=== PATIENT | female | born 1955 | race Caucasian/White ===

== ENCOUNTER → 2020-10-18 09:01 | Outpatient (CLI) | payer OTHER, SELFPAY ==
[2020-10-18 10:44] LABS: Alanine Aminotransferase 18 IU/L (<35); Albumin 4.1 g/dL (3.5-5.0); Albumin Globulin Ratio 1.5 (1.0-2.8); Alkaline Phosphatase 79 U/L (38-126); Aspartate Aminotransferase 22 IU/L (14-36); BUN Creatinine Ratio 37.3 (6-22); Bilirubin Total 0.3 mg/dL (0.2-1.3); Blood Urea Nitrogen 22 mg/dL (7-17); Calcium 9.5 mg/dL (8.4-10.2); Carbon Dioxide 26 mmol/L (22-32); Chloride 106 mmol/L (98-107); Cholesterol 155 mg/dL (140-199); Estimated Glomerular Filt Rate > 60.0 mL/min (>60); Globulin 2.8 g/dL (1.7-4.1); Glucose 93 mg/dL (80-110); HDL Cholesterol 61 mg/dL (40-60); HEMOLYSIS < 15 (0-50); LDL Cholesterol Calculated 71 mg/dL (<100); Potassium 4.1 mmol/L (3.4-5.1); Sodium 139 mmol/L (137-145); Total Protein 6.9 g/dL (6.3-8.2); Triglycerides 117 mg/dL (35-150)
[2020-10-18 10:46] LABS: Hemoglobin A1C% w Est Avg Glu 6.8 % (4.0-6.0)
[2020-10-18 12:03] LABS: TSH w/ Reflex to FT4 0.02 uIU/mL (0.47-4.68)
[2020-10-18 12:28] LABS: Free T4, Direct Thyroxine 1.84 ng/dL (0.78-2.19)
[2020-10-18 17:10] LABS: Microalbumin Urine Random 0.7 mg/dL (0-1.6)
[2020-10-18 17:15] LABS: Creatinine Urine Random 89.7 mg/dL; Microalbumi Creatinin Ratio Ur 7.8 ug/mg CR (<30)
== END ==
PROVIDERS: PCP Family Medicine; Referring Provider Family Medicine; Visit Provider Family Medicine
DX: E03.9 Hypothyroidism, unspecified (principal); E11.9 Type 2 diabetes mellitus without complications
CPT/HCPCS: 36415; 80053; 80061; 82043; 82570; 83036; 84439; 84443

== ENCOUNTER → 2021-01-05 13:03 | Outpatient (CLI) | payer OTHER, SELFPAY ==
[2021-01-05] MEDS: COVID-19 VACC #1, MRNA(MOD) 100 MCG/0.5 ML VIAL IM (13:14)
== END ==
PROVIDERS: PCP Family Medicine; Visit Provider Internal Medicine
DX: Z23 Encounter for immunization (principal)
CPT/HCPCS: 0011A; 91301

== ENCOUNTER → 2021-02-02 10:45 | Outpatient (CLI) | payer OTHER, SELFPAY ==
[2021-02-02] MEDS: COVID-19 VACC #2, MRNA(MOD) 100 MCG/0.5 ML VIAL IM (10:51)
== END ==
PROVIDERS: PCP Family Medicine; Visit Provider Internal Medicine
DX: Z23 Encounter for immunization (principal)
CPT/HCPCS: 0012A; 91301

== ENCOUNTER → 2021-02-11 09:09 | Outpatient (CLI) | payer OTHER, SELFPAY ==
[2021-02-11 10:27] LABS: Hemoglobin A1C% w Est Avg Glu 6.1 % (4.0-6.0)
== END ==
PROVIDERS: PCP Family Medicine; Referring Provider Family Medicine; Visit Provider Family Medicine
DX: E11.9 Type 2 diabetes mellitus without complications (principal)
CPT/HCPCS: 36415; 83036

== ENCOUNTER → 2021-04-27 17:06 | Outpatient (CLI) | payer OTHER, SELFPAY ==
--- NOTE | 2021-04-27 17:08 | DI.RAD.S_ITS ---
PROCEDURE: XR CERVICAL SPINE 2V OR 3V INDICATIONS: neck pain TECHNIQUE: 3 view(s) of the cervical spine were acquired. COMPARISON: None. FINDINGS: Bones: No fractures or dislocations to the T1 level. The lateral masses of C1 appear intact on the odontoid view. No suspicious bony lesions. There is moderately severe degenerative disc disease from C5-6 through C6-7. Soft tissues: No prevertebral soft tissue swelling. IMPRESSION: No trauma found. Moderately severe C5 through C7 degenerative disc disease with anterior and posterior projecting osteophytes. Spinal and foraminal stenosis may be associated. Dictated by: Dennis Fernandes M.D. on 04/28/2021 at 9:53 Approved by: Dennis Fernandes M.D. on 04/28/2021 at 9:54
== END ==
PROVIDERS: PCP Family Medicine; Referring Provider Family Medicine; Visit Provider Family Medicine
DX: M50.322 Other cervical disc degeneration at C5-C6 level (principal); S16.1XXA Strain of muscle, fascia and tendon at neck level, initial encounter
CPT/HCPCS: 72040

== ENCOUNTER → 2021-05-22 14:54 | Outpatient (CLI) | payer OTHER, SELFPAY ==
[2021-05-22 16:58] LABS: Hemoglobin A1C% w Est Avg Glu 6.4 % (4.0-6.0)
== END ==
PROVIDERS: PCP Family Medicine; Referring Provider Family Medicine; Visit Provider Family Medicine
DX: E11.9 Type 2 diabetes mellitus without complications (principal)
CPT/HCPCS: 36415; 83036

== ENCOUNTER → 2021-06-01 08:23 | Outpatient (CLI) | payer OTHER, SELFPAY ==
[2021-06-01 08:44] LABS: Add Manual Diff / Slide Review NO; Basophils Absolute Auto 100 /uL (0-100); Basophils Percent Auto 0.8 % (0-2); Eosinophils Absolute Auto 700 /uL (0-450); Eosinophils Percent Auto 9.1 % (2-4); Hematocrit 41.3 % (36-46); Hemoglobin 13.5 g/dL (12.0-16.0); Lymphocytes Absolute Auto 1500 /uL (1100-4500); Lymphocytes Percent Auto 19.5 % (25-40); Mean Corpuscular HGB Conc 32.8 % (30-36); Mean Corpuscular Hemoglobin 28.4 PG (26-34); Mean Corpuscular Volume 86.5 fL (80-100); Monocytes Absolute Auto 600 /uL (0-900); Monocytes Percent Auto 7.2 % (3-14); Neutrophils Absolute Auto 5000 /uL (1500-7000); Neutrophils Percent Auto 63.4 % (50-75); Platelet Count 283 X10^3/uL (150-400); Red Blood Cell Count 4.77 X10^6/uL (4.0-5.2); Red Cell Distribution Width 16.2 % (11.6-14.8); White Blood Cell Count 7.9 X10^3/uL (4.5-11.0)
[2021-06-01 08:56] LABS: Alanine Aminotransferase 21 IU/L (<35); Albumin 3.9 g/dL (3.5-5.0); Albumin Globulin Ratio 1.3 (1.0-2.8); Alkaline Phosphatase 67 U/L (38-126); Aspartate Aminotransferase 27 IU/L (14-36); Bilirubin Total 0.3 mg/dL (0.2-1.3); Blood Urea Nitrogen 24 mg/dL (7-17); Calcium 9.7 mg/dL (8.4-10.2); Carbon Dioxide 24 mmol/L (22-32); Chloride 110 mmol/L (98-107); Cholesterol 155 mg/dL (140-199); Estimated Glomerular Filt Rate > 60.0 mL/min (>60); Globulin 3.1 g/dL (1.7-4.1); Glucose 109 mg/dL (80-110); HDL Cholesterol 69 mg/dL (40-60); HEMOLYSIS < 15 (0-50); LDL Cholesterol Calculated 71 mg/dL (<100); Potassium 4.1 mmol/L (3.4-5.1); Sodium 142 mmol/L (137-145); Triglycerides 75 mg/dL (35-150)
[2021-06-01 08:57] LABS: Hemoglobin A1C% w Est Avg Glu 6.4 % (4.0-6.0)
[2021-06-09 10:42] LABS: Percent Free Testosterone 3.13 % (0.50-2.80); Testosterone Free 0.55 ng/dL (0.10-0.85); Testosterone Total 17.5 ng/dL (7.0-40.0)
== END ==
PROVIDERS: PCP Family Medicine; Referring Provider Family Medicine; Visit Provider Family Medicine
DX: E03.9 Hypothyroidism, unspecified (principal); E11.9 Type 2 diabetes mellitus without complications; E78.5 Hyperlipidemia, unspecified; L68.0 Hirsutism
CPT/HCPCS: 36415; 80053; 80061; 83036; 84402; 84403; 85025

== ENCOUNTER → 2021-06-06 10:53 | Outpatient (CLI) | payer OTHER, SELFPAY ==
--- NOTE | 2021-06-06 10:54 | DI.CT.S_ITS ---
PROCEDURE: CT ABDOMEN PELVIS W CON INDICATIONS: abdominal discomfort, distension TECHNIQUE: After the administration of oral and intravenous contrast, axial sections were acquired from the lung bases to the pubic symphysis. Coronal and sagittal reformats were performed. For radiation dose reduction, the following was used: automated exposure control, adjustment of mA and/or kV according to patient size. COMPARISON:None. FINDINGS: Image quality: Excellent. Lung bases: Lung bases are clear. Heart size is normal. Solid organs: Liver: The liver has no mass or intrahepatic biliary ductal dilatation. The portal vein and hepatic veins are patent. Biliary: The gallbladder has no gallstones, pericholecystic fluid, gallbladder wall thickening, or surrounding inflammatory change. Pancreas: The pancreas has no mass or ductal dilatation. There is no surrounding inflammation. Spleen: Normal size. There are no masses. Adrenals: No hypertrophy or nodules. Kidneys: No obstructive calculus or hydronephrosis. No solid mass. No cystic mass. Peritoneum and bowel: The distal esophagus and stomach are normal. The small bowel has a normal caliber and appearance. The terminal ileum is normal. The large bowel has a normal caliber and appearance. The appendix is normal. No free fluid or air. Nodes and vessels: No retroperitoneal or mesenteric adenopathy by size criteria. Aorta and inferior vena cava are normal in size. Miscellaneous: No abdominal wall mass or hernia. PELVIS: Genitourinary: The bladder has no wall thickening or mass. No bladder calcifications. Miscellaneous: No inguinal hernias or adenopathy. Bones: No suspicious bony lesions. No vertebral body compression fractures. IMPRESSION: No acute abdominal or pelvic abnormality. Dictated by: Francisco Russell M.D. on 06/06/2021 at 18:48 Approved by: Francisco Russell M.D. on 06/06/2021 at 18:53
== END ==
PROVIDERS: PCP Family Medicine; Referring Provider Family Medicine; Visit Provider Family Medicine
DX: R10.9 Unspecified abdominal pain (principal); R14.0 Abdominal distension (gaseous)
CPT/HCPCS: 74177

== ENCOUNTER → 2021-06-13 15:37 | Outpatient (CLI) | payer OTHER, SELFPAY ==
--- NOTE | 2021-06-13 15:40 | DI.MG.S_ITS ---
BILATERAL DIGITAL SCREENING MAMMOGRAM 3D/2D WITH CAD: 06/13/2021 CLINICAL: Routine screening. Family history of breast cancer. Comparison is made to exams dated: 03/27/2019 mammogram, 02/05/2018 mammogram, 03/29/2015 mammogram, and 03/17/2015 mammogram - outside location. There are scattered fibroglandular elements in both breasts. Current study was also evaluated with a Computer Aided Detection (CAD) system. No significant masses, calcifications, or other findings are seen in either breast. There has been no significant interval change. IMPRESSION: NEGATIVE There is no mammographic evidence of malignancy. A 1 year screening mammogram is recommended. This exam was interpreted at Station ID: [id number]. NOTE: For mammograms, a report in lay terms will be sent to the patient. Approximately 15% of breast malignancies will not be visualized mammographically. In the management of a palpable breast mass, a negative mammogram must not discourage biopsy of a clinically suspicious lesion. Electronically Signed By: Tristen barrett/luis:06/13/2021 16:09:35 letter sent: Normal Exam ACR BI-RADS Category 1: Negative [id number]
== END ==
PROVIDERS: PCP Family Medicine; Referring Provider Family Medicine; Visit Provider Family Medicine
DX: Z12.31 Encounter for screening mammogram for malignant neoplasm of breast (principal); Z80.3 Family history of malignant neoplasm of breast
CPT/HCPCS: 77063; 77067

== ENCOUNTER → 2021-06-20 11:35 | Outpatient (CLI) | payer OTHER, SELFPAY ==
[2021-06-20 14:11] LABS: Free T4, Direct Thyroxine 1.64 ng/dL (0.78-2.19)
== END ==
PROVIDERS: PCP Family Medicine; Referring Provider Family Medicine; Visit Provider Family Medicine
DX: E03.9 Hypothyroidism, unspecified (principal)
CPT/HCPCS: 36415; 84439; 84443

== ENCOUNTER → 2021-06-26 18:45 | Outpatient (CLI) | payer OTHER, SELFPAY ==
--- NOTE | 2021-06-26 18:47 | DI.RAD.S_ITS ---
PROCEDURE: XR KNEE RT 3V INDICATIONS: right knee giving way TECHNIQUE: 3 views of the knee were acquired. COMPARISON: None. FINDINGS: Bones: No fractures or dislocations. No suspicious bony lesions. Mild tricompartmental degenerative joint disease. Soft tissues: No joint effusion. No suspicious soft tissue calcifications. IMPRESSION: Mild tricompartment osteoarthritis. If clinical symptoms persist or clinical suspicion for meniscal, ligament or tendon tear is high, MRI is suggested for further evaluation. Dictated by: Louisa Feliz M.D. on 06/27/2021 at 9:08 Approved by: Louisa Feliz M.D. on 06/27/2021 at 9:25
== END ==
PROVIDERS: PCP Family Medicine; Referring Provider Family Medicine; Visit Provider Family Medicine
DX: M25.561 Pain in right knee (principal); M17.11 Unilateral primary osteoarthritis, right knee
CPT/HCPCS: 73562

== ENCOUNTER → 2021-06-27 14:35 | Outpatient (CLI) | payer OTHER, SELFPAY ==
--- NOTE | 2021-06-27 14:36 | DI.US.S_ITS ---
PROCEDURE: US THYROID INDICATIONS: LEFT THYROID NODULE TECHNIQUE: Real-time scanning was performed of the thyroid gland, with image documentation. COMPARISON: None. FINDINGS: Right: Thyroid lobe measures 4.3 x 1.6 x 1.4 cm, and is diffusely heterogeneous in echotexture. Left: Thyroid lobe measures 4.7 x 2.0 x 1.8 cm, and is diffusely heterogeneous in echotexture. Isthmus: 3.5 mm thick. Nodule number: 1 Location: Right mid Size: 1.2 x 1.2 x 1.0 cm. Composition: Predominantly solid Echogenicity: Predominantly hypoechoic Shape: wider than tall. Margins: Smooth Echogenic foci: None Total points: 4 ACR TI-RADS category: Moderately suspicious Nodule number: 2 Location: Right mid Size: 0.9 x 1.3 x 1.0 cm. Composition: Solid Echogenicity: Predominantly isoechoic Shape: wider than tall. Margins: Smooth Echogenic foci: Not requested. Total points: 3 ACR TI-RADS category: Mildly suspicious Nodule number: 3 Location: Left mid Size: 3.6 x 1.4 x 1.4 cm. Composition: Solid Echogenicity: Heterogeneous Shape: wider than tall. Margins: Smooth Echogenic foci: None Total points: 3 ACR TI-RADS category: Mildly suspicious IMPRESSION: Bilateral thyroid nodules. Recommend sonographically directed fine-needle aspiration involving the left #3 nodule. ACR TI-RADS definitions and recommendations: TI-RADS 1 (benign): 0 points. FNA not needed. TI-RADS 2 (not suspicious): 2 points. FNA not needed. TI-RADS 3 (mildly suspicious): 3 points. * FNA if 2.5 cm or larger, follow up if 1.5 cm or larger (at 1, 3, and 5 years). TI-RADS 4 (moderately suspicious): 4-6 points. * FNA if 1.5 cm or larger, follow up if 1 cm or larger (at 1, 2, 3, and 5 years). TI-RADS 5 (highly suspicious): 7 points or more. * FNA if 1 cm or larger, follow up if 0.5 cm or larger (every year for 5 years). Dictated by: Charles COLIN Interpreted: Tiffanie Schafer MD on 06/27/2021 at 15:12 Transcribed by: ABRAHAN on 06/27/2021 at 15:15 Approved by: Tiffanie Schafer M.D. on 06/27/2021 at 15:18
== END ==
PROVIDERS: PCP Family Medicine; Referring Provider Family Medicine; Visit Provider Family Medicine
DX: E03.9 Hypothyroidism, unspecified (principal); E04.2 Nontoxic multinodular goiter
CPT/HCPCS: 76536

== ENCOUNTER 2021-07-20 13:45 | Outpatient (RCR) | payer OTHER, SELFPAY ==
--- NOTE | 2021-05-22 15:26 | PT.OIE ---
Current Diagnoses Cervicalgia (05/22/21) Strain of muscle, fascia and tendon at neck level, initial encounter (05/22/21) Past Medical History (Last Updated 04/27/21 @ 14:07 by Edvin Rader MD) H/O rotator cuff surgery Hypothyroidism Neck pain Strain of neck muscle Type 2 diabetes mellitus Past Surgical History (Last Reviewed 04/12/21 @ 21:37 by Henrietta López PA-C) H/O rotator cuff surgery Visit Care Team Role Provider Type Edvin Rader MD Attending Provider Physician Primary Care Provider Referring Provider Specialty: [facility] Address: [address] [place] [address] Email: [email or web address] Physical Therapy Initial Evaluation PT-OP-A Visit Information Start: 05/22/21 14:48 Freq: Status: Active Protocol: Document 05/22/21 14:49 HH (Rec: 05/22/21 15:26 HH [email or web address]) Out-Patient Physical Therapy Visit Information Visit Information Visit Type Initial Evaluation Visit Start Time 13:50 Visit Stop Time 14:35 Total Visit Minutes 45 Visit Number 1/15 Number of WAREDRESSER Visits 0 Evaluation Information Evaluation Date 05/22/21 PT-OP-B Current Condition Start: 05/22/21 14:48 Freq: Status: Active Protocol: Document 05/22/21 14:49 HH (Rec: 05/22/21 15:26 HH [email or web address]) Current Condition History of Current Condition Onset Date 04/09/21 Current Complaints L neck and shoulder pain, difficulty in sleeping History of Current Condition Evelia is a 65 yo female here for her L sided neck and shoulder pain started 04/09/21 with no known injury. Her pain is mostly at CT junction and radiates to L upper trapezius but denies radicular pain/ numbness/ tingling to L arm. Her pain tends to get worse with reading, sleeping in the chair and L rotation. It gets better with head support, sitting upright and Aleve 1x/ day and tylenol PRN. Her pain also wakes her up at night occasionally so she acquired a new pillow to sleep and it seems to be helpful. Prior Treatments and Tests X-ray at [facility] IMPRESSION: No trauma found. Moderately severe C5 through C7 degenerative disc disease with anterior and posterior projecting osteophytes. Spinal and foraminal stenosis may be associated. Personal Factors Other Personal Factors That May Effect diabetes, hypothyrodism Therapy/Recovery PT-OP-C Subjective Start: 05/22/21 14:48 Freq: Status: Active Protocol: Document 05/22/21 14:49 HH (Rec: 05/22/21 15:26 [email or web address]) Patient Questionnaires Neck Disability Index NDI Score 11 Neck Disability Index Impairment 20 to 39% Impaired (Score 10- 19) Quick Dash- Upper Extremity Quick Dash UE Score 11.36 Quick Dash UE Impairment 1 to 19% Impaired (Score 1-19) OP-PT Pain Assessment Location L shoulder Pain Location Details L upper trapezius Intensity 4 Scale Used Numeric (0 - 10) Description Aching,Pinching,Radiating Frequency Frequent Pain Aggravating Factors Position,Activity,Exercise Pain Alleviating Factors Inactivity,Lying Supine, Position PT-OP-F Manual Assessment Start: 05/22/21 14:48 Freq: Status: Active Protocol: Document 05/22/21 14:49 HH (Rec: 05/22/21 15:26 [email or web address]) Manual Assessments Soft Tissue Assessment Soft Tissue Mobility Assessment significant tenderness to pec major bilateraly, L upper trap and levator scap Joint Mobility Assessment Joint Mobility Assessment hypomobile T1-T6 angulation noted at C5-C7 with cervication rotation and extension PT-OP-J Posture/Palpation/Skin Start: 05/22/21 14:48 Freq: Status: Active Protocol: Document 05/22/21 14:49 HH (Rec: 05/22/21 15:26 [email or web address]) Posture Evaluation Position Standing Evaluation View Lateral Head/C-Spine Posture Forward Head T-Spine Posture Increased Kyphosis Shoulder Posture (L) Rounded,(R) Rounded PT-OP-K Range of Motion Start: 05/22/21 14:48 Freq: Status: Active Protocol: Document 05/22/21 14:49 HH (Rec: 05/22/21 15:26 [email or web address]) Cervical Spine Range of Motion Cervical Spine Active Degrees Testing Position Standing Flexion 45 Extension 43 Rotation Left 48 Rotation Right 68 Lateral Flexion Left 36 Lateral Flexion Right 28 ROM Limitations Soft Tissue Tightness,Muscle Weakness,Pain Comments pain with extension, rotation to L and lateral flexion to L and R PT-OP-L Special Tests Start: 05/22/21 14:48 Freq: Status: Active Protocol: Document 05/22/21 14:49 HH (Rec: 05/22/21 15:26 HH [email or web address]) Special Tests Cervical Spine Special Tests Traction Test Results +ve Comments no discomfort with traction and rotation to L Spurling's Test Test Results +ve L Foraminal Compression Test Results +ve PT-OP-Q Treatments Start: 05/22/21 14:48 Freq: Status: Active Protocol: Document 05/22/21 14:49 HH (Rec: 05/22/21 15:26 [email or web address]) Therapeutic Exercises Supine Exercises chin tuck Reps/Minutes 10 x 1 Comments for HEP, cues on deep cervical flexor engagement Sidelying Exercises open book Side left Comments for HEP, cues on thoracic rotation Sitting Exercises towel stretch Sitting Exercise Name cervical extension and rotation to L Side left Equipment Used towel at CT junction Comments for HEP PT-OP-T Assessment and Plan Start: 05/22/21 14:48 Freq: Status: Active Protocol: Document 05/22/21 14:49 (Rec: 05/22/21 15:26 [email or web address]) Physical Therapy Assessment Rehab Potential Rehabilitation Potential Good Evaluation Complexity Number of Personal Factors/Comorbidities 1-2 Number of Body Systems Impaired 1-2 Clinical Presentation at Evaluation Stable Impairments Impairments Activity Tolerance,Functional Activities,Functional Mobility ,Pain,Posture,ROM,Soft Tissue Mobility,Strength Goals cervical mobility Impairment pain during extension and rotation Short Term Goal (STG) pt will show improved active cervical extension and L rotation by 20 degrees without discomfort. STG Duration 4 weeks HEP Impairment pt does not have a HEP Short Term Goal (STG) pt will comply to HEP safely and independently to increase her overall cervical mobility and strength. STG Duration 4 weeks radiating pain Impairment radiating pain to L upper trap Short Term Goal (STG) pt will not have pain >2/10 so she can sleep without being waken up >3 nights/ week STG Duration 4 weeks Custodial Goal (LTG) pt will be able to sleep without being waken up for the entire week. LTG Duration 8 weeks NDI Impairment pt scores 11 on NDI Short Term Goal (STG) pt will score <8 on NDI to show improved cervical mobility and strength STG Duration 4 weeks Cat Dog Or Other Pet Groomer Goal (LTG) pt will score <5 on NDI to show improved cervical mobility and strength, therefore she can ride in a bumpy car and sitting on a chair without discomfort. LTG Duration 8 weeks Assessment Summary Assessment Evelia is a 65 yo female here for her L sided neck and radiating trapezius pain since 04/09/21 with no known injury. Upon assessment, her symptoms aligned with her findings which indicates forminal stenosis at C5-C7 level. Her pain gets worse with extension , and rotation. She presents with a FHP and rounded shoulder postures with limited thoracic extension and rotation. Pt will benefit from skilled therapy to increase her thoracic mobility, deep cervical stability and postural awareness, therefore , she can maintain good sleep and pain free with cervical rotation. Physical Therapy Plan Frequency and Duration Frequency of Treatment 1x/Week Duration of Treatment 8 weeks Plan of Care Start Date 05/22/21 Plan of Care End Date 07/21/21 Therapeutic Interventions Therapeutic Interventions Home Exercise Program,Joint Mobilizations,Manual Therapy, Neuromuscular Re-education, Patient/Caregiver Education, Self-Care/Home Management,Soft Tissue Mobilization,Taping, Therapeutic Activities, Therapeutic Exercises Modalities Cold Pack/Ice Massage,Electric Stimulation,Hot Packs, Infrared Therapy,Traction- Mechanical,Ultrasound Next Visit Focus/Plan Next Note Type Treatment Note Next Visit Plan review heP check deep cervical felxor endurance. thoracic mobility, extension and rotation postural cheondoism scap retraction
--- NOTE | 2021-05-22 15:26 | PT.OPPOC ---
Physical, Occupational & Speech Therapy At [facility] Current Diagnoses Cervicalgia (05/22/21) Strain of muscle, fascia and tendon at neck level, initial encounter (05/22/21) Visit Care Team Role Provider Type Edvin Rader MD Attending Provider Physician Primary Care Provider Referring Provider Specialty: Family Practice Address: [address] [place] [address], [facility] Email: [email or web address] Plan Of Care PT-OP-T Assessment and Plan Start: 05/22/21 14:48 Freq: Status: Active Protocol: Document 05/22/21 14:49 (Rec: 05/22/21 15:26 [email or web address]) Physical Therapy Assessment Rehab Potential Rehabilitation Potential Good Evaluation Complexity Number of Personal Factors/Comorbidities 1-2 Number of Body Systems Impaired 1-2 Clinical Presentation at Evaluation Stable Impairments Impairments Activity Tolerance,Functional Activities,Functional Mobility ,Pain,Posture,ROM,Soft Tissue Mobility,Strength Goals cervical mobility Impairment pain during extension and rotation Short Term Goal (STG) pt will show improved active cervical extension and L rotation by 20 degrees without discomfort. STG Duration 4 weeks HEP Impairment pt does not have a HEP Short Term Goal (STG) pt will comply to HEP safely and independently to increase her overall cervical mobility and strength. STG Duration 4 weeks radiating pain Impairment radiating pain to L upper trap Short Term Goal (STG) pt will not have pain >2/10 so she can sleep without being waken up >3 nights/ week STG Duration 4 weeks Half-Way Goal (LTG) pt will be able to sleep without being waken up for the entire week. LTG Duration 8 weeks NDI Impairment pt scores 11 on NDI Short Term Goal (STG) pt will score <8 on NDI to show improved cervical mobility and strength STG Duration 4 weeks Half-Way Goal (LTG) pt will score <5 on NDI to show improved cervical mobility and strength, therefore she can ride in a bumpy car and sitting on a chair without discomfort. LTG Duration 8 weeks Assessment Summary Assessment Evelia is a 65 yo female here for her L sided neck and radiating trapezius pain since 04/09/21 with no known injury. Upon assessment, her symptoms aligned with her findings which indicates forminal stenosis at C5-C7 level. Her pain gets worse with extension , and rotation. She presents with a FHP and rounded shoulder postures with limited thoracic extension and rotation. Pt will benefit from skilled therapy to increase her thoracic mobility, deep cervical stability and postural awareness, therefore , she can maintain good sleep and pain free with cervical rotation. Physical Therapy Plan Frequency and Duration Frequency of Treatment 1x/Week Duration of Treatment 8 weeks Plan of Care Start Date 05/22/21 Plan of Care End Date 07/21/21 Therapeutic Interventions Therapeutic Interventions Home Exercise Program,Joint Mobilizations,Manual Therapy, Neuromuscular Re-education, Patient/Caregiver Education, Self-Care/Home Management,Soft Tissue Mobilization,Taping, Therapeutic Activities, Therapeutic Exercises Modalities Cold Pack/Ice Massage,Electric Stimulation,Hot Packs, Infrared Therapy,Traction- Mechanical,Ultrasound Next Visit Focus/Plan Next Note Type Treatment Note Next Visit Plan review heP check deep cervical felxor endurance. thoracic mobility, extension and rotation postural confucianist scap retraction Plan of Care Dates Plan of Care Start Date 05/22/21 Plan of Care End Date 07/21/21 Electronically Signed by: Neftaly Davis PT 05/22/21 [id number] Please Sign and Return: I have reviewed this Plan of Care and certify that the skilled therapy services above are required to meet the patient?s needs. Physician Signature Date Printed Name and Credentials Clinical Instructor Signature Printed Name and Credentials
--- NOTE | 2021-05-31 11:23 | PT.OTN ---
Current Diagnoses Cervicalgia (05/31/21) Strain of muscle, fascia and tendon at neck level, initial encounter (05/31/21) Physical Therapy Treatment Note PT-OP-A Visit Information Start: 05/22/21 14:48 Freq: Status: Active Protocol: Document 05/31/21 10:39 HH (Rec: 05/31/21 11:23 HH [id number]) Out-Patient Physical Therapy Visit Information Visit Information Visit Type Treatment Note Visit Start Time 10:32 Visit Stop Time 11:15 Total Visit Minutes 43 Visit Number 2/15 Number of PANEL GLUER Visits 0 PT-OP-B Current Condition Start: 05/22/21 14:48 Freq: Status: Active Protocol: Document 05/22/21 14:49 HH (Rec: 05/22/21 15:26 HH [email or web address]) Current Condition History of Current Condition Onset Date 04/09/21 Current Complaints L neck and shoulder pain, difficulty in sleeping History of Current Condition Evelia is a 65 yo female here for her L sided neck and shoulder pain started 04/09/21 with no known injury. Her pain is mostly at CT junction and radiates to L upper trapezius but denies radicular pain/ numbness/ tingling to L arm. Her pain tends to get worse with reading, sleeping in the chair and L rotation. It gets better with head support, sitting upright and Aleve 1x/ day and tylenol PRN. Her pain also wakes her up at night occasionally so she acquired a new pillow to sleep and it seems to be helpful. Prior Treatments and Tests X-ray at [facility] IMPRESSION: No trauma found. Moderately severe C5 through C7 degenerative disc disease with anterior and posterior projecting osteophytes. Spinal and foraminal stenosis may be associated. Personal Factors Other Personal Factors That May Effect diabetes, hypothyrodism Therapy/Recovery PT-OP-C Subjective Start: 05/22/21 14:48 Freq: Status: Active Protocol: Document 05/31/21 10:39 HH (Rec: 05/31/21 11:23 HH [id number]) OP-PT Subjective Patient Comments Patient Comments the towel stretch made my arms a little sore. My neck and shoulder feels pretty good . Its not as painful as it was . Patient Reported Progress Improving PT-OP-F Manual Assessment Start: 05/22/21 14:48 Freq: Status: Active Protocol: Document 05/22/21 14:49 HH (Rec: 05/22/21 15:26 [email or web address]) Manual Assessments Soft Tissue Assessment Soft Tissue Mobility Assessment significant tenderness to pec major bilateraly, L upper trap and levator scap Joint Mobility Assessment Joint Mobility Assessment hypomobile T1-T6 angulation noted at C5-C7 with cervication rotation and extension PT-OP-J Posture/Palpation/Skin Start: 05/22/21 14:48 Freq: Status: Active Protocol: Document 05/22/21 14:49 HH (Rec: 05/22/21 15:26 [email or web address]) Posture Evaluation Position Standing Evaluation View Lateral Head/C-Spine Posture Forward Head T-Spine Posture Increased Kyphosis Shoulder Posture (L) Rounded,(R) Rounded PT-OP-K Range of Motion Start: 05/22/21 14:48 Freq: Status: Active Protocol: Document 05/22/21 14:49 HH (Rec: 05/22/21 15:26 [email or web address]) Cervical Spine Range of Motion Cervical Spine Active Degrees Testing Position Standing Flexion 45 Extension 43 Rotation Left 48 Rotation Right 68 Lateral Flexion Left 36 Lateral Flexion Right 28 ROM Limitations Soft Tissue Tightness,Muscle Weakness,Pain Comments pain with extension, rotation to L and lateral flexion to L and R PT-OP-L Special Tests Start: 05/22/21 14:48 Freq: Status: Active Protocol: Document 05/22/21 14:49 HH (Rec: 05/22/21 15:26 [email or web address]) Special Tests Cervical Spine Special Tests Traction Test Results +ve Comments no discomfort with traction and rotation to L Spurling's Test Test Results +ve L Foraminal Compression Test Results +ve PT-OP-Q Treatments Start: 05/22/21 14:48 Freq: Status: Active Protocol: Document 05/31/21 10:39 HH (Rec: 05/31/21 11:23 [id number]) Cardio Equipment Upper Body Ergometer (UBE) Duration (Minutes) 4 Other 30 f &B, no discomfort Therapeutic Exercises Supine Exercises cervical rotation Supine Exercise Name passive stretch from PT Reps/Minutes 5 sec hold at end range Comments 5 mins chin tuck Supine Exercise Name add rotation Reps/Minutes 10 x 1 Comments for HEP, cues on deep cervical flexor engagement Sidelying Exercises open book Sidelying Exercise Name review Side left Comments for HEP, cues on thoracic rotation Sitting Exercises towel stretch Sitting Exercise Name cervical extension and rotation to L Side left Equipment Used towel at CT junction Comments for HEP Manual Therapy Treatment Soft Tissue Mobilization pecs Mobilization Type Myofascial Release,Sustained Pressure,Trigger Point Release Intensity/Depth Moderate Body Position Supine cervical paraspinals Mobilization Type Myofascial Release,Sustained Pressure,Trigger Point Release Intensity/Depth Moderate Body Position Sitting levator scap Mobilization Type Myofascial Release,Sustained Pressure,Trigger Point Release Intensity/Depth Moderate Body Position Sitting Manual Traction C/s Body Position Supine Reps/Duration 10 sec hold x10 PT-OP-T Assessment and Plan Start: 05/22/21 14:48 Freq: Status: Active Protocol: Document 05/31/21 10:39 HH (Rec: 05/31/21 11:23 HH [id number]) Physical Therapy Assessment Goals cervical mobility Impairment pain during extension and rotation Short Term Goal (STG) pt will show improved active cervical extension and L rotation by 20 degrees without discomfort. STG Duration 4 weeks HEP Impairment pt does not have a HEP Short Term Goal (STG) pt will comply to HEP safely and independently to increase her overall cervical mobility and strength. STG Duration 4 weeks radiating pain Impairment radiating pain to L upper trap Short Term Goal (STG) pt will not have pain >2/10 so she can sleep without being waken up >3 nights/ week STG Duration 4 weeks Java Technical Manager Goal (LTG) pt will be able to sleep without being waken up for the entire week. LTG Duration 8 weeks NDI Impairment pt scores 11 on NDI Short Term Goal (STG) pt will score <8 on NDI to show improved cervical mobility and strength STG Duration 4 weeks Prison Goal (LTG) pt will score <5 on NDI to show improved cervical mobility and strength, therefore she can ride in a bumpy car and sitting on a chair without discomfort. LTG Duration 8 weeks Assessment Summary Assessment pt shows good progress with less pain since eval. She also has improved pain sensitivity with extension and rotation. cont POC Physical Therapy Plan Frequency and Duration Frequency of Treatment 1x/Week Duration of Treatment 8 weeks Plan of Care Start Date 05/22/21 Plan of Care End Date 07/21/21 Therapeutic Interventions Therapeutic Interventions Home Exercise Program,Joint Mobilizations,Manual Therapy, Neuromuscular Re-education, Patient/Caregiver Education, Self-Care/Home Management,Soft Tissue Mobilization,Taping, Therapeutic Activities, Therapeutic Exercises Modalities Cold Pack/Ice Massage,Electric Stimulation,Hot Packs, Infrared Therapy,Traction- Mechanical,Ultrasound Next Visit Focus/Plan Next Note Type Treatment Note Next Visit Plan review heP check deep cervical felxor endurance. thoracic mobility, extension and rotation postural adventist scap retraction
--- NOTE | 2021-06-07 09:05 | PT.OTN ---
Current Diagnoses Cervicalgia (06/07/21) Strain of muscle, fascia and tendon at neck level, initial encounter (06/07/21) Physical Therapy Treatment Note PT-OP-A Visit Information Start: 05/22/21 14:48 Freq: Status: Active Protocol: Document 06/07/21 08:14 HH (Rec: 06/07/21 09:05 [id number]) Out-Patient Physical Therapy Visit Information Visit Information Visit Type Treatment Note Visit Start Time 08:15 Visit Stop Time 09:00 Total Visit Minutes 45 Visit Number 3/15 Number of TRANSFORMATION COACH Visits 0 PT-OP-B Current Condition Start: 05/22/21 14:48 Freq: Status: Active Protocol: Document 05/22/21 14:49 HH (Rec: 05/22/21 15:26 HH [email or web address]) Current Condition History of Current Condition Onset Date 04/09/21 Current Complaints L neck and shoulder pain, difficulty in sleeping History of Current Condition Evelia is a 65 yo female here for her L sided neck and shoulder pain started 04/09/21 with no known injury. Her pain is mostly at CT junction and radiates to L upper trapezius but denies radicular pain/ numbness/ tingling to L arm. Her pain tends to get worse with reading, sleeping in the chair and L rotation. It gets better with head support, sitting upright and Aleve 1x/ day and tylenol PRN. Her pain also wakes her up at night occasionally so she acquired a new pillow to sleep and it seems to be helpful. Prior Treatments and Tests X-ray at [facility] IMPRESSION: No trauma found. Moderately severe C5 through C7 degenerative disc disease with anterior and posterior projecting osteophytes. Spinal and foraminal stenosis may be associated. Personal Factors Other Personal Factors That May Effect diabetes, hypothyrodism Therapy/Recovery PT-OP-C Subjective Start: 05/22/21 14:48 Freq: Status: Active Protocol: Document 06/07/21 08:14 HH (Rec: 06/07/21 09:05 [id number]) OP-PT Subjective Patient Comments Patient Comments Im doing pretty good so far. It doesnt hurt as much moving my head. Patient Reported Progress Improving PT-OP-F Manual Assessment Start: 05/22/21 14:48 Freq: Status: Active Protocol: Document 05/22/21 14:49 HH (Rec: 05/22/21 15:26 [email or web address]) Manual Assessments Soft Tissue Assessment Soft Tissue Mobility Assessment significant tenderness to pec major bilateraly, L upper trap and levator scap Joint Mobility Assessment Joint Mobility Assessment hypomobile T1-T6 angulation noted at C5-C7 with cervication rotation and extension PT-OP-J Posture/Palpation/Skin Start: 05/22/21 14:48 Freq: Status: Active Protocol: Document 05/22/21 14:49 HH (Rec: 05/22/21 15:26 [email or web address]) Posture Evaluation Position Standing Evaluation View Lateral Head/C-Spine Posture Forward Head T-Spine Posture Increased Kyphosis Shoulder Posture (L) Rounded,(R) Rounded PT-OP-K Range of Motion Start: 05/22/21 14:48 Freq: Status: Active Protocol: Document 05/22/21 14:49 HH (Rec: 05/22/21 15:26 [email or web address]) Cervical Spine Range of Motion Cervical Spine Active Degrees Testing Position Standing Flexion 45 Extension 43 Rotation Left 48 Rotation Right 68 Lateral Flexion Left 36 Lateral Flexion Right 28 ROM Limitations Soft Tissue Tightness,Muscle Weakness,Pain Comments pain with extension, rotation to L and lateral flexion to L and R PT-OP-L Special Tests Start: 05/22/21 14:48 Freq: Status: Active Protocol: Document 05/22/21 14:49 (Rec: 05/22/21 15:26 [email or web address]) Special Tests Cervical Spine Special Tests Traction Test Results +ve Comments no discomfort with traction and rotation to L Spurling's Test Test Results +ve L Foraminal Compression Test Results +ve PT-OP-Q Treatments Start: 05/22/21 14:48 Freq: Status: Active Protocol: Document 06/07/21 08:14 HH (Rec: 06/07/21 09:05 [id number]) Cardio Equipment Upper Body Ergometer (UBE) Duration (Minutes) 5 Other 30 f &B, no discomfort Therapeutic Exercises Supine Exercises cervical rotation Supine Exercise Name passive stretch from PT Reps/Minutes 5 sec hold at end range Comments 5 mins Sitting Exercises shoulder pull apart Resistance level 1 band Reps/Minutes 10 x2 Comments for HEP towel stretch Sitting Exercise Name cervical extension with t/s extension Side left Equipment Used towel at CT junction Comments for HEP Standing Exercises wall posture Standing Exercise Name with chin tuck Side bilateral Reps/Minutes 10 secs hold x5 Comments for HEP pecs stretch Standing Exercise Name arms behind back Reps/Minutes 10 sec , x 5 Comments for HEP Manual Therapy Treatment Soft Tissue Mobilization pecs Mobilization Type Myofascial Release,Sustained Pressure,Trigger Point Release Intensity/Depth Moderate Body Position Supine cervical paraspinals Mobilization Type Myofascial Release,Sustained Pressure,Trigger Point Release Intensity/Depth Moderate Body Position Sitting levator scap Mobilization Type Myofascial Release,Sustained Pressure,Trigger Point Release Intensity/Depth Moderate Body Position Sitting PT-OP-T Assessment and Plan Start: 05/22/21 14:48 Freq: Status: Active Protocol: Document 06/07/21 08:14 (Rec: 06/07/21 09:05 [id number]) Physical Therapy Assessment Goals cervical mobility Impairment pain during extension and rotation Short Term Goal (STG) pt will show improved active cervical extension and L rotation by 20 degrees without discomfort. STG Duration 4 weeks HEP Impairment pt does not have a HEP Short Term Goal (STG) pt will comply to HEP safely and independently to increase her overall cervical mobility and strength. STG Duration 4 weeks radiating pain Impairment radiating pain to L upper trap Short Term Goal (STG) pt will not have pain >2/10 so she can sleep without being waken up >3 nights/ week STG Duration 4 weeks Gas Mask Assembler Goal (LTG) pt will be able to sleep without being waken up for the entire week. LTG Duration 8 weeks NDI Impairment pt scores 11 on NDI Short Term Goal (STG) pt will score <8 on NDI to show improved cervical mobility and strength STG Duration 4 weeks Gas Mask Assembler Goal (LTG) pt will score <5 on NDI to show improved cervical mobility and strength, therefore she can ride in a bumpy car and sitting on a chair without discomfort. LTG Duration 8 weeks Assessment Summary Assessment pt reports reduced pain and better engagement on chin tuck . Modified her HEP and added shoulder pull apart, chest stretch and wall posture. Physical Therapy Plan Frequency and Duration Frequency of Treatment 1x/Week Duration of Treatment 8 weeks Plan of Care Start Date 05/22/21 Plan of Care End Date 07/21/21 Therapeutic Interventions Therapeutic Interventions Home Exercise Program,Joint Mobilizations,Manual Therapy, Neuromuscular Re-education, Patient/Caregiver Education, Self-Care/Home Management,Soft Tissue Mobilization,Taping, Therapeutic Activities, Therapeutic Exercises Modalities Cold Pack/Ice Massage,Electric Stimulation,Hot Packs, Infrared Therapy,Traction- Mechanical,Ultrasound Next Visit Focus/Plan Next Note Type Treatment Note Next Visit Plan review heP check deep cervical felxor endurance. thoracic mobility, extension and rotation postural worship scap retraction
--- NOTE | 2021-06-15 13:54 | PT.OTN ---
Current Diagnoses Cervicalgia (06/15/21) Strain of muscle, fascia and tendon at neck level, initial encounter (06/15/21) Physical Therapy Treatment Note PT-OP-A Visit Information Start: 05/22/21 14:48 Freq: Status: Active Protocol: Document 06/15/21 12:59 HH (Rec: 06/15/21 13:54 HH [id number]) Out-Patient Physical Therapy Visit Information Visit Information Visit Type Treatment Note Visit Start Time 13:00 Visit Stop Time 13:44 Total Visit Minutes 44 Visit Number 01/19 Number of ORTHOPEDIC BRACE MAKER Visits 0 PT-OP-B Current Condition Start: 05/22/21 14:48 Freq: Status: Active Protocol: Document 05/22/21 14:49 HH (Rec: 05/22/21 15:26 HH [email or web address]) Current Condition History of Current Condition Onset Date 04/09/21 Current Complaints L neck and shoulder pain, difficulty in sleeping History of Current Condition Evelia is a 65 yo female here for her L sided neck and shoulder pain started 04/09/21 with no known injury. Her pain is mostly at CT junction and radiates to L upper trapezius but denies radicular pain/ numbness/ tingling to L arm. Her pain tends to get worse with reading, sleeping in the chair and L rotation. It gets better with head support, sitting upright and Aleve 1x/ day and tylenol PRN. Her pain also wakes her up at night occasionally so she acquired a new pillow to sleep and it seems to be helpful. Prior Treatments and Tests X-ray at [facility] IMPRESSION: No trauma found. Moderately severe C5 through C7 degenerative disc disease with anterior and posterior projecting osteophytes. Spinal and foraminal stenosis may be associated. Personal Factors Other Personal Factors That May Effect diabetes, hypothyrodism Therapy/Recovery PT-OP-C Subjective Start: 05/22/21 14:48 Freq: Status: Active Protocol: Document 06/15/21 12:59 HH (Rec: 06/15/21 13:54 HH [id number]) OP-PT Subjective Patient Comments Patient Comments Talia been doing doing okay. My ROM and soreness are better. I feel good enough that talia been skipping the night time Aleve lately. Patient Reported Progress Improving PT-OP-F Manual Assessment Start: 05/22/21 14:48 Freq: Status: Active Protocol: Document 05/22/21 14:49 HH (Rec: 05/22/21 15:26 [email or web address]) Manual Assessments Soft Tissue Assessment Soft Tissue Mobility Assessment significant tenderness to pec major bilateraly, L upper trap and levator scap Joint Mobility Assessment Joint Mobility Assessment hypomobile T1-T6 angulation noted at C5-C7 with cervication rotation and extension PT-OP-J Posture/Palpation/Skin Start: 05/22/21 14:48 Freq: Status: Active Protocol: Document 05/22/21 14:49 HH (Rec: 05/22/21 15:26 [email or web address]) Posture Evaluation Position Standing Evaluation View Lateral Head/C-Spine Posture Forward Head T-Spine Posture Increased Kyphosis Shoulder Posture (L) Rounded,(R) Rounded PT-OP-K Range of Motion Start: 05/22/21 14:48 Freq: Status: Active Protocol: Document 05/22/21 14:49 HH (Rec: 05/22/21 15:26 [email or web address]) Cervical Spine Range of Motion Cervical Spine Active Degrees Testing Position Standing Flexion 45 Extension 43 Rotation Left 48 Rotation Right 68 Lateral Flexion Left 36 Lateral Flexion Right 28 ROM Limitations Soft Tissue Tightness,Muscle Weakness,Pain Comments pain with extension, rotation to L and lateral flexion to L and R PT-OP-L Special Tests Start: 05/22/21 14:48 Freq: Status: Active Protocol: Document 05/22/21 14:49 HH (Rec: 05/22/21 15:26 [email or web address]) Special Tests Cervical Spine Special Tests Traction Test Results +ve Comments no discomfort with traction and rotation to L Spurling's Test Test Results +ve L Foraminal Compression Test Results +ve PT-OP-Q Treatments Start: 05/22/21 14:48 Freq: Status: Active Protocol: Document 06/15/21 12:59 HH (Rec: 06/15/21 13:54 [id number]) Cardio Equipment Upper Body Ergometer (UBE) Duration (Minutes) 5 Other 30 f &B, no discomfort Therapeutic Exercises Sitting Exercises shoulder pull apart Resistance level 1 band Reps/Minutes 10 x2 Comments for HEP towel stretch Comments DC them since pt feels too easy at this point. Standing Exercises c/s rotation Resistance against small ball Reps/Minutes 8x 2 Comments with chin tuck wall slide Resistance with towel Reps/Minutes 10 x1 wall posture Standing Exercise Name with chin tuck Side bilateral Reps/Minutes 10 secs hold x5 Comments for HEP pecs stretch Standing Exercise Name arms behind back Reps/Minutes 10 sec , x 5 Comments for HEP Manual Therapy Treatment Soft Tissue Mobilization pecs Mobilization Type Myofascial Release,Sustained Pressure,Trigger Point Release Intensity/Depth Moderate Body Position Supine cervical paraspinals Mobilization Type Myofascial Release,Sustained Pressure,Trigger Point Release Intensity/Depth Moderate Body Position Sitting levator scap Mobilization Type Myofascial Release,Sustained Pressure,Trigger Point Release Intensity/Depth Moderate Body Position Sitting PT-OP-T Assessment and Plan Start: 05/22/21 14:48 Freq: Status: Active Protocol: Document 06/15/21 12:59 (Rec: 06/15/21 13:54 [id number]) Physical Therapy Assessment Goals cervical mobility Impairment pain during extension and rotation Short Term Goal (STG) pt will show improved active cervical extension and L rotation by 20 degrees without discomfort. STG Duration 4 weeks HEP Impairment pt does not have a HEP Short Term Goal (STG) pt will comply to HEP safely and independently to increase her overall cervical mobility and strength. STG Duration 4 weeks radiating pain Impairment radiating pain to L upper trap Short Term Goal (STG) pt will not have pain >2/10 so she can sleep without being waken up >3 nights/ week STG Duration 4 weeks Nursing Home Goal (LTG) pt will be able to sleep without being waken up for the entire week. LTG Duration 8 weeks NDI Impairment pt scores 11 on NDI Short Term Goal (STG) pt will score <8 on NDI to show improved cervical mobility and strength STG Duration 4 weeks Oxygen Therapy Teacher Goal (LTG) pt will score <5 on NDI to show improved cervical mobility and strength, therefore she can ride in a bumpy car and sitting on a chair without discomfort. LTG Duration 8 weeks Assessment Summary Assessment Pt shows good progress with improved ROM, and neck endurance. DC her rotation ex with towel but added rotation in WB position and supine position to encourage isolated rotation. Physical Therapy Plan Frequency and Duration Frequency of Treatment 1x/Week Duration of Treatment 8 weeks Plan of Care Start Date 05/22/21 Plan of Care End Date 07/21/21 Therapeutic Interventions Therapeutic Interventions Home Exercise Program,Joint Mobilizations,Manual Therapy, Neuromuscular Re-education, Patient/Caregiver Education, Self-Care/Home Management,Soft Tissue Mobilization,Taping, Therapeutic Activities, Therapeutic Exercises Modalities Cold Pack/Ice Massage,Electric Stimulation,Hot Packs, Infrared Therapy,Traction- Mechanical,Ultrasound Next Visit Focus/Plan Next Note Type Treatment Note Next Visit Plan review heP check deep cervical felxor endurance. thoracic mobility, extension and rotation postural adventism scap retraction
--- NOTE | 2021-06-22 13:24 | PT.OTN ---
Current Diagnoses Cervicalgia (06/22/21) Strain of muscle, fascia and tendon at neck level, initial encounter (06/22/21) Physical Therapy Treatment Note PT-OP-A Visit Information Start: 05/22/21 14:48 Freq: Status: Active Protocol: Document 06/22/21 11:21 HH (Rec: 06/22/21 11:25 [id number]) Out-Patient Physical Therapy Visit Information Visit Information Visit Type Treatment Note Visit Start Time 11:18 Visit Stop Time 12:00 Total Visit Minutes 42 Visit Number 5/15 Number of POWER HOUSE ENGINEER Visits 0 PT-OP-B Current Condition Start: 05/22/21 14:48 Freq: Status: Active Protocol: Document 05/22/21 14:49 HH (Rec: 05/22/21 15:26 HH [email or web address]) Current Condition History of Current Condition Onset Date 04/09/21 Current Complaints L neck and shoulder pain, difficulty in sleeping History of Current Condition Evelia is a 65 yo female here for her L sided neck and shoulder pain started 04/09/21 with no known injury. Her pain is mostly at CT junction and radiates to L upper trapezius but denies radicular pain/ numbness/ tingling to L arm. Her pain tends to get worse with reading, sleeping in the chair and L rotation. It gets better with head support, sitting upright and Aleve 1x/ day and tylenol PRN. Her pain also wakes her up at night occasionally so she acquired a new pillow to sleep and it seems to be helpful. Prior Treatments and Tests X-ray at [facility] IMPRESSION: No trauma found. Moderately severe C5 through C7 degenerative disc disease with anterior and posterior projecting osteophytes. Spinal and foraminal stenosis may be associated. Personal Factors Other Personal Factors That May Effect diabetes, hypothyrodism Therapy/Recovery PT-OP-C Subjective Start: 05/22/21 14:48 Freq: Status: Active Protocol: Document 06/22/21 11:21 HH (Rec: 06/22/21 11:25 [id number]) OP-PT Subjective Patient Comments Patient Comments My neck doesnt bother me in a daily basis. My neck does get sore after exercises. Patient Reported Progress Improving PT-OP-F Manual Assessment Start: 05/22/21 14:48 Freq: Status: Active Protocol: Document 05/22/21 14:49 HH (Rec: 05/22/21 15:26 [email or web address]) Manual Assessments Soft Tissue Assessment Soft Tissue Mobility Assessment significant tenderness to pec major bilateraly, L upper trap and levator scap Joint Mobility Assessment Joint Mobility Assessment hypomobile T1-T6 angulation noted at C5-C7 with cervication rotation and extension PT-OP-J Posture/Palpation/Skin Start: 05/22/21 14:48 Freq: Status: Active Protocol: Document 05/22/21 14:49 HH (Rec: 05/22/21 15:26 [email or web address]) Posture Evaluation Position Standing Evaluation View Lateral Head/C-Spine Posture Forward Head T-Spine Posture Increased Kyphosis Shoulder Posture (L) Rounded,(R) Rounded PT-OP-K Range of Motion Start: 05/22/21 14:48 Freq: Status: Active Protocol: Document 05/22/21 14:49 (Rec: 05/22/21 15:26 [email or web address]) Cervical Spine Range of Motion Cervical Spine Active Degrees Testing Position Standing Flexion 45 Extension 43 Rotation Left 48 Rotation Right 68 Lateral Flexion Left 36 Lateral Flexion Right 28 ROM Limitations Soft Tissue Tightness,Muscle Weakness,Pain Comments pain with extension, rotation to L and lateral flexion to L and R PT-OP-L Special Tests Start: 05/22/21 14:48 Freq: Status: Active Protocol: Document 05/22/21 14:49 (Rec: 05/22/21 15:26 [email or web address]) Special Tests Cervical Spine Special Tests Traction Test Results +ve Comments no discomfort with traction and rotation to L Spurling's Test Test Results +ve L Foraminal Compression Test Results +ve PT-OP-Q Treatments Start: 05/22/21 14:48 Freq: Status: Active Protocol: Document 06/22/21 11:21 HH (Rec: 06/22/21 11:25 [id number]) Cardio Equipment Upper Body Ergometer (UBE) Duration (Minutes) 5 Other 30 f &B, no discomfort Therapeutic Exercises Supine Exercises chin iso hold Supine Exercise Name deep cervical flexion, lateral flexion Reps/Minutes 10s hold x5 for each direction Comments for HEP cervical rotation Supine Exercise Name passive stretch from PT Reps/Minutes 5 sec hold at end range Comments 5 mins chin tuck Supine Exercise Name add rotation Reps/Minutes 10 x 1 Comments for HEP, cues on deep cervical flexor engagement Sitting Exercises neck stabilization Sitting Exercise Name resisted cervical retraction and with shoulder flexion Resistance level 1 band Reps/Minutes 5 x 5 shoulder pull apart Resistance level 1 band Reps/Minutes 10 x2 Comments for HEP Standing Exercises scap row Resistance level 1 band Reps/Minutes 10 x2 wall slide Standing Exercise Name flexion Resistance with towel Reps/Minutes 10 x1 wall posture Standing Exercise Name with chin tuck Side bilateral Reps/Minutes 10 secs hold x5 Comments for HEP Manual Therapy Treatment Soft Tissue Mobilization levator scap Mobilization Type Myofascial Release,Sustained Pressure,Trigger Point Release Intensity/Depth Moderate Body Position Sitting PT-OP-T Assessment and Plan Start: 05/22/21 14:48 Freq: Status: Active Protocol: Document 06/22/21 11:21 (Rec: 06/22/21 11:25 [id number]) Physical Therapy Assessment Goals cervical mobility Impairment pain during extension and rotation Short Term Goal (STG) pt will show improved active cervical extension and L rotation by 20 degrees without discomfort. STG Duration 4 weeks HEP Impairment pt does not have a HEP Short Term Goal (STG) pt will comply to HEP safely and independently to increase her overall cervical mobility and strength. STG Duration 4 weeks radiating pain Impairment radiating pain to L upper trap Short Term Goal (STG) pt will not have pain >2/10 so she can sleep without being waken up >3 nights/ week STG Duration 4 weeks Jail Goal (LTG) pt will be able to sleep without being waken up for the entire week. LTG Duration 8 weeks NDI Impairment pt scores 11 on NDI Short Term Goal (STG) pt will score <8 on NDI to show improved cervical mobility and strength STG Duration 4 weeks Hedis Registered Nurse Rn Goal (LTG) pt will score <5 on NDI to show improved cervical mobility and strength, therefore she can ride in a bumpy car and sitting on a chair without discomfort. LTG Duration 8 weeks Assessment Summary Assessment pt is doing well with less cervical fatigue and pain since IE. Today's session focused on neck stabilization and shoulder strengthening. She has good unstanding on engaging deep cervical flexors during shoulder movements. Change her visits to once every 2 weeks. Possible DC next visit. Physical Therapy Plan Frequency and Duration Frequency of Treatment 1x/Week Duration of Treatment 8 weeks Plan of Care Start Date 05/22/21 Plan of Care End Date 07/21/21 Therapeutic Interventions Therapeutic Interventions Home Exercise Program,Joint Mobilizations,Manual Therapy, Neuromuscular Re-education, Patient/Caregiver Education, Self-Care/Home Management,Soft Tissue Mobilization,Taping, Therapeutic Activities, Therapeutic Exercises Modalities Cold Pack/Ice Massage,Electric Stimulation,Hot Packs, Infrared Therapy,Traction- Mechanical,Ultrasound Next Visit Focus/Plan Next Note Type Treatment Note Next Visit Plan review heP check deep cervical felxor endurance. thoracic mobility, extension and rotation postural amish scap retraction
--- NOTE | 2021-06-29 12:58 | PT.OTN ---
Current Diagnoses Cervicalgia (06/29/21) Strain of muscle, fascia and tendon at neck level, initial encounter (06/29/21) Physical Therapy Treatment Note PT-OP-A Visit Information Start: 05/22/21 14:48 Freq: Status: Active Protocol: Document 06/29/21 10:49 HH (Rec: 06/29/21 12:58 HH [id number]) Out-Patient Physical Therapy Visit Information Visit Information Visit Type Treatment Note Visit Start Time 08:17 Visit Stop Time 09:01 Total Visit Minutes 43 Visit Number 03/21 Number of CHIROPRACTOR SOLE PRACTITIONER Visits 0 PT-OP-B Current Condition Start: 05/22/21 14:48 Freq: Status: Active Protocol: Document 05/22/21 14:49 HH (Rec: 05/22/21 15:26 HH [email or web address]) Current Condition History of Current Condition Onset Date 04/09/21 Current Complaints L neck and shoulder pain, difficulty in sleeping History of Current Condition Evelia is a 65 yo female here for her L sided neck and shoulder pain started 04/09/21 with no known injury. Her pain is mostly at CT junction and radiates to L upper trapezius but denies radicular pain/ numbness/ tingling to L arm. Her pain tends to get worse with reading, sleeping in the chair and L rotation. It gets better with head support, sitting upright and Aleve 1x/ day and tylenol PRN. Her pain also wakes her up at night occasionally so she acquired a new pillow to sleep and it seems to be helpful. Prior Treatments and Tests X-ray at [facility] IMPRESSION: No trauma found. Moderately severe C5 through C7 degenerative disc disease with anterior and posterior projecting osteophytes. Spinal and foraminal stenosis may be associated. Personal Factors Other Personal Factors That May Effect diabetes, hypothyrodism Therapy/Recovery PT-OP-C Subjective Start: 05/22/21 14:48 Freq: Status: Active Protocol: Document 06/22/21 11:21 HH (Rec: 06/22/21 11:25 HH [id number]) OP-PT Subjective Patient Comments Patient Comments My neck doesnt bother me in a daily basis. My neck does get sore after exercises. Patient Reported Progress Improving PT-OP-F Manual Assessment Start: 05/22/21 14:48 Freq: Status: Active Protocol: Document 05/22/21 14:49 HH (Rec: 05/22/21 15:26 [email or web address]) Manual Assessments Soft Tissue Assessment Soft Tissue Mobility Assessment significant tenderness to pec major bilateraly, L upper trap and levator scap Joint Mobility Assessment Joint Mobility Assessment hypomobile T1-T6 angulation noted at C5-C7 with cervication rotation and extension PT-OP-J Posture/Palpation/Skin Start: 05/22/21 14:48 Freq: Status: Active Protocol: Document 05/22/21 14:49 HH (Rec: 05/22/21 15:26 [email or web address]) Posture Evaluation Position Standing Evaluation View Lateral Head/C-Spine Posture Forward Head T-Spine Posture Increased Kyphosis Shoulder Posture (L) Rounded,(R) Rounded PT-OP-K Range of Motion Start: 05/22/21 14:48 Freq: Status: Active Protocol: Document 05/22/21 14:49 HH (Rec: 05/22/21 15:26 [email or web address]) Cervical Spine Range of Motion Cervical Spine Active Degrees Testing Position Standing Flexion 45 Extension 43 Rotation Left 48 Rotation Right 68 Lateral Flexion Left 36 Lateral Flexion Right 28 ROM Limitations Soft Tissue Tightness,Muscle Weakness,Pain Comments pain with extension, rotation to L and lateral flexion to L and R PT-OP-L Special Tests Start: 05/22/21 14:48 Freq: Status: Active Protocol: Document 05/22/21 14:49 HH (Rec: 05/22/21 15:26 [email or web address]) Special Tests Cervical Spine Special Tests Traction Test Results +ve Comments no discomfort with traction and rotation to L Spurling's Test Test Results +ve L Foraminal Compression Test Results +ve PT-OP-Q Treatments Start: 05/22/21 14:48 Freq: Status: Active Protocol: Document 06/29/21 10:49 HH (Rec: 06/29/21 12:58 [id number]) Cardio Equipment Upper Body Ergometer (UBE) Duration (Minutes) 5 Other 30 f &B, no discomfort Therapeutic Exercises Sitting Exercises neck stabilization Sitting Exercise Name resisted cervical retraction and with shoulder flexion Resistance level 1 band Reps/Minutes 5 x 5 shoulder pull apart Resistance level 1 band Reps/Minutes 10 x2 Comments for HEP towel stretch Comments DC them since pt feels too easy at this point. Standing Exercises scap row Resistance level 1 band Reps/Minutes 10 x2 wall slide Standing Exercise Name flexion Resistance with towel Reps/Minutes 10 x1 Manual Therapy Treatment Manual Traction C/s Body Position Supine Reps/Duration 10 sec hold x10 PT-OP-T Assessment and Plan Start: 05/22/21 14:48 Freq: Status: Active Protocol: Document 06/29/21 10:49 HH (Rec: 06/29/21 12:58 HH [id number]) Physical Therapy Assessment Goals cervical mobility Impairment pain during extension and rotation Short Term Goal (STG) pt will show improved active cervical extension and L rotation by 20 degrees without discomfort. STG Duration 4 weeks HEP Impairment pt does not have a HEP Short Term Goal (STG) pt will comply to HEP safely and independently to increase her overall cervical mobility and strength. STG Duration 4 weeks radiating pain Impairment radiating pain to L upper trap Short Term Goal (STG) pt will not have pain >2/10 so she can sleep without being waken up >3 nights/ week STG Duration 4 weeks Statistician Goal (LTG) pt will be able to sleep without being waken up for the entire week. LTG Duration 8 weeks NDI Impairment pt scores 11 on NDI Short Term Goal (STG) pt will score <8 on NDI to show improved cervical mobility and strength STG Duration 4 weeks Mcc Goal (LTG) pt will score <5 on NDI to show improved cervical mobility and strength, therefore she can ride in a bumpy car and sitting on a chair without discomfort. LTG Duration 8 weeks Assessment Summary Assessment pt is progressing slowly and continue to be compliant with her HEP. Physical Therapy Plan Frequency and Duration Frequency of Treatment 1x/Week Duration of Treatment 8 weeks Plan of Care Start Date 05/22/21 Plan of Care End Date 07/21/21 Therapeutic Interventions Therapeutic Interventions Home Exercise Program,Joint Mobilizations,Manual Therapy, Neuromuscular Re-education, Patient/Caregiver Education, Self-Care/Home Management,Soft Tissue Mobilization,Taping, Therapeutic Activities, Therapeutic Exercises Modalities Cold Pack/Ice Massage,Electric Stimulation,Hot Packs, Infrared Therapy,Traction- Mechanical,Ultrasound Next Visit Focus/Plan Next Note Type Treatment Note Next Visit Plan review heP check deep cervical felxor endurance. thoracic mobility, extension and rotation postural yarsani scap retraction
--- NOTE | 2021-07-06 12:25 | PT.OTN ---
Current Diagnoses Cervicalgia (07/06/21) Strain of muscle, fascia and tendon at neck level, initial encounter (07/06/21) Physical Therapy Treatment Note PT-OP-A Visit Information Start: 05/22/21 14:48 Freq: Status: Active Protocol: Document 07/06/21 10:35 HH (Rec: 07/06/21 12:23 HH [id number]) Out-Patient Physical Therapy Visit Information Visit Information Visit Type Treatment Note Visit Start Time 10:33 Visit Stop Time 11:15 Total Visit Minutes 42 Visit Number 04/20 Number of MEAT COUNTER CLERK Visits 0 PT-OP-B Current Condition Start: 05/22/21 14:48 Freq: Status: Active Protocol: Document 05/22/21 14:49 HH (Rec: 05/22/21 15:26 HH [email or web address]) Current Condition History of Current Condition Onset Date 04/09/21 Current Complaints L neck and shoulder pain, difficulty in sleeping History of Current Condition Evelia is a 65 yo female here for her L sided neck and shoulder pain started 04/09/21 with no known injury. Her pain is mostly at CT junction and radiates to L upper trapezius but denies radicular pain/ numbness/ tingling to L arm. Her pain tends to get worse with reading, sleeping in the chair and L rotation. It gets better with head support, sitting upright and Aleve 1x/ day and tylenol PRN. Her pain also wakes her up at night occasionally so she acquired a new pillow to sleep and it seems to be helpful. Prior Treatments and Tests X-ray at [facility] IMPRESS[facility]: No trauma found. Moderately severe C5 through C7 degenerative disc disease with anterior and posterior projecting osteophytes. Spinal and foraminal stenosis may be associated. Personal Factors Other Personal Factors That May Effect diabetes, hypothyrodism Therapy/Recovery PT-OP-C Subjective Start: 05/22/21 14:48 Freq: Status: Active Protocol: Document 07/06/21 10:35 HH (Rec: 07/06/21 12:23 HH [id number]) OP-PT Subjective Patient Comments Patient Comments My neck seems to be good. There's a sore spot when i turn my head to the left. I stopped taking pain med now. I can sleep without being waking up now. Patient Reported Progress Improving PT-OP-F Manual Assessment Start: 05/22/21 14:48 Freq: Status: Active Protocol: Document 05/22/21 14:49 HH (Rec: 05/22/21 15:26 HH [email or web address]) Manual Assessments Soft Tissue Assessment Soft Tissue Mobility Assessment significant tenderness to pec major bilateraly, L upper trap and levator scap Joint Mobility Assessment Joint Mobility Assessment hypomobile T1-T6 angulation noted at C5-C7 with cervication rotation and extension PT-OP-J Posture/Palpation/Skin Start: 05/22/21 14:48 Freq: Status: Active Protocol: Document 05/22/21 14:49 HH (Rec: 05/22/21 15:26 HH [email or web address]) Posture Evaluation Position Standing Evaluation View Lateral Head/C-Spine Posture Forward Head T-Spine Posture Increased Kyphosis Shoulder Posture (L) Rounded,(R) Rounded PT-OP-K Range of Motion Start: 05/22/21 14:48 Freq: Status: Active Protocol: Document 07/06/21 10:35 HH (Rec: 07/06/21 12:25 [id number]) Cervical Spine Range of Motion Cervical Spine Active Degrees Testing Position Standing Flexion 50 Extension 54 Rotation Left 68 Rotation Right 75 Lateral Flexion Left 33 Lateral Flexion Right 30 ROM Limitations Soft Tissue Tightness,Muscle Weakness,Pain Comments no pain with extension slight discomfort for L lateral flexion full rom in supine. PT-OP-L Special Tests Start: 05/22/21 14:48 Freq: Status: Active Protocol: Document 05/22/21 14:49 HH (Rec: 05/22/21 15:26 HH [email or web address]) Special Tests Cervical Spine Special Tests Traction Test Results +ve Comments no discomfort with traction and rotation to L Spurling's Test Test Results +ve L Foraminal Compression Test Results +ve PT-OP-Q Treatments Start: 05/22/21 14:48 Freq: Status: Active Protocol: Document 07/06/21 10:35 HH (Rec: 07/06/21 12:23 HH [id number]) Cardio Equipment Upper Body Ergometer (UBE) Duration (Minutes) 5 Other 30 f &B, no discomfort Therapeutic Exercises Sitting Exercises shoulder pull apart Resistance level 1 band Reps/Minutes 10 x2 Comments for HEP Standing Exercises levator and trap stretch Reps/Minutes 10s hold x5 Comments for HEP standing open book Standing Exercise Name cues on thoracic rotation Comments for HEP scap row Resistance level 1 band Reps/Minutes 10 x2 Manual Therapy Treatment Manual Traction C/s Body Position Supine Reps/Duration 10 sec hold x10 PT-OP-T Assessment and Plan Start: 05/22/21 14:48 Freq: Status: Active Protocol: Document 07/06/21 10:35 HH (Rec: 07/06/21 12:23 HH [id number]) Physical Therapy Assessment Goals cervical mobility Impairment pain during extension and rotation Short Term Goal (STG) 07/06 goal met. Full AROM in supine position pt will show improved active cervical extension and L rotation by 20 degrees without discomfort. STG Duration 4 weeks Job Spotter Goal (LTG) 08/05 pt will show full ROM in all planes in WB position. HEP Impairment pt does not have a HEP Short Term Goal (STG) 07/06 goal met pt complies to HEP safely and independently to increase her overall cervical mobility and strength. STG Duration 4 weeks radiating pain Impairment radiating pain to L upper trap Short Term Goal (STG) 07/06 goal met pt does not have pain during sleep now. STG Duration 4 weeks Job Spotter Goal (LTG) pt will be able to sleep without being waken up for the entire week. LTG Duration 8 weeks NDI Impairment pt scores 11 on NDI Short Term Goal (STG) pt will score <8 on NDI to show improved cervical mobility and strength STG Duration 4 weeks Assisted Goal (LTG) pt will score <5 on NDI to show improved cervical mobility and strength, therefore she can ride in a bumpy car and sitting on a chair without discomfort. LTG Duration 8 weeks Progress Towards Goals Progress Towards Goals Progressing Toward Goals Assessment Summary Assessment pt has been progressing well with no night pain and increaesd ROM. She has full AROM in supine but slightly less in WB position for L rotation and lateral flexion. Added standing open book and levator scap stretch today. Will f/u with her in 2 weeks. Physical Therapy Plan Frequency and Duration Frequency of Treatment 1x/Week Duration of Treatment 8 weeks Plan of Care Start Date 05/22/21 Plan of Care End Date 07/21/21 Therapeutic Interventions Therapeutic Interventions Home Exercise Program,Joint Mobilizations,Manual Therapy, Neuromuscular Re-education, Patient/Caregiver Education, Self-Care/Home Management,Soft Tissue Mobilization,Taping, Therapeutic Activities, Therapeutic Exercises Modalities Cold Pack/Ice Massage,Electric Stimulation,Hot Packs, Infrared Therapy,Traction- Mechanical,Ultrasound Next Visit Focus/Plan Next Note Type Treatment Note Next Visit Plan review heP check deep cervical felxor endurance. thoracic mobility, extension and rotation postural sikh scap retraction
--- NOTE | 2021-07-20 14:23 | PT.OTN ---
Current Diagnoses Cervicalgia (07/20/21) Strain of muscle, fascia and tendon at neck level, initial encounter (07/20/21) Physical Therapy Treatment Note PT-OP-A Visit Information Start: 05/22/21 14:48 Freq: Status: Active Protocol: Document 07/20/21 13:48 HH (Rec: 07/20/21 14:22 [id number]) Out-Patient Physical Therapy Visit Information Visit Information Visit Type Discharge Summary Visit Start Time 13:47 Visit Stop Time 17:00 Total Visit Minutes 30 Visit Number 8/15 Number of TRUCK SERVICE MANAGER Visits 0 PT-OP-B Current Condition Start: 05/22/21 14:48 Freq: Status: Active Protocol: Document 05/22/21 14:49 HH (Rec: 05/22/21 15:26 HH [email or web address]) Current Condition History of Current Condition Onset Date 04/09/21 Current Complaints L neck and shoulder pain, difficulty in sleeping History of Current Condition Evelia is a 65 yo female here for her L sided neck and shoulder pain started 04/09/21 with no known injury. Her pain is mostly at CT junction and radiates to L upper trapezius but denies radicular pain/ numbness/ tingling to L arm. Her pain tends to get worse with reading, sleeping in the chair and L rotation. It gets better with head support, sitting upright and Aleve 1x/ day and tylenol PRN. Her pain also wakes her up at night occasionally so she acquired a new pillow to sleep and it seems to be helpful. Prior Treatments and Tests X-ray at [facility] IMPRESSION: No trauma found. Moderately severe C5 through C7 degenerative disc disease with anterior and posterior projecting osteophytes. Spinal and foraminal stenosis may be associated. Personal Factors Other Personal Factors That May Effect diabetes, hypothyrodism Therapy/Recovery PT-OP-C Subjective Start: 05/22/21 14:48 Freq: Status: Active Protocol: Document 07/20/21 13:48 HH (Rec: 07/20/21 14:22 [id number]) OP-PT Subjective Patient Comments Patient Comments My neck is doing pretty good. I only have tightness sensation sometimes. Stretching my trap tends to feel a little painful. Patient Reported Progress Improving PT-OP-F Manual Assessment Start: 05/22/21 14:48 Freq: Status: Active Protocol: Document 05/22/21 14:49 HH (Rec: 05/22/21 15:26 HH [email or web address]) Manual Assessments Soft Tissue Assessment Soft Tissue Mobility Assessment significant tenderness to pec major bilateraly, L upper trap and levator scap Joint Mobility Assessment Joint Mobility Assessment hypomobile T1-T6 angulation noted at C5-C7 with cervication rotation and extension PT-OP-J Posture/Palpation/Skin Start: 05/22/21 14:48 Freq: Status: Active Protocol: Document 05/22/21 14:49 HH (Rec: 05/22/21 15:26 [email or web address]) Posture Evaluation Position Standing Evaluation View Lateral Head/C-Spine Posture Forward Head T-Spine Posture Increased Kyphosis Shoulder Posture (L) Rounded,(R) Rounded PT-OP-K Range of Motion Start: 05/22/21 14:48 Freq: Status: Active Protocol: Document 07/06/21 10:35 HH (Rec: 07/06/21 12:25 HH [id number]) Cervical Spine Range of Motion Cervical Spine Active Degrees Testing Position Standing Flexion 50 Extension 54 Rotation Left 68 Rotation Right 75 Lateral Flexion Left 33 Lateral Flexion Right 30 ROM Limitations Soft Tissue Tightness,Muscle Weakness,Pain Comments no pain with extension slight discomfort for L lateral flexion full rom in supine. PT-OP-L Special Tests Start: 05/22/21 14:48 Freq: Status: Active Protocol: Document 05/22/21 14:49 HH (Rec: 05/22/21 15:26 [email or web address]) Special Tests Cervical Spine Special Tests Traction Test Results +ve Comments no discomfort with traction and rotation to L Spurling's Test Test Results +ve L Foraminal Compression Test Results +ve PT-OP-Q Treatments Start: 05/22/21 14:48 Freq: Status: Active Protocol: Document 07/20/21 13:48 HH (Rec: 07/20/21 14:22 HH [id number]) Cardio Equipment Upper Body Ergometer (UBE) Duration (Minutes) 5 Other 30 f &B, no discomfort Therapeutic Exercises Sitting Exercises shoulder pull apart Resistance level 2 band Reps/Minutes 10 x2 Comments for HEP Standing Exercises levator and trap stretch Reps/Minutes 10s hold x5 Comments for HEP, replace head pull with pulling from table standing open book Standing Exercise Name cues on thoracic rotation Comments for HEP PT-OP-T Assessment and Plan Start: 05/22/21 14:48 Freq: Status: Active Protocol: Document 07/20/21 13:48 (Rec: 07/20/21 14:22 [id number]) Physical Therapy Assessment Goals cervical mobility Impairment pain during extension and rotation Short Term Goal (STG) 07/06 goal met. Full AROM in supine position pt will show improved active cervical extension and L rotation by 20 degrees without discomfort. STG Duration 4 weeks Intermediate Goal (LTG) 08/05 pt will show full ROM in all planes in WB position. HEP Impairment pt does not have a HEP Short Term Goal (STG) 07/06 goal met pt complies to HEP safely and independently to increase her overall cervical mobility and strength. STG Duration 4 weeks radiating pain Impairment radiating pain to L upper trap Short Term Goal (STG) 07/06 goal met pt does not have pain during sleep now. STG Duration 4 weeks Intermediate Goal (LTG) pt will be able to sleep without being waken up for the entire week. LTG Duration 8 weeks NDI Impairment pt scores 11 on NDI Short Term Goal (STG) pt will score <8 on NDI to show improved cervical mobility and strength STG Duration 4 weeks Intermediate Goal (LTG) pt will score <5 on NDI to show improved cervical mobility and strength, therefore she can ride in a bumpy car and sitting on a chair without discomfort. LTG Duration 8 weeks Assessment Summary Assessment pt reports good progress so far and pleased with the progress. She has no discomfort with her daily activities and She agrees to be DC from PT at this point. Physical Therapy Plan Frequency and Duration Frequency of Treatment 1x/Week Duration of Treatment 8 weeks Plan of Care Start Date 05/22/21 Plan of Care End Date 07/21/21 Therapeutic Interventions Therapeutic Interventions Home Exercise Program,Joint Mobilizations,Manual Therapy, Neuromuscular Re-education, Patient/Caregiver Education, Self-Care/Home Management,Soft Tissue Mobilization,Taping, Therapeutic Activities, Therapeutic Exercises Modalities Cold Pack/Ice Massage,Electric Stimulation,Hot Packs, Infrared Therapy,Traction- Mechanical,Ultrasound Next Visit Focus/Plan Next Note Type Treatment Note Next Visit Plan review heP check deep cervical felxor endurance. thoracic mobility, extension and rotation postural latter-day scap retraction
--- NOTE | 2021-07-20 14:25 | PT.OPDS ---
Current Diagnoses Cervicalgia (07/20/21) Strain of muscle, fascia and tendon at neck level, initial encounter (07/20/21) Visit Care Team Role Provider Type Edvin Rader MD Attending Provider Physician Primary Care Provider Referring Provider Specialty: [facility] Address: [address] [place] [address], [facility] Email: [email or web address] Visit Number Visit Number 05/21 Discharge Summary PT-OP-B Current Condition Start: 05/22/21 14:48 Freq: Status: Active Protocol: Document 05/22/21 14:49 HH (Rec: 05/22/21 15:26 HH [id number]) Current Condition History of Current Condition Onset Date 04/09/21 Current Complaints L neck and shoulder pain, difficulty in sleeping History of Current Condition Evelia is a 65 yo female here for her L sided neck and shoulder pain started 04/09/21 with no known injury. Her pain is mostly at CT junction and radiates to L upper trapezius but denies radicular pain/ numbness/ tingling to L arm. Her pain tends to get worse with reading, sleeping in the chair and L rotation. It gets better with head support, sitting upright and Aleve 1x/ day and tylenol PRN. Her pain also wakes her up at night occasionally so she acquired a new pillow to sleep and it seems to be helpful. Prior Treatments and Tests X-ray at [facility] IMPRESSION: No trauma found. Moderately severe C5 through C7 degenerative disc disease with anterior and posterior projecting osteophytes. Spinal and foraminal stenosis may be associated. Personal Factors Other Personal Factors That May Effect diabetes, hypothyrodism Therapy/Recovery PT-OP-C Subjective Start: 05/22/21 14:48 Freq: Status: Active Protocol: Document 07/20/21 13:48 HH (Rec: 07/20/21 14:22 HH [id number]) OP-PT Subjective Patient Comments Patient Comments My neck is doing pretty good. I only have tightness sensation sometimes. Stretching my trap tends to feel a little painful. Patient Reported Progress Improving PT-OP-F Manual Assessment Start: 05/22/21 14:48 Freq: Status: Active Protocol: Document 05/22/21 14:49 HH (Rec: 05/22/21 15:26 HH [email or web address]) Manual Assessments Soft Tissue Assessment Soft Tissue Mobility Assessment significant tenderness to pec major bilateraly, L upper trap and levator scap Joint Mobility Assessment Joint Mobility Assessment hypomobile T1-T6 angulation noted at C5-C7 with cervication rotation and extension PT-OP-J Posture/Palpation/Skin Start: 05/22/21 14:48 Freq: Status: Active Protocol: Document 05/22/21 14:49 HH (Rec: 05/22/21 15:26 [email or web address]) Posture Evaluation Position Standing Evaluation View Lateral Head/C-Spine Posture Forward Head T-Spine Posture Increased Kyphosis Shoulder Posture (L) Rounded,(R) Rounded PT-OP-K Range of Motion Start: 05/22/21 14:48 Freq: Status: Active Protocol: Document 07/06/21 10:35 HH (Rec: 07/06/21 12:25 [id number]) Cervical Spine Range of Motion Cervical Spine Active Degrees Testing Position Standing Flexion 50 Extension 54 Rotation Left 68 Rotation Right 75 Lateral Flexion Left 33 Lateral Flexion Right 30 ROM Limitations Soft Tissue Tightness,Muscle Weakness,Pain Comments no pain with extension slight discomfort for L lateral flexion full rom in supine. PT-OP-L Special Tests Start: 05/22/21 14:48 Freq: Status: Active Protocol: Document 05/22/21 14:49 HH (Rec: 05/22/21 15:26 [email or web address]) Special Tests Cervical Spine Special Tests Traction Test Results +ve Comments no discomfort with traction and rotation to L Spurling's Test Test Results +ve L Foraminal Compression Test Results +ve PT-OP-T Assessment and Plan Start: 05/22/21 14:48 Freq: Status: Active Protocol: Document 07/20/21 13:48 HH (Rec: 07/20/21 14:22 [id number]) Physical Therapy Assessment Goals cervical mobility Impairment pain during extension and rotation Short Term Goal (STG) 07/06 goal met. Full AROM in supine position pt will show improved active cervical extension and L rotation by 20 degrees without discomfort. STG Duration 4 weeks Group Home Goal (LTG) 08/05 pt will show full ROM in all planes in WB position. HEP Impairment pt does not have a HEP Short Term Goal (STG) 07/06 goal met pt complies to HEP safely and independently to increase her overall cervical mobility and strength. STG Duration 4 weeks radiating pain Impairment radiating pain to L upper trap Short Term Goal (STG) 07/06 goal met pt does not have pain during sleep now. STG Duration 4 weeks Prototyper Goal (LTG) pt will be able to sleep without being waken up for the entire week. LTG Duration 8 weeks NDI Impairment pt scores 11 on NDI Short Term Goal (STG) pt will score <8 on NDI to show improved cervical mobility and strength STG Duration 4 weeks Group Home Goal (LTG) pt will score <5 on NDI to show improved cervical mobility and strength, therefore she can ride in a bumpy car and sitting on a chair without discomfort. LTG Duration 8 weeks Assessment Summary Assessment pt reports good progress so far and pleased with the progress. She has no discomfort with her daily activities and She agrees to be DC from PT at this point. Physical Therapy Plan Frequency and Duration Frequency of Treatment 1x/Week Duration of Treatment 8 weeks Plan of Care Start Date 05/22/21 Plan of Care End Date 07/21/21 Therapeutic Interventions Therapeutic Interventions Home Exercise Program,Joint Mobilizations,Manual Therapy, Neuromuscular Re-education, Patient/Caregiver Education, Self-Care/Home Management,Soft Tissue Mobilization,Taping, Therapeutic Activities, Therapeutic Exercises Modalities Cold Pack/Ice Massage,Electric Stimulation,Hot Packs, Infrared Therapy,Traction- Mechanical,Ultrasound Next Visit Focus/Plan Next Note Type Treatment Note Next Visit Plan review heP check deep cervical felxor endurance. thoracic mobility, extension and rotation postural pentecostalism scap retraction
== END 2021-07-26 08:39 ==
LOC: PHYS 13:45
PROVIDERS: PCP Family Medicine; Referring Provider Family Medicine; Visit Provider Family Medicine
DX: M54.2 Cervicalgia (principal); S16.1XXA Strain of muscle, fascia and tendon at neck level, initial encounter
CPT/HCPCS: 97110; 97140; 97161

== ENCOUNTER → 2021-07-25 14:27 | Outpatient (CLI) | payer OTHER, SELFPAY | PROVIDERS: PCP Family Medicine; Referring Provider Family Medicine; Visit Provider Family Medicine | DX: E04.1 Nontoxic single thyroid nodule (principal); E03.9 Hypothyroidism, unspecified; Z53.8 Procedure and treatment not carried out for other reasons ==

== ENCOUNTER → 2021-08-01 14:28 | Outpatient (CLI) | payer OTHER, SELFPAY ==
--- NOTE | 2021-08-01 | PATH_ITS ---
Note [facility] Accession Number: [id number] TESTS RESULT FLAG UNITS REF RANGE LAB Clinician Provided Cytology Information No. of containers..01 Other (Miscellaneous) No. of containers..00 Previously Prepared Cytology Slide Source: LEFT THYROID DIAGNOSIS: LEFT THYROID NEGATIVE FOR MALIGNANT CELLS. BETHESDA CATEGORY II. SPECIMEN CONSISTS OF BENIGN FOLLICULAR CELLS, HEMOSIDERIN-LADEN MACROPHAGES, AND COLLOID. THIS PATTERN IS CONSISTENT WITH A BENIGN FOLLICULAR NODULE. COMMENT: The background includes scattered lymphocytes which may represent a component of a chronic thyroiditis. Bag Machine Tender slides of this case are also reviewed by Dr. Fay Rivas who concurs with the given interpretation. Pathologist ICD10: 01 E04.1 Clinical history: FINDINGS: Right'. Thyroid lobe measures 4.3 x 1.6 x 1.4 cm, and is diffusely heterogeneous in echotexture. Left: Thyroid lobe measures 4.7 x 2.0 x 1.8 cmi and is diffusely heterogeneous in echotexture, Isthmus: mm thick. IMPRESSION: Bilateral thyroid nodules. Recommend sonographically directed fine-needle aspiration involving the left #3 nodule. Signed out by: Venessa Johnston MD, Pathologist NPI- [id number] Performed by: Sundeep Bunch, Cab Driver ([facility]) Gross description: 30 CC, RED, CLEAR RECIEVED: IN CYTOLYT WITH 5 ALCOHOL FIXED AND 5 QUICK STAINED SLIDES ALSO 1 RNA VIAL WAS RECEIVED FOR FURTHER TESTING. /VD 08/02/2021 [facility] FLAG LEGEND: L-Low Normal,H-High Normal,LL-Alert Low,HH-Alert High <-Panic Low,>-Panic High,A-Abnormal,AA-Critical Abnormal Performed at: 01 [facility] [address] [place] [address] [address], [place] [address] Bakari Harper MD, Performed at: 01 [facility] [address] [place] [address] [address], [place], [place] [id number] MD Bakari Harper MD Phone: [phone]
--- NOTE | 2021-08-01 14:29 | DI.US.S_ITS ---
PROCEDURE: US FINE NEEDLE ASPIRATION INDICATIONS: Nontoxic single thyroid nodule TECHNIQUE: The indications, alternatives, benefits, risks, and complications of the procedure were explained to the patient. Written informed consent was obtained and placed in the chart. The thyroid region was examined sonographically and a site was chosen for ultrasound guided percutaneous sampling. The skin was prepared and draped in the usual fashion, and anesthetized with 1% lidocaine infiltrated from the skin down to the thyroid gland. Multiple passes were then performed, with contents emptied into an appropriate pathology specimen container. A bandage was applied to the area of access at completion of the study. COMPARISON: None. FINDINGS: Location(s) of lesion(s) sampled: Left thyroid nodule Huntley: 25 gauge and 22 gauge hypodermic needles. Number of passes: 5 with 25 gauge needles and 1 with 22 gauge needle. Medications: 1% lidocaine for local anaesthesia. Complications: None. IMPRESSION: Successful ultrasound-guided thyroid nodule fine needle aspiration, with cytology results pending. Please see chart below for management recommendations based on cytology results. [facility] ReportingRecommendationsNon-diagnostic* Repeat US-guided FNA, with on-site cytology evaluation if possible. * Repeated non-diagnostic nodules without high suspicion US features: close observation vs surgical consult. * Consider surgery if nodule has high suspicion US features, grows >20% in 2 dimensions on followup, or patient has clinical risk factors for malignancy. Benign* If nodule has high suspicion US features: repeat US and FNA within 12 months. * If nodule has low to intermediate suspicion US features: repeat US at 12-24 months. If nodule grows (20% increase in at least 2 dimensions, with minimal increase of 2 mm or >50% change in volume), or development of new suspicious US features, then repeat FNA or continue followup. * If nodule has very low suspicion US features: followup US at >24 months. Atypia of undetermined significance, follicular lesion of undetermined significanceRepeat FNA, molecular testing, followup US, or surgical consult.Follicular neoplasm, suspicious for follicular neoplasmSurgical consult; also consider molecular testing. Suspicious for malignancySurgical consult.MalignantSurgical consult. Dictated by: Eva Carranza MD, PhD on 08/01/2021 at 16:54 Approved by: Eva Carranza MD, PhD on 08/01/2021 at 16:55
== END ==
PROVIDERS: PCP Family Medicine; Referring Provider Family Medicine; Visit Provider Family Medicine
DX: E04.1 Nontoxic single thyroid nodule (principal)
CPT/HCPCS: 10005

== ENCOUNTER → 2021-08-18 10:17 | Outpatient (CLI) | payer OTHER, SELFPAY ==
[2021-08-18] MEDS: COVID-19 VACC #3, MRNA(MOD) 50 MCG/0.25 ML VIAL IM (10:23)
== END ==
PROVIDERS: PCP Family Medicine; Visit Provider Internal Medicine
DX: Z23 Encounter for immunization (principal)
CPT/HCPCS: 0013A; 91301

== ENCOUNTER → 2022-03-14 09:54 | Outpatient (CLI) | payer OTHER, SELFPAY ==
[2022-03-14 11:30] LABS: COVID19 -Nasal RAPID Negative (Negative)
== END ==
PROVIDERS: Family Provider Family Medicine; PCP Family Medicine; Visit Provider Surgery
DX: Z20.822 Contact with and (suspected) exposure to COVID-19 (principal); Z01.812 Encounter for preprocedural laboratory examination
CPT/HCPCS: 87635; C9803

== ENCOUNTER 2022-03-15 07:04 | Day surgery (SDC) | payer OTHER, SELFPAY ==
--- NOTE | 2022-03-15 | PATH_ITS ---
[facility] Accession Number: [id number] . 01 Material submitted: . PART A: colon - TRANSVERSE COLON POLYP PART B: sigmoid colon - SIGMOID COLON POLYP X2 . 01 Diagnosis: A. Transverse Colon, Polyp, Biopsy: Tubular adenoma. . B. Sigmoid Colon, Polyp x2, Biopsy: Hyperplastic polyps with features of mucosal prolapse. MRV 03/19/2022 1734 Local . 01 Electronically signed: . Nabila Melchor MD, Pathologist NPI- [id number] . 01 Gross description: . Part A: TRANSVERSE COLON POLYP: Received in formalin is 1 fragment(s) of post, soft tissue measuring 0.5 x 0.1 x 0.1 cm submitted entirely in 1 cassette(s) Part B: SIGMOID COLON POLYP X2: Received in formalin are 2 fragment(s) of post, soft tissue measuring 0.3 x 0.3 x 0.2 cm to 0.3 x 0.1 x 0.1 cm submitted entirely in 1 cassette(s) /CPE 03/16/2022 0824 Local . 01 Pathologist provided ICD-10: D12.3 . 01 CPT . 399824, [id number] Performed at: 01 [facility] [address] [place] [address] [address], [place], [place] [id number] MD Bakari Harper MD Phone: [phone]
[2022-03-15 07:23] VITALS: BMI 27.3
[2022-03-15 07:39] VITALS: BP 119/78; PULSE 77; RESP 16; TEMP 37.4; O2SAT 100
[2022-03-15] MEDS: LACTATED RINGERS 1,000 ML 42 ML IV (07:43)
--- NOTE | 2022-03-15 07:48 | PM.HP.1 ---
History of Present Illness History of Present Illness Date Patient Seen: 03/15/22 Time Patient Seen: 07:48 Chief complaint: [facility] [place] Narrative: Evelia is a 66-year-old woman who is here for colonoscopy today. She had a colonoscopy in [place] in 2019 with multiple polyps removed. At least 1 of those polyps was a tubular adenoma. She was given the recommendation to have her next colonoscopy at 3 years. Patient History Medical History (Updated 03/15/22 @ 07:49 by John Sorto MD) Cervical disc disease Hyperlipidemia Hypothyroidism Neck pain Strain of neck muscle Tinnitus Type 2 diabetes mellitus Surgical History H/O rotator cuff surgery Family & Social History Family History Unknown Diabetes mellitus Social History: household members spouse Tobacco & Substance use: Smoking Status Never smoker alcohol intake never Substance Use Type does not use Meds Home Medications and Allergies Home Medications Medication Instructions Recorded Confirmed Type blood sugar diagnostic #300 ea 07/10/21 03/13/22 Rx lisinopril 5 mg tablet See Rx Instructions .Route 08/17/21 03/15/22 Rx .COMPLEX #90 tabs empagliflozin 25 mg tablet 25 mg PO DAILY #90 tabs 10/09/21 03/15/22 Rx (Jardiance) levothyroxine 100 mcg tablet 100 mcg PO DAILY #90 tabs 10/09/21 03/15/22 Rx (Synthroid) aspirin 81 mg chewable tablet 81 mg PO DAILY 01/23/22 03/15/22 History glyburide 5 mg tablet 5 mg PO .QD 01/23/22 03/15/22 History metformin 500 mg tablet,extended See Rx Instructions .Route 02/05/22 03/15/22 Rx release 24 hr .COMPLEX #180 tabs atorvastatin 40 mg tablet See Rx Instructions .Route 03/01/22 03/15/22 Rx .COMPLEX #90 tabs sodium sul 1.479 gram-potas ch See Rx Instructions PO PER PKG DIR 03/09/22 03/13/22 Rx 0.188 gram-magnes sul 0.225 gram #24 tabs tablet (Sutab) spironolactone 50 mg tablet 50 mg PO DAILY #90 tabs 03/13/22 03/15/22 Rx Allergies Allergy/AdvReac Type Severity Reaction Status Date / Time Sulfa (Sulfonamide AdvReac Intermediate Rash Verified 03/15/22 07:12 Antibiotics) Exam Vital Signs (past 8 hours): - 03/15/22 07:39 Temperature 99.3 F Pulse Rate 77 Respiratory Rate 16 Blood Pressure 119/78 Pulse Oximetry 100 Oxygen Delivery Method Room Air Oxygen Delivery Method Room Air Const General: comfortable Resp Effort & Inspection: normal respiratory effort Assessment & Plan Assessment and plan (1) Personal history of colonic polyps: Status: Acute Plan Recommend colonoscopy for history of colon polyps. We reviewed the risks and benefits of colonoscopy and she would like to proceed. COVID-19 COVID-19 status: Negative Result date/Date tested (Pos, Neg/Pending): 03/14/22 Time Spent With Patient Critical Care time: I spent a total of [] minutes of critical care time on this patient's care today; this time is exclusive of procedural time.
[2022-03-15] MEDS: fentaNYL 250 MCG/5 ML INJ 125 MCG IV (08:09)
[2022-03-15] MEDS: MIDAZOLAM 5 MG/5 ML VIAL IV (08:09)
--- NOTE | 2022-03-15 08:38 | PM.OP.COLON ---
Operative Date/Time/Diagnoses Date of procedure: 03/15/22 Time of procedure: 08:38 Pre-op diagnosis: History of colon polyps Post-op diagnosis: same Procedure & Clinicians Study performed: Colonoscopy Same procedure as scheduled: Yes Surgeon: John Sorto Procedure Notes Procedure in detail: Surgeon: John Sorto MD Procedure: The patient was brought to the endoscopy suite, placed in left lateral decubitus position. The patient was connected to monitoring devices. A time-out was performed. Sedation was administered. Once the patient was adequately sedated, a digital rectal exam was performed and was normal. The scope was then inserted and advanced to the cecum where the appendiceal orifice was identified and photographed. The terminal ileum was intubated and no abnormalities were noted. Photograph is taken. The scope was then slowly withdrawn over greater than 6 minutes. The mucosa was thoroughly inspected. There was a 4 mm polyp in the transverse colon removed with Jumbo forceps. There were 2 small polyps about 4 mm in the distal sigmoid colon removed with Jumbo forceps. The scope was retroflexed in the rectum. There were some mild internal hemorrhoids but it was otherwise normal. The scope was straightened and removed. The patient was awakened and brought to recovery. Versed: 5 mg Fentanyl: 125 mcg EBL: 2 mL Findings: Small polyp in the transverse colon, 2 small polyps in the sigmoid colon, all about 4 mm Scope withdrawal time: 18 Sedation minutes: 42 Post-procedure Recommendations: Will call with biopsy results Disposition: PACU
[2022-03-15 08:43] VITALS: BP 94/57; PULSE 71; RESP 18; TEMP 36.2; O2SAT 95
[2022-03-15 08:46] VITALS: BP 93/56; PULSE 71; RESP 18; O2SAT 95
[2022-03-15 08:52] VITALS: BP 120/68; PULSE 72; RESP 20; TEMP 36.7; O2SAT 94
== END 2022-03-15 09:02 | disposition home or self-care (01) ==
PROVIDERS: Family Provider Family Medicine; PCP Family Medicine; Referring Provider Surgery; Visit Provider Surgery
PROC: 0DJD8ZZ Inspection of Lower Intestinal Tract, Via Natural or Artificial Opening Endoscopic (ICD-10-PCS; CPT 45378; principal; 2022-03-15 07:45)
DX: Z12.11 Encounter for screening for malignant neoplasm of colon (principal); Z86.010 Personal history of colon polyps; E11.9 Type 2 diabetes mellitus without complications; Z79.84 Long term (current) use of oral hypoglycemic drugs; E03.9 Hypothyroidism, unspecified; K64.8 Other hemorrhoids; D12.3 Benign neoplasm of transverse colon
CPT/HCPCS: 45380; 99152; 99153; J2250; J3010

== ENCOUNTER → 2022-03-22 17:26 | Outpatient (CLI) | payer OTHER, SELFPAY ==
--- NOTE | 2022-03-22 17:28 | DI.MRI.S_ITS ---
PROCEDURE: MR CERVICAL SPINE WO CON INDICATIONS: Chronic neck pain with left-sided radiculopathy TECHNIQUE: Noncontrast sagittal T1 spin echo and T2 fast spin echo, sagittal STIR, foraminal oblique sagittal T2 fast spin echo, and axial gradient echo or T2 fast spin echo through the cervical spine. COMPARISON: [facility], CR, XR CERVICAL SPINE 2V OR 3V, 04/27/2021, 17:21. FINDINGS: Image quality: Excellent. Alignment and Curvature: 3 mm degenerative anterolisthesis of C3 on C4. Trace degenerative anterolisthesis of C4 on C5. Bone Marrow: Marrow demonstrates normal overall signal. Spinal Cord: Visualized spinal cord has normal size and signal. No cerebellar tonsillar herniation. Paraspinous Soft Tissues: No paravertebral masses. Prevertebral soft tissues are normal in thickness. C2-C3: No canal stenosis. No significant foraminal stenosis. C3-C4: Disc bulge. No canal stenosis. Bilateral uncovertebral joint hypertrophy. Bilateral facet hypertrophy, exuberant on the left. Moderate to severe right foraminal narrowing and severe left foraminal narrowing with bilateral foraminal C4 nerve root impingement. C4-C5: Minimal disc bulge. Bilateral facet hypertrophy, exuberant on the left. No central canal stenosis. Moderate right foraminal narrowing. Moderate to severe left foraminal narrowing with a degree of left foraminal C5 nerve root impingement. C5-C6: Severe chronic disc height loss. Moderate diffuse disc bulge, eccentric to the left. Flattening deformity on the ventral cord. Borderline central canal stenosis. AP diameter of the canal is 10 mm. There is stenosis of the left side of the canal and left lateral recess. There is bilateral uncovertebral joint hypertrophy. There is some bilateral facet hypertrophy. There is moderate to severe right foraminal narrowing with a degree of right foraminal C6 nerve root impingement. There is moderate left foraminal narrowing with flattening deformity on the exiting left C6 nerve root. C6-C7: There is severe chronic disc height loss. There is mild right paracentral disc osteophyte complex indenting on the cord. Central canal is 9.2 mm in AP diameter. There is moderate stenosis of the right side of the canal. There is bilateral uncovertebral joint hypertrophy. There is moderate to severe right foraminal narrowing with a degree of right foraminal C7 nerve root impingement. Left foramen is grossly patent. C7-T1: No canal stenosis or foraminal stenosis. IMPRESSION: 1. There is bilateral cervical facet arthropathy, exuberant on the left at C3-C4 and C4-C5. 2. There is significant multilevel foraminal narrowing as described above with multilevel foraminal nerve root impingement. 3. There is canal stenosis at C5-C6 and C6-C7 as described above. Dictated by: Petr Rodriguez M.D. on 03/23/2022 at 10:44 Approved by: Petr Rodriguez M.D. on 03/23/2022 at 10:58
== END ==
PROVIDERS: Family Provider Family Medicine; PCP Family Medicine; Referring Provider Family Medicine; Visit Provider Family Medicine
DX: M47.22 Other spondylosis with radiculopathy, cervical region (principal); M48.02 Spinal stenosis, cervical region; S16.1XXD Strain of muscle, fascia and tendon at neck level, subsequent encounter; X58.XXXD Exposure to other specified factors, subsequent encounter
CPT/HCPCS: 72141

== ENCOUNTER 2022-04-25 11:15 | Outpatient (RCR) | payer OTHER, SELFPAY ==
--- NOTE | 2021-09-27 16:09 | PT.OIE ---
Current Diagnoses Cervicalgia (09/27/21) Strain of muscle, fascia and tendon at neck level, subsequent encounter (09/27/21) Past Medical History (Last Updated 05/29/21 @ 13:58 by Edvin Rader MD) Cervical disc disease H/O rotator cuff surgery Hyperlipidemia Hypothyroidism Neck pain Strain of neck muscle Type 2 diabetes mellitus Past Surgical History (Last Reviewed 04/12/21 @ 21:37 by Henrietta López PA-C) H/O rotator cuff surgery Visit Care Team Role Provider Type Edvin Rader MD Attending Provider Physician Family Provider Primary Care Provider Referring Provider Specialty: Family Practice Address: [address] [place] [address] Email: [email or web address] Physical Therapy Initial Evaluation PT-OP-A Visit Information Start: 09/25/21 12:55 Freq: Status: Active Protocol: Document 09/27/21 13:50 MB (Rec: 09/27/21 14:08 [id number]) Out-Patient Physical Therapy Visit Information Visit Information Visit Type Initial Evaluation Visit Note 9 visits so far this year at this clinic for same problem Visit Start Time 13:50 Visit Stop Time 14:30 Total Visit Minutes 40 Visit Number 1 Number of TELEGRAPHER AGENT Visits 0 Evaluation Information Evaluation Date 09/27/21 PT-OP-B Current Condition Start: 09/25/21 12:55 Freq: Status: Active Protocol: Document 09/27/21 13:50 MB (Rec: 09/27/21 14:08 MB [id number]) Current Condition History of Current Condition Onset Date A year Current Complaints Neck pain and decreased range of motion History of Current Condition Pt states that she received PT at this clinic earlier this year over the summer for the same problem. She has a history of neck arthritis and pain with range of motion. She stopped PT because she got better, continued with the exercises and then they seemed to get harder. She has most trouble moving head side to side. 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 Pt reports 3-4/10 pain at the tops of her shoulders. She reports the most pain where the neck joint touches the shoulder and she has more pain on the left. No numbness or tingling in the arms. She is right handed. Pt had left shoulder arthroscopic surgery in 2018. She did well with PT after that. Pt is sleeping on her sides. She sleeps on a fat pillow. PMH: DM, hypothyroidism, cervical disc disease Pt states that cervical SB stretch bothers her and armpit sniff stretch does not. Prior Treatments and Tests X-ray cervical spine 04/27/21: IMPRESSION: No trauma found. Moderately severe C5 through C7 degenerative disc disease with anterior and posterior projecting osteophytes. Spinal and foraminal stenosis may be associated. Treatment Goals Patient/Caregiver Goals To decrease pain and improve ROM PT-OP-C Subjective Start: 09/25/21 12:55 Freq: Status: Active Protocol: Document 09/27/21 13:50 MB (Rec: 09/27/21 14:08 MB [id number]) OP-PT Subjective Patient Comments Patient Comments See history of current condition Patient Reported Progress Worse Patient Questionnaires Neck Disability Index NDI Score 7 Neck Disability Index Impairment 1 to 19% Impaired (Score 1-9) PT-OP-J Posture/Palpation/Skin Start: 09/25/21 12:55 Freq: Status: Active Protocol: Document 09/27/21 13:50 MB (Rec: 09/27/21 15:05 MB [id number]) Posture Evaluation Comments Posture Comments Standing posture in socks: head rests in 5 deg extension, Dowager's hump, decreased thoracic kyphosis, sway back, increased anterior tilt pelvis , mild knee flexion B, left shoulder mildly higher than the right, rounded shoulders, R scapula lower than the left, right iliac crest higher than the left, overpronation right ankle compared to the left, decreased muscle mass right plantar flexors compared to the left, pt states that one side grew faster than the other and she had her tibial growth plate operated upon to decrease growth PT-OP-K Range of Motion Start: 09/25/21 12:55 Freq: Status: Active Protocol: Document 09/27/21 13:50 MB (Rec: 09/27/21 16:09 MB [id number]) Cervical Spine Range of Motion Cervical Spine Active Testing Position Standing Flexion 47 Extension 25 Rotation Left 60 Rotation Right 60 Lateral Flexion Left 30 Lateral Flexion Right 27 Comments Head rests in 5 deg extension PT-OP-M Strength Start: 09/25/21 12:55 Freq: Status: Active Protocol: Document 09/27/21 13:50 MB (Rec: 09/27/21 16:09 MB [id number]) Shoulder Strength Shoulder Manual Muscle Testing Left Flexion 4 Good Abduction (C5) 5 Normal External Rotation 5 Normal Internal Rotation 5 Normal Right Flexion 4 Good Abduction (C5) 5 Normal External Rotation 5 Normal Internal Rotation 5 Normal Elbow/Forearm Strength Elbow and Forearm Manual Muscle Testing Left Flexion (C6) 5 Normal Extension (C7) 5 Normal Right Flexion (C6) 5 Normal Extension (C7) 5 Normal PT-OP-Q Treatments Start: 09/25/21 12:55 Freq: Status: Active Protocol: Document 09/27/21 13:50 MB (Rec: 09/27/21 16:09 MB [id number]) Self-Care/Home Management Treatment Education Patient Education Body Mechanics,Home Exercise Program,Joint Protection,Pain Management,Posture Other Education Use of racquet ball for self- massage intrascapular area, use of towel roll in pillow case to support head and neck, use of pillow support between arms and between legs to improve resting position PT-OP-T Assessment and Plan Start: 09/25/21 12:55 Freq: Status: Active Protocol: Document 09/27/21 13:50 MB (Rec: 09/27/21 15:05 MB [id number]) Physical Therapy Assessment Rehab Potential Rehabilitation Potential Good Evaluation Complexity Number of Personal Factors/Comorbidities 1-2 Number of Body Systems Impaired 1-2 Clinical Presentation at Evaluation Evolving Impairments Impairments Activity Tolerance,Balance, Functional Activities, Functional Mobility,Pain, Posture,ROM,Soft Tissue Mobility,Strength Goals 2 Blindstitch Machine Operator Goal (LTG) Pt will reports a 75% improvement in neck pain to improve quality of life by 11/08. LTG Duration 8 weeks 1 Senior Care Goal (LTG) Pt will perform progressive HEP with I including posture, flexibility, breathing, self- massage and strengthening to improve pain by 11/28/21. LTG Duration 8 weeks Assessment Summary Assessment Pt is a 65 y/o female presenting with neck and B upper shoulder pain and decreased cervical ROM. She reports a history of neck arthritis and good response to PT earlier in the year at this clinic. She presents with postural changes and shoulder weakness and will benefit from PT to improve range, pain and strength. Physical Therapy Plan Frequency and Duration Frequency of Treatment 1x/Week Duration of Treatment 8 weeks Plan of Care Start Date 09/27/21 Plan of Care End Date 09/27/21 Therapeutic Interventions Therapeutic Interventions Balance Training,Canalithic Repositioning,Home Exercise Program,Joint Mobilizations, Manual Therapy,Neuromuscular Re-education,Patient/Caregiver Education,Self-Care/Home Management,Soft Tissue Mobilization,Taping, Therapeutic Activities, Therapeutic Exercises Modalities Cold Pack/Ice Massage,Hot Packs Next Visit Focus/Plan Next Note Type Treatment Note Next Visit Plan Review any other handouts from previous PT course, progress racquet ball massage upper traps, progress thoracic mobility, initiate manual work , consider taping to inhibit left upper traps
--- NOTE | 2021-09-27 16:09 | PT.OPPOC ---
Physical, Occupational & Speech Therapy At [facility] Current Diagnoses Cervicalgia (09/27/21) Strain of muscle, fascia and tendon at neck level, subsequent encounter (09/27/21) Visit Care Team Role Provider Type Edvin Rader MD Attending Provider Physician Family Provider Primary Care Provider Referring Provider Specialty: Family Practice Address: [address] [place] [address] Email: [email or web address] Plan Of Care PT-OP-T Assessment and Plan Start: 09/25/21 12:55 Freq: Status: Active Protocol: Document 09/27/21 13:50 MB (Rec: 09/27/21 15:05 MB [id number]) Physical Therapy Assessment Rehab Potential Rehabilitation Potential Good Evaluation Complexity Number of Personal Factors/Comorbidities 1-2 Number of Body Systems Impaired 1-2 Clinical Presentation at Evaluation Evolving Impairments Impairments Activity Tolerance,Balance, Functional Activities, Functional Mobility,Pain, Posture,ROM,Soft Tissue Mobility,Strength Goals 2 Lead Injection Mold Technician Goal (LTG) Pt will reports a 75% improvement in neck pain to improve quality of life by 11/08. LTG Duration 8 weeks 1 Lead Injection Mold Technician Goal (LTG) Pt will perform progressive HEP with I including posture, flexibility, breathing, self- massage and strengthening to improve pain by 11/28/21. LTG Duration 8 weeks Assessment Summary Assessment Pt is a 65 y/o female presenting with neck and B upper shoulder pain and decreased cervical ROM. She reports a history of neck arthritis and good response to PT earlier in the year at this clinic. She presents with postural changes and shoulder weakness and will benefit from PT to improve range, pain and strength. Physical Therapy Plan Frequency and Duration Frequency of Treatment 1x/Week Duration of Treatment 8 weeks Plan of Care Start Date 09/27/21 Plan of Care End Date 09/27/21 Therapeutic Interventions Therapeutic Interventions Balance Training,Canalithic Repositioning,Home Exercise Program,Joint Mobilizations, Manual Therapy,Neuromuscular Re-education,Patient/Caregiver Education,Self-Care/Home Management,Soft Tissue Mobilization,Taping, Therapeutic Activities, Therapeutic Exercises Modalities Cold Pack/Ice Massage,Hot Packs Next Visit Focus/Plan Next Note Type Treatment Note Next Visit Plan Review any other handouts from previous PT course, progress racquet ball massage upper traps, progress thoracic mobility, initiate manual work , consider taping to inhibit left upper traps Plan of Care Dates Plan of Care Start Date 09/27/21 Plan of Care End Date 09/27/21 Electronically Signed by: Amy Yates, PT 09/27/21 [id number] Please Sign and Return: I have reviewed this Plan of Care and certify that the skilled therapy services above are required to meet the patient?s needs. Physician Signature Date Printed Name and Credentials Clinical Instructor Signature Printed Name and Credentials
--- NOTE | 2021-10-04 13:51 | PT.OTN ---
Current Diagnoses Cervicalgia (10/04/21) Strain of muscle, fascia and tendon at neck level, subsequent encounter (10/04/21) Physical Therapy Treatment Note PT-OP-A Visit Information Start: 09/25/21 12:55 Freq: Status: Active Protocol: Document 10/04/21 13:09 MB (Rec: 10/04/21 13:44 MB [id number]) Out-Patient Physical Therapy Visit Information Visit Information Visit Type Treatment Note Visit Note 10 visits this year Visit Start Time 13:09 Visit Stop Time 13:50 Total Visit Minutes 41 Visit Number 2 Evaluation Information Evaluation Date 09/27/21 PT-OP-B Current Condition Start: 09/25/21 12:55 Freq: Status: Active Protocol: Document 09/27/21 13:50 MB (Rec: 09/27/21 14:08 MB [id number]) Current Condition History of Current Condition Onset Date A year Current Complaints Neck pain and decreased range of motion History of Current Condition Pt states that she received PT at this clinic earlier this year over the summer for the same problem. She has a history of neck arthritis and pain with range of motion. She stopped PT because she got better, continued with the exercises and then they seemed to get harder. She has most trouble moving head side to side. 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 Pt reports 3-4/10 pain at the tops of her shoulders. She reports the most pain where the neck joint touches the shoulder and she has more pain on the left. No numbness or tingling in the arms. She is right handed. Pt had left shoulder arthroscopic surgery in 2018. She did well with PT after that. Pt is sleeping on her sides. She sleeps on a fat pillow. PMH: DM, hypothyroidism, cervical disc disease Pt states that cervical SB stretch bothers her and armpit sniff stretch does not. Prior Treatments and Tests X-ray cervical spine 04/27/21: IMPRESSION: No trauma found. Moderately severe C5 through C7 degenerative disc disease with anterior and posterior projecting osteophytes. Spinal and foraminal stenosis may be associated. Treatment Goals Patient/Caregiver Goals To decrease pain and improve ROM PT-OP-C Subjective Start: 09/25/21 12:55 Freq: Status: Active Protocol: Document 10/04/21 13:09 MB (Rec: 10/04/21 13:44 MB [id number]) OP-PT Subjective Patient Comments Patient Comments Pt states that she did not do any exercises over the holiday . She brings in handouts from previous PT course. PT-OP-J Posture/Palpation/Skin Start: 09/25/21 12:55 Freq: Status: Active Protocol: Document 09/27/21 13:50 MB (Rec: 09/27/21 15:05 MB [id number]) Posture Evaluation Comments Posture Comments Standing posture in socks: head rests in 5 deg extension, Dowager's hump, decreased thoracic kyphosis, sway back, increased anterior tilt pelvis , mild knee flexion B, left shoulder mildly higher than the right, rounded shoulders, R scapula lower than the left, right iliac crest higher than the left, overpronation right ankle compared to the left, decreased muscle mass right plantar flexors compared to the left, pt states that one side grew faster than the other and she had her tibial growth plate operated upon to decrease growth PT-OP-K Range of Motion Start: 09/25/21 12:55 Freq: Status: Active Protocol: Document 09/27/21 13:50 MB (Rec: 09/27/21 16:09 MB [id number]) Cervical Spine Range of Motion Cervical Spine Active Testing Position Standing Flexion 47 Extension 25 Rotation Left 60 Rotation Right 60 Lateral Flexion Left 30 Lateral Flexion Right 27 Comments Head rests in 5 deg extension PT-OP-M Strength Start: 09/25/21 12:55 Freq: Status: Active Protocol: Document 09/27/21 13:50 MB (Rec: 09/27/21 16:09 MB [id number]) Shoulder Strength Shoulder Manual Muscle Testing Left Flexion 4 Good Abduction (C5) 5 Normal External Rotation 5 Normal Internal Rotation 5 Normal Right Flexion 4 Good Abduction (C5) 5 Normal External Rotation 5 Normal Internal Rotation 5 Normal Elbow/Forearm Strength Elbow and Forearm Manual Muscle Testing Left Flexion (C6) 5 Normal Extension (C7) 5 Normal Right Flexion (C6) 5 Normal Extension (C7) 5 Normal PT-OP-Q Treatments Start: 09/25/21 12:55 Freq: Status: Active Protocol: Document 10/04/21 13:09 MB (Rec: 10/04/21 13:44 MB [id number]) Cardio Equipment Upper Body Ergometer (UBE) Duration (Minutes) 10 Other 1' forward and 1' backward Therapeutic Exercises Supine Exercises Pect stretch Side bilateral Comments Head and neck supported with towel roll and pillow support Horizontal abduction and ER with band Side bilateral Resistance Level 1, then pink LF level 1 band Reps/Minutes 10 reps x2 Comments Cervical and head support head and neck Sitting Exercises Upper traps MWM Side left Comments TrP pressure through ball in corner and then active cervical rotation away Standing Exercises Racquet ball massage Comments Intrascapular area STM Other Exercises Open book Side bilateral Comments 5-10 reps both sides, pillow folded underneath PT-OP-T Assessment and Plan Start: 09/25/21 12:55 Freq: Status: Active Protocol: Document 10/04/21 13:09 MB (Rec: 10/04/21 13:44 MB [id number]) Physical Therapy Assessment Rehab Potential Rehabilitation Potential Good Evaluation Complexity Number of Personal Factors/Comorbidities 1-2 Number of Body Systems Impaired 1-2 Clinical Presentation at Evaluation Evolving Impairments Impairments Activity Tolerance,Balance, Functional Activities, Functional Mobility,Pain, Posture,ROM,Soft Tissue Mobility,Strength Goals 2 Family Health Nurse Practitioner Goal (LTG) Pt will reports a 75% improvement in neck pain to improve quality of life by 11/08. LTG Duration 8 weeks 1 [facility] Goal (LTG) Pt will perform progressive HEP with I including posture, flexibility, breathing, self- massage and strengthening to improve pain by 11/28/21. LTG Duration 8 weeks Assessment Summary Assessment Pt arrives with handouts from previous PT course and PT and pt decide to recycle them and then PT provides alternatives of similar exercises in supine so that neck is supported with towel roll and not weighted by the cranium. Pt reponds well. Con't per progression below. Physical Therapy Plan Frequency and Duration Frequency of Treatment 1x/Week Duration of Treatment 8 weeks Plan of Care Start Date 09/27/21 Plan of Care End Date 09/27/21 Therapeutic Interventions Therapeutic Interventions Balance Training,Canalithic Repositioning,Home Exercise Program,Joint Mobilizations, Manual Therapy,Neuromuscular Re-education,Patient/Caregiver Education,Self-Care/Home Management,Soft Tissue Mobilization,Taping, Therapeutic Activities, Therapeutic Exercises Modalities Cold Pack/Ice Massage,Hot Packs Next Visit Focus/Plan Next Note Type Treatment Note Next Visit Plan Consider thoracic mobility over pool noodle or in sitting , initiate manual work, consider taping to inhibit left upper traps
--- NOTE | 2021-10-11 13:44 | PT.OTN ---
Current Diagnoses Cervicalgia (10/11/21) Strain of muscle, fascia and tendon at neck level, subsequent encounter (10/11/21) Physical Therapy Treatment Note PT-OP-A Visit Information Start: 09/25/21 12:55 Freq: Status: Active Protocol: Document 10/11/21 13:01 MB (Rec: 10/11/21 13:44 MB [id number]) Out-Patient Physical Therapy Visit Information Visit Information Visit Type Treatment Note Visit Note [facility] Visit Start Time 13:01 Visit Stop Time 13:42 Total Visit Minutes 41 Visit Number 3 Evaluation Information Evaluation Date 09/27/21 PT-OP-B Current Condition Start: 09/25/21 12:55 Freq: Status: Active Protocol: Document 09/27/21 13:50 MB (Rec: 09/27/21 14:08 MB [id number]) Current Condition History of Current Condition Onset Date A year Current Complaints Neck pain and decreased range of motion History of Current Condition Pt states that she received PT at this clinic earlier this year over the summer for the same problem. She has a history of neck arthritis and pain with range of motion. She stopped PT because she got better, continued with the exercises and then they seemed to get harder. She has most trouble moving head side to side. 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 Pt reports 3-4/10 pain at the tops of her shoulders. She reports the most pain where the neck joint touches the shoulder and she has more pain on the left. No numbness or tingling in the arms. She is right handed. Pt had left shoulder arthroscopic surgery in 2018. She did well with PT after that. Pt is sleeping on her sides. She sleeps on a fat pillow. PMH: DM, hypothyroidism, cervical disc disease Pt states that cervical SB stretch bothers her and armpit sniff stretch does not. Prior Treatments and Tests X-ray cervical spine 04/27/21: IMPRESSION: No trauma found. Moderately severe C5 through C7 degenerative disc disease with anterior and posterior projecting osteophytes. Spinal and foraminal stenosis may be associated. Treatment Goals Patient/Caregiver Goals To decrease pain and improve ROM PT-OP-C Subjective Start: 09/25/21 12:55 Freq: Status: Active Protocol: Document 10/11/21 13:01 MB (Rec: 10/11/21 13:44 MB [id number]) OP-PT Subjective Patient Comments Patient Comments Pt has a couple of questions about some of the exercises. She got her racquet ball. PT-OP-J Posture/Palpation/Skin Start: 09/25/21 12:55 Freq: Status: Active Protocol: Document 09/27/21 13:50 MB (Rec: 09/27/21 15:05 MB [id number]) Posture Evaluation Comments Posture Comments Standing posture in socks: head rests in 5 deg extension, Dowager's hump, decreased thoracic kyphosis, sway back, increased anterior tilt pelvis , mild knee flexion B, left shoulder mildly higher than the right, rounded shoulders, R scapula lower than the left, right iliac crest higher than the left, overpronation right ankle compared to the left, decreased muscle mass right plantar flexors compared to the left, pt states that one side grew faster than the other and she had her tibial growth plate operated upon to decrease growth PT-OP-K Range of Motion Start: 09/25/21 12:55 Freq: Status: Active Protocol: Document 09/27/21 13:50 MB (Rec: 09/27/21 16:09 MB [id number]) Cervical Spine Range of Motion Cervical Spine Active Testing Position Standing Flexion 47 Extension 25 Rotation Left 60 Rotation Right 60 Lateral Flexion Left 30 Lateral Flexion Right 27 Comments Head rests in 5 deg extension PT-OP-M Strength Start: 09/25/21 12:55 Freq: Status: Active Protocol: Document 09/27/21 13:50 MB (Rec: 09/27/21 16:09 MB [id number]) Shoulder Strength Shoulder Manual Muscle Testing Left Flexion 4 Good Abduction (C5) 5 Normal External Rotation 5 Normal Internal Rotation 5 Normal Right Flexion 4 Good Abduction (C5) 5 Normal External Rotation 5 Normal Internal Rotation 5 Normal Elbow/Forearm Strength Elbow and Forearm Manual Muscle Testing Left Flexion (C6) 5 Normal Extension (C7) 5 Normal Right Flexion (C6) 5 Normal Extension (C7) 5 Normal PT-OP-Q Treatments Start: 09/25/21 12:55 Freq: Status: Active Protocol: Document 10/11/21 13:01 MB (Rec: 10/11/21 13:44 MB [id number]) Cardio Equipment Upper Body Ergometer (UBE) Duration (Minutes) 10 Other 1' forward and 1' backwards Therapeutic Exercises Supine Exercises Pect stretch Equipment Used Performed once on mat and once on pool noodle Reps/Minutes 30 sec Comments Head and neck supported, reviewed today Horizontal abduction and ER with band Supine Exercise Name Pelvic tilt and tummy tight Side bilateral Resistance [place] band Equipment Used Red pool noodle Reps/Minutes 10 reps x2 Comments Cervical and head support head and neck Sitting Exercises Upper traps MWM Sitting Exercise Name Pt performs in standing today Side left Comments TrP pressure through ball in corner and then active cervical rotation away Standing Exercises Racquet ball massage Side left Comments Infraspinatus MWM, TrP pressure and active shoulder ER/IR Manual Therapy Treatment Other Other Manual Treatments Black KT to inhibit left upper traps, I strip. Ed pt to take off if itchy and within 2.5 days PT-OP-T Assessment and Plan Start: 09/25/21 12:55 Freq: Status: Active Protocol: Document 10/11/21 13:01 MB (Rec: 10/11/21 13:44 MB [id number]) Physical Therapy Assessment Rehab Potential Rehabilitation Potential Good Evaluation Complexity Number of Personal Factors/Comorbidities 1-2 Number of Body Systems Impaired 1-2 Clinical Presentation at Evaluation Evolving Impairments Impairments Activity Tolerance,Balance, Functional Activities, Functional Mobility,Pain, Posture,ROM,Soft Tissue Mobility,Strength Goals 2 Inventory Control Supervisor Goal (LTG) Pt will reports a 75% improvement in neck pain to improve quality of life by 11/08. LTG Duration 8 weeks 1 Skilled Nursing Goal (LTG) Pt will perform progressive HEP with I including posture, flexibility, breathing, self- massage and strengthening to improve pain by 11/28/21. LTG Duration 8 weeks Assessment Summary Assessment Reviewed exercises today and progressed to pool noodle. Con 't progression per below. Physical Therapy Plan Frequency and Duration Frequency of Treatment 1x/Week Duration of Treatment 8 weeks Plan of Care Start Date 09/27/21 Plan of Care End Date 09/27/21 Therapeutic Interventions Therapeutic Interventions Balance Training,Canalithic Repositioning,Home Exercise Program,Joint Mobilizations, Manual Therapy,Neuromuscular Re-education,Patient/Caregiver Education,Self-Care/Home Management,Soft Tissue Mobilization,Taping, Therapeutic Activities, Therapeutic Exercises Modalities Cold Pack/Ice Massage,Hot Packs Next Visit Focus/Plan Next Note Type Treatment Note Next Visit Plan Progress exercises over pool noodle, initiate manual work
--- NOTE | 2021-10-18 13:46 | PT.OTN ---
Current Diagnoses Cervicalgia (10/18/21) Strain of muscle, fascia and tendon at neck level, subsequent encounter (10/18/21) Physical Therapy Treatment Note PT-OP-A Visit Information Start: 09/25/21 12:55 Freq: Status: Active Protocol: Document 10/18/21 13:01 MB (Rec: 10/18/21 13:46 MB [id number]) Out-Patient Physical Therapy Visit Information Visit Information Visit Type Treatment Note Visit Note [facility] Visit Start Time 13:01 Visit Stop Time 13:41 Total Visit Minutes 40 Visit Number 4 Evaluation Information Evaluation Date 09/27/21 PT-OP-B Current Condition Start: 09/25/21 12:55 Freq: Status: Active Protocol: Document 09/27/21 13:50 MB (Rec: 09/27/21 14:08 MB [id number]) Current Condition History of Current Condition Onset Date A year Current Complaints Neck pain and decreased range of motion History of Current Condition Pt states that she received PT at this clinic earlier this year over the summer for the same problem. She has a history of neck arthritis and pain with range of motion. She stopped PT because she got better, continued with the exercises and then they seemed to get harder. She has most trouble moving head side to side. 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 Pt reports 3-4/10 pain at the tops of her shoulders. She reports the most pain where the neck joint touches the shoulder and she has more pain on the left. No numbness or tingling in the arms. She is right handed. Pt had left shoulder arthroscopic surgery in 2018. She did well with PT after that. Pt is sleeping on her sides. She sleeps on a fat pillow. PMH: DM, hypothyroidism, cervical disc disease Pt states that cervical SB stretch bothers her and armpit sniff stretch does not. Prior Treatments and Tests X-ray cervical spine 04/27/21: IMPRESSION: No trauma found. Moderately severe C5 through C7 degenerative disc disease with anterior and posterior projecting osteophytes. Spinal and foraminal stenosis may be associated. Treatment Goals Patient/Caregiver Goals To decrease pain and improve ROM PT-OP-C Subjective Start: 09/25/21 12:55 Freq: Status: Active Protocol: Document 10/18/21 13:01 MB (Rec: 10/18/21 13:46 MB [id number]) OP-PT Subjective Patient Comments Patient Comments Pt went for a couple hour walk , about two miles, looking for birds on Saturday. She had binoculars with her. Her shoulders were sore afterwards . She was wearing a little backpack with a rain jacket and bottle of water. PT-OP-J Posture/Palpation/Skin Start: 09/25/21 12:55 Freq: Status: Active Protocol: Document 09/27/21 13:50 MB (Rec: 09/27/21 15:05 MB [id number]) Posture Evaluation Comments Posture Comments Standing posture in socks: head rests in 5 deg extension, Dowager's hump, decreased thoracic kyphosis, sway back, increased anterior tilt pelvis , mild knee flexion B, left shoulder mildly higher than the right, rounded shoulders, R scapula lower than the left, right iliac crest higher than the left, overpronation right ankle compared to the left, decreased muscle mass right plantar flexors compared to the left, pt states that one side grew faster than the other and she had her tibial growth plate operated upon to decrease growth PT-OP-K Range of Motion Start: 09/25/21 12:55 Freq: Status: Active Protocol: Document 09/27/21 13:50 MB (Rec: 09/27/21 16:09 MB [id number]) Cervical Spine Range of Motion Cervical Spine Active Testing Position Standing Flexion 47 Extension 25 Rotation Left 60 Rotation Right 60 Lateral Flexion Left 30 Lateral Flexion Right 27 Comments Head rests in 5 deg extension PT-OP-M Strength Start: 09/25/21 12:55 Freq: Status: Active Protocol: Document 09/27/21 13:50 MB (Rec: 09/27/21 16:09 MB [id number]) Shoulder Strength Shoulder Manual Muscle Testing Left Flexion 4 Good Abduction (C5) 5 Normal External Rotation 5 Normal Internal Rotation 5 Normal Right Flexion 4 Good Abduction (C5) 5 Normal External Rotation 5 Normal Internal Rotation 5 Normal Elbow/Forearm Strength Elbow and Forearm Manual Muscle Testing Left Flexion (C6) 5 Normal Extension (C7) 5 Normal Right Flexion (C6) 5 Normal Extension (C7) 5 Normal PT-OP-Q Treatments Start: 09/25/21 12:55 Freq: Status: Active Protocol: Document 10/18/21 13:01 MB (Rec: 10/18/21 13:46 MB [id number]) Cardio Equipment Upper Body Ergometer (UBE) Duration (Minutes) 10 Other 1' forward and 1' backwards Therapeutic Exercises Supine Exercises Sword and sheath Side bilateral Resistance [place] band Equipment Used Pool noodle Comments 5 reps slowly per side and follow band with head and eyes Shoulder flexion Side bilateral Resistance [place] band Equipment Used 4 foam roller Reps/Minutes 10 reps slowly Comments [place] band around wrists Pect stretch Equipment Used Pool noodle and 6 foam roller Reps/Minutes 30 sec x3 Comments Head and neck supported, ed in breathing to help rib mobs Horizontal abduction and ER with band Supine Exercise Name Pelvic tilt and tummy tight Side bilateral Resistance [place] band Equipment Used 6 foam roller, then 4 foam roller Reps/Minutes 5 reps x1 Comments Cervical and head support head and neck Manual Therapy Treatment Other Other Manual Treatments Pt prone: gentle grade I-II PA mobs cervical spine in supine , grade II thoracic PA mobs, rib mobs, scapular mobs PT-OP-T Assessment and Plan Start: 09/25/21 12:55 Freq: Status: Active Protocol: Document 10/18/21 13:01 MB (Rec: 10/18/21 13:46 MB [id number]) Physical Therapy Assessment Rehab Potential Rehabilitation Potential Good Evaluation Complexity Number of Personal Factors/Comorbidities 1-2 Number of Body Systems Impaired 1-2 Clinical Presentation at Evaluation Evolving Impairments Impairments Activity Tolerance,Balance, Functional Activities, Functional Mobility,Pain, Posture,ROM,Soft Tissue Mobility,Strength Goals 2 Long-Term Goal (LTG) Pt will reports a 75% improvement in neck pain to improve quality of life by . 10/18/21: Pt reports that she feels at least 25% better since starting PT. LTG Duration 6 weeks 1 Long-Term Goal (LTG) Pt will perform progressive HEP with I including posture, flexibility, breathing, self- massage and strengthening to improve pain by 11/29/21. 10/18/21: Pt is doing exercises and they are helpful. LTG Duration 6 weeks Assessment Summary Assessment Pt has progressed towards PT goals since starting PT. Updated POC dates. Pt will benefit from ongoing PT to improve pain and HEP. Physical Therapy Plan Frequency and Duration Frequency of Treatment 1x/Week Duration of Treatment 6 weeks Plan of Care Start Date 10/18/21 Plan of Care End Date 11/29/21 Therapeutic Interventions Therapeutic Interventions Balance Training,Canalithic Repositioning,Home Exercise Program,Joint Mobilizations, Manual Therapy,Neuromuscular Re-education,Patient/Caregiver Education,Self-Care/Home Management,Soft Tissue Mobilization,Taping, Therapeutic Activities, Therapeutic Exercises Modalities Cold Pack/Ice Massage,Hot Packs Next Visit Focus/Plan Next Note Type Treatment Note Next Visit Plan Progress standing exercises with Tband
--- NOTE | 2021-10-18 13:46 | PT.OPPOC ---
Physical, Occupational & Speech Therapy At [facility] Current Diagnoses Cervicalgia (10/18/21) Strain of muscle, fascia and tendon at neck level, subsequent encounter (10/18/21) Visit Care Team Role Provider Type Edvin Rader MD Attending Provider Physician Family Provider Primary Care Provider Referring Provider Specialty: Family Practice Address: [address] [place] [address], [facility] Email: [email or web address] Plan Of Care PT-OP-T Assessment and Plan Start: 09/25/21 12:55 Freq: Status: Active Protocol: Document 10/18/21 13:01 MB (Rec: 10/18/21 13:46 MB [id number]) Physical Therapy Assessment Rehab Potential Rehabilitation Potential Good Evaluation Complexity Number of Personal Factors/Comorbidities 1-2 Number of Body Systems Impaired 1-2 Clinical Presentation at Evaluation Evolving Impairments Impairments Activity Tolerance,Balance, Functional Activities, Functional Mobility,Pain, Posture,ROM,Soft Tissue Mobility,Strength Goals 2 Deputy Building Guard Goal (LTG) Pt will reports a 75% improvement in neck pain to improve quality of life by . 10/18/21: Pt reports that she feels at least 25% better since starting PT. LTG Duration 6 weeks 1 Deputy Building Guard Goal (LTG) Pt will perform progressive HEP with I including posture, flexibility, breathing, self- massage and strengthening to improve pain by 11/29/21. 10/18/21: Pt is doing exercises and they are helpful. LTG Duration 6 weeks Assessment Summary Assessment Pt has progressed towards PT goals since starting PT. Updated POC dates. Pt will benefit from ongoing PT to improve pain and HEP. Physical Therapy Plan Frequency and Duration Frequency of Treatment 1x/Week Duration of Treatment 6 weeks Plan of Care Start Date 10/18/21 Plan of Care End Date 11/29/21 Therapeutic Interventions Therapeutic Interventions Balance Training,Canalithic Repositioning,Home Exercise Program,Joint Mobilizations, Manual Therapy,Neuromuscular Re-education,Patient/Caregiver Education,Self-Care/Home Management,Soft Tissue Mobilization,Taping, Therapeutic Activities, Therapeutic Exercises Modalities Cold Pack/Ice Massage,Hot Packs Next Visit Focus/Plan Next Note Type Treatment Note Next Visit Plan Progress standing exercises with Tband Plan of Care Dates Plan of Care Start Date 10/18/21 Plan of Care End Date 11/29/21 Electronically Signed by: Amy Yates, PT 10/18/21 [id number] Please Sign and Return: I have reviewed this Plan of Care and certify that the skilled therapy services above are required to meet the patient?s needs. Physician Signature Date Printed Name and Credentials Clinical Instructor Signature Printed Name and Credentials
--- NOTE | 2021-10-25 14:25 | PT.OTN ---
Current Diagnoses Cervicalgia (10/25/21) Strain of muscle, fascia and tendon at neck level, subsequent encounter (10/25/21) Physical Therapy Treatment Note PT-OP-A Visit Information Start: 09/25/21 12:55 Freq: Status: Active Protocol: Document 10/25/21 13:46 MB (Rec: 10/25/21 14:24 MB [id number]) Out-Patient Physical Therapy Visit Information Visit Information Visit Type Treatment Note Visit Start Time 13:46 Visit Stop Time 12:45 Total Visit Minutes 39 Visit Number 5 Evaluation Information Evaluation Date 09/27/21 PT-OP-B Current Condition Start: 09/25/21 12:55 Freq: Status: Active Protocol: Document 09/27/21 13:50 MB (Rec: 09/27/21 14:08 MB [id number]) Current Condition History of Current Condition Onset Date A year Current Complaints Neck pain and decreased range of motion History of Current Condition Pt states that she received PT at this clinic earlier this year over the summer for the same problem. She has a history of neck arthritis and pain with range of motion. She stopped PT because she got better, continued with the exercises and then they seemed to get harder. She has most trouble moving head side to side. 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 Pt reports 3-4/10 pain at the tops of her shoulders. She reports the most pain where the neck joint touches the shoulder and she has more pain on the left. No numbness or tingling in the arms. She is right handed. Pt had left shoulder arthroscopic surgery in 2018. She did well with PT after that. Pt is sleeping on her sides. She sleeps on a fat pillow. PMH: DM, hypothyroidism, cervical disc disease Pt states that cervical SB stretch bothers her and armpit sniff stretch does not. Prior Treatments and Tests X-ray cervical spine 04/27/21: IMPRESSION: No trauma found. Moderately severe C5 through C7 degenerative disc disease with anterior and posterior projecting osteophytes. Spinal and foraminal stenosis may be associated. Treatment Goals Patient/Caregiver Goals To decrease pain and improve ROM PT-OP-C Subjective Start: 09/25/21 12:55 Freq: Status: Active Protocol: Document 10/25/21 13:46 MB (Rec: 10/25/21 14:24 MB [id number]) OP-PT Subjective Patient Comments Patient Comments Pt has not gone for a walk this week. It has been too rainy. Last night was the first night that she had trouble with her neck sleeping . Her was snoring and her dog was pacing. PT-OP-J Posture/Palpation/Skin Start: 09/25/21 12:55 Freq: Status: Active Protocol: Document 09/27/21 13:50 MB (Rec: 09/27/21 15:05 MB [id number]) Posture Evaluation Comments Posture Comments Standing posture in socks: head rests in 5 deg extension, Dowager's hump, decreased thoracic kyphosis, sway back, increased anterior tilt pelvis , mild knee flexion B, left shoulder mildly higher than the right, rounded shoulders, R scapula lower than the left, right iliac crest higher than the left, overpronation right ankle compared to the left, decreased muscle mass right plantar flexors compared to the left, pt states that one side grew faster than the other and she had her tibial growth plate operated upon to decrease growth PT-OP-K Range of Motion Start: 09/25/21 12:55 Freq: Status: Active Protocol: Document 09/27/21 13:50 MB (Rec: 09/27/21 16:09 MB [id number]) Cervical Spine Range of Motion Cervical Spine Active Testing Position Standing Flexion 47 Extension 25 Rotation Left 60 Rotation Right 60 Lateral Flexion Left 30 Lateral Flexion Right 27 Comments Head rests in 5 deg extension PT-OP-M Strength Start: 09/25/21 12:55 Freq: Status: Active Protocol: Document 09/27/21 13:50 MB (Rec: 09/27/21 16:09 MB [id number]) Shoulder Strength Shoulder Manual Muscle Testing Left Flexion 4 Good Abduction (C5) 5 Normal External Rotation 5 Normal Internal Rotation 5 Normal Right Flexion 4 Good Abduction (C5) 5 Normal External Rotation 5 Normal Internal Rotation 5 Normal Elbow/Forearm Strength Elbow and Forearm Manual Muscle Testing Left Flexion (C6) 5 Normal Extension (C7) 5 Normal Right Flexion (C6) 5 Normal Extension (C7) 5 Normal PT-OP-Q Treatments Start: 09/25/21 12:55 Freq: Status: Active Protocol: Document 10/25/21 13:46 MB (Rec: 10/25/21 14:24 MB [id number]) Cardio Equipment Upper Body Ergometer (UBE) Duration (Minutes) 10 Other 1' forward and 1' backwards Therapeutic Exercises Supine Exercises Scapular retraction with mini thoracic lift Side bilateral Comments Arms by side, head and neck supported, 10 reps Shoulder flexion Comments Pt asks about doing in standing and PT ed to con't with lying Pect stretch Equipment Used 4 foam roller Reps/Minutes 45 sec x1 Comments Cues for getting into the position Sitting Exercises Upper traps MWM Side left Comments TrP pressure through the ball and then head rotation away Standing Exercises Scapular retraction and better posture in standing Comments Overall, pt has trouble with form, need ongoing work with this Scapular retraction and row Side bilateral Resistance Level 1&2 bands Comments Pt's shoulders and scapula elevate with both, not added today Use of back candle wrapper and theracane Side bilateral Comments Pt likes theracane. TrP pressure and head and neck rotation away PT-OP-T Assessment and Plan Start: 09/25/21 12:55 Freq: Status: Active Protocol: Document 10/25/21 13:46 MB (Rec: 10/25/21 14:24 MB [id number]) Physical Therapy Assessment Rehab Potential Rehabilitation Potential Good Evaluation Complexity Number of Personal Factors/Comorbidities 1-2 Number of Body Systems Impaired 1-2 Clinical Presentation at Evaluation Evolving Impairments Impairments Activity Tolerance,Balance, Functional Activities, Functional Mobility,Pain, Posture,ROM,Soft Tissue Mobility,Strength Goals 2 Librarian Head Goal (LTG) Pt will reports a 75% improvement in neck pain to improve quality of life by . 10/18/21: Pt reports that she feels at least 25% better since starting PT. LTG Duration 6 weeks 1 Detention Goal (LTG) Pt will perform progressive HEP with I including posture, flexibility, breathing, self- massage and strengthening to improve pain by 11/29/21. 10/18/21: Pt is doing exercises and they are helpful. LTG Duration 6 weeks Assessment Summary Assessment Pt has trouble with scapular retraction and posture with standing exercises and so taken back into supine. She may benefit from PNF to improve scapular movement next treatment date. Physical Therapy Plan Frequency and Duration Frequency of Treatment 1x/Week Duration of Treatment 6 weeks Plan of Care Start Date 10/18/21 Plan of Care End Date 11/29/21 Therapeutic Interventions Therapeutic Interventions Balance Training,Canalithic Repositioning,Home Exercise Program,Joint Mobilizations, Manual Therapy,Neuromuscular Re-education,Patient/Caregiver Education,Self-Care/Home Management,Soft Tissue Mobilization,Taping, Therapeutic Activities, Therapeutic Exercises Modalities Cold Pack/Ice Massage,Hot Packs Next Visit Focus/Plan Next Note Type Treatment Note Next Visit Plan Consider PNF in side lying for scapular movement
--- NOTE | 2021-11-01 13:42 | PT.OTN ---
Current Diagnoses Cervicalgia (11/01/21) Strain of muscle, fascia and tendon at neck level, subsequent encounter (11/01/21) Physical Therapy Treatment Note PT-OP-A Visit Information Start: 09/25/21 12:55 Freq: Status: Active Protocol: Document 11/01/21 13:00 MB (Rec: 11/01/21 13:30 MB [id number]) Out-Patient Physical Therapy Visit Information Visit Information Visit Type Treatment Note Visit Start Time 13:00 Visit Stop Time 13:44 Total Visit Minutes 44 Visit Number 6 Evaluation Information Evaluation Date 09/27/21 PT-OP-B Current Condition Start: 09/25/21 12:55 Freq: Status: Active Protocol: Document 09/27/21 13:50 MB (Rec: 09/27/21 14:08 MB [id number]) Current Condition History of Current Condition Onset Date A year Current Complaints Neck pain and decreased range of motion History of Current Condition Pt states that she received PT at this clinic earlier this year over the summer for the same problem. She has a history of neck arthritis and pain with range of motion. She stopped PT because she got better, continued with the exercises and then they seemed to get harder. She has most trouble moving head side to side. 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 Pt reports 3-4/10 pain at the tops of her shoulders. She reports the most pain where the neck joint touches the shoulder and she has more pain on the left. No numbness or tingling in the arms. She is right handed. Pt had left shoulder arthroscopic surgery in 2018. She did well with PT after that. Pt is sleeping on her sides. She sleeps on a fat pillow. PMH: DM, hypothyroidism, cervical disc disease Pt states that cervical SB stretch bothers her and armpit sniff stretch does not. Prior Treatments and Tests X-ray cervical spine 04/27/21: IMPRESSION: No trauma found. Moderately severe C5 through C7 degenerative disc disease with anterior and posterior projecting osteophytes. Spinal and foraminal stenosis may be associated. Treatment Goals Patient/Caregiver Goals To decrease pain and improve ROM PT-OP-C Subjective Start: 09/25/21 12:55 Freq: Status: Active Protocol: Document 11/01/21 13:00 MB (Rec: 11/01/21 13:30 MB [id number]) OP-PT Subjective Patient Comments Patient Comments Pt states that she took the PT 's advice and she went for a 4 mile nature walk without a back pack and without the binoculars around her neck and she had no neck pain. Her neck and shoulders are often sore. By the time she does a couple of exercises, she is really sore. PT-OP-J Posture/Palpation/Skin Start: 09/25/21 12:55 Freq: Status: Active Protocol: Document 09/27/21 13:50 MB (Rec: 09/27/21 15:05 MB [id number]) Posture Evaluation Comments Posture Comments Standing posture in socks: head rests in 5 deg extension, Dowager's hump, decreased thoracic kyphosis, sway back, increased anterior tilt pelvis , mild knee flexion B, left shoulder mildly higher than the right, rounded shoulders, R scapula lower than the left, right iliac crest higher than the left, overpronation right ankle compared to the left, decreased muscle mass right plantar flexors compared to the left, pt states that one side grew faster than the other and she had her tibial growth plate operated upon to decrease growth PT-OP-K Range of Motion Start: 09/25/21 12:55 Freq: Status: Active Protocol: Document 09/27/21 13:50 MB (Rec: 09/27/21 16:09 MB [id number]) Cervical Spine Range of Motion Cervical Spine Active Testing Position Standing Flexion 47 Extension 25 Rotation Left 60 Rotation Right 60 Lateral Flexion Left 30 Lateral Flexion Right 27 Comments Head rests in 5 deg extension PT-OP-M Strength Start: 09/25/21 12:55 Freq: Status: Active Protocol: Document 09/27/21 13:50 MB (Rec: 09/27/21 16:09 MB [id number]) Shoulder Strength Shoulder Manual Muscle Testing Left Flexion 4 Good Abduction (C5) 5 Normal External Rotation 5 Normal Internal Rotation 5 Normal Right Flexion 4 Good Abduction (C5) 5 Normal External Rotation 5 Normal Internal Rotation 5 Normal Elbow/Forearm Strength Elbow and Forearm Manual Muscle Testing Left Flexion (C6) 5 Normal Extension (C7) 5 Normal Right Flexion (C6) 5 Normal Extension (C7) 5 Normal PT-OP-Q Treatments Start: 09/25/21 12:55 Freq: Status: Active Protocol: Document 11/01/21 13:00 MB (Rec: 11/01/21 13:30 MB [id number]) Cardio Equipment Upper Body Ergometer (UBE) Duration (Minutes) 10 Other 1' forward and 1' backwards Therapeutic Exercises Supine Exercises Sword and sheath Side bilateral Resistance [place] band Equipment Used 4 foam roller Comments 10 reps and cues to slow down Shoulder flexion Side bilateral Resistance Crane band Equipment Used 4 foam roller Reps/Minutes 10 reps slowly Comments Crane band around wrists and cues not to hold the arms down and back Pect stretch Equipment Used 4 priyanka roller Reps/Minutes 45 sec Comments Cues to relax arms Horizontal abduction and ER with band Supine Exercise Name Pelvic tilt and tummy tight Side bilateral Resistance [place] band Equipment Used 4 foam roller Reps/Minutes 5 reps x1 Comments Cues for form and to slow down Standing Exercises Doorway pect stretch Side bilateral Comments Pt tends to lean into the doorway a lot and cues to back off a little Racquet ball massage Side bilateral Comments Infraspinatus MWM and PT provides cues for ball placement and movement Manual Therapy Treatment Other Other Manual Treatments Positional release for cervical vertebra and left upper traps and her neck is much less restricted after treatment, left first rib isometric mob PT-OP-T Assessment and Plan Start: 09/25/21 12:55 Freq: Status: Active Protocol: Document 11/01/21 13:00 MB (Rec: 11/01/21 13:30 MB [id number]) Physical Therapy Assessment Rehab Potential Rehabilitation Potential Good Evaluation Complexity Number of Personal Factors/Comorbidities 1-2 Number of Body Systems Impaired 1-2 Clinical Presentation at Evaluation Evolving Impairments Impairments Activity Tolerance,Balance, Functional Activities, Functional Mobility,Pain, Posture,ROM,Soft Tissue Mobility,Strength Goals 2 Intermediate Goal (LTG) Pt will reports a 75% improvement in neck pain to improve quality of life by . 10/18/21: Pt reports that she feels at least 25% better since starting PT. LTG Duration 6 weeks 1 Advertising Executive Goal (LTG) Pt will perform progressive HEP with I including posture, flexibility, breathing, self- massage and strengthening to improve pain by 11/29/21. 10/18/21: Pt is doing exercises and they are helpful. LTG Duration 6 weeks Assessment Summary Assessment Reviewed her exercises today and will initiate manuallly assisted PNF in future treatment dates. Pt requires cues to slow down and work on form. Physical Therapy Plan Frequency and Duration Frequency of Treatment 1x/Week Duration of Treatment 6 weeks Plan of Care Start Date 10/18/21 Plan of Care End Date 11/29/21 Therapeutic Interventions Therapeutic Interventions Balance Training,Canalithic Repositioning,Home Exercise Program,Joint Mobilizations, Manual Therapy,Neuromuscular Re-education,Patient/Caregiver Education,Self-Care/Home Management,Soft Tissue Mobilization,Taping, Therapeutic Activities, Therapeutic Exercises Modalities Cold Pack/Ice Massage,Hot Packs Next Visit Focus/Plan Next Note Type Treatment Note Next Visit Plan Consider PNF in side lying for scapular movement
--- NOTE | 2021-11-09 13:51 | PT.OTN ---
Current Diagnoses Cervicalgia (11/09/21) Strain of muscle, fascia and tendon at neck level, subsequent encounter (11/09/21) Physical Therapy Treatment Note PT-OP-A Visit Information Start: 09/25/21 12:55 Freq: Status: Active Protocol: Document 11/09/21 13:00 [facility] (Rec: 11/09/21 13:51 [facility] [id number]) Out-Patient Physical Therapy Visit Information Visit Information Visit Type Treatment Note Visit Start Time 13:01 Visit Stop Time 13:54 Total Visit Minutes 53 Visit Number 7 Number of CABLE INSPECTOR Visits 0 PT-OP-B Current Condition Start: 09/25/21 12:55 Freq: Status: Active Protocol: Document 09/27/21 13:50 MB (Rec: 09/27/21 14:08 MB [id number]) Current Condition History of Current Condition Onset Date A year Current Complaints Neck pain and decreased range of motion History of Current Condition Pt states that she received PT at this clinic earlier this year over the summer for the same problem. She has a history of neck arthritis and pain with range of motion. She stopped PT because she got better, continued with the exercises and then they seemed to get harder. She has most trouble moving head side to side. 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 Pt reports 3-4/10 pain at the tops of her shoulders. She reports the most pain where the neck joint touches the shoulder and she has more pain on the left. No numbness or tingling in the arms. She is right handed. Pt had left shoulder arthroscopic surgery in 2018. She did well with PT after that. Pt is sleeping on her sides. She sleeps on a fat pillow. PMH: DM, hypothyroidism, cervical disc disease Pt states that cervical SB stretch bothers her and armpit sniff stretch does not. Prior Treatments and Tests X-ray cervical spine 04/27/21: IMPRESSION: No trauma found. Moderately severe C5 through C7 degenerative disc disease with anterior and posterior projecting osteophytes. Spinal and foraminal stenosis may be associated. Treatment Goals Patient/Caregiver Goals To decrease pain and improve ROM PT-OP-C Subjective Start: 09/25/21 12:55 Freq: Status: Active Protocol: Document 11/09/21 13:00 [facility] (Rec: 11/09/21 13:51 [facility] [id number]) OP-PT Subjective Patient Comments Patient Comments Pt reports she was kind of bad this week and didn't do exercises as much as she is supposed to. It wasn't hurting too bad this week. Pt reports that the worst spot is on the L right along the neck and one of the worst times was when hiking carrying a sack. PT-OP-J Posture/Palpation/Skin Start: 09/25/21 12:55 Freq: Status: Active Protocol: Document 09/27/21 13:50 MB (Rec: 09/27/21 15:05 [id number]) Posture Evaluation Comments Posture Comments Standing posture in socks: head rests in 5 deg extension, Dowager's hump, decreased thoracic kyphosis, sway back, increased anterior tilt pelvis , mild knee flexion B, left shoulder mildly higher than the right, rounded shoulders, R scapula lower than the left, right iliac crest higher than the left, overpronation right ankle compared to the left, decreased muscle mass right plantar flexors compared to the left, pt states that one side grew faster than the other and she had her tibial growth plate operated upon to decrease growth PT-OP-K Range of Motion Start: 09/25/21 12:55 Freq: Status: Active Protocol: Document 09/27/21 13:50 MB (Rec: 09/27/21 16:09 MB [id number]) Cervical Spine Range of Motion Cervical Spine Active Testing Position Standing Flexion 47 Extension 25 Rotation Left 60 Rotation Right 60 Lateral Flexion Left 30 Lateral Flexion Right 27 Comments Head rests in 5 deg extension PT-OP-M Strength Start: 09/25/21 12:55 Freq: Status: Active Protocol: Document 09/27/21 13:50 MB (Rec: 09/27/21 16:09 MB [id number]) Shoulder Strength Shoulder Manual Muscle Testing Left Flexion 4 Good Abduction (C5) 5 Normal External Rotation 5 Normal Internal Rotation 5 Normal Right Flexion 4 Good Abduction (C5) 5 Normal External Rotation 5 Normal Internal Rotation 5 Normal Elbow/Forearm Strength Elbow and Forearm Manual Muscle Testing Left Flexion (C6) 5 Normal Extension (C7) 5 Normal Right Flexion (C6) 5 Normal Extension (C7) 5 Normal PT-OP-Q Treatments Start: 09/25/21 12:55 Freq: Status: Active Protocol: Document 11/09/21 13:00 [facility] (Rec: 11/09/21 13:51 [facility] [id number]) Cardio Equipment Upper Body Ergometer (UBE) Duration (Minutes) 6 Other 1' forward and 1' backwards Therapeutic Exercises Supine Exercises Horizontal abduction and ER with band Supine Exercise Name Pelvic tilt and tummy tight Side bilateral Resistance lvl 1 Equipment Used 4 foam roller Reps/Minutes 3x5 Comments Cues for form and to slow down Manual Therapy Treatment Soft Tissue Mobilization post Body Location L rhomboids, tspine paraspinals Mobilization Type Rolling,Strumming Intensity/Depth Moderate Body Position Sidelying cervical paraspinals Body Location L Mobilization Type Myofascial Release,Sustained Pressure,Trigger Point Release Intensity/Depth Moderate Body Position Sidelying levator scap Body Location L LS, UT, scalenes Mobilization Type Myofascial Release,Sustained Pressure,Trigger Point Release Intensity/Depth Moderate Body Position Sidelying Joint Mobilizations cervical Direction inf gapping C6 & 7 Neuro Re-Education Treatment Other Activities PNF Details L post dep Comments 1. rhythmic initation 2. sustaine dhold PT-OP-R Modalities Start: 11/09/21 13:51 Freq: Status: Active Protocol: Document 11/09/21 13:00 [facility] (Rec: 11/09/21 13:51 [facility] [id number]) Hot Pack/Cold Pack Treatment Cold Pack Location cervical & L shoulder Patient Position Hooklying Treatment Duration (minutes) 10 PT-OP-T Assessment and Plan Start: 09/25/21 12:55 Freq: Status: Active Protocol: Document 11/09/21 13:00 [facility] (Rec: 11/09/21 13:51 [facility] [id number]) Physical Therapy Assessment Goals 2 Audio Visual Manager Goal (LTG) Pt will reports a 75% improvement in neck pain to improve quality of life by . 10/18/21: Pt reports that she feels at least 25% better since starting PT. LTG Duration 6 weeks 1 Audio Visual Manager Goal (LTG) Pt will perform progressive HEP with I including posture, flexibility, breathing, self- massage and strengthening to improve pain by 11/29/21. 10/18/21: Pt is doing exercises and they are helpful. LTG Duration 6 weeks Assessment Summary Assessment Signifiant time was taken to work on scap motion w/B ER as pt was dominant w/UT use. She had signficiant L sided scap tightness and was limited by restrictions sup and inf to scap along w/medially but improved after manual. Physical Therapy Plan Frequency and Duration Frequency of Treatment 1x/Week Duration of Treatment 6 weeks Plan of Care Start Date 10/18/21 Plan of Care End Date 11/29/21 Next Visit Focus/Plan Next Note Type Treatment Note Next Visit Plan PNF R side, review exercises
--- NOTE | 2021-11-14 15:03 | PT.OTN ---
Current Diagnoses Cervicalgia (11/14/21) Strain of muscle, fascia and tendon at neck level, subsequent encounter (11/14/21) Physical Therapy Treatment Note PT-OP-A Visit Information Start: 09/25/21 12:55 Freq: Status: Active Protocol: Document 11/14/21 13:01 [facility] (Rec: 11/14/21 15:03 [facility] [id number]) Out-Patient Physical Therapy Visit Information Visit Information Visit Type Treatment Note Visit Start Time 13:00 Visit Stop Time 13:55 Total Visit Minutes 55 Visit Number 8 Number of BACK PAD INSPECTOR Visits 0 PT-OP-B Current Condition Start: 09/25/21 12:55 Freq: Status: Active Protocol: Document 09/27/21 13:50 MB (Rec: 09/27/21 14:08 MB [id number]) Current Condition History of Current Condition Onset Date A year Current Complaints Neck pain and decreased range of motion History of Current Condition Pt states that she received PT at this clinic earlier this year over the summer for the same problem. She has a history of neck arthritis and pain with range of motion. She stopped PT because she got better, continued with the exercises and then they seemed to get harder. She has most trouble moving head side to side. 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 Pt reports 3-4/10 pain at the tops of her shoulders. She reports the most pain where the neck joint touches the shoulder and she has more pain on the left. No numbness or tingling in the arms. She is right handed. Pt had left shoulder arthroscopic surgery in 2018. She did well with PT after that. Pt is sleeping on her sides. She sleeps on a fat pillow. PMH: DM, hypothyroidism, cervical disc disease Pt states that cervical SB stretch bothers her and armpit sniff stretch does not. Prior Treatments and Tests X-ray cervical spine 04/27/21: IMPRESSION: No trauma found. Moderately severe C5 through C7 degenerative disc disease with anterior and posterior projecting osteophytes. Spinal and foraminal stenosis may be associated. Treatment Goals Patient/Caregiver Goals To decrease pain and improve ROM PT-OP-C Subjective Start: 09/25/21 12:55 Freq: Status: Active Protocol: Document 11/14/21 13:01 [facility] (Rec: 11/14/21 15:03 [facility] [id number]) OP-PT Subjective Patient Comments Patient Comments Pt reports she thinks she has done okay with pain. She did go on a hilly walk for 2 miles and did not wear a backpack w/just a tiny purse w/phone and keys. PT-OP-J Posture/Palpation/Skin Start: 09/25/21 12:55 Freq: Status: Active Protocol: Document 09/27/21 13:50 MB (Rec: 09/27/21 15:05 MB [id number]) Posture Evaluation Comments Posture Comments Standing posture in socks: head rests in 5 deg extension, Dowager's hump, decreased thoracic kyphosis, sway back, increased anterior tilt pelvis , mild knee flexion B, left shoulder mildly higher than the right, rounded shoulders, R scapula lower than the left, right iliac crest higher than the left, overpronation right ankle compared to the left, decreased muscle mass right plantar flexors compared to the left, pt states that one side grew faster than the other and she had her tibial growth plate operated upon to decrease growth PT-OP-K Range of Motion Start: 09/25/21 12:55 Freq: Status: Active Protocol: Document 09/27/21 13:50 MB (Rec: 09/27/21 16:09 MB [id number]) Cervical Spine Range of Motion Cervical Spine Active Testing Position Standing Flexion 47 Extension 25 Rotation Left 60 Rotation Right 60 Lateral Flexion Left 30 Lateral Flexion Right 27 Comments Head rests in 5 deg extension PT-OP-M Strength Start: 09/25/21 12:55 Freq: Status: Active Protocol: Document 09/27/21 13:50 MB (Rec: 09/27/21 16:09 MB [id number]) Shoulder Strength Shoulder Manual Muscle Testing Left Flexion 4 Good Abduction (C5) 5 Normal External Rotation 5 Normal Internal Rotation 5 Normal Right Flexion 4 Good Abduction (C5) 5 Normal External Rotation 5 Normal Internal Rotation 5 Normal Elbow/Forearm Strength Elbow and Forearm Manual Muscle Testing Left Flexion (C6) 5 Normal Extension (C7) 5 Normal Right Flexion (C6) 5 Normal Extension (C7) 5 Normal PT-OP-Q Treatments Start: 09/25/21 12:55 Freq: Status: Active Protocol: Document 11/14/21 13:01 [facility] (Rec: 11/14/21 15:03 [facility] [id number]) Cardio Equipment Upper Body Ergometer (UBE) Duration (Minutes) 4 Other 1' forward and 1' backwards Therapeutic Exercises Supine Exercises Horizontal abduction and ER with band Supine Exercise Name Pelvic tilt and tummy tight Side bilateral Resistance lvl 1 Equipment Used 4 foam roller Reps/Minutes 3x5 Comments Cues for form and to slow down Standing Exercises Racquet ball massage Side bilateral Comments Infraspinatus MWM and PT provides cues for ball placement and movement Manual Therapy Treatment Soft Tissue Mobilization SOR Mobilization Type Sustained Pressure Intensity/Depth Moderate Body Position Supine cervical paraspinals Body Location L Mobilization Type Myofascial Release,Sustained Pressure,Trigger Point Release Intensity/Depth Moderate Body Position Supine levator scap Body Location L LS, UT, scalenes Mobilization Type Myofascial Release,Sustained Pressure,Trigger Point Release Intensity/Depth Moderate Body Position Supine Joint Mobilizations cervical Comments 1. transverse glide R C5 2. UAP L C4 &5 3. UPA C6 L FM PT-OP-R Modalities Start: 11/09/21 13:51 Freq: Status: Active Protocol: Document 11/14/21 13:01 [facility] (Rec: 11/14/21 15:03 [facility] [id number]) Hot Pack/Cold Pack Treatment Cold Pack Location cervical & L shoulder Patient Position Hooklying Treatment Duration (minutes) 10 PT-OP-T Assessment and Plan Start: 09/25/21 12:55 Freq: Status: Active Protocol: Document 11/14/21 13:01 [facility] (Rec: 11/14/21 15:03 [facility] [id number]) Physical Therapy Assessment Goals 2 Jail Goal (LTG) Pt will reports a 75% improvement in neck pain to improve quality of life by . 10/18/21: Pt reports that she feels at least 25% better since starting PT. LTG Duration 6 weeks 1 Trading Manager Goal (LTG) Pt will perform progressive HEP with I including posture, flexibility, breathing, self- massage and strengthening to improve pain by 11/29/21. 10/18/21: Pt is doing exercises and they are helpful. LTG Duration 6 weeks Assessment Summary Assessment Pt had significant improvement in L cervical rotation actively and passively after manual treatment and improved PROM L SB. She is restricted in cervical mm and Cspine and upper tspine Physical Therapy Plan Frequency and Duration Frequency of Treatment 1x/Week Duration of Treatment 6 weeks Plan of Care Start Date 10/18/21 Plan of Care End Date 11/29/21 Next Visit Focus/Plan Next Note Type Treatment Note Next Visit Plan cont to wrok on L SB & rot ability
--- NOTE | 2021-11-20 11:52 | PT.OTN ---
Current Diagnoses Cervicalgia (11/20/21) Strain of muscle, fascia and tendon at neck level, subsequent encounter (11/20/21) Physical Therapy Treatment Note PT-OP-A Visit Information Start: 09/25/21 12:55 Freq: Status: Active Protocol: Document 11/20/21 08:22 [facility] (Rec: 11/20/21 11:52 [facility] [id number]) Out-Patient Physical Therapy Visit Information Visit Information Visit Type Treatment Note Visit Start Time 08:20 Visit Stop Time 09:15 Total Visit Minutes 55 Visit Number 9 Number of ADULT BASIC EDUCATION TEACHER Visits 0 PT-OP-B Current Condition Start: 09/25/21 12:55 Freq: Status: Active Protocol: Document 09/27/21 13:50 MB (Rec: 09/27/21 14:08 MB [id number]) Current Condition History of Current Condition Onset Date A year Current Complaints Neck pain and decreased range of motion History of Current Condition Pt states that she received PT at this clinic earlier this year over the summer for the same problem. She has a history of neck arthritis and pain with range of motion. She stopped PT because she got better, continued with the exercises and then they seemed to get harder. She has most trouble moving head side to side. 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 Pt reports 3-4/10 pain at the tops of her shoulders. She reports the most pain where the neck joint touches the shoulder and she has more pain on the left. No numbness or tingling in the arms. She is right handed. Pt had left shoulder arthroscopic surgery in 2018. She did well with PT after that. Pt is sleeping on her sides. She sleeps on a fat pillow. PMH: DM, hypothyroidism, cervical disc disease Pt states that cervical SB stretch bothers her and armpit sniff stretch does not. Prior Treatments and Tests X-ray cervical spine 04/27/21: IMPRESSION: No trauma found. Moderately severe C5 through C7 degenerative disc disease with anterior and posterior projecting osteophytes. Spinal and foraminal stenosis may be associated. Treatment Goals Patient/Caregiver Goals To decrease pain and improve ROM PT-OP-C Subjective Start: 09/25/21 12:55 Freq: Status: Active Protocol: Document 11/20/21 08:22 [facility] (Rec: 11/20/21 11:52 [facility] [id number]) OP-PT Subjective Patient Comments Patient Comments Pt reports she didn't notice when she got up but when she was waiting in waiting room, she noticed her shoulders were tight. She did all of her exercises yesterday and did some pruning a singh yesterday. She had a good week otherwise . Pt reports chin tucks are the most difficult to do. PT-OP-J Posture/Palpation/Skin Start: 09/25/21 12:55 Freq: Status: Active Protocol: Document 09/27/21 13:50 MB (Rec: 09/27/21 15:05 MB [id number]) Posture Evaluation Comments Posture Comments Standing posture in socks: head rests in 5 deg extension, Dowager's hump, decreased thoracic kyphosis, sway back, increased anterior tilt pelvis , mild knee flexion B, left shoulder mildly higher than the right, rounded shoulders, R scapula lower than the left, right iliac crest higher than the left, overpronation right ankle compared to the left, decreased muscle mass right plantar flexors compared to the left, pt states that one side grew faster than the other and she had her tibial growth plate operated upon to decrease growth PT-OP-K Range of Motion Start: 09/25/21 12:55 Freq: Status: Active Protocol: Document 09/27/21 13:50 MB (Rec: 09/27/21 16:09 MB [id number]) Cervical Spine Range of Motion Cervical Spine Active Testing Position Standing Flexion 47 Extension 25 Rotation Left 60 Rotation Right 60 Lateral Flexion Left 30 Lateral Flexion Right 27 Comments Head rests in 5 deg extension PT-OP-M Strength Start: 09/25/21 12:55 Freq: Status: Active Protocol: Document 09/27/21 13:50 MB (Rec: 09/27/21 16:09 MB [id number]) Shoulder Strength Shoulder Manual Muscle Testing Left Flexion 4 Good Abduction (C5) 5 Normal External Rotation 5 Normal Internal Rotation 5 Normal Right Flexion 4 Good Abduction (C5) 5 Normal External Rotation 5 Normal Internal Rotation 5 Normal Elbow/Forearm Strength Elbow and Forearm Manual Muscle Testing Left Flexion (C6) 5 Normal Extension (C7) 5 Normal Right Flexion (C6) 5 Normal Extension (C7) 5 Normal PT-OP-Q Treatments Start: 09/25/21 12:55 Freq: Status: Active Protocol: Document 11/20/21 08:22 [facility] (Rec: 11/20/21 11:52 [facility] [id number]) Cardio Equipment Upper Body Ergometer (UBE) Duration (Minutes) 6 Other 1' forward and 1' backwards Therapeutic Exercises Sitting Exercises SB Sitting Exercise Name cervical comfortable range Side bilateral Reps/Minutes 10 Comments attempted w/towel depress scap stretch Sitting Exercise Name 1. LS 2. scalenes Side bilateral Reps/Minutes 30 sec ea Standing Exercises wall posture Standing Exercise Name roll up w/shoulder ext Side bilateral Reps/Minutes 3 min Manual Therapy Treatment Soft Tissue Mobilization SOR Mobilization Type Sustained Pressure Intensity/Depth Moderate Body Position Supine cervical paraspinals Body Location L Mobilization Type Myofascial Release,Sustained Pressure,Trigger Point Release Intensity/Depth Moderate Body Position Supine levator scap Body Location L LS, UT, scalenes Mobilization Type Myofascial Release,Sustained Pressure,Trigger Point Release Intensity/Depth Moderate Body Position Supine Joint Mobilizations cervical Comments 1. PA FM C3 2. transverse glide C3-5 FM L PT-OP-R Modalities Start: 11/09/21 13:51 Freq: Status: Active Protocol: Document 11/20/21 08:22 [facility] (Rec: 11/20/21 11:52 [facility] [id number]) Hot Pack/Cold Pack Treatment Hot Pack Location cervical and L shoulder Treatment Duration (minutes) 15 PT-OP-T Assessment and Plan Start: 09/25/21 12:55 Freq: Status: Active Protocol: Document 11/20/21 08:22 [facility] (Rec: 11/20/21 11:52 [facility] [id number]) Physical Therapy Assessment Goals 2 Agricultural Education Teacher Goal (LTG) Pt will reports a 75% improvement in neck pain to improve quality of life by . 10/18/21: Pt reports that she feels at least 25% better since starting PT. LTG Duration 6 weeks 1 Intermediate Goal (LTG) Pt will perform progressive HEP with I including posture, flexibility, breathing, self- massage and strengthening to improve pain by 11/29/21. 10/18/21: Pt is doing exercises and they are helpful. LTG Duration 6 weeks Assessment Summary Assessment Pt was encouraged to work on posture at home also and was given some cervical stretches to work on overall neck mobility which pt tolerated well as long as she stayed in comfortable range. Physical Therapy Plan Frequency and Duration Frequency of Treatment 1x/Week Duration of Treatment 6 weeks Plan of Care Start Date 10/18/21 Plan of Care End Date 11/29/21 Next Visit Focus/Plan Next Note Type Treatment Note Next Visit Plan cont to wrok on L SB & rot ability & posture
--- NOTE | 2021-11-28 14:37 | PT.OTN ---
Current Diagnoses Cervicalgia (11/28/21) Strain of muscle, fascia and tendon at neck level, subsequent encounter (11/28/21) Physical Therapy Treatment Note PT-OP-A Visit Information Start: 09/25/21 12:55 Freq: Status: Active Protocol: Document 11/28/21 13:00 [facility] (Rec: 11/28/21 13:53 [facility] [id number]) Out-Patient Physical Therapy Visit Information Visit Information Visit Type Progress Note Visit Start Time 13:00 Visit Number 10 Number of PHYSICIAN LIAISON Visits 0 PT-OP-B Current Condition Start: 09/25/21 12:55 Freq: Status: Active Protocol: Document 09/27/21 13:50 MB (Rec: 09/27/21 14:08 MB [id number]) Current Condition History of Current Condition Onset Date A year Current Complaints Neck pain and decreased range of motion History of Current Condition Pt states that she received PT at this clinic earlier this year over the summer for the same problem. She has a history of neck arthritis and pain with range of motion. She stopped PT because she got better, continued with the exercises and then they seemed to get harder. She has most trouble moving head side to side. 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 Pt reports 3-4/10 pain at the tops of her shoulders. She reports the most pain where the neck joint touches the shoulder and she has more pain on the left. No numbness or tingling in the arms. She is right handed. Pt had left shoulder arthroscopic surgery in 2018. She did well with PT after that. Pt is sleeping on her sides. She sleeps on a fat pillow. PMH: DM, hypothyroidism, cervical disc disease Pt states that cervical SB stretch bothers her and armpit sniff stretch does not. Prior Treatments and Tests X-ray cervical spine 04/27/21: IMPRESSION: No trauma found. Moderately severe C5 through C7 degenerative disc disease with anterior and posterior projecting osteophytes. Spinal and foraminal stenosis may be associated. Treatment Goals Patient/Caregiver Goals To decrease pain and improve ROM PT-OP-C Subjective Start: 09/25/21 12:55 Freq: Status: Active Protocol: Document 11/28/21 13:00 [facility] (Rec: 11/28/21 13:53 [facility] [id number]) OP-PT Subjective Patient Comments Patient Comments Pt reports last summer her neck would crackle and pop and she is noticing that sometimes now. She has questions about some of the exercises. She is sleeping mostly okay. She spent a lot of time in the car for 3 days last week and did a little bit retraction. PT-OP-J Posture/Palpation/Skin Start: 09/25/21 12:55 Freq: Status: Active Protocol: Document 11/28/21 13:00 [facility] (Rec: 11/28/21 13:53 [facility] [id number]) Posture Evaluation [facility] Postural Classification System Elbow Flexion Test 0 PT-OP-K Range of Motion Start: 09/25/21 12:55 Freq: Status: Active Protocol: Document 11/28/21 13:00 [facility] (Rec: 11/28/21 13:53 [facility] [id number]) Cervical Spine Range of Motion Cervical Spine Active Testing Position Standing Flexion 64 Extension 35 Rotation Left 46 Rotation Right 59 Lateral Flexion Left 35 Lateral Flexion Right 36 Comments pain w/SB & rot L PT-OP-M Strength Start: 09/25/21 12:55 Freq: Status: Active Protocol: Document 09/27/21 13:50 MB (Rec: 09/27/21 16:09 MB [id number]) Shoulder Strength Shoulder Manual Muscle Testing Left Flexion 4 Good Abduction (C5) 5 Normal External Rotation 5 Normal Internal Rotation 5 Normal Right Flexion 4 Good Abduction (C5) 5 Normal External Rotation 5 Normal Internal Rotation 5 Normal Elbow/Forearm Strength Elbow and Forearm Manual Muscle Testing Left Flexion (C6) 5 Normal Extension (C7) 5 Normal Right Flexion (C6) 5 Normal Extension (C7) 5 Normal PT-OP-Q Treatments Start: 09/25/21 12:55 Freq: Status: Active Protocol: Document 11/28/21 13:00 [facility] (Rec: 11/28/21 13:53 [facility] [id number]) Cardio Equipment Upper Body Ergometer (UBE) Duration (Minutes) 6 Other 1' forward and 1' backwards Therapeutic Exercises Supine Exercises Scapular retraction with mini thoracic lift Supine Exercise Name HAbd w/retract Side bilateral Equipment Used pink band , pool noodle Reps/Minutes 12 Shoulder flexion Supine Exercise Name stretch when on pool noodle Side bilateral Reps/Minutes 30 sec Pect stretch Equipment Used 4 priyanka roller Reps/Minutes 45 sec Comments Cues to relax arms Horizontal abduction and ER with band Supine Exercise Name Pelvic tilt and tummy tight Side bilateral Resistance lvl 1 Equipment Used on pool noodle Reps/Minutes 20 Comments Cues for form and to slow down Sidelying Exercises open book Sidelying Exercise Name s/l & standing Side left Reps/Minutes 10 ea Manual Therapy Treatment Soft Tissue Mobilization SOR Mobilization Type Sustained Pressure Intensity/Depth Moderate Body Position Supine cervical paraspinals Body Location b Mobilization Type Myofascial Release,Sustained Pressure,Trigger Point Release Intensity/Depth Moderate Body Position Supine levator scap Body Location L LS, UT, scalenes Mobilization Type Myofascial Release,Sustained Pressure,Trigger Point Release Intensity/Depth Moderate Body Position Supine Joint Mobilizations cervical Comments transverse glide R FM C5-6 Self-Care/Home Management Treatment Education Other Education edu to pt re: anatomy of UT, LS & scalenes and why we do no want her working these mm during exercises, edu on stretch vs pain response w/ exercises and that stretch okay but do not want pain w/ exercises. PT-OP-R Modalities Start: 11/09/21 13:51 Freq: Status: Active Protocol: Document 11/28/21 13:00 [facility] (Rec: 11/28/21 14:37 [facility] [id number]) Hot Pack/Cold Pack Treatment Cold Pack Location cervical & b shoulder Patient Position Hooklying Treatment Duration (minutes) 10 PT-OP-T Assessment and Plan Start: 09/25/21 12:55 Freq: Status: Active Protocol: Document 11/28/21 13:00 [facility] (Rec: 11/28/21 13:53 [facility] [id number]) Physical Therapy Assessment Goals activities Short Term Goal (STG) Pt will be able to sleep well w/o inc pain STG Duration 12/26/21 Finished Metal Repairer Goal (LTG) Pt will be able to carry a pack when walking w/o inc pain . LTG Duration 01.26.22 2 Alf Goal (LTG) Pt will reports a 75% improvement in neck pain to improve quality of life by . 11/28-sleeping better, still gets a bit sore and tight 10/18/21: Pt reports that she feels at least 25% better since starting PT. LTG Duration 6 weeks 1 Alf Goal (LTG) Pt will perform progressive HEP with I including posture, flexibility, breathing, self- massage and strengthening to improve pain by 11/29/21. 10/18/21: Pt is doing exercises and they are helpful. 11/28-doing exercises but does get tight after exericses. She can get relief from the tightness w/ball on wall. LTG Duration 6 weeks Assessment Summary Assessment Pt feels like seh is sleeping better and neck is overall doing a little better but is still stiff. She does have some shoulder stiffness and working w/pt currently to differeniate upon when she has pain in UT. Physical Therapy Plan Frequency and Duration Frequency of Treatment 1x/Week Duration of Treatment 2 months Plan of Care Start Date 11/28/21 Plan of Care End Date 01/26/22 Therapeutic Interventions Therapeutic Interventions Balance Training,Canalithic Repositioning,Home Exercise Program,Joint Mobilizations, Manual Therapy,Neuromuscular Re-education,Patient/Caregiver Education,Self-Care/Home Management,Soft Tissue Mobilization,Taping, Therapeutic Activities, Therapeutic Exercises Modalities Cold Pack/Ice Massage,Hot Packs Next Visit Focus/Plan Next Note Type Treatment Note Next Visit Plan cont to wrok on L SB & rot ability & posture
--- NOTE | 2021-11-28 14:37 | PT.OPPOC ---
Physical, Occupational & Speech Therapy At [facility] Current Diagnoses Cervicalgia (11/28/21) Strain of muscle, fascia and tendon at neck level, subsequent encounter (11/28/21) Visit Care Team Role Provider Type Edvin Rader MD Attending Provider Physician Family Provider Primary Care Provider Referring Provider Specialty: Family Practice Address: [address] [place] [address], [facility] Email: [email or web address] Plan Of Care PT-OP-T Assessment and Plan Start: 09/25/21 12:55 Freq: Status: Active Protocol: Document 11/28/21 13:00 [facility] (Rec: 11/28/21 13:53 [facility] [id number]) Physical Therapy Assessment Goals activities Short Term Goal (STG) Pt will be able to sleep well w/o inc pain STG Duration 12/26/21 Design Architect Goal (LTG) Pt will be able to carry a pack when walking w/o inc pain . LTG Duration 01.26.22 2 Design Architect Goal (LTG) Pt will reports a 75% improvement in neck pain to improve quality of life by . 11/28-sleeping better, still gets a bit sore and tight 10/18/21: Pt reports that she feels at least 25% better since starting PT. LTG Duration 6 weeks 1 Design Architect Goal (LTG) Pt will perform progressive HEP with I including posture, flexibility, breathing, self- massage and strengthening to improve pain by 11/29/21. 10/18/21: Pt is doing exercises and they are helpful. 11/28-doing exercises but does get tight after exericses. She can get relief from the tightness w/ball on wall. LTG Duration 6 weeks Assessment Summary Assessment Pt feels like seh is sleeping better and neck is overall doing a little better but is still stiff. She does have some shoulder stiffness and working w/pt currently to differeniate upon when she has pain in [place]. Physical Therapy Plan Frequency and Duration Frequency of Treatment 1x/Week Duration of Treatment 2 months Plan of Care Start Date 11/28/21 Plan of Care End Date 01/26/22 Therapeutic Interventions Therapeutic Interventions Balance Training,Canalithic Repositioning,Home Exercise Program,Joint Mobilizations, Manual Therapy,Neuromuscular Re-education,Patient/Caregiver Education,Self-Care/Home Management,Soft Tissue Mobilization,Taping, Therapeutic Activities, Therapeutic Exercises Modalities Cold Pack/Ice Massage,Hot Packs Next Visit Focus/Plan Next Note Type Treatment Note Next Visit Plan cont to wrok on L SB & rot ability & posture Plan of Care Dates Plan of Care Start Date 11/28/21 Plan of Care End Date 01/26/22 Electronically Signed by: Rebecca Brandon, PT 11/28/21 [id number] Please Sign and Return: I have reviewed this Plan of Care and certify that the skilled therapy services above are required to meet the patient?s needs. Physician Signature Date Printed Name and Credentials Clinical Instructor Signature Printed Name and Credentials
--- NOTE | 2021-12-05 18:59 | PT.OTN ---
Current Diagnoses Cervicalgia (12/05/21) Strain of muscle, fascia and tendon at neck level, subsequent encounter (12/05/21) Physical Therapy Treatment Note PT-OP-A Visit Information Start: 09/25/21 12:55 Freq: Status: Active Protocol: Document 12/05/21 13:47 [facility] (Rec: 12/05/21 18:59 [facility] [id number]) Out-Patient Physical Therapy Visit Information Visit Information Visit Type Treatment Note Visit Start Time 13:00 Visit Stop Time 13:52 Total Visit Minutes 52 Visit Number 11 Number of GSE MECHANIC Visits 0 PT-OP-B Current Condition Start: 09/25/21 12:55 Freq: Status: Active Protocol: Document 09/27/21 13:50 [facility] (Rec: 09/27/21 14:08 MB [id number]) Current Condition History of Current Condition Onset Date A year Current Complaints Neck pain and decreased range of motion History of Current Condition Pt states that she received PT at this clinic earlier this year over the summer for the same problem. She has a history of neck arthritis and pain with range of motion. She stopped PT because she got better, continued with the exercises and then they seemed to get harder. She has most trouble moving head side to side. 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 Pt reports 3-4/10 pain at the tops of her shoulders. She reports the most pain where the neck joint touches the shoulder and she has more pain on the left. No numbness or tingling in the arms. She is right handed. Pt had left shoulder arthroscopic surgery in 2018. She did well with PT after that. Pt is sleeping on her sides. She sleeps on a fat pillow. PMH: DM, hypothyroidism, cervical disc disease Pt states that cervical SB stretch bothers her and armpit sniff stretch does not. Prior Treatments and Tests X-ray cervical spine 04/27/21: IMPRESSION: No trauma found. Moderately severe C5 through C7 degenerative disc disease with anterior and posterior projecting osteophytes. Spinal and foraminal stenosis may be associated. Treatment Goals Patient/Caregiver Goals To decrease pain and improve ROM PT-OP-C Subjective Start: 09/25/21 12:55 Freq: Status: Active Protocol: Document 12/05/21 13:47 [facility] (Rec: 12/05/21 18:59 [facility] [id number]) OP-PT Subjective Patient Comments Patient Comments Pt reports pain is beter, pain only on L and not on R now. Notes pain at CT junciton and L shoulder blade and L [place]. Notes she still is restricted from gardening, crafting and reading d/t looking down painful. Patient Reported Progress Improving PT-OP-J Posture/Palpation/Skin Start: 09/25/21 12:55 Freq: Status: Active Protocol: Document 11/28/21 13:00 [facility] (Rec: 11/28/21 13:53 [facility] [id number]) Posture Evaluation [facility] Postural Classification System Elbow Flexion Test 0 PT-OP-K Range of Motion Start: 09/25/21 12:55 Freq: Status: Active Protocol: Document 11/28/21 13:00 [facility] (Rec: 11/28/21 13:53 [facility] [id number]) Cervical Spine Range of Motion Cervical Spine Active Testing Position Standing Flexion 64 Extension 35 Rotation Left 46 Rotation Right 59 Lateral Flexion Left 35 Lateral Flexion Right 36 Comments pain w/SB & rot L PT-OP-M Strength Start: 09/25/21 12:55 Freq: Status: Active Protocol: Document 09/27/21 13:50 MB (Rec: 09/27/21 16:09 MB [id number]) Shoulder Strength Shoulder Manual Muscle Testing Left Flexion 4 Good Abduction (C5) 5 Normal External Rotation 5 Normal Internal Rotation 5 Normal Right Flexion 4 Good Abduction (C5) 5 Normal External Rotation 5 Normal Internal Rotation 5 Normal Elbow/Forearm Strength Elbow and Forearm Manual Muscle Testing Left Flexion (C6) 5 Normal Extension (C7) 5 Normal Right Flexion (C6) 5 Normal Extension (C7) 5 Normal PT-OP-Q Treatments Start: 09/25/21 12:55 Freq: Status: Active Protocol: Document 12/05/21 13:47 [facility] (Rec: 12/05/21 18:59 [facility] [id number]) Cardio Equipment Upper Body Ergometer (UBE) Duration (Minutes) 4 Other 1' forward and 1' backwards Therapeutic Exercises Supine Exercises Scapular retraction with mini thoracic lift Supine Exercise Name HAbd w/retract Side bilateral Equipment Used lvl 1 Reps/Minutes 12 Comments cues for no scap elevation Sword and sheath Reps/Minutes 3x Comments stopped d/t elevation- discontinue exercise Horizontal abduction and ER with band Supine Exercise Name Pelvic tilt and tummy tight, ER Side bilateral Resistance lvl 1 Reps/Minutes 10 Comments cues for no elevation Manual Therapy Treatment Soft Tissue Mobilization cervical paraspinals Body Location L>R cervical & upper thoracic Mobilization Type Myofascial Release,Sustained Pressure,Trigger Point Release Intensity/Depth Moderate Body Position Supine levator scap Body Location L LS, UT, scalenes Mobilization Type Myofascial Release,Sustained Pressure,Trigger Point Release Intensity/Depth Moderate Body Position Supine Joint Mobilizations thoracic Comments T6-7 transverse R FM 2. T1-2 trasverse R FM cervical Comments C4 AP B PT-OP-R Modalities Start: 11/09/21 13:51 Freq: Status: Active Protocol: Document 12/05/21 13:47 [facility] (Rec: 12/05/21 18:59 [facility] [id number]) Hot Pack/Cold Pack Treatment Cold Pack Location cervical & L shoulder Patient Position Hooklying Treatment Duration (minutes) 10 PT-OP-T Assessment and Plan Start: 09/25/21 12:55 Freq: Status: Active Protocol: Document 12/05/21 13:47 [facility] (Rec: 12/05/21 18:59 [facility] [id number]) Physical Therapy Assessment Goals activities Short Term Goal (STG) Pt will be able to sleep well w/o inc pain STG Duration 12/26/21 Usp Goal (LTG) Pt will be able to carry a pack when walking w/o inc pain . LTG Duration 01.26.22 2 Language Therapist Goal (LTG) Pt will reports a 75% improvement in neck pain to improve quality of life by . 11/28-sleeping better, still gets a bit sore and tight 10/18/21: Pt reports that she feels at least 25% better since starting PT. LTG Duration 6 weeks 1 Usp Goal (LTG) Pt will perform progressive HEP with I including posture, flexibility, breathing, self- massage and strengthening to improve pain by 11/29/21. 10/18/21: Pt is doing exercises and they are helpful. 11/28-doing exercises but does get tight after exericses. She can get relief from the tightness w/ball on wall. LTG Duration 6 weeks Assessment Summary Assessment Pt had improved thoracic rotation PROM and AROM after manual by about 30 deg and improved L cervical rot w/less pain. Cues given for exercises re: no scap elevation Physical Therapy Plan Frequency and Duration Frequency of Treatment 1x/Week Duration of Treatment 2 months Plan of Care Start Date 11/28/21 Plan of Care End Date 01/26/22 Next Visit Focus/Plan Next Note Type Treatment Note Next Visit Plan cont to wrok on L SB & rot ability & posture
--- NOTE | 2021-12-14 16:25 | PT.OTN ---
Current Diagnoses Cervicalgia (12/14/21) Strain of muscle, fascia and tendon at neck level, subsequent encounter (12/14/21) Physical Therapy Treatment Note PT-OP-A Visit Information Start: 09/25/21 12:55 Freq: Status: Active Protocol: Document 12/14/21 12:59 [facility] (Rec: 12/14/21 16:25 [facility] [id number]) Out-Patient Physical Therapy Visit Information Visit Information Visit Type Treatment Note Visit Start Time 13:01 Visit Stop Time 13:55 Total Visit Minutes 54 Visit Number 12 Number of [employer] [place] Visits 0 PT-OP-B Current Condition Start: 09/25/21 12:55 Freq: Status: Active Protocol: Document 09/27/21 13:50 [facility] (Rec: 09/27/21 14:08 MB [id number]) Current Condition History of Current Condition Onset Date A year Current Complaints Neck pain and decreased range of motion History of Current Condition Pt states that she received PT at this clinic earlier this year over the summer for the same problem. She has a history of neck arthritis and pain with range of motion. She stopped PT because she got better, continued with the exercises and then they seemed to get harder. She has most trouble moving head side to side. 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 Pt reports 3-4/10 pain at the tops of her shoulders. She reports the most pain where the neck joint touches the shoulder and she has more pain on the left. No numbness or tingling in the arms. She is right handed. Pt had left shoulder arthroscopic surgery in 2018. She did well with PT after that. Pt is sleeping on her sides. She sleeps on a fat pillow. PMH: DM, hypothyroidism, cervical disc disease Pt states that cervical SB stretch bothers her and armpit sniff stretch does not. Prior Treatments and Tests X-ray cervical spine 04/27/21: IMPRESSION: No trauma found. Moderately severe C5 through C7 degenerative disc disease with anterior and posterior projecting osteophytes. Spinal and foraminal stenosis may be associated. Treatment Goals Patient/Caregiver Goals To decrease pain and improve ROM PT-OP-C Subjective Start: 09/25/21 12:55 Freq: Status: Active Protocol: Document 12/14/21 12:59 [facility] (Rec: 12/14/21 16:25 [facility] [id number]) OP-PT Subjective Patient Comments Patient Comments Pt reports removing her head to L after last week was better. Pt reports after a 2 mile walk felt fine and the next day did a short walk but was tired in back and took a seated rest. Pt reports the looking down needed in walking on trails irritates her neck. Notes HAbd was uncomfortable on foam roll PT-OP-J Posture/Palpation/Skin Start: 09/25/21 12:55 Freq: Status: Active Protocol: Document 11/28/21 13:00 [facility] (Rec: 11/28/21 13:53 [facility] [id number]) Posture Evaluation [facility] Postural Classification System Elbow Flexion Test 0 PT-OP-K Range of Motion Start: 09/25/21 12:55 Freq: Status: Active Protocol: Document 11/28/21 13:00 [facility] (Rec: 11/28/21 13:53 [facility] [id number]) Cervical Spine Range of Motion Cervical Spine Active Testing Position Standing Flexion 64 Extension 35 Rotation Left 46 Rotation Right 59 Lateral Flexion Left 35 Lateral Flexion Right 36 Comments pain w/SB & rot L PT-OP-M Strength Start: 09/25/21 12:55 Freq: Status: Active Protocol: Document 09/27/21 13:50 MB (Rec: 09/27/21 16:09 MB [id number]) Shoulder Strength Shoulder Manual Muscle Testing Left Flexion 4 Good Abduction (C5) 5 Normal External Rotation 5 Normal Internal Rotation 5 Normal Right Flexion 4 Good Abduction (C5) 5 Normal External Rotation 5 Normal Internal Rotation 5 Normal Elbow/Forearm Strength Elbow and Forearm Manual Muscle Testing Left Flexion (C6) 5 Normal Extension (C7) 5 Normal Right Flexion (C6) 5 Normal Extension (C7) 5 Normal PT-OP-Q Treatments Start: 09/25/21 12:55 Freq: Status: Active Protocol: Document 12/14/21 12:59 [facility] (Rec: 12/14/21 16:25 [facility] [id number]) Cardio Equipment Upper Body Ergometer (UBE) Duration (Minutes) 4 Other 1' forward and 1' backwards Therapeutic Exercises Standing Exercises Habd Side bilateral Equipment Used L1 Reps/Minutes 15 Comments cues for scap-no pain noted Use of back paperboard boxes estimator and theracane Standing Exercise Name edu of where w/hooked umbrella pt has Racquet ball massage Side bilateral Comments Infra & rhombMWM w/PT edu of movement of UE & placement Manual Therapy Treatment Soft Tissue Mobilization post Body Location L rhomboids, lats tspine paraspinals Mobilization Type Rolling,Strumming Intensity/Depth Moderate Body Position Sidelying cervical paraspinals Body Location L>R cervical & upper thoracic Mobilization Type Myofascial Release,Sustained Pressure,Trigger Point Release Intensity/Depth Moderate Body Position Supine levator scap Body Location L LS, UT, scalenes Mobilization Type Myofascial Release,Sustained Pressure,Trigger Point Release Intensity/Depth Moderate Body Position Sidelying Joint Mobilizations thoracic Comments 1.T6-7 transverse R FM 2. T1-2 UPA L FM 3. T6 & 7 UPA L cervical Comments C7 transverse R FM PT-OP-R Modalities Start: 11/09/21 13:51 Freq: Status: Active Protocol: Document 12/14/21 12:59 [facility] (Rec: 12/14/21 16:25 [facility] [id number]) Hot Pack/Cold Pack Treatment Cold Pack Location cervical & L shoulder Patient Position Hooklying Treatment Duration (minutes) 10 PT-OP-T Assessment and Plan Start: 09/25/21 12:55 Freq: Status: Active Protocol: Document 12/14/21 12:59 [facility] (Rec: 12/14/21 16:25 [facility] [id number]) Physical Therapy Assessment Goals activities Short Term Goal (STG) Pt will be able to sleep well w/o inc pain STG Duration 12/26/21 Belt Puncher Goal (LTG) Pt will be able to carry a pack when walking w/o inc pain . LTG Duration 01.26.22 2 Belt Puncher Goal (LTG) Pt will reports a 75% improvement in neck pain to improve quality of life by . 11/28-sleeping better, still gets a bit sore and tight 10/18/21: Pt reports that she feels at least 25% better since starting PT. LTG Duration 6 weeks 1 Belt Puncher Goal (LTG) Pt will perform progressive HEP with I including posture, flexibility, breathing, self- massage and strengthening to improve pain by 11/29/21. 10/18/21: Pt is doing exercises and they are helpful. 11/28-doing exercises but does get tight after exericses. She can get relief from the tightness w/ball on wall. LTG Duration 6 weeks Assessment Summary Assessment pt had improved post depression of L scap w/manual treatment and had improved L cervical rotation at start of treatment to 60% as compared to other sessions w/ improvement of 10% at end Physical Therapy Plan Frequency and Duration Frequency of Treatment 1x/Week Duration of Treatment 2 months Plan of Care Start Date 11/28/21 Plan of Care End Date 01/26/22 Next Visit Focus/Plan Next Note Type Treatment Note Next Visit Plan cont to work on L SB & rot ability & posture along w/L scap depression
--- NOTE | 2021-12-21 13:06 | PT.OTN ---
Current Diagnoses Cervicalgia (12/21/21) Strain of muscle, fascia and tendon at neck level, subsequent encounter (12/21/21) Physical Therapy Treatment Note PT-OP-A Visit Information Start: 09/25/21 12:55 Freq: Status: Active Protocol: Document 12/21/21 10:32 [facility] (Rec: 12/21/21 13:06 [facility] [id number]) Out-Patient Physical Therapy Visit Information Visit Information Visit Type Treatment Note Visit Start Time 10:34 Visit Stop Time 11:25 Total Visit Minutes 51 Visit Number 13 Number of SUPPLY CHAIN INTERN Visits 0 PT-OP-B Current Condition Start: 09/25/21 12:55 Freq: Status: Active Protocol: Document 09/27/21 13:50 MB (Rec: 09/27/21 14:08 MB [id number]) Current Condition History of Current Condition Onset Date A year Current Complaints Neck pain and decreased range of motion History of Current Condition Pt states that she received PT at this clinic earlier this year over the summer for the same problem. She has a history of neck arthritis and pain with range of motion. She stopped PT because she got better, continued with the exercises and then they seemed to get harder. She has most trouble moving head side to side. 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 Pt reports 3-4/10 pain at the tops of her shoulders. She reports the most pain where the neck joint touches the shoulder and she has more pain on the left. No numbness or tingling in the arms. She is right handed. Pt had left shoulder arthroscopic surgery in 2018. She did well with PT after that. Pt is sleeping on her sides. She sleeps on a fat pillow. PMH: DM, hypothyroidism, cervical disc disease Pt states that cervical SB stretch bothers her and armpit sniff stretch does not. Prior Treatments and Tests X-ray cervical spine 04/27/21: IMPRESSION: No trauma found. Moderately severe C5 through C7 degenerative disc disease with anterior and posterior projecting osteophytes. Spinal and foraminal stenosis may be associated. Treatment Goals Patient/Caregiver Goals To decrease pain and improve ROM PT-OP-C Subjective Start: 09/25/21 12:55 Freq: Status: Active Protocol: Document 12/21/21 10:32 [facility] (Rec: 12/21/21 13:06 [facility] [id number]) OP-PT Subjective Patient Comments Patient Comments Pt reports sleeping okay and is a little sore today. Doing exercises standing and was painfreee. Feels like the past 2 weeks have been much better . PT-OP-J Posture/Palpation/Skin Start: 09/25/21 12:55 Freq: Status: Active Protocol: Document 11/28/21 13:00 [facility] (Rec: 11/28/21 13:53 [facility] [id number]) Posture Evaluation [facility] Postural Classification System Elbow Flexion Test 0 PT-OP-K Range of Motion Start: 09/25/21 12:55 Freq: Status: Active Protocol: Document 11/28/21 13:00 [facility] (Rec: 11/28/21 13:53 [facility] [id number]) Cervical Spine Range of Motion Cervical Spine Active Testing Position Standing Flexion 64 Extension 35 Rotation Left 46 Rotation Right 59 Lateral Flexion Left 35 Lateral Flexion Right 36 Comments pain w/SB & rot L PT-OP-M Strength Start: 09/25/21 12:55 Freq: Status: Active Protocol: Document 09/27/21 13:50 [facility] (Rec: 09/27/21 16:09 MB [id number]) Shoulder Strength Shoulder Manual Muscle Testing Left Flexion 4 Good Abduction (C5) 5 Normal External Rotation 5 Normal Internal Rotation 5 Normal Right Flexion 4 Good Abduction (C5) 5 Normal External Rotation 5 Normal Internal Rotation 5 Normal Elbow/Forearm Strength Elbow and Forearm Manual Muscle Testing Left Flexion (C6) 5 Normal Extension (C7) 5 Normal Right Flexion (C6) 5 Normal Extension (C7) 5 Normal PT-OP-Q Treatments Start: 09/25/21 12:55 Freq: Status: Active Protocol: Document 12/21/21 10:32 [facility] (Rec: 12/21/21 13:06 [facility] [id number]) Manual Therapy Treatment Soft Tissue Mobilization SOR Mobilization Type Sustained Pressure Intensity/Depth Moderate Body Position Supine post Body Location L rhomboids, lats tspine paraspinals Mobilization Type Rolling,Strumming Intensity/Depth Moderate Body Position Sidelying cervical paraspinals Body Location L>R cervical & upper thoracic Mobilization Type Myofascial Release,Sustained Pressure,Trigger Point Release Intensity/Depth Moderate Body Position Supine levator scap Body Location L LS, UT, scalenes Mobilization Type Myofascial Release,Sustained Pressure,Trigger Point Release Intensity/Depth Moderate Body Position Sidelying Joint Mobilizations thoracic Comments 1. T 1 transverse R FM 2. T1 PA and T1-3 UPA L cervical Comments C4-5 transverse R FM UPA C5-6 FM L PT-OP-R Modalities Start: 11/09/21 13:51 Freq: Status: Active Protocol: Document 12/21/21 10:32 [facility] (Rec: 12/21/21 13:06 [facility] [id number]) Hot Pack/Cold Pack Treatment Cold Pack Location cervical & L shoulder Patient Position Hooklying Treatment Duration (minutes) 10 PT-OP-T Assessment and Plan Start: 09/25/21 12:55 Freq: Status: Active Protocol: Document 12/21/21 10:32 [facility] (Rec: 12/21/21 13:06 [facility] [id number]) Physical Therapy Assessment Goals activities Short Term Goal (STG) Pt will be able to sleep well w/o inc pain STG Duration 12/26/21 Cafeteria Attendant Goal (LTG) Pt will be able to carry a pack when walking w/o inc pain . LTG Duration 01.26.22 2 Correction Goal (LTG) Pt will reports a 75% improvement in neck pain to improve quality of life by . 11/28-sleeping better, still gets a bit sore and tight 10/18/21: Pt reports that she feels at least 25% better since starting PT. LTG Duration 6 weeks 1 Cafeteria Attendant Goal (LTG) Pt will perform progressive HEP with I including posture, flexibility, breathing, self- massage and strengthening to improve pain by 11/29/21. 10/18/21: Pt is doing exercises and they are helpful. 11/28-doing exercises but does get tight after exericses. She can get relief from the tightness w/ball on wall. LTG Duration 6 weeks Assessment Summary Assessment Pt is improving w/neck mobility overall and functional ability. She was asked to bring her pack in next time to assess fit. She had imrpoved cervical rotation L after manual and improved L SB w/o pain after manual but pain prior Physical Therapy Plan Frequency and Duration Frequency of Treatment 1x/Week Duration of Treatment 2 months Plan of Care Start Date 11/28/21 Plan of Care End Date 01/26/22 Next Visit Focus/Plan Next Note Type Treatment Note Next Visit Plan cont to work on L SB & rot ability & posture along w/L scap depression
--- NOTE | 2021-12-28 11:51 | PT.OTN ---
Current Diagnoses Cervicalgia (12/28/21) Strain of muscle, fascia and tendon at neck level, subsequent encounter (12/28/21) Physical Therapy Treatment Note PT-OP-A Visit Information Start: 09/25/21 12:55 Freq: Status: Active Protocol: Document 12/28/21 10:35 [facility] (Rec: 12/28/21 11:50 [facility] [id number]) Out-Patient Physical Therapy Visit Information Visit Information Visit Type Treatment Note Visit Start Time 10:35 Visit Stop Time 11:15 Total Visit Minutes 40 Visit Number 14 Number of MEDICAL RECORDS ANALYST Visits 0 PT-OP-B Current Condition Start: 09/25/21 12:55 Freq: Status: Active Protocol: Document 09/27/21 13:50 MB (Rec: 09/27/21 14:08 MB [id number]) Current Condition History of Current Condition Onset Date A year Current Complaints Neck pain and decreased range of motion History of Current Condition Pt states that she received PT at this clinic earlier this year over the summer for the same problem. She has a history of neck arthritis and pain with range of motion. She stopped PT because she got better, continued with the exercises and then they seemed to get harder. She has most trouble moving head side to side. 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 Pt reports 3-4/10 pain at the tops of her shoulders. She reports the most pain where the neck joint touches the shoulder and she has more pain on the left. No numbness or tingling in the arms. She is right handed. Pt had left shoulder arthroscopic surgery in 2018. She did well with PT after that. Pt is sleeping on her sides. She sleeps on a fat pillow. PMH: DM, hypothyroidism, cervical disc disease Pt states that cervical SB stretch bothers her and armpit sniff stretch does not. Prior Treatments and Tests X-ray cervical spine 04/27/21: IMPRESSION: No trauma found. Moderately severe C5 through C7 degenerative disc disease with anterior and posterior projecting osteophytes. Spinal and foraminal stenosis may be associated. Treatment Goals Patient/Caregiver Goals To decrease pain and improve ROM PT-OP-C Subjective Start: 09/25/21 12:55 Freq: Status: Active Protocol: Document 12/28/21 10:35 [facility] (Rec: 12/28/21 11:50 [facility] [id number]) OP-PT Subjective Patient Comments Patient Comments Pt reports rotation is better but SB still uncomfortable. Unsure if it is her back because [facility] did a 4 mile walk without it and noted some fatigue and soreness still. She has been doing gardening w /o [facility] issue PT-OP-J Posture/Palpation/Skin Start: 09/25/21 12:55 Freq: Status: Active Protocol: Document 11/28/21 13:00 [facility] (Rec: 11/28/21 13:53 [facility] [id number]) Posture Evaluation [facility] Postural Classification System Elbow Flexion Test 0 PT-OP-K Range of Motion Start: 09/25/21 12:55 Freq: Status: Active Protocol: Document 11/28/21 13:00 [facility] (Rec: 11/28/21 13:53 [facility] [id number]) Cervical Spine Range of Motion Cervical Spine Active Testing Position Standing Flexion 64 Extension 35 Rotation Left 46 Rotation Right 59 Lateral Flexion Left 35 Lateral Flexion Right 36 Comments pain w/SB & rot L PT-OP-M Strength Start: 09/25/21 12:55 Freq: Status: Active Protocol: Document 09/27/21 13:50 MB (Rec: 09/27/21 16:09 MB [id number]) Shoulder Strength Shoulder Manual Muscle Testing Left Flexion 4 Good Abduction (C5) 5 Normal External Rotation 5 Normal Internal Rotation 5 Normal Right Flexion 4 Good Abduction (C5) 5 Normal External Rotation 5 Normal Internal Rotation 5 Normal Elbow/Forearm Strength Elbow and Forearm Manual Muscle Testing Left Flexion (C6) 5 Normal Extension (C7) 5 Normal Right Flexion (C6) 5 Normal Extension (C7) 5 Normal PT-OP-Q Treatments Start: 09/25/21 12:55 Freq: Status: Active Protocol: Document 12/28/21 10:35 [facility] (Rec: 12/28/21 11:50 [facility] [id number]) Gait Training Gait Activity arm swing Comments 1. down sharma working on improved arm swing B and dec L trunk rotation w/LUE ext 2. standing w/PT and pt holding dowels and PT helping w/arm swing but cues for dec thoracic rotation 3. alt december w/sligth add w/ opp UE flex/add for working on patterns of ant elevation w/ opp ant dep x10 B Manual Therapy Treatment Joint Mobilizations thoracic Comments 1. T8-9, T11 transverse glide L FM cervical Comments C2, C4-5 transverse R FM C3 & C6 transverse glide L FM Neuro Re-Education Treatment Other Activities PNF Comments 1. irradiation from ext, ER, pronation & wrist ext to post dep B progressed to prolonged holds w/UE pattern w/scap pattern then to COI PT-OP-R Modalities Start: 11/09/21 13:51 Freq: Status: Active Protocol: Document 12/21/21 10:32 [facility] (Rec: 12/21/21 13:06 [facility] [id number]) Hot Pack/Cold Pack Treatment Cold Pack Location cervical & L shoulder Patient Position Hooklying Treatment Duration (minutes) 10 PT-OP-T Assessment and Plan Start: 09/25/21 12:55 Freq: Status: Active Protocol: Document 12/28/21 10:35 [facility] (Rec: 12/28/21 11:50 [facility] [id number]) Physical Therapy Assessment Goals activities Short Term Goal (STG) Pt will be able to sleep well w/o inc pain STG Duration 12/26/21 Agricultural Technician Goal (LTG) Pt will be able to carry a pack when walking w/o inc pain . LTG Duration 01.26.22 2 Agricultural Technician Goal (LTG) Pt will reports a 75% improvement in neck pain to improve quality of life by . 11/28-sleeping better, still gets a bit sore and tight 10/18/21: Pt reports that she feels at least 25% better since starting PT. LTG Duration 6 weeks 1 Agricultural Technician Goal (LTG) Pt will perform progressive HEP with I including posture, flexibility, breathing, self- massage and strengthening to improve pain by 11/29/21. 10/18/21: Pt is doing exercises and they are helpful. 11/28-doing exercises but does get tight after exericses. She can get relief from the tightness w/ball on wall. LTG Duration 6 weeks Assessment Summary Assessment Pt de jesus dimrpoved R trunk rotation after manual and improved ROM w/SB but still uncomfortable. pt encoruaged to wrok on setting scap and this dec L upper thoracic discomfort w/SB. Improved UE swing w/gait after manul. Physical Therapy Plan Frequency and Duration Frequency of Treatment 1x/Week Duration of Treatment 2 months Plan of Care Start Date 11/28/21 Plan of Care End Date 01/26/22 Next Visit Focus/Plan Next Note Type Treatment Note Next Visit Plan cont to work on B SB & work on scap stability for gait
--- NOTE | 2022-01-04 12:34 | PT.OTN ---
Current Diagnoses Cervicalgia (01/04/22) Strain of muscle, fascia and tendon at neck level, subsequent encounter (01/04/22) Physical Therapy Treatment Note PT-OP-A Visit Information Start: 09/25/21 12:55 Freq: Status: Active Protocol: Document 01/04/22 08:04 [facility] (Rec: 01/04/22 12:34 [facility] [id number]) Out-Patient Physical Therapy Visit Information Visit Information Visit Type Treatment Note Visit Start Time 10:38 Visit Stop Time 11:28 Total Visit Minutes 50 Visit Number 15 Number of PHARMACEUTICAL SALESPERSON Visits 0 PT-OP-B Current Condition Start: 09/25/21 12:55 Freq: Status: Active Protocol: Document 09/27/21 13:50 MB (Rec: 09/27/21 14:08 MB [id number]) Current Condition History of Current Condition Onset Date A year Current Complaints Neck pain and decreased range of motion History of Current Condition Pt states that she received PT at this clinic earlier this year over the summer for the same problem. She has a history of neck arthritis and pain with range of motion. She stopped PT because she got better, continued with the exercises and then they seemed to get harder. She has most trouble moving head side to side. 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 Pt reports 3-4/10 pain at the tops of her shoulders. She reports the most pain where the neck joint touches the shoulder and she has more pain on the left. No numbness or tingling in the arms. She is right handed. Pt had left shoulder arthroscopic surgery in 2018. She did well with PT after that. Pt is sleeping on her sides. She sleeps on a fat pillow. PMH: DM, hypothyroidism, cervical disc disease Pt states that cervical SB stretch bothers her and armpit sniff stretch does not. Prior Treatments and Tests X-ray cervical spine 04/27/21: IMPRESSION: No trauma found. Moderately severe C5 through C7 degenerative disc disease with anterior and posterior projecting osteophytes. Spinal and foraminal stenosis may be associated. Treatment Goals Patient/Caregiver Goals To decrease pain and improve ROM PT-OP-C Subjective Start: 09/25/21 12:55 Freq: Status: Active Protocol: Document 01/04/22 08:04 [facility] (Rec: 01/04/22 12:34 [facility] [id number]) OP-PT Subjective Patient Comments Patient Comments Pt repots she was able to go for a 2.5 mile walk w/o pain or fatigue and ahs been reading without problema nd rotation seems better but SB still is difficult B and painful Patient Reported Progress Improving PT-OP-J Posture/Palpation/Skin Start: 09/25/21 12:55 Freq: Status: Active Protocol: Document 11/28/21 13:00 [facility] (Rec: 11/28/21 13:53 [facility] [id number]) Posture Evaluation [facility] Postural Classification System Elbow Flexion Test 0 PT-OP-K Range of Motion Start: 09/25/21 12:55 Freq: Status: Active Protocol: Document 11/28/21 13:00 [facility] (Rec: 11/28/21 13:53 [facility] [id number]) Cervical Spine Range of Motion Cervical Spine Active Testing Position Standing Flexion 64 Extension 35 Rotation Left 46 Rotation Right 59 Lateral Flexion Left 35 Lateral Flexion Right 36 Comments pain w/SB & rot L PT-OP-M Strength Start: 09/25/21 12:55 Freq: Status: Active Protocol: Document 09/27/21 13:50 MB (Rec: 09/27/21 16:09 MB [id number]) Shoulder Strength Shoulder Manual Muscle Testing Left Flexion 4 Good Abduction (C5) 5 Normal External Rotation 5 Normal Internal Rotation 5 Normal Right Flexion 4 Good Abduction (C5) 5 Normal External Rotation 5 Normal Internal Rotation 5 Normal Elbow/Forearm Strength Elbow and Forearm Manual Muscle Testing Left Flexion (C6) 5 Normal Extension (C7) 5 Normal Right Flexion (C6) 5 Normal Extension (C7) 5 Normal PT-OP-Q Treatments Start: 09/25/21 12:55 Freq: Status: Active Protocol: Document 01/04/22 08:04 [facility] (Rec: 01/04/22 12:34 [facility] [id number]) Therapeutic Exercises Supine Exercises Horizontal abduction and ER with band Supine Exercise Name Pelvic tilt and tummy tight, ER Side bilateral Resistance lvl 1 Reps/Minutes 10 Comments cues for scap retract & pt in standing Sitting Exercises SB Sitting Exercise Name cervical comfortable range Side bilateral Reps/Minutes 10 Comments w/cues for good posture Standing Exercises Habd Side bilateral Equipment Used L1 Reps/Minutes 10 Comments cues for scap-no pain noted Scapular retraction and row Standing Exercise Name w/straight arm ext Side bilateral Equipment Used L1 Reps/Minutes 15 Comments max cues for scap retract w/ dep Manual Therapy Treatment Soft Tissue Mobilization SOR Mobilization Type Sustained Pressure Intensity/Depth Moderate Body Position Supine post Body Location R rhomboids, lats tspine paraspinals Mobilization Type Rolling,Strumming Intensity/Depth Moderate Body Position Sidelying pecs Body Location R Mobilization Type Myofascial Release,Sustained Pressure,Trigger Point Release Intensity/Depth Moderate Body Position Supine levator scap Body Location R LS, UT, scalenes & SCM Mobilization Type Rolling,Strumming,Sustained Pressure Intensity/Depth Moderate Body Position Sidelying Comments w/ant eleation/post dep Joint Mobilizations ribs Comments 1st rib R caudal FM PT-OP-R Modalities Start: 11/09/21 13:51 Freq: Status: Active Protocol: Document 01/04/22 08:04 [facility] (Rec: 01/04/22 12:34 [facility] [id number]) Hot Pack/Cold Pack Treatment Cold Pack Location cervical & B shoulder Patient Position Hooklying Treatment Duration (minutes) 10 PT-OP-T Assessment and Plan Start: 09/25/21 12:55 Freq: Status: Active Protocol: Document 01/04/22 08:04 [facility] (Rec: 01/04/22 12:34 [facility] [id number]) Physical Therapy Assessment Goals activities Short Term Goal (STG) Pt will be able to sleep well w/o inc pain STG Duration 12/26/21 Residential Goal (LTG) Pt will be able to carry a pack when walking w/o inc pain . LTG Duration 01.26.[address] Work[address] Goal (LTG) Pt will reports a 75% improvement in neck pain to improve quality of life by . 11/28-sleeping better, still gets a bit sore and tight 10/18/21: Pt reports that she feels at least 25% better since starting PT. LTG Duration [address] Work[address] Goal (LTG) Pt will perform progressive HEP with I including posture, flexibility, breathing, self- massage and strengthening to improve pain by 11/29/21. 10/18/21: Pt is doing exercises and they are helpful. 11/28-doing exercises but does get tight after exericses. She can get relief from the tightness w/ball on wall. LTG Duration 6 weeks Assessment Summary Assessment pt had improved abiltiy to retract and depress R shoulder which will improve ability to relax scap elvators in order to imrpove gait along w/ improve ROM. SB still painful B but improved to R after manual Physical Therapy Plan Frequency and Duration Frequency of Treatment 1x/Week Duration of Treatment 2 months Plan of Care Start Date 11/28/21 Plan of Care End Date 01/26/22 Next Visit Focus/Plan Next Note Type Treatment Note Next Visit Plan review ext w/scap retraction
--- NOTE | 2022-01-22 11:40 | PT.OTN ---
Current Diagnoses Cervicalgia (01/22/22) Strain of muscle, fascia and tendon at neck level, subsequent encounter (01/22/22) Physical Therapy Treatment Note PT-OP-A Visit Information Start: 09/25/21 12:55 Freq: Status: Active Protocol: Document 01/22/22 09:49 [facility] (Rec: 01/22/22 10:37 [facility] [id number]) Out-Patient Physical Therapy Visit Information Visit Information Visit Type Progress Note Visit Start Time 09:50 Visit Stop Time 10:30 Total Visit Minutes 40 Visit Number 16 Number of MILLER HELPER DISTILLERY Visits 0 PT-OP-B Current Condition Start: 09/25/21 12:55 Freq: Status: Active Protocol: Document 09/27/21 13:50 MB (Rec: 09/27/21 14:08 MB [id number]) Current Condition History of Current Condition Onset Date A year Current Complaints Neck pain and decreased range of motion History of Current Condition Pt states that she received PT at this clinic earlier this year over the summer for the same problem. She has a history of neck arthritis and pain with range of motion. She stopped PT because she got better, continued with the exercises and then they seemed to get harder. She has most trouble moving head side to side. 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 Pt reports 3-4/10 pain at the tops of her shoulders. She reports the most pain where the neck joint touches the shoulder and she has more pain on the left. No numbness or tingling in the arms. She is right handed. Pt had left shoulder arthroscopic surgery in 2018. She did well with PT after that. Pt is sleeping on her sides. She sleeps on a fat pillow. PMH: DM, hypothyroidism, cervical disc disease Pt states that cervical SB stretch bothers her and armpit sniff stretch does not. Prior Treatments and Tests X-ray cervical spine 04/27/21: IMPRESSION: No trauma found. Moderately severe C5 through C7 degenerative disc disease with anterior and posterior projecting osteophytes. Spinal and foraminal stenosis may be associated. Treatment Goals Patient/Caregiver Goals To decrease pain and improve ROM PT-OP-C Subjective Start: 09/25/21 12:55 Freq: Status: Active Protocol: Document 01/22/22 09:49 [facility] (Rec: 01/22/22 10:37 [facility] [id number]) OP-PT Subjective Patient Comments Patient Comments Pt reports she has been walking and feeling good. She had some discomfort w/rotation of head/trunk and reaching fro about 3-5 min at a time. PT-OP-J Posture/Palpation/Skin Start: 09/25/21 12:55 Freq: Status: Active Protocol: Document 01/22/22 09:49 [facility] (Rec: 01/22/22 10:37 [facility] [id number]) Posture Evaluation [facility] Postural Classification System Elbow Flexion Test 2 PT-OP-K Range of Motion Start: 09/25/21 12:55 Freq: Status: Active Protocol: Document 01/22/22 09:49 [facility] (Rec: 01/22/22 10:37 [facility] [id number]) Cervical Spine Range of Motion Cervical Spine Active Testing Position Standing Flexion 62 Extension 53 Rotation Left 63 Rotation Right 59 Lateral Flexion Left 37 Lateral Flexion Right 44 Comments pain SB B PT-OP-M Strength Start: 09/25/21 12:55 Freq: Status: Active Protocol: Document 09/27/21 13:50 MB (Rec: 09/27/21 16:09 MB [id number]) Shoulder Strength Shoulder Manual Muscle Testing Left Flexion 4 Good Abduction (C5) 5 Normal External Rotation 5 Normal Internal Rotation 5 Normal Right Flexion 4 Good Abduction (C5) 5 Normal External Rotation 5 Normal Internal Rotation 5 Normal Elbow/Forearm Strength Elbow and Forearm Manual Muscle Testing Left Flexion (C6) 5 Normal Extension (C7) 5 Normal Right Flexion (C6) 5 Normal Extension (C7) 5 Normal PT-OP-Q Treatments Start: 09/25/21 12:55 Freq: Status: Active Protocol: Document 01/22/22 09:49 [facility] (Rec: 01/22/22 10:37 [facility] [id number]) Therapeutic Exercises Sitting Exercises SB Sitting Exercise Name torso Side bilateral Reps/Minutes 5 stretch Sitting Exercise Name rotation trunk Side bilateral Standing Exercises Scapular retraction and row Standing Exercise Name w/straight arm ext Side bilateral Equipment Used L1 Reps/Minutes 10 Comments max cues for scap retract w/ dep Manual Therapy Treatment Soft Tissue Mobilization cervical paraspinals Body Location L>R cervical & upper thoracic Mobilization Type Myofascial Release,Sustained Pressure,Trigger Point Release Intensity/Depth Moderate Body Position Supine Joint Mobilizations ribs Comments 1st rib L caudal FM thoracic Comments 1. T8-9, T4-6 FM R transverse glide FM 2. T 7 transverse L FM cervical Comments C1 & C2 transverse R FM C6 transverse R FM PT-OP-R Modalities Start: 11/09/21 13:51 Freq: Status: Active Protocol: Document 01/04/22 08:04 [facility] (Rec: 01/04/22 12:34 [facility] [id number]) Hot Pack/Cold Pack Treatment Cold Pack Location cervical & B shoulder Patient Position Hooklying Treatment Duration (minutes) 10 PT-OP-T Assessment and Plan Start: 09/25/21 12:55 Freq: Status: Active Protocol: Document 01/22/22 09:49 [facility] (Rec: 01/22/22 10:37 [facility] [id number]) Physical Therapy Assessment Goals activities Short Term Goal (STG) Pt will be able to sleep well w/o inc pain STG Duration achieved 01/22 Prison Goal (LTG) Pt will be able to carry a pack when walking w/o inc pain . 01/22-has not tried recently LTG Duration 02/25 2 Prison Goal (LTG) Pt will reports a 75% improvement in neck pain to improve quality of life by . 11/28-sleeping better, still gets a bit sore and tight 10/18/21: Pt reports that she feels at least 25% better since starting PT. 01/22-70% better now LTG Duration 6 weeks 1 Short Term Goal (STG) Pt will perform progressive HEP with I including posture, flexibility, breathing, self- massage and strengthening to improve pain by 11/29/21. 10/18/21: Pt is doing exercises and they are helpful. 11/28-doing exercises but does get tight after exericses. She can get relief from the tightness w/ball on wall. STG Duration achieved and advancing as needed Jackscrew Worker Goal (LTG) Pt will be able to move head all directions w/o neck pain LTG Duration 8 weeks Assessment Summary Assessment Pt is making good functional improvemnt w/therapy, but still does note discomfort w/ SB of neck and any prolonged position w/rot/SB required liked in gardening. Improved SB w/dec pain after manual treatment. Physical Therapy Plan Frequency and Duration Frequency of Treatment 1x/Week to every oth Duration of Treatment 2 months Plan of Care Start Date 01/22/22 Plan of Care End Date 03/24/22 Therapeutic Interventions Therapeutic Interventions Home Exercise Program,Joint Mobilizations,Manual Therapy, Neuromuscular Re-education, Patient/Caregiver Education, Self-Care/Home Management,Soft Tissue Mobilization,Taping, Therapeutic Activities, Therapeutic Exercises Modalities Cold Pack/Ice Massage,Hot Packs Next Visit Focus/Plan Next Note Type Treatment Note Next Visit Plan cont to work on SB ability
--- NOTE | 2022-01-22 11:41 | PT.OPPOC ---
Physical, Occupational & Speech Therapy At [facility] Current Diagnoses Cervicalgia (01/22/22) Strain of muscle, fascia and tendon at neck level, subsequent encounter (01/22/22) Visit Care Team Role Provider Type Edvin Rader MD Attending Provider Physician Family Provider Primary Care Provider Referring Provider Specialty: Family Practice Address: [address] [place] [address], [facility] Email: [email or web address] Plan Of Care PT-OP-T Assessment and Plan Start: 09/25/21 12:55 Freq: Status: Active Protocol: Document 01/22/22 09:49 [facility] (Rec: 01/22/22 10:37 [facility] [id number]) Physical Therapy Assessment Goals activities Short Term Goal (STG) Pt will be able to sleep well w/o inc pain STG Duration achieved 01/22 Senior Care Goal (LTG) Pt will be able to carry a pack when walking w/o inc pain . 01/22-has not tried recently LTG Duration 02/25 2 Senior Care Goal (LTG) Pt will reports a 75% improvement in neck pain to improve quality of life by . 11/28-sleeping better, still gets a bit sore and tight 10/18/21: Pt reports that she feels at least 25% better since starting PT. 01/22-70% better now LTG Duration 6 weeks 1 Short Term Goal (STG) Pt will perform progressive HEP with I including posture, flexibility, breathing, self- massage and strengthening to improve pain by 11/29/21. 10/18/21: Pt is doing exercises and they are helpful. 11/28-doing exercises but does get tight after exericses. She can get relief from the tightness w/ball on wall. STG Duration achieved and advancing as needed Senior Care Goal (LTG) Pt will be able to move head all directions w/o neck pain LTG Duration 8 weeks Assessment Summary Assessment Pt is making good functional improvemnt w/therapy, but still does note discomfort w/ SB of neck and any prolonged position w/rot/SB required liked in gardening. Improved SB w/dec pain after manual treatment. Physical Therapy Plan Frequency and Duration Frequency of Treatment 1x/Week to every oth Duration of Treatment 2 months Plan of Care Start Date 01/22/22 Plan of Care End Date 03/24/22 Therapeutic Interventions Therapeutic Interventions Home Exercise Program,Joint Mobilizations,Manual Therapy, Neuromuscular Re-education, Patient/Caregiver Education, Self-Care/Home Management,Soft Tissue Mobilization,Taping, Therapeutic Activities, Therapeutic Exercises Modalities Cold Pack/Ice Massage,Hot Packs Next Visit Focus/Plan Next Note Type Treatment Note Next Visit Plan cont to work on SB ability Plan of Care Dates Plan of Care Start Date 01/22/22 Plan of Care End Date 03/24/22 Electronically Signed by: Rebecca Brandon, PT 01/22/22 8631 Please Sign and Return: I have reviewed this Plan of Care and certify that the skilled therapy services above are required to meet the patient?s needs. Physician Signature Date Printed Name and Credentials Clinical Instructor Signature Printed Name and Credentials
--- NOTE | 2022-01-25 18:26 | PT.OTRE ---
Current Diagnoses Cervicalgia (01/25/22) Pain in right upper arm (01/25/22) Difficulty in walking, not elsewhere classified (01/25/22) Abnormal posture (01/25/22) Weakness (01/25/22) Strain of muscle, fascia and tendon at neck level, subsequent encounter (01/25/22) Past Medical History (Last Reviewed 01/23/22 @ 10:45 by MELY Smith) Cervical disc disease H/O rotator cuff surgery Hyperlipidemia Hypothyroidism Neck pain Strain of neck muscle Type 2 diabetes mellitus Surgical History (Last Reviewed 01/23/22 @ 10:45 by MELY Smith) H/O rotator cuff surgery Visit Care Team Role Provider Type Edvin Rader MD Attending Provider Physician Family Provider Primary Care Provider Referring Provider Specialty: Family Practice Address: [address] [place] [address], [facility] Email: [email or web address] Physical Therapy Re-Evaluation PT-OP-A Visit Information Start: 09/25/21 12:55 Freq: Status: Active Protocol: Document 01/25/22 14:35 [facility] (Rec: 01/25/22 15:00 [facility] [id number]) Out-Patient Physical Therapy Visit Information Visit Information Visit Type Re-Evaluation Visit Start Time 14:33 Visit Stop Time 15:25 Total Visit Minutes 52 Visit Number 17 Number of ENVIRONMENTAL SCIENCES PROFESSOR Visits 0 PT-OP-B Current Condition Start: 09/25/21 12:55 Freq: Status: Active Protocol: Document 01/25/22 14:35 [facility] (Rec: 01/25/22 15:00 [facility] [id number]) Current Condition History of Current Condition Current Complaints Neck pain and R shoulder pain History of Current Condition Re-eval-R shoulder pains tarting around 4 weeks ago and frist noticed it when doing exercises for neck PT when stretching on foam roll. Then it started hurting when palm is down. It is slowly getting better now but cannot reach into fridge to grab a drink from bottom of the fridge. She is R handed. No history of shoulder pain prior on R. Pt does notes that she has been told that she is more prone to impingement based on scans. History RCR L in 2018 with original injury in 2007. She injured it throwing hay [place] into a truck and at that time tore RC and pinched a nerve in neck. IE:Pt states that she received PT at this clinic earlier this year over the summer for the same problem. She has a history of neck arthritis and pain with range of motion. She stopped PT because she got better, continued with the exercises and then they seemed to get harder. She has most trouble moving head side to side. 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 Pt reports 3-4/10 pain at the tops of her shoulders. She reports the most pain where the neck joint touches the shoulder and she has more pain on the left. No numbness or tingling in the arms. She is right handed. Pt had left shoulder arthroscopic surgery in 2018. She did well with PT after that. Pt is sleeping on her sides. She sleeps on a fat pillow. PMH: DM, hypothyroidism, cervical disc disease Pt states that cervical SB stretch bothers her and armpit sniff stretch does not. Prior Treatments and Tests X-ray cervical spine 04/27/21: IMPRESSION: No trauma found. Moderately severe C5 through C7 degenerative disc disease with anterior and posterior projecting osteophytes. Spinal and foraminal stenosis may be associated. Treatment Goals Patient/Caregiver Goals eliminate pain in neck to be able to do normal stuff ( moving head side to side when dancing), gardening and heavy and reaching stuff PT-OP-C Subjective Start: 09/25/21 12:55 Freq: Status: Active Protocol: Document 01/25/22 14:35 [facility] (Rec: 01/25/22 15:00 [facility] [id number]) Patient Questionnaires Neck Disability Index NDI Score 6/50 Quick Dash- Upper Extremity Quick Dash UE Score 22.72 OP-PT Pain Assessment Location R shoulder Pain Location Details lat brachium Intensity 5 Scale Used Numeric (0 - 10) Description Aching,Sharp Frequency Intermittent Pain Duration 1 min but sometimes will just start aching Pain Aggravating Factors Lifting Other Pain Aggravating Factors overhead, gardening, occ wakes at night, occ when sitting Other Pain Alleviating Factors stopped movement PT-OP-F Manual Assessment Start: 01/25/22 15:00 Freq: Status: Active Protocol: Document 01/25/22 14:35 [facility] (Rec: 01/25/22 15:20 [facility] [id number]) Manual Assessments Soft Tissue Assessment Soft Tissue Mobility Assessment tenderness to UT, LS B, scalenes B, R humerus more ant than L in glenoid, R>L scap winging PT-OP-J Posture/Palpation/Skin Start: 09/25/21 12:55 Freq: Status: Active Protocol: Document 01/25/22 14:35 [facility] (Rec: 01/25/22 15:00 [facility] [id number]) Posture Evaluation [facility] Postural Classification System Elbow Flexion Test 2 PT-OP-K Range of Motion Start: 09/25/21 12:55 Freq: Status: Active Protocol: Document 01/25/22 14:35 [facility] (Rec: 01/25/22 15:00 [facility] [id number]) Cervical Spine Range of Motion Cervical Spine Active Testing Position Sitting Flexion 62 Extension 53 Rotation Left 63 Rotation Right 59 Lateral Flexion Left 37 Lateral Flexion Right 44 Comments pain SB B Shoulder Goniometric Range of Motion Shoulder Measured in Degrees Left Active Flexion 159 Extension 50 Abduction 173 External Rotation at 90 degrees 90 Abduction Internal Rotation Behind Back (text) T5 Right Active Flexion 144 Extension 49 Abduction 170 External Rotation at 90 degrees 95 Abduction Internal Rotation Behind Back (text) T7 PT-OP-L Special Tests Start: 01/25/22 15:00 Freq: Status: Active Protocol: Document 01/25/22 14:35 [facility] (Rec: 01/25/22 15:20 [facility] [id number]) Special Tests Shoulder Special Tests nerve testing Comments median, ulnar & radial n neg B Speed's Biceps Test Results neg R Harrison Alberto Impingement Test Results R positive Empty Can Test Results pain when going into empty can position but not resistance R AC Joint Compression Test Results neg B Olney Test Test Results positive R Neer Impingement Test Results positiveR PT-OP-M Strength Start: 09/25/21 12:55 Freq: Status: Active Protocol: Document 01/25/22 14:35 [facility] (Rec: 01/25/22 15:00 [facility] [id number]) Shoulder Strength Shoulder Manual Muscle Testing Left Flexion 5 Normal Extension 5 Normal Abduction (C5) 5 Normal Adduction 5 Normal External Rotation 5 Normal Internal Rotation 5 Normal Horizontal Abduction 5 Normal Horizontal Adduction 5 Normal Right Flexion 4+ Good+ Extension 4+ Good+ Abduction (C5) 4+ Good+ Adduction 5 Normal External Rotation 4 Good Internal Rotation 4+ Good+ Horizontal Abduction 3+ Fair+ Horizontal Adduction 4+ Good+ PT-OP-Q Treatments Start: 09/25/21 12:55 Freq: Status: Active Protocol: Document 01/25/22 14:35 [facility] (Rec: 01/25/22 18:18 [facility] [id number]) Manual Therapy Treatment Joint Mobilizations GH Joint R Direction post, inf, distraction Self-Care/Home Management Treatment Education Other Education edu re: anatomy using model, edu re: impingement and why it is important to be aware of UE position during exercises and scap position, edu to avoid exercsies that cause pain PT-OP-R Modalities Start: 11/09/21 13:51 Freq: Status: Active Protocol: Document 01/25/22 14:35 [facility] (Rec: 01/25/22 18:19 [facility] [id number]) Hot Pack/Cold Pack Treatment Cold Pack Location cervical & R shoulder Patient Position Hooklying Treatment Duration (minutes) 10 PT-OP-T Assessment and Plan Start: 09/25/21 12:55 Freq: Status: Active Protocol: Document 01/25/22 14:35 [facility] (Rec: 01/25/22 15:00 [facility] [id number]) Physical Therapy Assessment Goals quick DASH Impairment 22.72 Recycle Worker Goal (LTG) Pt will improve quick dash score to no more than 6 to show improved functional ability. LTG Duration 03/27/22 activities Short Term Goal (STG) Pt will be able to sleep well w/o inc pain STG Duration achieved 01/22 Recycle Worker Goal (LTG) Pt will be able to carry a pack when walking w/o inc pain and will be able to garden and dance around w/inc pain. 01/22-has not tried recently LTG Duration 03/27/22 2 Recycle Worker Goal (LTG) Pt will reports a 75% improvement in neck pain to improve quality of life by . 11/28-sleeping better, still gets a bit sore and tight 10/18/21: Pt reports that she feels at least 25% better since starting PT. 01/22-70% better now LTG Duration 6 weeks 1 Short Term Goal (STG) Pt will perform progressive HEP with I including posture, flexibility, breathing, self- massage and strengthening to improve pain by 2/23/22. 10/18/21: Pt is doing exercises and they are helpful. 11/28-doing exercises but does get tight after exericses. She can get relief from the tightness w/ball on wall. STG Duration achieved and advancing as needed Recycle Worker Goal (LTG) Pt will be able to move head all directions w/o neck pain LTG Duration 8 weeks Assessment Summary Assessment Pt presents for re-evaluation re: R shoulder pain addition to treatment of cervical spine . She has improved a lot w/ cervical spine mobility, but does still have pain w/SB and occ w/walking. She appears to present w/R shoulder impingement symptoms and has some weakness of on R side with improper mechanics whcih likely also contributes to neck pain. Pt to work on PT for B shoulder discomfort (UT B and R brachium pain) and neck pain focusing on scap stability, posture, general upper body mobility and return to full activity. Physical Therapy Plan Frequency and Duration Frequency of Treatment 1x/Week Duration of Treatment 2 months Plan of Care Start Date 01/25/22 Plan of Care End Date 03/27/22 Therapeutic Interventions Therapeutic Interventions Home Exercise Program,Joint Mobilizations,Manual Therapy, Neuromuscular Re-education, Patient/Caregiver Education, Self-Care/Home Management,Soft Tissue Mobilization,Taping, Therapeutic Activities, Therapeutic Exercises Modalities Cold Pack/Ice Massage,Electric Stimulation,Hot Packs, Infrared Therapy,Iontophoresis ,Ultrasound Next Visit Focus/Plan Next Note Type Treatment Note Next Visit Plan review HEP to make sure not painful for pt. manual to R shoulder
--- NOTE | 2022-01-25 18:26 | PT.OPPOC ---
Physical, Occupational & Speech Therapy At [facility] Current Diagnoses Cervicalgia (01/25/22) Pain in right upper arm (01/25/22) Difficulty in walking, not elsewhere classified (01/25/22) Abnormal posture (01/25/22) Weakness (01/25/22) Strain of muscle, fascia and tendon at neck level, subsequent encounter (01/25/22) Visit Care Team Role Provider Type Edvin Rader MD Attending Provider Physician Family Provider Primary Care Provider Referring Provider Specialty: Family Practice Address: [address] [place] [address] Email: [email or web address] Plan Of Care PT-OP-T Assessment and Plan Start: 09/25/21 12:55 Freq: Status: Active Protocol: Document 01/25/22 14:35 [facility] (Rec: 01/25/22 15:00 [facility] [id number]) Physical Therapy Assessment Goals quick DASH Impairment 22.72 Tag Writer Goal (LTG) Pt will improve quick dash score to no more than 6 to show improved functional ability. LTG Duration 03/27/22 activities Short Term Goal (STG) Pt will be able to sleep well w/o inc pain STG Duration achieved 01/22 Tag Writer Goal (LTG) Pt will be able to carry a pack when walking w/o inc pain and will be able to garden and dance around w/inc pain. 01/22-has not tried recently LTG Duration 03/27/22 2 Skilled Nursing Goal (LTG) Pt will reports a 75% improvement in neck pain to improve quality of life by . 11/28-sleeping better, still gets a bit sore and tight 10/18/21: Pt reports that she feels at least 25% better since starting PT. 01/22-70% better now LTG Duration 6 weeks 1 Short Term Goal (STG) Pt will perform progressive HEP with I including posture, flexibility, breathing, self- massage and strengthening to improve pain by 11/29/21. 10/18/21: Pt is doing exercises and they are helpful. 11/28-doing exercises but does get tight after exericses. She can get relief from the tightness w/ball on wall. STG Duration achieved and advancing as needed Skilled Nursing Goal (LTG) Pt will be able to move head all directions w/o neck pain LTG Duration 8 weeks Assessment Summary Assessment Pt presents for re-evaluation re: R shoulder pain addition to treatment of cervical spine . She has improved a lot w/ cervical spine mobility, but does still have pain w/SB and occ w/walking. She appears to present w/R shoulder impingement symptoms and has some weakness of on R side with improper mechanics whcih likely also contributes to neck pain. Pt to work on PT for B shoulder discomfort (UT B and R brachium pain) and neck pain focusing on scap stability, posture, general upper body mobility and return to full activity. Physical Therapy Plan Frequency and Duration Frequency of Treatment 1x/Week Duration of Treatment 2 months Plan of Care Start Date 01/25/22 Plan of Care End Date 03/27/22 Therapeutic Interventions Therapeutic Interventions Home Exercise Program,Joint Mobilizations,Manual Therapy, Neuromuscular Re-education, Patient/Caregiver Education, Self-Care/Home Management,Soft Tissue Mobilization,Taping, Therapeutic Activities, Therapeutic Exercises Modalities Cold Pack/Ice Massage,Electric Stimulation,Hot Packs, Infrared Therapy,Iontophoresis ,Ultrasound Next Visit Focus/Plan Next Note Type Treatment Note Next Visit Plan review HEP to make sure not painful for pt. manual to R shoulder Plan of Care Dates Plan of Care Start Date 01/25/22 Plan of Care End Date 03/27/22 Electronically Signed by: Rebecca Brandon, PT 01/25/22 0412 If you are in agreement with this Plan of Care, please return a signed and dated copy. I have reviewed this Plan of Care and certify that the skilled therapy services above are required to meet the patient?s needs. Physician Signature Date Printed Name and Credentials Clinical Instructor Signature Printed Name and Credentials
--- NOTE | 2022-01-29 09:07 | PT.OTN ---
Current Diagnoses Cervicalgia (01/29/22) Pain in right upper arm (01/29/22) Difficulty in walking, not elsewhere classified (01/29/22) Abnormal posture (01/29/22) Weakness (01/29/22) Strain of muscle, fascia and tendon at neck level, subsequent encounter (01/29/22) Physical Therapy Treatment Note PT-OP-A Visit Information Start: 09/25/21 12:55 Freq: Status: Active Protocol: Document 01/29/22 08:18 [facility] (Rec: 01/29/22 09:07 [facility] [id number]) Out-Patient Physical Therapy Visit Information Visit Information Visit Type Treatment Note Visit Start Time 08:18 Visit Stop Time 09:10 Total Visit Minutes 52 Visit Number [address] SERVICE Visits 0 PT-OP-B Current Condition Start: 09/25/21 12:55 Freq: Status: Active Protocol: Document 01/25/22 14:35 [facility] (Rec: 01/25/22 15:00 [facility] [id number]) Current Condition History of Current Condition Current Complaints Neck pain and R shoulder pain History of Current Condition Re-eval-R shoulder pains tarting around 4 weeks ago and frist noticed it when doing exercises for neck PT when stretching on foam roll. Then it started hurting when palm is down. It is slowly getting better now but cannot reach into fridge to grab a drink from bottom of the fridge. She is R handed. No history of shoulder pain prior on R. Pt does notes that she has been told that she is more prone to impingement based on scans. History RCR L in 2018 with original injury in 2007. She injured it throwing hay [place] into a truck and at that time tore RC and pinched a nerve in neck. IE:Pt states that she received PT at this clinic earlier this year over the summer for the same problem. She has a history of neck arthritis and pain with range of motion. She stopped PT because she got better, continued with the exercises and then they seemed to get harder. She has most trouble moving head side to side. 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 Pt reports 3-4/10 pain at the tops of her shoulders. She reports the most pain where the neck joint touches the shoulder and she has more pain on the left. No numbness or tingling in the arms. She is right handed. Pt had left shoulder arthroscopic surgery in 2018. She did well with PT after that. Pt is sleeping on her sides. She sleeps on a fat pillow. PMH: DM, hypothyroidism, cervical disc disease Pt states that cervical SB stretch bothers her and armpit sniff stretch does not. Prior Treatments and Tests X-ray cervical spine 04/27/21: IMPRESSION: No trauma found. Moderately severe C5 through C7 degenerative disc disease with anterior and posterior projecting osteophytes. Spinal and foraminal stenosis may be associated. Treatment Goals Patient/Caregiver Goals eliminate pain in neck to be able to do normal stuff ( moving head side to side when dancing), gardening and heavy and reaching stuff PT-OP-C Subjective Start: 09/25/21 12:55 Freq: Status: Active Protocol: Document 01/29/22 08:18 [facility] (Rec: 01/29/22 09:07 [facility] [id number]) OP-PT Subjective Patient Comments Patient Comments Pt reports she has some questions about exercises. PT-OP-F Manual Assessment Start: 01/25/22 15:00 Freq: Status: Active Protocol: Document 01/25/22 14:35 [facility] (Rec: 01/25/22 15:20 [facility] [id number]) Manual Assessments Soft Tissue Assessment Soft Tissue Mobility Assessment tenderness to UT, LS B, scalenes B, R humerus more ant than L in glenoid, R>L scap winging PT-OP-J Posture/Palpation/Skin Start: 09/25/21 12:55 Freq: Status: Active Protocol: Document 01/25/22 14:35 [facility] (Rec: 01/25/22 15:00 [facility] [id number]) Posture Evaluation Cezar Postural Classification System Elbow Flexion Test 2 PT-OP-K Range of Motion Start: 09/25/21 12:55 Freq: Status: Active Protocol: Document 01/25/22 14:35 [facility] (Rec: 01/25/22 15:00 [facility] [id number]) Cervical Spine Range of Motion Cervical Spine Active Testing Position Sitting Flexion 62 Extension 53 Rotation Left 63 Rotation Right 59 Lateral Flexion Left 37 Lateral Flexion Right 44 Comments pain SB B Shoulder Goniometric Range of Motion Shoulder Left Active Flexion 159 Extension 50 Abduction 173 External Rotation at 90 degrees 90 Abduction Internal Rotation Behind Back (text) T5 Right Active Flexion 144 Extension 49 Abduction 170 External Rotation at 90 degrees 95 Abduction Internal Rotation Behind Back (text) T7 PT-OP-L Special Tests Start: 01/25/22 15:00 Freq: Status: Active Protocol: Document 01/25/22 14:35 [facility] (Rec: 01/25/22 15:20 [facility] [id number]) Special Tests Shoulder Special Tests nerve testing Comments median, ulnar & radial n neg B Speed's Biceps Test Results neg R Harrison Alberto Impingement Test Results R positive Empty Can Test Results pain when going into empty can position but not resistance R AC Joint Compression Test Results neg B Harris Test Test Results positive R Neer Impingement Test Results positiveR PT-OP-M Strength Start: 09/25/21 12:55 Freq: Status: Active Protocol: Document 01/25/22 14:35 [facility] (Rec: 01/25/22 15:00 [facility] [id number]) Shoulder Strength Shoulder Manual Muscle Testing Left Flexion 5 Normal Extension 5 Normal Abduction (C5) 5 Normal Adduction 5 Normal External Rotation 5 Normal Internal Rotation 5 Normal Horizontal Abduction 5 Normal Horizontal Adduction 5 Normal Right Flexion 4+ Good+ Extension 4+ Good+ Abduction (C5) 4+ Good+ Adduction 5 Normal External Rotation 4 Good Internal Rotation 4+ Good+ Horizontal Abduction 3+ Fair+ Horizontal Adduction 4+ Good+ PT-OP-Q Treatments Start: 09/25/21 12:55 Freq: Status: Active Protocol: Document 01/29/22 08:18 [facility] (Rec: 01/29/22 09:07 [facility] [id number]) Therapeutic Exercises Sidelying Exercises open book Side bilateral Reps/Minutes 6 Comments cues for knee position and lead thru shoulder blade Sitting Exercises SB Sitting Exercise Name 1.torso 2.c ervical Side bilateral Reps/Minutes 1.2x 5 sec 2. 6 stretch Sitting Exercise Name rotation trunk Side bilateral Reps/Minutes 2x5 sec Standing Exercises Habd Side bilateral Equipment Used L1 Reps/Minutes 10 Comments cues for scap-no pain noted Scapular retraction and better posture in standing Standing Exercise Name ER Side bilateral Equipment Used l1 Reps/Minutes 10 Comments towel btwn elbow and side Scapular retraction and row Standing Exercise Name w/straight arm ext Side bilateral Equipment Used L1 Reps/Minutes 15 Comments max cues for scap retract w/ dep Manual Therapy Treatment Soft Tissue Mobilization post Body Location R rhomboids, lats tspine paraspinals Mobilization Type Rolling,Strumming Intensity/Depth Moderate Body Position Sidelying Joint Mobilizations scap Joint R Direction med, med tilt, inf cervical Comments C5 transverse R Self-Care/Home Management Treatment Education Other Education edu to stay in comfortable range w/exercises. Edu that she can follow her PA recs for ibuprofen use and to use ice also to dec pain/inflamation PT-OP-R Modalities Start: 11/09/21 13:51 Freq: Status: Active Protocol: Document 01/29/22 08:18 [facility] (Rec: 01/29/22 09:07 [facility] [id number]) Hot Pack/Cold Pack Treatment Cold Pack Location cervical & R shoulder Patient Position Hooklying Treatment Duration (minutes) 10 PT-OP-T Assessment and Plan Start: 09/25/21 12:55 Freq: Status: Active Protocol: Document 01/29/22 08:18 [facility] (Rec: 01/29/22 09:07 [facility] [id number]) Physical Therapy Assessment Goals quick DASH Impairment 22.72 [facility] Goal (LTG) Pt will improve quick dash score to no more than 6 to show improved functional ability. LTG Duration 03/27/22 activities Short Term Goal (STG) Pt will be able to sleep well w/o inc pain STG Duration achieved 01/22 [facility] Goal (LTG) Pt will be able to carry a pack when walking w/o inc pain and will be able to garden and dance around w/inc pain. 01/22-has not tried recently LTG Duration 03/27/22 2 [employer]er Goal (LTG) Pt will reports a 75% improvement in neck pain to improve quality of life by . 11/28-sleeping better, still gets a bit sore and tight 10/18/21: Pt reports that she feels at least 25% better since starting PT. 01/22-70% better now LTG Duration 6 weeks 1 Short Term Goal (STG) Pt will perform progressive HEP with I including posture, flexibility, breathing, self- massage and strengthening to improve pain by 11/29/21. 10/18/21: Pt is doing exercises and they are helpful. 11/28-doing exercises but does get tight after exericses. She can get relief from the tightness w/ball on wall. STG Duration achieved and advancing as needed [facility] Goal (LTG) Pt will be able to move head all directions w/o neck pain LTG Duration 8 weeks Assessment Summary Assessment Pt had imrpoved PROM of R [place] after manual treatment. She requried cueing w.exercises for scap position and appropriate movement along w/focus on where seh feels this Physical Therapy Plan Frequency and Duration Frequency of Treatment 1x/Week Duration of Treatment 2 months Plan of Care Start Date 01/25/22 Plan of Care End Date 03/27/22 Next Visit Focus/Plan Next Note Type Treatment Note Next Visit Plan manual for R shoulder ROM, PNF R scap, cervical mobiltiy manual
--- NOTE | 2022-02-06 12:08 | PT.OTN ---
Current Diagnoses Cervicalgia (02/06/22) Pain in right upper arm (02/06/22) Difficulty in walking, not elsewhere classified (02/06/22) Abnormal posture (02/06/22) Weakness (02/06/22) Strain of muscle, fascia and tendon at neck level, subsequent encounter (02/06/22) Physical Therapy Treatment Note PT-OP-A Visit Information Start: 09/25/21 12:55 Freq: Status: Active Protocol: Document 02/06/22 11:18 [facility] (Rec: 02/06/22 11:21 [facility] [id number]) Out-Patient Physical Therapy Visit Information Visit Information Visit Type Treatment Note Visit Start Time 10:37 Visit Stop Time 11:15 Total Visit Minutes 38 Visit Number 19 Number of DEEP [employer] Visits 0 PT-OP-B Current Condition Start: 09/25/21 12:55 Freq: Status: Active Protocol: Document 01/25/22 14:35 [facility] (Rec: 01/25/22 15:00 [facility] [id number]) Current Condition History of Current Condition Current Complaints Neck pain and R shoulder pain History of Current Condition Re-eval-R shoulder pains tarting around 4 weeks ago and frist noticed it when doing exercises for neck PT when stretching on foam roll. Then it started hurting when palm is down. It is slowly getting better now but cannot reach into fridge to grab a drink from bottom of the fridge. She is R handed. No history of shoulder pain prior on R. Pt does notes that she has been told that she is more prone to impingement based on scans. History RCR L in 2018 with original injury in 2007. She injured it throwing hay [place] into a truck and at that time tore RC and pinched a nerve in neck. IE:Pt states that she received PT at this clinic earlier this year over the summer for the same problem. She has a history of neck arthritis and pain with range of motion. She stopped PT because she got better, continued with the exercises and then they seemed to get harder. She has most trouble moving head side to side. 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 Pt reports 3-4/10 pain at the tops of her shoulders. She reports the most pain where the neck joint touches the shoulder and she has more pain on the left. No numbness or tingling in the arms. She is right handed. Pt had left shoulder arthroscopic surgery in 2018. She did well with PT after that. Pt is sleeping on her sides. She sleeps on a fat pillow. PMH: DM, hypothyroidism, cervical disc disease Pt states that cervical SB stretch bothers her and armpit sniff stretch does not. Prior Treatments and Tests X-ray cervical spine 04/27/21: IMPRESSION: No trauma found. Moderately severe C5 through C7 degenerative disc disease with anterior and posterior projecting osteophytes. Spinal and foraminal stenosis may be associated. Treatment Goals Patient/Caregiver Goals eliminate pain in neck to be able to do normal stuff ( moving head side to side when dancing), gardening and heavy and reaching stuff PT-OP-C Subjective Start: 09/25/21 12:55 Freq: Status: Active Protocol: Document 02/06/22 11:18 [facility] (Rec: 02/06/22 11:21 [facility] [id number]) OP-PT Subjective Patient Comments Patient Comments Pt reports she has done 3 small rocks in the [place] and it felt okay. Rotation is doing better and R shoulder is doing better w/occ pain only. Pt notes she still has pain w /SB PT-OP-F Manual Assessment Start: 01/25/22 15:00 Freq: Status: Active Protocol: Document 01/25/22 14:35 [facility] (Rec: 01/25/22 15:20 [facility] [id number]) Manual Assessments Soft Tissue Assessment Soft Tissue Mobility Assessment tenderness to UT, LS B, scalenes B, R humerus more ant than L in glenoid, R>L scap winging PT-OP-J Posture/Palpation/Skin Start: 09/25/21 12:55 Freq: Status: Active Protocol: Document 01/25/22 14:35 [facility] (Rec: 01/25/22 15:00 [facility] [id number]) Posture Evaluation Cezar Postural Classification System Elbow Flexion Test 2 PT-OP-K Range of Motion Start: 09/25/21 12:55 Freq: Status: Active Protocol: Document 01/25/22 14:35 [facility] (Rec: 01/25/22 15:00 [facility] [id number]) Cervical Spine Range of Motion Cervical Spine Active Testing Position Sitting Flexion 62 Extension 53 Rotation Left 63 Rotation Right 59 Lateral Flexion Left 37 Lateral Flexion Right 44 Comments pain SB B Shoulder Goniometric Range of Motion Shoulder Left Active Flexion 159 Extension 50 Abduction 173 External Rotation at 90 degrees 90 Abduction Internal Rotation Behind Back (text) T5 Right Active Flexion 144 Extension 49 Abduction 170 External Rotation at 90 degrees 95 Abduction Internal Rotation Behind Back (text) T7 PT-OP-L Special Tests Start: 01/25/22 15:00 Freq: Status: Active Protocol: Document 01/25/22 14:35 [facility] (Rec: 01/25/22 15:20 [facility] [id number]) Special Tests Shoulder Special Tests nerve testing Comments median, ulnar & radial n neg B Speed's Biceps Test Results neg R Harrison Alberto Impingement Test Results R positive Empty Can Test Results pain when going into empty can position but not resistance R AC Joint Compression Test Results neg B [place] Test Test Results positive R Neer Impingement Test Results positiveR PT-OP-M Strength Start: 09/25/21 12:55 Freq: Status: Active Protocol: Document 01/25/22 14:35 [facility] (Rec: 01/25/22 15:00 [facility] [id number]) Shoulder Strength Shoulder Manual Muscle Testing Left Flexion 5 Normal Extension 5 Normal Abduction (C5) 5 Normal Adduction 5 Normal External Rotation 5 Normal Internal Rotation 5 Normal Horizontal Abduction 5 Normal Horizontal Adduction 5 Normal Right Flexion 4+ Good+ Extension 4+ Good+ Abduction (C5) 4+ Good+ Adduction 5 Normal External Rotation 4 Good Internal Rotation 4+ Good+ Horizontal Abduction 3+ Fair+ Horizontal Adduction 4+ Good+ PT-OP-Q Treatments Start: 09/25/21 12:55 Freq: Status: Active Protocol: Document 02/06/22 11:18 [facility] (Rec: 02/06/22 11:21 [facility] [id number]) Manual Therapy Treatment Soft Tissue Mobilization cervical paraspinals Body Location L>R cervical & upper thoracic Mobilization Type Myofascial Release,Sustained Pressure,Trigger Point Release Intensity/Depth Moderate Body Position Supine levator scap Body Location L LS, UT, scalenes & SCM Mobilization Type Rolling,Strumming,Sustained Pressure Intensity/Depth Moderate Body Position Supine Joint Mobilizations GH Joint R Direction inf FM w/dowel into D2 flex ribs Comments inf glide rib 5-9 FM L thoracic Comments transverse R FM T5-8 FM cervical Comments C5 transverse R Self-Care/Home Management Treatment Education Other Education review of exercises mostly verbally with some demo w/SB exercise and clarification of technique. [facility] for working on sidebend of trunk then of neck to see if it improves it if neck feels limited. Edu to write down over next week when neck/shoulder have been painful so we know where to focus in therapy PT-OP-R Modalities Start: 11/09/21 13:51 Freq: Status: Active Protocol: Document 01/29/22 08:18 [facility] (Rec: 01/29/22 09:07 [facility] [id number]) Hot Pack/Cold Pack Treatment Cold Pack Location cervical & R shoulder Patient Position Hooklying Treatment Duration (minutes) 10 PT-OP-T Assessment and Plan Start: 09/25/21 12:55 Freq: Status: Active Protocol: Document 02/06/22 11:18 [facility] (Rec: 02/06/22 11:21 [facility] [id number]) Physical Therapy Assessment Goals quick DASH Impairment 22.72 [employer] Goal (LTG) Pt will improve quick dash score to no more than 6 to show improved functional ability. LTG Duration 03/27/22 activities Short Term Goal (STG) Pt will be able to sleep well w/o inc pain STG Duration achieved 01/22 [employer] Goal (LTG) Pt will be able to carry a pack when walking w/o inc pain and will be able to garden and dance around w/inc pain. 01/22-has not tried recently LTG Duration 03/27/22 2 [employer] Goal (LTG) Pt will reports a 75% improvement in neck pain to improve quality of life by . 11/28-sleeping better, still gets a bit sore and tight 10/18/21: Pt reports that she feels at least 25% better since starting PT. 01/22-70% better now LTG Duration 6 weeks 1 Short Term Goal (STG) Pt will perform progressive HEP with I including posture, flexibility, breathing, self- massage and strengthening to improve pain by 11/29/21. 10/18/21: Pt is doing exercises and they are helpful. 11/28-doing exercises but does get tight after exericses. She can get relief from the tightness w/ball on wall. STG Duration achieved and advancing as needed [facility] Goal (LTG) Pt will be able to move head all directions w/o neck pain LTG Duration 8 weeks Assessment Summary Assessment pt had improved L sidebend of trunk and that imrpoved pt's ability to sidebend L in cervical spine w/o pain. She continues to ahve some tightness but that improved much quicker w/manual. Physical Therapy Plan Frequency and Duration Frequency of Treatment 1x/Week Duration of Treatment 2 months Plan of Care Start Date 01/25/22 Plan of Care End Date 03/27/22 Next Visit Focus/Plan Next Note Type Treatment Note Next Visit Plan manual for R shoulder ROM, PNF R scap, cervical mobiltiy manual
--- NOTE | 2022-02-13 10:34 | PT.OTN ---
Current Diagnoses Cervicalgia (02/13/22) Pain in right upper arm (02/13/22) Difficulty in walking, not elsewhere classified (02/13/22) Abnormal posture (02/13/22) Weakness (02/13/22) Strain of muscle, fascia and tendon at neck level, subsequent encounter (02/13/22) Physical Therapy Treatment Note PT-OP-A Visit Information Start: 09/25/21 12:55 Freq: Status: Active Protocol: Document 02/13/22 09:47 [facility] (Rec: 02/13/22 10:34 [facility] [id number]) Out-Patient Physical Therapy Visit Information Visit Information Visit Type Treatment Note Visit Start Time 09:46 Visit Stop Time 10:27 Total Visit Minutes 41 Visit Number 20 Number of TRANSPORT SPECIALIST Visits 0 PT-OP-B Current Condition Start: 09/25/21 12:55 Freq: Status: Active Protocol: Document 01/25/22 14:35 [facility] (Rec: 01/25/22 15:00 [facility] [id number]) Current Condition History of Current Condition Current Complaints Neck pain and R shoulder pain History of Current Condition Re-eval-R shoulder pains tarting around 4 weeks ago and frist noticed it when doing exercises for neck PT when stretching on foam roll. Then it started hurting when palm is down. It is slowly getting better now but cannot reach into fridge to grab a drink from bottom of the fridge. She is R handed. No history of shoulder pain prior on R. Pt does notes that she has been told that she is more prone to impingement based on scans. History RCR L in 2018 with original injury in 2007. She injured it throwing hay [place] into a truck and at that time tore RC and pinched a nerve in neck. IE:Pt states that she received PT at this clinic earlier this year over the summer for the same problem. She has a history of neck arthritis and pain with range of motion. She stopped PT because she got better, continued with the exercises and then they seemed to get harder. She has most trouble moving head side to side. 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 Pt reports 3-4/10 pain at the tops of her shoulders. She reports the most pain where the neck joint touches the shoulder and she has more pain on the left. No numbness or tingling in the arms. She is right handed. Pt had left shoulder arthroscopic surgery in 2018. She did well with PT after that. Pt is sleeping on her sides. She sleeps on a fat pillow. PMH: DM, hypothyroidism, cervical disc disease Pt states that cervical SB stretch bothers her and armpit sniff stretch does not. Prior Treatments and Tests X-ray cervical spine 04/27/21: IMPRESSION: No trauma found. Moderately severe C5 through C7 degenerative disc disease with anterior and posterior projecting osteophytes. Spinal and foraminal stenosis may be associated. Treatment Goals Patient/Caregiver Goals eliminate pain in neck to be able to do normal stuff ( moving head side to side when dancing), gardening and heavy and reaching stuff PT-OP-C Subjective Start: 09/25/21 12:55 Freq: Status: Active Protocol: Document 02/13/22 09:47 [facility] (Rec: 02/13/22 10:34 [facility] [id number]) OP-PT Subjective Patient Comments Patient Comments Pt reports pain is intermittent. Notices pain with things like: pulling weeds while standing, walking down stairs, unloading bottom rack of oracle specialist, reaching things on bottom cshelf of fridge door, washing dishes in sink, taking notes on kitchen counter. PT-OP-F Manual Assessment Start: 01/25/22 15:00 Freq: Status: Active Protocol: Document 01/25/22 14:35 [facility] (Rec: 01/25/22 15:20 [facility] [id number]) Manual Assessments Soft Tissue Assessment Soft Tissue Mobility Assessment tenderness to UT, LS B, scalenes B, R humerus more ant than L in glenoid, R>L scap winging PT-OP-J Posture/Palpation/Skin Start: 09/25/21 12:55 Freq: Status: Active Protocol: Document 01/25/22 14:35 [facility] (Rec: 01/25/22 15:00 [facility] [id number]) Posture Evaluation Cezar Postural Classification System Elbow Flexion Test 2 PT-OP-K Range of Motion Start: 09/25/21 12:55 Freq: Status: Active Protocol: Document 01/25/22 14:35 [facility] (Rec: 01/25/22 15:00 [facility] [id number]) Cervical Spine Range of Motion Cervical Spine Active Testing Position Sitting Flexion 62 Extension 53 Rotation Left 63 Rotation Right 59 Lateral Flexion Left 37 Lateral Flexion Right 44 Comments pain SB B Shoulder Goniometric Range of Motion Shoulder Left Active Flexion 159 Extension 50 Abduction 173 External Rotation at 90 degrees 90 Abduction Internal Rotation Behind Back (text) T5 Right Active Flexion 144 Extension 49 Abduction 170 External Rotation at 90 degrees 95 Abduction Internal Rotation Behind Back (text) T7 PT-OP-L Special Tests Start: 01/25/22 15:00 Freq: Status: Active Protocol: Document 01/25/22 14:35 [facility] (Rec: 01/25/22 15:20 [facility] [id number]) Special Tests Shoulder Special Tests nerve testing Comments median, ulnar & radial n neg B Speed's Biceps Test Results neg R Harrison Alberto Impingement Test Results R positive Empty Can Test Results pain when going into empty can position but not resistance R AC Joint Compression Test Results neg B Hardin Test Test Results positive R Neer Impingement Test Results positiveR PT-OP-M Strength Start: 09/25/21 12:55 Freq: Status: Active Protocol: Document 01/25/22 14:35 [facility] (Rec: 01/25/22 15:00 [facility] [id number]) Shoulder Strength Shoulder Manual Muscle Testing Left Flexion 5 Normal Extension 5 Normal Abduction (C5) 5 Normal Adduction 5 Normal External Rotation 5 Normal Internal Rotation 5 Normal Horizontal Abduction 5 Normal Horizontal Adduction 5 Normal Right Flexion 4+ Good+ Extension 4+ Good+ Abduction (C5) 4+ Good+ Adduction 5 Normal External Rotation 4 Good Internal Rotation 4+ Good+ Horizontal Abduction 3+ Fair+ Horizontal Adduction 4+ Good+ PT-OP-Q Treatments Start: 09/25/21 12:55 Freq: Status: Active Protocol: Document 02/13/22 09:47 [facility] (Rec: 02/13/22 10:34 [facility] [id number]) Manual Therapy Treatment Soft Tissue Mobilization SOR Mobilization Type Sustained Pressure Intensity/Depth Moderate Body Position Supine levator scap Body Location L>R LS, UT, scalenes & SCM Mobilization Type Rolling,Strumming,Sustained Pressure Intensity/Depth Moderate Body Position Supine Comments also MFR w/use of dycem w/head rot & flex Joint Mobilizations ribs Comments inf 1st rib L FM thoracic Comments transverse FM L T1 cervical Comments 1.C5 transverse R 2. C1 transverse R FM 3. C2 transverse R FM Self-Care/Home Management Treatment Education Other Education Discussion and working on bending w/o cervical and thoracic flex & rotation; workign on good body mechanics for items listed and problem solved doing more squat and hip hinge w/neck in neutral & turning body to face activity she is doing PT-OP-R Modalities Start: 11/09/21 13:51 Freq: Status: Active Protocol: Document 01/29/22 08:18 [facility] (Rec: 01/29/22 09:07 [facility] [id number]) Hot Pack/Cold Pack Treatment Cold Pack Location cervical & R shoulder Patient Position Hooklying Treatment Duration (minutes) 10 PT-OP-T Assessment and Plan Start: 09/25/21 12:55 Freq: Status: Active Protocol: Document 02/13/22 09:47 [facility] (Rec: 02/13/22 10:34 [facility] [id number]) Physical Therapy Assessment Goals quick DASH Impairment 22.72 Group Home Goal (LTG) Pt will improve quick dash score to no more than 6 to show improved functional ability. LTG Duration 03/27/22 activities Short Term Goal (STG) Pt will be able to sleep well w/o inc pain STG Duration achieved 01/22 Family Medicine Physician Assistant Goal (LTG) Pt will be able to carry a pack when walking w/o inc pain and will be able to garden and dance around w/inc pain. 01/22-has not tried recently LTG Duration 03/27/22 2 Family Medicine Physician Assistant Goal (LTG) Pt will reports a 75% improvement in neck pain to improve quality of life by . 11/28-sleeping better, still gets a bit sore and tight 10/18/21: Pt reports that she feels at least 25% better since starting PT. 01/22-70% better now LTG Duration 6 weeks 1 Short Term Goal (STG) Pt will perform progressive HEP with I including posture, flexibility, breathing, self- massage and strengthening to improve pain by 11/29/21. 10/18/21: Pt is doing exercises and they are helpful. 11/28-doing exercises but does get tight after exericses. She can get relief from the tightness w/ball on wall. STG Duration achieved and advancing as needed Family Medicine Physician Assistant Goal (LTG) Pt will be able to move head all directions w/o neck pain LTG Duration 8 weeks Assessment Summary Assessment Pt had improved ROM into flex & flex combined w/rotations & w/SB afer manual and notes less pain w/those motions. Physical Therapy Plan Frequency and Duration Frequency of Treatment 1x/Week Duration of Treatment 2 months Plan of Care Start Date 01/25/22 Plan of Care End Date 03/27/22 Next Visit Focus/Plan Next Note Type Treatment Note Next Visit Plan manual for R shoulder ROM, PNF R scap, cervical mobiltiy manual
--- NOTE | 2022-02-27 11:18 | PT.OTN ---
Current Diagnoses Cervicalgia (02/27/22) Pain in right upper arm (02/27/22) Difficulty in walking, not elsewhere classified (02/27/22) Abnormal posture (02/27/22) Weakness (02/27/22) Strain of muscle, fascia and tendon at neck level, subsequent encounter (02/27/22) Physical Therapy Treatment Note PT-OP-A Visit Information Start: 09/25/21 12:55 Freq: Status: Active Protocol: Document 02/27/22 08:18 [facility] (Rec: 02/27/22 11:18 [facility] [id number]) Out-Patient Physical Therapy Visit Information Visit Information Visit Type Treatment Note Visit Start Time 08:19 Visit Stop Time 09:00 Total Visit Minutes 41 Visit Number 21 Number of MACHINE JOINT CUTTER Visits 0 PT-OP-B Current Condition Start: 09/25/21 12:55 Freq: Status: Active Protocol: Document 01/25/22 14:35 [facility] (Rec: 01/25/22 15:00 [facility] [id number]) Current Condition History of Current Condition Current Complaints Neck pain and R shoulder pain History of Current Condition Re-eval-R shoulder pains tarting around 4 weeks ago and frist noticed it when doing exercises for neck PT when stretching on foam roll. Then it started hurting when palm is down. It is slowly getting better now but cannot reach into fridge to grab a drink from bottom of the fridge. She is R handed. No history of shoulder pain prior on R. Pt does notes that she has been told that she is more prone to impingement based on scans. History RCR L in 2018 with original injury in 2007. She injured it throwing hay [place] into a truck and at that time tore RC and pinched a nerve in neck. IE:Pt states that she received PT at this clinic earlier this year over the summer for the same problem. She has a history of neck arthritis and pain with range of motion. She stopped PT because she got better, continued with the exercises and then they seemed to get harder. She has most trouble moving head side to side. 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 Pt reports 3-4/10 pain at the tops of her shoulders. She reports the most pain where the neck joint touches the shoulder and she has more pain on the left. No numbness or tingling in the arms. She is right handed. Pt had left shoulder arthroscopic surgery in 2018. She did well with PT after that. Pt is sleeping on her sides. She sleeps on a fat pillow. PMH: DM, hypothyroidism, cervical disc disease Pt states that cervical SB stretch bothers her and armpit sniff stretch does not. Prior Treatments and Tests X-ray cervical spine 04/27/21: IMPRESSION: No trauma found. Moderately severe C5 through C7 degenerative disc disease with anterior and posterior projecting osteophytes. Spinal and foraminal stenosis may be associated. Treatment Goals Patient/Caregiver Goals eliminate pain in neck to be able to do normal stuff ( moving head side to side when dancing), gardening and heavy and reaching stuff PT-OP-C Subjective Start: 09/25/21 12:55 Freq: Status: Active Protocol: Document 02/27/22 08:18 [facility] (Rec: 02/27/22 11:18 [facility] [id number]) OP-PT Subjective Patient Comments Patient Comments Pt reports she has been more active recently and did have some soreness w/beach walking. She did a lot of gardening the past 2 weeks and pulling weeds was fine. she was very mindful of body mechanics. she was sore last night after digging a lot. Notes she still has do everything in moderation. PT-OP-F Manual Assessment Start: 01/25/22 15:00 Freq: Status: Active Protocol: Document 01/25/22 14:35 [facility] (Rec: 01/25/22 15:20 [facility] [id number]) Manual Assessments Soft Tissue Assessment Soft Tissue Mobility Assessment tenderness to UT, LS B, scalenes B, R humerus more ant than L in glenoid, R>L scap winging PT-OP-J Posture/Palpation/Skin Start: 09/25/21 12:55 Freq: Status: Active Protocol: Document 01/25/22 14:35 [facility] (Rec: 01/25/22 15:00 [facility] [id number]) Posture Evaluation Cezar Postural Classification System Elbow Flexion Test 2 PT-OP-K Range of Motion Start: 09/25/21 12:55 Freq: Status: Active Protocol: Document 01/25/22 14:35 [facility] (Rec: 01/25/22 15:00 [facility] [id number]) Cervical Spine Range of Motion Cervical Spine Active Testing Position Sitting Flexion 62 Extension 53 Rotation Left 63 Rotation Right 59 Lateral Flexion Left 37 Lateral Flexion Right 44 Comments pain SB B Shoulder Goniometric Range of Motion Shoulder Left Active Flexion 159 Extension 50 Abduction 173 External Rotation at 90 degrees 90 Abduction Internal Rotation Behind Back (text) T5 Right Active Flexion 144 Extension 49 Abduction 170 External Rotation at 90 degrees 95 Abduction Internal Rotation Behind Back (text) T7 PT-OP-L Special Tests Start: 01/25/22 15:00 Freq: Status: Active Protocol: Document 01/25/22 14:35 [facility] (Rec: 01/25/22 15:20 [facility] [id number]) Special Tests Shoulder Special Tests nerve testing Comments median, ulnar & radial n neg B Speed's Biceps Test Results neg R Harrison Alberto Impingement Test Results R positive Empty Can Test Results pain when going into empty can position but not resistance R AC Joint Compression Test Results neg B [place] Test Test Results positive R Neer Impingement Test Results positiveR PT-OP-M Strength Start: 09/25/21 12:55 Freq: Status: Active Protocol: Document 01/25/22 14:35 [facility] (Rec: 01/25/22 15:00 [facility] [id number]) Shoulder Strength Shoulder Manual Muscle Testing Left Flexion 5 Normal Extension 5 Normal Abduction (C5) 5 Normal Adduction 5 Normal External Rotation 5 Normal Internal Rotation 5 Normal Horizontal Abduction 5 Normal Horizontal Adduction 5 Normal Right Flexion 4+ Good+ Extension 4+ Good+ Abduction (C5) 4+ Good+ Adduction 5 Normal External Rotation 4 Good Internal Rotation 4+ Good+ Horizontal Abduction 3+ Fair+ Horizontal Adduction 4+ Good+ PT-OP-Q Treatments Start: 09/25/21 12:55 Freq: Status: Active Protocol: Document 02/27/22 08:18 [facility] (Rec: 02/27/22 11:18 [facility] [id number]) Manual Therapy Treatment Soft Tissue Mobilization SOR Mobilization Type Sustained Pressure Intensity/Depth Moderate Body Position Supine cervical paraspinals Body Location L>R cervical & upper thoracic Mobilization Type Myofascial Release,Sustained Pressure,Trigger Point Release Intensity/Depth Moderate Body Position Supine levator scap Body Location L>R LS, UT, scalenes & SCM Mobilization Type Rolling,Strumming,Sustained Pressure Intensity/Depth Moderate Body Position Supine Comments w/rotation & flex Joint Mobilizations sternum Joint AP FM w/neck flex ribs Comments UAP B 1st rib, R rib 2 thoracic Comments transverse R FM T1-12 w/ rotations cervical Comments 1. C1 transverse L FM 2. C1 UAP R FM 3. C5-T1 gapping FM PT-OP-R Modalities Start: 11/09/21 13:51 Freq: Status: Active Protocol: Document 01/29/22 08:18 [facility] (Rec: 01/29/22 09:07 [facility] [id number]) Hot Pack/Cold Pack Treatment Cold Pack Location cervical & R shoulder Patient Position Hooklying Treatment Duration (minutes) 10 PT-OP-T Assessment and Plan Start: 09/25/21 12:55 Freq: Status: Active Protocol: Document 02/27/22 08:18 [facility] (Rec: 02/27/22 11:18 [facility] [id number]) Physical Therapy Assessment Goals quick DASH Impairment 22.72 [facility] Goal (LTG) Pt will improve quick dash score to no more than 6 to show improved functional ability. LTG Duration 03/27/22 activities Short Term Goal (STG) Pt will be able to sleep well w/o inc pain STG Duration achieved 01/22 Compressor Service Technician Goal (LTG) Pt will be able to carry a pack when walking w/o inc pain and will be able to garden and dance around w/inc pain. 01/22-has not tried recently LTG Duration 03/27/22 2 Compressor Service Technician Goal (LTG) Pt will reports a 75% improvement in neck pain to improve quality of life by . 11/28-sleeping better, still gets a bit sore and tight 10/18/21: Pt reports that she feels at least 25% better since starting PT. 01/22-70% better now LTG Duration 6 weeks 1 Short Term Goal (STG) Pt will perform progressive HEP with I including posture, flexibility, breathing, self- massage and strengthening to improve pain by 11/29/21. 10/18/21: Pt is doing exercises and they are helpful. 11/28-doing exercises but does get tight after exericses. She can get relief from the tightness w/ball on wall. STG Duration achieved and advancing as needed [facility] Goal (LTG) Pt will be able to move head all directions w/o neck pain LTG Duration 8 weeks Assessment Summary Assessment Pt had improved L cervical rotation from 60% to 80% w/ manual today. She improved SB ROM and did not have pain w/ sidebending today. Physical Therapy Plan Frequency and Duration Frequency of Treatment 1x/Week Duration of Treatment 2 months Plan of Care Start Date 01/25/22 Plan of Care End Date 03/27/22 Next Visit Focus/Plan Next Note Type Treatment Note Next Visit Plan manual for R shoulder ROM, PNF R scap, cervical mobiltiy manual
--- NOTE | 2022-03-08 10:46 | PT.OTN ---
Current Diagnoses Cervicalgia (03/08/22) Pain in right upper arm (03/08/22) Difficulty in walking, not elsewhere classified (03/08/22) Abnormal posture (03/08/22) Weakness (03/08/22) Strain of muscle, fascia and tendon at neck level, subsequent encounter (03/08/22) Physical Therapy Treatment Note PT-OP-A Visit Information Start: 09/25/21 12:55 Freq: Status: Active Protocol: Document 03/08/22 08:58 [facility] (Rec: 03/08/22 10:46 [facility] [id number]) Out-Patient Physical Therapy Visit Information Visit Information Visit Type Treatment Note Visit Start Time 09:04 Visit Stop Time 09:54 Total Visit Minutes 50 Visit Number 22 Number of COMMERCIAL LENDING VICE PRESIDENT Visits 0 PT-OP-B Current Condition Start: 09/25/21 12:55 Freq: Status: Active Protocol: Document 01/25/22 14:35 [facility] (Rec: 01/25/22 15:00 [facility] [id number]) Current Condition History of Current Condition Current Complaints Neck pain and R shoulder pain History of Current Condition Re-eval-R shoulder pains tarting around 4 weeks ago and frist noticed it when doing exercises for neck PT when stretching on foam roll. Then it started hurting when palm is down. It is slowly getting better now but cannot reach into fridge to grab a drink from bottom of the fridge. She is R handed. No history of shoulder pain prior on R. Pt does notes that she has been told that she is more prone to impingement based on scans. History RCR L in 2018 with original injury in 2007. She injured it throwing hay [place] into a truck and at that time tore RC and pinched a nerve in neck. IE:Pt states that she received PT at this clinic earlier this year over the summer for the same problem. She has a history of neck arthritis and pain with range of motion. She stopped PT because she got better, continued with the exercises and then they seemed to get harder. She has most trouble moving head side to side. 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 Pt reports 3-4/10 pain at the tops of her shoulders. She reports the most pain where the neck joint touches the shoulder and she has more pain on the left. No numbness or tingling in the arms. She is right handed. Pt had left shoulder arthroscopic surgery in 2018. She did well with PT after that. Pt is sleeping on her sides. She sleeps on a fat pillow. PMH: DM, hypothyroidism, cervical disc disease Pt states that cervical SB stretch bothers her and armpit sniff stretch does not. Prior Treatments and Tests X-ray cervical spine 04/27/21: IMPRESSION: No trauma found. Moderately severe C5 through C7 degenerative disc disease with anterior and posterior projecting osteophytes. Spinal and foraminal stenosis may be associated. Treatment Goals Patient/Caregiver Goals eliminate pain in neck to be able to do normal stuff ( moving head side to side when dancing), gardening and heavy and reaching stuff PT-OP-C Subjective Start: 09/25/21 12:55 Freq: Status: Active Protocol: Document 03/08/22 08:58 [facility] (Rec: 03/08/22 10:46 [facility] [id number]) OP-PT Subjective Patient Comments Patient Comments Pt reports neck still hurts if she looks down to L and occ w /SB L. No issues with walks besides some mild tightness. R shoulder is doing okay. PT-OP-F Manual Assessment Start: 01/25/22 15:00 Freq: Status: Active Protocol: Document 01/25/22 14:35 [facility] (Rec: 01/25/22 15:20 [facility] [id number]) Manual Assessments Soft Tissue Assessment Soft Tissue Mobility Assessment tenderness to UT, LS B, scalenes B, R humerus more ant than L in glenoid, R>L scap winging PT-OP-J Posture/Palpation/Skin Start: 09/25/21 12:55 Freq: Status: Active Protocol: Document 01/25/22 14:35 [facility] (Rec: 01/25/22 15:00 [facility] [id number]) Posture Evaluation C[place]ar Postural Classification System Elbow Flexion Test 2 PT-OP-K Range of Motion Start: 09/25/21 12:55 Freq: Status: Active Protocol: Document 01/25/22 14:35 [facility] (Rec: 01/25/22 15:00 [facility] [id number]) Cervical Spine Range of Motion Cervical Spine Active Testing Position Sitting Flexion 62 Extension 53 Rotation Left 63 Rotation Right 59 Lateral Flexion Left 37 Lateral Flexion Right 44 Comments pain SB B Shoulder Goniometric Range of Motion Shoulder Left Active Flexion 159 Extension 50 Abduction 173 External Rotation at 90 degrees 90 Abduction Internal Rotation Behind Back (text) T5 Right Active Flexion 144 Extension 49 Abduction 170 External Rotation at 90 degrees 95 Abduction Internal Rotation Behind Back (text) T7 PT-OP-L Special Tests Start: 01/25/22 15:00 Freq: Status: Active Protocol: Document 01/25/22 14:35 [facility] (Rec: 01/25/22 15:20 [facility] [id number]) Special Tests Shoulder Special Tests nerve testing Comments median, ulnar & radial n neg B Speed's Biceps Test Results neg R Harrison Alberto Impingement Test Results R positive Empty Can Test Results pain when going into empty can position but not resistance R AC Joint Compression Test Results neg B [place] Test Test Results positive R Neer Impingement Test Results positiveR PT-OP-M Strength Start: 09/25/21 12:55 Freq: Status: Active Protocol: Document 01/25/22 14:35 [facility] (Rec: 01/25/22 15:00 [facility] [id number]) Shoulder Strength Shoulder Manual Muscle Testing Left Flexion 5 Normal Extension 5 Normal Abduction (C5) 5 Normal Adduction 5 Normal External Rotation 5 Normal Internal Rotation 5 Normal Horizontal Abduction 5 Normal Horizontal Adduction 5 Normal Right Flexion 4+ Good+ Extension 4+ Good+ Abduction (C5) 4+ Good+ Adduction 5 Normal External Rotation 4 Good Internal Rotation 4+ Good+ Horizontal Abduction 3+ Fair+ Horizontal Adduction 4+ Good+ PT-OP-Q Treatments Start: 09/25/21 12:55 Freq: Status: Active Protocol: Document 03/08/22 08:58 [facility] (Rec: 03/08/22 10:46 [facility] [id number]) Manual Therapy Treatment Soft Tissue Mobilization SOR Body Location l Mobilization Type Sustained Pressure Intensity/Depth Moderate Body Position Supine cervical paraspinals Body Location L>R cervical & upper thoracic Mobilization Type Myofascial Release,Sustained Pressure,Trigger Point Release Intensity/Depth Moderate Body Position Supine levator scap Body Location L>R LS, UT Mobilization Type Rolling,Strumming,Sustained Pressure Intensity/Depth Moderate Body Position Supine Comments w/rotation & flex Joint Mobilizations sternum Joint L AP FM w/neck flex ribs Comments UAP B 1st rib, R rib 2 & distraction & inf glides FM cervical Comments 1. C1 UAP b FM 2. C2 AP R FM Self-Care/Home Management Treatment Education Other Education edu for advancing cervical stability and working on segmental staiblity. edu and wrote up HEP together w/ wording to help pt PT-OP-R Modalities Start: 11/09/21 13:51 Freq: Status: Active Protocol: Document 03/08/22 08:58 [facility] (Rec: 03/08/22 10:46 [facility] [id number]) Hot Pack/Cold Pack Treatment Cold Pack Location cervical Patient Position Hooklying Treatment Duration (minutes) 10 PT-OP-T Assessment and Plan Start: 09/25/21 12:55 Freq: Status: Active Protocol: Document 03/08/22 08:58 [facility] (Rec: 03/08/22 10:46 [facility] [id number]) Physical Therapy Assessment Goals quick DASH Impairment 22.72 Penitentiary Goal (LTG) Pt will improve quick dash score to no more than 6 to show improved functional ability. LTG Duration 03/27/22 activities Short Term Goal (STG) Pt will be able to sleep well w/o inc pain STG Duration achieved 01/22 Link Trainer Maintenance Worker Goal (LTG) Pt will be able to carry a pack when walking w/o inc pain and will be able to garden and dance around w/inc pain. 01/22-has not tried recently LTG Duration 03/27/22 2 Link Trainer Maintenance Worker Goal (LTG) Pt will reports a 75% improvement in neck pain to improve quality of life by . 11/28-sleeping better, still gets a bit sore and tight 10/18/21: Pt reports that she feels at least 25% better since starting PT. 01/22-70% better now LTG Duration 6 weeks 1 Short Term Goal (STG) Pt will perform progressive HEP with I including posture, flexibility, breathing, self- massage and strengthening to improve pain by 11/29/21. 10/18/21: Pt is doing exercises and they are helpful. 11/28-doing exercises but does get tight after exericses. She can get relief from the tightness w/ball on wall. STG Duration achieved and advancing as needed Link Trainer Maintenance Worker Goal (LTG) Pt will be able to move head all directions w/o neck pain LTG Duration 8 weeks Assessment Summary Assessment Pt improved R SB to full motion w/less pain but did still have pain w/L sidebend after manual but inc range and imrpoved 1st rib dep on L. Physical Therapy Plan Frequency and Duration Frequency of Treatment 1x/Week Duration of Treatment 2 months Plan of Care Start Date 01/25/22 Plan of Care End Date 03/27/22 Next Visit Focus/Plan Next Note Type Treatment Note Next Visit Plan PNF to L scap & manual for L sb
--- NOTE | 2022-03-21 11:38 | PT.OTN ---
Current Diagnoses Cervicalgia (03/21/22) Pain in right upper arm (03/21/22) Difficulty in walking, not elsewhere classified (03/21/22) Abnormal posture (03/21/22) Weakness (03/21/22) Strain of muscle, fascia and tendon at neck level, subsequent encounter (03/21/22) Physical Therapy Treatment Note PT-OP-A Visit Information Start: 09/25/21 12:55 Freq: Status: Active Protocol: Document 03/21/22 09:51 [facility] (Rec: 03/21/22 10:36 [facility] [id number]) Out-Patient Physical Therapy Visit Information Visit Information Visit Start Time 09:51 Visit Stop Time 10:40 Total Visit Minutes 49 Visit Number 23 Number of COUNTER INSTALLER Visits 0 PT-OP-B Current Condition Start: 09/25/21 12:55 Freq: Status: Active Protocol: Document 01/25/22 14:35 [facility] (Rec: 01/25/22 15:00 [facility] [id number]) Current Condition History of Current Condition Current Complaints Neck pain and R shoulder pain History of Current Condition Re-eval-R shoulder pains tarting around 4 weeks ago and frist noticed it when doing exercises for neck PT when stretching on foam roll. Then it started hurting when palm is down. It is slowly getting better now but cannot reach into fridge to grab a drink from bottom of the fridge. She is R handed. No history of shoulder pain prior on R. Pt does notes that she has been told that she is more prone to impingement based on scans. History RCR L in 2018 with original injury in 2007. She injured it throwing hay [place] into a truck and at that time tore RC and pinched a nerve in neck. IE:Pt states that she received PT at this clinic earlier this year over the summer for the same problem. She has a history of neck arthritis and pain with range of motion. She stopped PT because she got better, continued with the exercises and then they seemed to get harder. She has most trouble moving head side to side. 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 Pt reports 3-4/10 pain at the tops of her shoulders. She reports the most pain where the neck joint touches the shoulder and she has more pain on the left. No numbness or tingling in the arms. She is right handed. Pt had left shoulder arthroscopic surgery in 2018. She did well with PT after that. Pt is sleeping on her sides. She sleeps on a fat pillow. PMH: DM, hypothyroidism, cervical disc disease Pt states that cervical SB stretch bothers her and armpit sniff stretch does not. Prior Treatments and Tests X-ray cervical spine 04/27/21: IMPRESSION: No trauma found. Moderately severe C5 through C7 degenerative disc disease with anterior and posterior projecting osteophytes. Spinal and foraminal stenosis may be associated. Treatment Goals Patient/Caregiver Goals eliminate pain in neck to be able to do normal stuff ( moving head side to side when dancing), gardening and heavy and reaching stuff PT-OP-C Subjective Start: 09/25/21 12:55 Freq: Status: Active Protocol: Document 03/21/22 09:51 [facility] (Rec: 03/21/22 10:36 [facility] [id number]) OP-PT Subjective Patient Comments Patient Comments Pt did try medical acupuncture and some massage and isn't sure if it helped yet and is optimistic. She has a MRI tomorrow. Patient Questionnaires Quick Dash- Upper Extremity Quick Dash UE Score 0 PT-OP-F Manual Assessment Start: 01/25/22 15:00 Freq: Status: Active Protocol: Document 01/25/22 14:35 [facility] (Rec: 01/25/22 15:20 [facility] [id number]) Manual Assessments Soft Tissue Assessment Soft Tissue Mobility Assessment tenderness to UT, LS B, scalenes B, R humerus more ant than L in glenoid, R>L scap winging PT-OP-J Posture/Palpation/Skin Start: 09/25/21 12:55 Freq: Status: Active Protocol: Document 01/25/22 14:35 [facility] (Rec: 01/25/22 15:00 [facility] [id number]) Posture Evaluation Cezar Postural Classification System Elbow Flexion Test 2 PT-OP-K Range of Motion Start: 09/25/21 12:55 Freq: Status: Active Protocol: Document 03/21/22 09:51 [facility] (Rec: 03/21/22 10:36 [facility] [id number]) Cervical Spine Range of Motion Cervical Spine Active Testing Position Sitting Flexion 62 Extension 60 Rotation Left 62 Rotation Right 68 Lateral Flexion Left 44 Lateral Flexion Right 48 Comments pain SB L PT-OP-L Special Tests Start: 01/25/22 15:00 Freq: Status: Active Protocol: Document 01/25/22 14:35 [facility] (Rec: 01/25/22 15:20 [facility] [id number]) Special Tests Shoulder Special Tests nerve testing Comments median, ulnar & radial n neg B Speed's Biceps Test Results neg R Harrison Alberto Impingement Test Results R positive Empty Can Test Results pain when going into empty can position but not resistance R AC Joint Compression Test Results neg B [place] Test Test Results positive R Neer Impingement Test Results positiveR PT-OP-M Strength Start: 09/25/21 12:55 Freq: Status: Active Protocol: Document 03/21/22 09:51 [facility] (Rec: 03/21/22 10:36 [facility] [id number]) Shoulder Strength Shoulder Manual Muscle Testing Left Flexion 5 Normal Extension 5 Normal Abduction (C5) 5 Normal Adduction 5 Normal External Rotation 5 Normal Internal Rotation 5 Normal Horizontal Abduction 5 Normal Horizontal Adduction 5 Normal Right Flexion 5 Normal Extension 5 Normal Abduction (C5) 5 Normal Adduction 5 Normal External Rotation 5 Normal Internal Rotation 5 Normal Horizontal Abduction 4+ Good+ Horizontal Adduction 5 Normal PT-OP-Q Treatments Start: 09/25/21 12:55 Freq: Status: Active Protocol: Document 03/21/22 09:51 [facility] (Rec: 03/21/22 10:36 [facility] [id number]) Therapeutic Exercises Supine Exercises chin tuck Supine Exercise Name w/fwd pull on C4 Side bilateral Reps/Minutes 5 sec x5 axial elongation Supine Exercise Name in air Reps/Minutes 10 sec x2 Sidelying Exercises self rib mob Sidelying Exercise Name L 1st Reps/Minutes 6 Comments roll fwd/back open book Side right Reps/Minutes 2 Comments cues for knee position and lead thru shoulder blade Sitting Exercises SB Sitting Exercise Name 1.torso Side bilateral Reps/Minutes 1.2x 5 sec stretch Sitting Exercise Name rotation trunk Side bilateral Reps/Minutes 2x5 sec Standing Exercises Habd Standing Exercise Name in mirror Side bilateral Equipment Used L2 Reps/Minutes 10 Comments cues for scap-no pain noted Scapular retraction and better posture in standing Standing Exercise Name ER Side bilateral Equipment Used L2 Reps/Minutes 10 Comments towel btwn elbow and side Scapular retraction and row Standing Exercise Name w/straight arm ext Side bilateral Equipment Used L1 Reps/Minutes 15 Comments max cues for scap retract w/ dep Manual Therapy Treatment Joint Mobilizations ribs Comments 1str rib R caudal FM cervical Comments C4-7 transverse R FM Self-Care/Home Management Treatment Education Other Education discussion of progress and plan and verbal review of exerciess and discussed frequency PT-OP-R Modalities Start: 11/09/21 13:51 Freq: Status: Active Protocol: Document 03/21/22 09:51 [facility] (Rec: 03/21/22 10:36 [facility] [id number]) Hot Pack/Cold Pack Treatment Cold Pack Location cervical Patient Position Hooklying Treatment Duration (minutes) 10 PT-OP-T Assessment and Plan Start: 09/25/21 12:55 Freq: Status: Active Protocol: Document 03/21/22 09:51 [facility] (Rec: 03/21/22 10:36 [facility] [id number]) Physical Therapy Assessment Goals quick DASH Impairment 22.72 Mcfp Goal (LTG) Pt will improve quick dash score to no more than 6 to show improved functional ability. LTG Duration achieved 03/21 activities Short Term Goal (STG) Pt will be able to sleep well w/o inc pain STG Duration achieved 01/22 Mcfp Goal (LTG) Pt will be able to carry a pack when walking w/o inc pain and will be able to garden and dance around w/inc pain. 01/22-has not tried recently LTG Duration achieved 03/21 2 Mcfp Goal (LTG) Pt will reports a 75% improvement in neck pain to improve quality of life by . 11/28-sleeping better, still gets a bit sore and tight 10/18/21: Pt reports that she feels at least 25% better since starting PT. 01/22-70% better now 03/21-pt reports hard to rate LTG Duration 6 weeks 1 Short Term Goal (STG) Pt will perform progressive HEP with I including posture, flexibility, breathing, self- massage and strengthening to improve pain by 11/29/21. 10/18/21: Pt is doing exercises and they are helpful. 11/28-doing exercises but does get tight after exericses. She can get relief from the tightness w/ball on wall. 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 She has much less pain w/R shoulder now and that is not limiting her. Able to now carry a pack, but just notes some pain w/ neck movement during the day. Cont PT to work on imprvoing this further. Physical Therapy Plan Frequency and Duration Frequency of Treatment 1x/Week to every oth Duration of Treatment 2 months Plan of Care Start Date 03/21/22 Plan of Care End Date 05/21/22 Therapeutic Interventions Therapeutic Interventions Home Exercise Program,Joint Mobilizations,Manual Therapy, Neuromuscular Re-education, Patient/Caregiver Education, Self-Care/Home Management,Soft Tissue Mobilization,Taping, Therapeutic Activities, Therapeutic Exercises Modalities Cold Pack/Ice Massage,Electric Stimulation,Hot Packs, Infrared Therapy,Iontophoresis ,Ultrasound Next Visit Focus/Plan Next Note Type Treatment Note Next Visit Plan PNF to L scap & manual for L sb neck
--- NOTE | 2022-03-21 11:40 | PT.OPPN ---
Current Diagnoses Cervicalgia (03/21/22) Pain in right upper arm (03/21/22) Difficulty in walking, not elsewhere classified (03/21/22) Abnormal posture (03/21/22) Weakness (03/21/22) Strain of muscle, fascia and tendon at neck level, subsequent encounter (03/21/22) Physical Therapy Progress Note PT-OP-A Visit Information Start: 09/25/21 12:55 Freq: Status: Active Protocol: Document 03/21/22 09:51 [facility] (Rec: 03/21/22 10:36 [facility] [id number]) Out-Patient Physical Therapy Visit Information Visit Information Visit Start Time 09:51 Visit Stop Time 10:40 Total Visit Minutes 49 Visit Number 23 Number of WATER QUALITY ANALYST Visits 0 PT-OP-B Current Condition Start: 09/25/21 12:55 Freq: Status: Active Protocol: Document 01/25/22 14:35 [facility] (Rec: 01/25/22 15:00 [facility] [id number]) Current Condition History of Current Condition Current Complaints Neck pain and R shoulder pain History of Current Condition Re-eval-R shoulder pains tarting around 4 weeks ago and frist noticed it when doing exercises for neck PT when stretching on foam roll. Then it started hurting when palm is down. It is slowly getting better now but cannot reach into fridge to grab a drink from bottom of the fridge. She is R handed. No history of shoulder pain prior on R. Pt does notes that she has been told that she is more prone to impingement based on scans. History RCR L in 2018 with original injury in 2007. She injured it throwing hay [place] into a truck and at that time tore RC and pinched a nerve in neck. IE:Pt states that she received PT at this clinic earlier this year over the summer for the same problem. She has a history of neck arthritis and pain with range of motion. She stopped PT because she got better, continued with the exercises and then they seemed to get harder. She has most trouble moving head side to side. 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 Pt reports 3-4/10 pain at the tops of her shoulders. She reports the most pain where the neck joint touches the shoulder and she has more pain on the left. No numbness or tingling in the arms. She is right handed. Pt had left shoulder arthroscopic surgery in 2018. She did well with PT after that. Pt is sleeping on her sides. She sleeps on a fat pillow. PMH: DM, hypothyroidism, cervical disc disease Pt states that cervical SB stretch bothers her and armpit sniff stretch does not. Prior Treatments and Tests X-ray cervical spine 04/27/21: IMPRESSION: No trauma found. Moderately severe C5 through C7 degenerative disc disease with anterior and posterior projecting osteophytes. Spinal and foraminal stenosis may be associated. Treatment Goals Patient/Caregiver Goals eliminate pain in neck to be able to do normal stuff ( moving head side to side when dancing), gardening and heavy and reaching stuff PT-OP-C Subjective Start: 09/25/21 12:55 Freq: Status: Active Protocol: Document 03/21/22 09:51 [facility] (Rec: 03/21/22 10:36 [facility] [id number]) OP-PT Subjective Patient Comments Patient Comments Pt did try medical acupuncture and some massage and isn't sure if it helped yet and is optimistic. She has a MRI tomorrow. Patient Questionnaires Quick Dash- Upper Extremity Quick Dash UE Score 0 PT-OP-F Manual Assessment Start: 01/25/22 15:00 Freq: Status: Active Protocol: Document 01/25/22 14:35 [facility] (Rec: 01/25/22 15:20 [facility] [id number]) Manual Assessments Soft Tissue Assessment Soft Tissue Mobility Assessment tenderness to UT, LS B, scalenes B, R humerus more ant than L in glenoid, R>L scap winging PT-OP-J Posture/Palpation/Skin Start: 09/25/21 12:55 Freq: Status: Active Protocol: Document 01/25/22 14:35 [facility] (Rec: 01/25/22 15:00 [facility] [id number]) Posture Evaluation Cezar Postural Classification System Elbow Flexion Test 2 PT-OP-K Range of Motion Start: 09/25/21 12:55 Freq: Status: Active Protocol: Document 03/21/22 09:51 [facility] (Rec: 03/21/22 10:36 [facility] [id number]) Cervical Spine Range of Motion Cervical Spine Active Testing Position Sitting Flexion 62 Extension 60 Rotation Left 62 Rotation Right 68 Lateral Flexion Left 44 Lateral Flexion Right 48 Comments pain SB L PT-OP-L Special Tests Start: 01/25/22 15:00 Freq: Status: Active Protocol: Document 01/25/22 14:35 [facility] (Rec: 01/25/22 15:20 [facility] [id number]) Special Tests Shoulder Special Tests nerve testing Comments median, ulnar & radial n neg B Speed's Biceps Test Results neg R Harrison Alberto Impingement Test Results R positive Empty Can Test Results pain when going into empty can position but not resistance R AC Joint Compression Test Results neg B [place] Test Test Results positive R Neer Impingement Test Results positiveR PT-OP-M Strength Start: 09/25/21 12:55 Freq: Status: Active Protocol: Document 03/21/22 09:51 [facility] (Rec: 03/21/22 10:36 [facility] [id number]) Shoulder Strength Shoulder Manual Muscle Testing Left Flexion 5 Normal Extension 5 Normal Abduction (C5) 5 Normal Adduction 5 Normal External Rotation 5 Normal Internal Rotation 5 Normal Horizontal Abduction 5 Normal Horizontal Adduction 5 Normal Right Flexion 5 Normal Extension 5 Normal Abduction (C5) 5 Normal Adduction 5 Normal External Rotation 5 Normal Internal Rotation 5 Normal Horizontal Abduction 4+ Good+ Horizontal Adduction 5 Normal PT-OP-T Assessment and Plan Start: 09/25/21 12:55 Freq: Status: Active Protocol: Document 03/21/22 09:51 [facility] (Rec: 03/21/22 10:36 [facility] [id number]) Physical Therapy Assessment Goals quick DASH Impairment 22.72 Chocolate Production Machine Operator Goal (LTG) Pt will improve quick dash score to no more than 6 to show improved functional ability. LTG Duration achieved 03/21 activities Short Term Goal (STG) Pt will be able to sleep well w/o inc pain STG Duration achieved 01/22 Senior Care Goal (LTG) Pt will be able to carry a pack when walking w/o inc pain and will be able to garden and dance around w/inc pain. 01/22-has not tried recently LTG Duration achieved 03/21 2 Senior Care Goal (LTG) Pt will reports a 75% improvement in neck pain to improve quality of life by . 11/28-sleeping better, still gets a bit sore and tight 10/18/21: Pt reports that she feels at least 25% better since starting PT. 01/22-70% better now 03/21-pt reports hard to rate LTG Duration 6 weeks 1 Short Term Goal (STG) Pt will perform progressive HEP with I including posture, flexibility, breathing, self- massage and strengthening to improve pain by 11/29/21. 10/18/21: Pt is doing exercises and they are helpful. 11/28-doing exercises but does get tight after exericses. She can get relief from the tightness w/ball on wall. STG Duration achieved and advancing as needed Senior Care Goal (LTG) Pt will be able to move head all directions w/o neck pain 03/21-still issue w/SB LTG Duration 8 weeks Assessment Summary Assessment Pt has improved motion today but still pain w/SB. She has much less pain w/R shoulder now and that is not limiting her. Able to now carry a pack, but just notes some pain w/ neck movement during the day. Cont PT to work on imprvoing this further. Physical Therapy Plan Frequency and Duration Frequency of Treatment 1x/Week to every oth Duration of Treatment 2 months Plan of Care Start Date 03/21/22 Plan of Care End Date 05/21/22 Therapeutic Interventions Therapeutic Interventions Home Exercise Program,Joint Mobilizations,Manual Therapy, Neuromuscular Re-education, Patient/Caregiver Education, Self-Care/Home Management,Soft Tissue Mobilization,Taping, Therapeutic Activities, Therapeutic Exercises Modalities Cold Pack/Ice Massage,Electric Stimulation,Hot Packs, Infrared Therapy,Iontophoresis ,Ultrasound Next Visit Focus/Plan Next Note Type Treatment Note Next Visit Plan PNF to L scap & manual for L sb neck
--- NOTE | 2022-03-21 11:40 | PT.OPPOC ---
Physical, Occupational & Speech Therapy At [facility] Current Diagnoses Cervicalgia (03/21/22) Pain in right upper arm (03/21/22) Difficulty in walking, not elsewhere classified (03/21/22) Abnormal posture (03/21/22) Weakness (03/21/22) Strain of muscle, fascia and tendon at neck level, subsequent encounter (03/21/22) Visit Care Team Role Provider Type Edvin Rader MD Attending Provider Physician Family Provider Primary Care Provider Referring Provider Specialty: Family Practice Address: [address] [place] [address] Email: [email or web address] Plan Of Care PT-OP-T Assessment and Plan Start: 09/25/21 12:55 Freq: Status: Active Protocol: Document 03/21/22 09:51 [facility] (Rec: 03/21/22 10:36 [facility] [id number]) Physical Therapy Assessment Goals quick DASH Impairment 22.72 Wind Power Project Manager Goal (LTG) Pt will improve quick dash score to no more than 6 to show improved functional ability. LTG Duration achieved 03/21 activities Short Term Goal (STG) Pt will be able to sleep well w/o inc pain STG Duration achieved 01/22 Jail Goal (LTG) Pt will be able to carry a pack when walking w/o inc pain and will be able to garden and dance around w/inc pain. 01/22-has not tried recently LTG Duration achieved 03/21 2 Wind Power Project Manager Goal (LTG) Pt will reports a 75% improvement in neck pain to improve quality of life by . 11/28-sleeping better, still gets a bit sore and tight 10/18/21: Pt reports that she feels at least 25% better since starting PT. 01/22-70% better now 03/21-pt reports hard to rate LTG Duration 6 weeks 1 Short Term Goal (STG) Pt will perform progressive HEP with I including posture, flexibility, breathing, self- massage and strengthening to improve pain by 11/29/21. 10/18/21: Pt is doing exercises and they are helpful. 11/28-doing exercises but does get tight after exericses. She can get relief from the tightness w/ball on wall. STG Duration achieved and advancing as needed Wind Power Project Manager Goal (LTG) Pt will be able to move head all directions w/o neck pain 03/21-still issue w/SB LTG Duration 8 weeks Assessment Summary Assessment Pt has improved motion today but still pain w/SB. She has much less pain w/R shoulder now and that is not limiting her. Able to now carry a pack, but just notes some pain w/ neck movement during the day. Cont PT to work on imprvoing this further. Physical Therapy Plan Frequency and Duration Frequency of Treatment 1x/Week to every oth Duration of Treatment 2 months Plan of Care Start Date 03/21/22 Plan of Care End Date 05/21/22 Therapeutic Interventions Therapeutic Interventions Home Exercise Program,Joint Mobilizations,Manual Therapy, Neuromuscular Re-education, Patient/Caregiver Education, Self-Care/Home Management,Soft Tissue Mobilization,Taping, Therapeutic Activities, Therapeutic Exercises Modalities Cold Pack/Ice Massage,Electric Stimulation,Hot Packs, Infrared Therapy,Iontophoresis ,Ultrasound Next Visit Focus/Plan Next Note Type Treatment Note Next Visit Plan PNF to L scap & manual for L sb neck Plan of Care Dates Plan of Care Start Date 03/21/22 Plan of Care End Date 05/21/22 Electronically Signed by: Rebecca Brandon, PT 03/21/22 1109 If you are in agreement with this Plan of Care, please return a signed and dated copy. I have reviewed this Plan of Care and certify that the skilled therapy services above are required to meet the patient?s needs. Physician Signature Date Printed Name and Credentials Clinical Instructor Signature Printed Name and Credentials
--- NOTE | 2022-04-04 12:13 | PT.OTN ---
Current Diagnoses Cervicalgia (04/04/22) Pain in right upper arm (04/04/22) Difficulty in walking, not elsewhere classified (04/04/22) Abnormal posture (04/04/22) Weakness (04/04/22) Strain of muscle, fascia and tendon at neck level, subsequent encounter (04/04/22) Physical Therapy Treatment Note PT-OP-A Visit Information Start: 09/25/21 12:55 Freq: Status: Active Protocol: Document 04/04/22 09:51 [facility] (Rec: 04/04/22 12:13 [facility] [id number]) Out-Patient Physical Therapy Visit Information Visit Information Visit Type Treatment Note Visit Start Time 09:51 Visit Stop Time 10:40 Total Visit Minutes 49 Visit Number 24 Number of FLAKER TENDER Visits 0 PT-OP-B Current Condition Start: 09/25/21 12:55 Freq: Status: Active Protocol: Document 01/25/22 14:35 [facility] (Rec: 01/25/22 15:00 [facility] [id number]) Current Condition History of Current Condition Current Complaints Neck pain and R shoulder pain History of Current Condition Re-eval-R shoulder pains tarting around 4 weeks ago and frist noticed it when doing exercises for neck PT when stretching on foam roll. Then it started hurting when palm is down. It is slowly getting better now but cannot reach into fridge to grab a drink from bottom of the fridge. She is R handed. No history of shoulder pain prior on R. Pt does notes that she has been told that she is more prone to impingement based on scans. History RCR L in 2018 with original injury in 2007. She injured it throwing hay [place] into a truck and at that time tore RC and pinched a nerve in neck. IE:Pt states that she received PT at this clinic earlier this year over the summer for the same problem. She has a history of neck arthritis and pain with range of motion. She stopped PT because she got better, continued with the exercises and then they seemed to get harder. She has most trouble moving head side to side. 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 Pt reports 3-4/10 pain at the tops of her shoulders. She reports the most pain where the neck joint touches the shoulder and she has more pain on the left. No numbness or tingling in the arms. She is right handed. Pt had left shoulder arthroscopic surgery in 2018. She did well with PT after that. Pt is sleeping on her sides. She sleeps on a fat pillow. PMH: DM, hypothyroidism, cervical disc disease Pt states that cervical SB stretch bothers her and armpit sniff stretch does not. Prior Treatments and Tests X-ray cervical spine 04/27/21: IMPRESSION: No trauma found. Moderately severe C5 through C7 degenerative disc disease with anterior and posterior projecting osteophytes. Spinal and foraminal stenosis may be associated. Treatment Goals Patient/Caregiver Goals eliminate pain in neck to be able to do normal stuff ( moving head side to side when dancing), gardening and heavy and reaching stuff PT-OP-C Subjective Start: 09/25/21 12:55 Freq: Status: Active Protocol: Document 04/04/22 09:51 [facility] (Rec: 04/04/22 12:13 [facility] [id number]) OP-PT Subjective Patient Comments Patient Comments Pt reports neck isn't getting in the way of doing much but it still aches still Patient Reported Progress Improving PT-OP-F Manual Assessment Start: 01/25/22 15:00 Freq: Status: Active Protocol: Document 01/25/22 14:35 [facility] (Rec: 01/25/22 15:20 [facility] [id number]) Manual Assessments Soft Tissue Assessment Soft Tissue Mobility Assessment tenderness to UT, LS B, scalenes B, R humerus more ant than L in glenoid, R>L scap winging PT-OP-J Posture/Palpation/Skin Start: 09/25/21 12:55 Freq: Status: Active Protocol: Document 01/25/22 14:35 [facility] (Rec: 01/25/22 15:00 [facility] [id number]) Posture Evaluation Cezar Postural Classification System Elbow Flexion Test 2 PT-OP-K Range of Motion Start: 09/25/21 12:55 Freq: Status: Active Protocol: Document 03/21/22 09:51 [facility] (Rec: 03/21/22 10:36 [facility] [id number]) Cervical Spine Range of Motion Cervical Spine Active Testing Position Sitting Flexion 62 Extension 60 Rotation Left 62 Rotation Right 68 Lateral Flexion Left 44 Lateral Flexion Right 48 Comments pain SB L PT-OP-L Special Tests Start: 01/25/22 15:00 Freq: Status: Active Protocol: Document 01/25/22 14:35 [facility] (Rec: 01/25/22 15:20 [facility] [id number]) Special Tests Shoulder Special Tests nerve testing Comments median, ulnar & radial n neg B Speed's Biceps Test Results neg R Harrison Alberto Impingement Test Results R positive Empty Can Test Results pain when going into empty can position but not resistance R AC Joint Compression Test Results neg B [place] Test Test Results positive R Neer Impingement Test Results positiveR PT-OP-M Strength Start: 09/25/21 12:55 Freq: Status: Active Protocol: Document 03/21/22 09:51 [facility] (Rec: 03/21/22 10:36 [facility] [id number]) Shoulder Strength Shoulder Manual Muscle Testing Left Flexion 5 Normal Extension 5 Normal Abduction (C5) 5 Normal Adduction 5 Normal External Rotation 5 Normal Internal Rotation 5 Normal Horizontal Abduction 5 Normal Horizontal Adduction 5 Normal Right Flexion 5 Normal Extension 5 Normal Abduction (C5) 5 Normal Adduction 5 Normal External Rotation 5 Normal Internal Rotation 5 Normal Horizontal Abduction 4+ Good+ Horizontal Adduction 5 Normal PT-OP-Q Treatments Start: 09/25/21 12:55 Freq: Status: Active Protocol: Document 04/04/22 09:51 [facility] (Rec: 04/04/22 12:13 [facility] [id number]) Manual Therapy Treatment Soft Tissue Mobilization levator scap Body Location L UT, scalenes Mobilization Type Rolling,Strumming,Sustained Pressure Intensity/Depth Moderate Body Position Sidelying Comments w/pnf Joint Mobilizations ac Joint L Direction gapping FM ribs Comments 1st-3rd rib R caudal FM cadual rib 5 thoracic Comments Tt-3 transverse R FM cervical Comments C5-c7 transverse R FM Self-Care/Home Management Treatment Education Other Education edu what words mean from her MRI report and what the doctor meant when explaining the report. Use of spinal model and images of spine. Discussed asking MD for referal to sports and spine clinic as discussion of injection may help. review of 1st rib self mob and what it is for PT-OP-R Modalities Start: 11/09/21 13:51 Freq: Status: Active Protocol: Document 04/04/22 09:51 [facility] (Rec: 04/04/22 12:13 [facility] [id number]) Hot Pack/Cold Pack Treatment Cold Pack Location cervical Patient Position Hooklying Treatment Duration (minutes) 10 PT-OP-T Assessment and Plan Start: 09/25/21 12:55 Freq: Status: Active Protocol: Document 04/04/22 09:51 [facility] (Rec: 04/04/22 12:13 [facility] [id number]) Physical Therapy Assessment Goals quick DASH Impairment 22.72 Shelter Goal (LTG) Pt will improve quick dash score to no more than 6 to show improved functional ability. LTG Duration achieved 03/21 activities Short Term Goal (STG) Pt will be able to sleep well w/o inc pain STG Duration achieved 01/22 Shelter Goal (LTG) Pt will be able to carry a pack when walking w/o inc pain and will be able to garden and dance around w/inc pain. 01/22-has not tried recently LTG Duration achieved 03/21 2 Shelter Goal (LTG) Pt will reports a 75% improvement in neck pain to improve quality of life by . 11/28-sleeping better, still gets a bit sore and tight 10/18/21: Pt reports that she feels at least 25% better since starting PT. 01/22-70% better now 03/21-pt reports hard to rate LTG Duration 6 weeks 1 Short Term Goal (STG) Pt will perform progressive HEP with I including posture, flexibility, breathing, self- massage and strengthening to improve pain by 11/29/21. 10/18/21: Pt is doing exercises and they are helpful. 11/28-doing exercises but does get tight after exericses. She can get relief from the tightness w/ball on wall. STG Duration achieved and advancing as needed Shelter Goal (LTG) Pt will be able to move head all directions w/o neck pain 03/21-still issue w/SB LTG Duration 8 weeks Assessment Summary Assessment Pt was grateful for education in understanding more about anatomy for xray. She cont to have a lot of stiffness in lower and mid cervical which is likely d/t degeneration that is notable in imaging. Physical Therapy Plan Frequency and Duration Frequency of Treatment 1x/Week to every oth Duration of Treatment 2 months Plan of Care Start Date 03/21/22 Plan of Care End Date 05/21/22 Next Visit Focus/Plan Next Note Type Treatment Note Next Visit Plan PNF to L scap & manual for L sb neck
--- NOTE | 2022-04-25 18:24 | PT.OTN ---
Current Diagnoses Cervicalgia (04/25/22) Pain in right upper arm (04/25/22) Difficulty in walking, not elsewhere classified (04/25/22) Abnormal posture (04/25/22) Weakness (04/25/22) Strain of muscle, fascia and tendon at neck level, subsequent encounter (04/25/22) Physical Therapy Treatment Note PT-OP-A Visit Information Start: 09/25/21 12:55 Freq: Status: Active Protocol: Document 04/25/22 18:15 [facility] (Rec: 04/25/22 18:24 [facility] [id number]) Out-Patient Physical Therapy Visit Information Visit Information Visit Type Treatment Note Visit Start Time 11:20 Visit Stop Time 12:05 Total Visit Minutes 45 Visit Number 25 Number of FLAP LINING BINDER Visits 0 PT-OP-B Current Condition Start: 09/25/21 12:55 Freq: Status: Active Protocol: Document 01/25/22 14:35 [facility] (Rec: 01/25/22 15:00 [facility] [id number]) Current Condition History of Current Condition Current Complaints Neck pain and R shoulder pain History of Current Condition Re-eval-R shoulder pains tarting around 4 weeks ago and frist noticed it when doing exercises for neck PT when stretching on foam roll. Then it started hurting when palm is down. It is slowly getting better now but cannot reach into fridge to grab a drink from bottom of the fridge. She is R handed. No history of shoulder pain prior on R. Pt does notes that she has been told that she is more prone to impingement based on scans. History RCR L in 2018 with original injury in 2007. She injured it throwing hay [place] into a truck and at that time tore RC and pinched a nerve in neck. IE:Pt states that she received PT at this clinic earlier this year over the summer for the same problem. She has a history of neck arthritis and pain with range of motion. She stopped PT because she got better, continued with the exercises and then they seemed to get harder. She has most trouble moving head side to side. 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 Pt reports 3-4/10 pain at the tops of her shoulders. She reports the most pain where the neck joint touches the shoulder and she has more pain on the left. No numbness or tingling in the arms. She is right handed. Pt had left shoulder arthroscopic surgery in 2018. She did well with PT after that. Pt is sleeping on her sides. She sleeps on a fat pillow. PMH: DM, hypothyroidism, cervical disc disease Pt states that cervical SB stretch bothers her and armpit sniff stretch does not. Prior Treatments and Tests X-ray cervical spine 04/27/21: IMPRESSION: No trauma found. Moderately severe C5 through C7 degenerative disc disease with anterior and posterior projecting osteophytes. Spinal and foraminal stenosis may be associated. Treatment Goals Patient/Caregiver Goals eliminate pain in neck to be able to do normal stuff ( moving head side to side when dancing), gardening and heavy and reaching stuff PT-OP-C Subjective Start: 09/25/21 12:55 Freq: Status: Active Protocol: Document 04/25/22 18:15 [facility] (Rec: 04/25/22 18:24 [facility] [id number]) OP-PT Subjective Patient Comments Patient Comments Pt reports she still has some problems but the pain is a lot less PT-OP-F Manual Assessment Start: 01/25/22 15:00 Freq: Status: Active Protocol: Document 01/25/22 14:35 [facility] (Rec: 01/25/22 15:20 [facility] [id number]) Manual Assessments Soft Tissue Assessment Soft Tissue Mobility Assessment tenderness to UT, LS B, scalenes B, R humerus more ant than L in glenoid, R>L scap winging PT-OP-J Posture/Palpation/Skin Start: 09/25/21 12:55 Freq: Status: Active Protocol: Document 01/25/22 14:35 [facility] (Rec: 01/25/22 15:00 [facility] [id number]) Posture Evaluation Cezar Postural Classification System Elbow Flexion Test 2 PT-OP-K Range of Motion Start: 09/25/21 12:55 Freq: Status: Active Protocol: Document 03/21/22 09:51 [facility] (Rec: 03/21/22 10:36 [facility] [id number]) Cervical Spine Range of Motion Cervical Spine Active Testing Position Sitting Flexion 62 Extension 60 Rotation Left 62 Rotation Right 68 Lateral Flexion Left 44 Lateral Flexion Right 48 Comments pain SB L PT-OP-L Special Tests Start: 01/25/22 15:00 Freq: Status: Active Protocol: Document 01/25/22 14:35 [facility] (Rec: 01/25/22 15:20 [facility] [id number]) Special Tests Shoulder Special Tests nerve testing Comments median, ulnar & radial n neg B Speed's Biceps Test Results neg R Harrison Alberto Impingement Test Results R positive Empty Can Test Results pain when going into empty can position but not resistance R AC Joint Compression Test Results neg B [place] Test Test Results positive R Neer Impingement Test Results positiveR PT-OP-M Strength Start: 09/25/21 12:55 Freq: Status: Active Protocol: Document 03/21/22 09:51 [facility] (Rec: 03/21/22 10:36 [facility] [id number]) Shoulder Strength Shoulder Manual Muscle Testing Left Flexion 5 Normal Extension 5 Normal Abduction (C5) 5 Normal Adduction 5 Normal External Rotation 5 Normal Internal Rotation 5 Normal Horizontal Abduction 5 Normal Horizontal Adduction 5 Normal Right Flexion 5 Normal Extension 5 Normal Abduction (C5) 5 Normal Adduction 5 Normal External Rotation 5 Normal Internal Rotation 5 Normal Horizontal Abduction 4+ Good+ Horizontal Adduction 5 Normal PT-OP-Q Treatments Start: 09/25/21 12:55 Freq: Status: Active Protocol: Document 04/25/22 18:15 [facility] (Rec: 04/25/22 18:24 [facility] [id number]) Manual Therapy Treatment Soft Tissue Mobilization SOR Body Location R>L Mobilization Type Sustained Pressure Intensity/Depth Moderate Body Position Supine cervical paraspinals Body Location L>R cervical & upper thoracic Mobilization Type Myofascial Release,Sustained Pressure,Trigger Point Release Intensity/Depth Moderate Body Position Supine levator scap Body Location L UT, scalenes & MFR post in seated w/flex Mobilization Type Rolling,Strumming,Sustained Pressure Intensity/Depth Moderate Body Position Supine Joint Mobilizations ribs Comments 1st L caudal FM thoracic Comments T1-3 transverse R FM cervical Comments C5 transverse R FM Self-Care/Home Management Treatment Education Other Education verbal review of HEP. Discussed pt looking into OMT, checking if massage is a beneift for insurance and cont to work with primaryw / acupuncture. Discussed to cont HEP and that she may never be fully painfree PT-OP-R Modalities Start: 11/09/21 13:51 Freq: Status: Active Protocol: Document 04/04/22 09:51 [facility] (Rec: 04/04/22 12:13 [facility] [id number]) Hot Pack/Cold Pack Treatment Cold Pack Location cervical Patient Position Hooklying Treatment Duration (minutes) 10 PT-OP-T Assessment and Plan Start: 09/25/21 12:55 Freq: Status: Active Protocol: Document 04/25/22 18:15 [facility] (Rec: 04/25/22 18:24 [facility] [id number]) Physical Therapy Assessment Goals quick DASH Impairment 22.72 Manager Collection Goal (LTG) Pt will improve quick dash score to no more than 6 to show improved functional ability. LTG Duration achieved 03/21 activities Short Term Goal (STG) Pt will be able to sleep well w/o inc pain STG Duration achieved 01/22 Usp Goal (LTG) Pt will be able to carry a pack when walking w/o inc pain and will be able to garden and dance around w/inc pain. 01/22-has not tried recently LTG Duration achieved 03/21 2 Usp Goal (LTG) Pt will reports a 75% improvement in neck pain to improve quality of life by . 11/28-sleeping better, still gets a bit sore and tight 10/18/21: Pt reports that she feels at least 25% better since starting PT. 01/22-70% better now 03/21-pt reports hard to rate LTG Duration achieved to 90% 1 Short Term Goal (STG) Pt will perform progressive HEP with I including posture, flexibility, breathing, self- massage and strengthening to improve pain by 11/29/21. 10/18/21: Pt is doing exercises and they are helpful. 11/28-doing exercises but does get tight after exericses. She can get relief from the tightness w/ball on wall. STG Duration achieved and advancing as needed Usp Goal (LTG) Pt will be able to move head all directions w/o neck pain 03/21-still issue w/SB LTG Duration still mild pain Assessment Summary Assessment Pt has met most goals at this time and is indep w/HEP. She is educated on cont HEP at this time and cont to work w/ her providers w/other modalities like OMT & acupuncture. She is at at plateau now so is DC despite still having pain w/some movements like SB and occ w/ flex. Improved ability to flex and w/L rotation w/less pain after manual. Physical Therapy Plan Discharge Physical Therapy Discharge Reasons Goals Met
== END 2022-04-30 14:44 ==
LOC: PHYS 11:15
PROVIDERS: Family Provider Family Medicine; PCP Family Medicine; Referring Provider Family Medicine; Visit Provider Family Medicine
DX: S16.1XXD Strain of muscle, fascia and tendon at neck level, subsequent encounter (principal); M54.2 Cervicalgia; M79.621 Pain in right upper arm; R53.1 Weakness; R29.3 Abnormal posture; R26.2 Difficulty in walking, not elsewhere classified
CPT/HCPCS: 97010; 97110; 97112; 97116; 97140; 97161; 97164; 97533; 97535

== ENCOUNTER → 2022-06-22 15:10 | Outpatient (CLI) | payer OTHER, SELFPAY ==
--- NOTE | 2022-06-22 15:11 | DI.MG.S_ITS ---
BILATERAL DIGITAL SCREENING MAMMOGRAM 3D/2D WITH CAD: 06/22/2022 CLINICAL: Routine screening. Family history of breast cancer. Comparison is made to exams dated: 06/13/2021 mammogram - [facility], 03/27/2019 mammogram, and 02/05/2018 mammogram - outside location. There are scattered areas of fibroglandular density in both breasts (category b / 25%-50% glandular tissue). Current study was also evaluated with a Computer Aided Detection (CAD) system. No significant masses, calcifications, or other findings are seen in either breast. There has been no significant interval change. IMPRESSION: NEGATIVE There is no mammographic evidence of malignancy. A 1 year screening mammogram is recommended. Based on the Tyrer Cuzick model (a risk assessment model) the patient's lifetime risk is 8.1% and her 10 year risk is 3.8%. According to the ACR, ACS, and NCCN guidelines, an annual breast MRI exam along with mammogram is recommended if the patient's lifetime risk is 20% or greater. This exam was interpreted at Station ID: [id number]. NOTE: For mammograms, a report in lay terms will be sent to the patient. Approximately 15% of breast malignancies will not be visualized mammographically. In the management of a palpable breast mass, a negative mammogram must not discourage biopsy of a clinically suspicious lesion. Electronically Signed By: B[place]ark [email or web address]/luis:06/22/2022 16:48:40 letter sent: Normal Exam ACR BI-RADS Category 1: Negative 3341F
== END ==
PROVIDERS: Family Provider Family Medicine; PCP Family Medicine; Referring Provider Family Medicine; Visit Provider Family Medicine
DX: Z12.31 Encounter for screening mammogram for malignant neoplasm of breast (principal); Z80.3 Family history of malignant neoplasm of breast
CPT/HCPCS: 77063; 77067

== ENCOUNTER → 2022-06-30 08:53 | Outpatient (CLI) | payer OTHER, SELFPAY ==
[2022-06-30 09:34] LABS: Add Manual Diff / Slide Review NO; Basophils Absolute Auto 100 /uL (0-100); Basophils Percent Auto 1.1 % (0-2); Eosinophils Absolute Auto 800 /uL (0-450); Eosinophils Percent Auto 7.5 % (2-4); Hematocrit 41.4 % (36-46); Hemoglobin 14.1 g/dL (12.0-16.0); Lymphocytes Absolute Auto 1700 /uL (1100-4500); Lymphocytes Percent Auto 16.5 % (25-40); Mean Corpuscular HGB Conc 34.1 % (30-36); Mean Corpuscular Hemoglobin 29.8 PG (26-34); Mean Corpuscular Volume 87.4 fL (80-100); Monocytes Absolute Auto 700 /uL (0-900); Monocytes Percent Auto 6.4 % (3-14); Neutrophils Absolute Auto 7100 /uL (1500-7000); Neutrophils Percent Auto 68.5 % (50-75); Platelet Count 319 X10^3/uL (150-400); Red Blood Cell Count 4.74 X10^6/uL (4.0-5.2); Red Cell Distribution Width 14.8 % (11.6-14.8); White Blood Cell Count 10.3 X10^3/uL (4.5-11.0)
[2022-06-30 09:42] LABS: Hemoglobin A1C% w Est Avg Glu 6.8 % (4.0-6.0)
[2022-06-30 09:50] LABS: Cholesterol 140 mg/dL (140-199); HDL Cholesterol 61 mg/dL (40-60); LDL Cholesterol Calculated 60 mg/dL (<100); Triglycerides 93 mg/dL (35-150)
[2022-06-30 10:23] LABS: TSH w/ Reflex to FT4 0.05 uIU/mL (0.47-4.68)
[2022-06-30 10:40] LABS: Vitamin B12 190 pg/mL (239-931)
[2022-06-30 10:59] LABS: Free T4, Direct Thyroxine 2.03 ng/dL (0.78-2.19)
== END ==
PROVIDERS: Family Provider Family Medicine; PCP Family Medicine; Referring Provider Family Medicine; Visit Provider Family Medicine
DX: E03.9 Hypothyroidism, unspecified (principal); E11.9 Type 2 diabetes mellitus without complications; E78.5 Hyperlipidemia, unspecified; E53.8 Deficiency of other specified B group vitamins
CPT/HCPCS: 36415; 80061; 82607; 83036; 84439; 84443; 85025

== ENCOUNTER → 2022-07-19 13:51 | Outpatient (CLI) | payer OTHER, SELFPAY ==
--- NOTE | 2022-07-19 14:05 | DI.RAD.S_ITS ---
PROCEDURE: XR HAND LT MIN 3V INDICATIONS: Left hand pain TECHNIQUE: 3 views of the hand(s) acquired. COMPARISON: None. FINDINGS: Bones: No fractures or dislocations. Moderate degenerative change at the interphalangeal joints. Interphalangeal joint space narrowing. Moderate degenerative change at the 1st CMC joint. Carpal bones are normally aligned. No suspicious bony lesions. Soft tissues: No suspicious soft tissue calcifications. IMPRESSION: Moderate osteoarthritis. Dictated by: Tristen Fuentes M.D. on 07/19/2022 at 17:07 Approved by: Tristen Fuentes M.D. on 07/19/2022 at 17:08
== END ==
PROVIDERS: Family Provider Family Medicine; PCP Family Medicine; Visit Provider Nurse Practitioner Family
DX: R30.0 Dysuria (principal); S69.92XA Unspecified injury of left wrist, hand and finger(s), initial encounter; M19.042 Primary osteoarthritis, left hand
CPT/HCPCS: 73130; 87077; 87086; 87186; 87210

== ENCOUNTER → 2022-10-09 15:53 | Outpatient (CLI) | payer MEDICARE, OTHER, SELFPAY ==
[2022-10-09 18:08] LABS: TSH w/ Reflex to FT4 0.17 uIU/mL (0.47-4.68)
[2022-10-09 19:24] LABS: Free T4, Direct Thyroxine 1.61 ng/dL (0.78-2.19)
== END ==
PROVIDERS: Family Provider Family Medicine; PCP Family Medicine; Referring Provider Family Medicine; Visit Provider Family Medicine
DX: E11.9 Type 2 diabetes mellitus without complications (principal); E03.9 Hypothyroidism, unspecified; Z12.4 Encounter for screening for malignant neoplasm of cervix
CPT/HCPCS: 36415; 83036; 84439; 84443

== ENCOUNTER → 2023-01-22 14:20 | Outpatient (CLI) | payer MEDICARE, OTHER, SELFPAY ==
[2023-01-22 14:37] LABS: Add Manual Diff / Slide Review NO; Basophils Absolute Auto 100 /uL (0-100); Basophils Percent Auto 0.6 % (0-2); Eosinophils Absolute Auto 700 /uL (0-450); Eosinophils Percent Auto 5.3 % (2-4); Hematocrit 40.5 % (36-46); Hemoglobin 13.5 g/dL (12.0-16.0); Lymphocytes Absolute Auto 1600 /uL (1100-4500); Lymphocytes Percent Auto 11.1 % (25-40); Mean Corpuscular HGB Conc 33.4 % (30-36); Mean Corpuscular Hemoglobin 29.3 PG (26-34); Mean Corpuscular Volume 87.8 fL (80-100); Monocytes Absolute Auto 800 /uL (0-900); Monocytes Percent Auto 5.8 % (3-14); Neutrophils Absolute Auto 10800 /uL (1500-7000); Neutrophils Percent Auto 77.2 % (50-75); Platelet Count 369 X10^3/uL (150-400); Red Blood Cell Count 4.62 X10^6/uL (4.0-5.2); Red Cell Distribution Width 14.6 % (11.6-14.8)
[2023-01-22 15:30] LABS: TSH w/ Reflex to FT4 0.03 uIU/mL (0.47-4.68)
[2023-01-22 16:01] LABS: Free T4, Direct Thyroxine 1.72 ng/dL (0.78-2.19)
[2023-01-23 06:37] LABS: x Labcorp Estim. Avg Glu (eAG) 143 mg/dL (.); x Labcorp Hemoglobin A1c 6.6 % (4.8-5.6)
== END ==
PROVIDERS: Family Provider Family Medicine; PCP Family Medicine; Referring Provider Family Medicine; Visit Provider Family Medicine
DX: E03.9 Hypothyroidism, unspecified (principal); E11.9 Type 2 diabetes mellitus without complications; D72.10 Eosinophilia, unspecified
CPT/HCPCS: 36415; 83036; 84439; 84443; 85025

== ENCOUNTER → 2023-02-08 14:28 | Outpatient (CLI) | payer MEDICARE, OTHER, SELFPAY ==
[2023-02-08 18:47] LABS: Add Manual Diff / Slide Review NO; Basophils Absolute Auto 100 /uL (0-100); Basophils Percent Auto 0.7 % (0-2); Eosinophils Absolute Auto 800 /uL (0-450); Eosinophils Percent Auto 5.6 % (2-4); Hemoglobin 13.7 g/dL (12.0-16.0); Lymphocytes Absolute Auto 1700 /uL (1100-4500); Lymphocytes Percent Auto 12.6 % (25-40); Mean Corpuscular HGB Conc 33.4 % (30-36); Mean Corpuscular Hemoglobin 29.4 PG (26-34); Mean Corpuscular Volume 88.1 fL (80-100); Monocytes Absolute Auto 1000 /uL (0-900); Monocytes Percent Auto 6.9 % (3-14); Neutrophils Absolute Auto 10300 /uL (1500-7000); Neutrophils Percent Auto 74.2 % (50-75); Platelet Count 339 X10^3/uL (150-400); Red Blood Cell Count 4.66 X10^6/uL (4.0-5.2); Red Cell Distribution Width 14.5 % (11.6-14.8); White Blood Cell Count 13.8 X10^3/uL (4.5-11.0)
[2023-02-16 01:38] LABS: Interpretation Negative (.)
== END ==
PROVIDERS: Family Provider Family Medicine; PCP Family Medicine; Referring Provider Family Medicine; Visit Provider Family Medicine
DX: D72.9 Disorder of white blood cells, unspecified (principal); D72.10 Eosinophilia, unspecified
CPT/HCPCS: 36415; 81206; 81207; 85025

== ENCOUNTER → 2023-03-01 10:04 | Outpatient (CLI) | payer MEDICARE, OTHER, SELFPAY ==
--- NOTE | 2023-03-01 10:05 | DI.US.S_ITS ---
PROCEDURE: US THYROID INDICATIONS: THYROID NODULES ASSESSMENT OF GROWTH TECHNIQUE: Real-time scanning was performed of the thyroid gland, with image documentation. COMPARISON: US, US FINE NEEDLE ASPIRATION, 08/01/2021, 15:04. Formerly [facility], US, US THYROID, 06/27/2021, 14:42. FINDINGS: Right: Thyroid lobe measures 3.9 x 1.4 x 1.2 cm, and is homogeneous in echotexture. Left: Thyroid lobe measures 4.8 x 1.8 x 1.6 cm, and is homogenous in echotexture. Isthmus: 3 mm thick. Nodule number: 1 Location: Right mid Size: 1.3 x 1.1 x 0.9 cm, (previously 1.2 x 1.2 x 1 cm). Composition: Solid Echogenicity: Hypoechoic Shape: wider than tall. Margins: Smooth Echogenic foci: None Total points: 4 ACR TI-RADS category: TR 4, moderately suspicious Nodule number: 2 Location: Right mid/anterior Size: 0.9 x 0.8 x 0.7 cm, (previously 1.3 x 1 x 0.9 cm). Composition: Solid Echogenicity: Hypoechoic Shape: wider than tall. Margins: Smooth Echogenic foci: None identified. Total points: 4 ACR TI-RADS category: TR 4, moderately suspicious Nodule number: 3 Location: Left mid Size: 3.7 x 1.9 x 1.8 cm, (previously 3.6 x 1.4 x 1.4 cm) Composition: Solid Echogenicity: Isoechoic Shape: wider than tall. Margins: Smooth Echogenic foci: None Total points: 3 ACR TI-RADS category: TR 3, mildly suspicious. Prior FNA. IMPRESSION: Left thyroid nodule measuring 3.7 cm, not significantly changed. TR 3, mildly suspicious. Prior FNA. Right thyroid nodules are stable. Recommend follow-up thyroid ultrasound in 1 year. ACR TI-RADS definitions and recommendations: TI-RADS 1 (benign): 0 points. FNA not needed. TI-RADS 2 (not suspicious): 2 points. FNA not needed. TI-RADS 3 (mildly suspicious): 3 points. * FNA if 2.5 cm or larger, follow up if 1.5 cm or larger (at 1, 3, and 5 years). TI-RADS 4 (moderately suspicious): 4-6 points. * FNA if 1.5 cm or larger, follow up if 1 cm or larger (at 1, 2, 3, and 5 years). TI-RADS 5 (highly suspicious): 7 points or more. * FNA if 1 cm or larger, follow up if 0.5 cm or larger (every year for 5 years). Dictated by: Tristen Fuentes M.D. on 03/01/2023 at 16:13 Approved by: Tristen Fuentes M.D. on 03/01/2023 at 16:19
== END ==
PROVIDERS: Family Provider Family Medicine; PCP Family Medicine; Referring Provider Family Medicine; Visit Provider Family Medicine
DX: E04.1 Nontoxic single thyroid nodule (principal)
CPT/HCPCS: 76536

== ENCOUNTER → 2023-05-14 16:26 | Outpatient (CLI) | payer MEDICARE, OTHER, SELFPAY ==
[2023-05-15 03:36] LABS: Labcorp Hemoglobin (Hb) A1c 6.6 % (4.8-5.6)
== END ==
PROVIDERS: Family Provider Family Medicine; PCP Family Medicine; Referring Provider Family Medicine; Visit Provider Family Medicine
DX: E11.9 Type 2 diabetes mellitus without complications (principal)
CPT/HCPCS: 36415; 83036

== ENCOUNTER → 2023-08-12 07:29 | Outpatient (CLI) | payer MEDICARE, OTHER, SELFPAY ==
[2023-08-12 08:33] LABS: Add Manual Diff / Slide Review NO; Basophils Absolute Auto 100 /uL (0-100); Eosinophils Absolute Auto 700 /uL (0-450); Eosinophils Percent Auto 5.6 % (2-4); Hematocrit 40.4 % (36-46); Hemoglobin 13.6 g/dL (12.0-16.0); Lymphocytes Absolute Auto 1600 /uL (1100-4500); Lymphocytes Percent Auto 13.4 % (25-40); Mean Corpuscular HGB Conc 33.7 % (30-36); Mean Corpuscular Hemoglobin 29.3 PG (26-34); Monocytes Absolute Auto 800 /uL (0-900); Monocytes Percent Auto 6.4 % (3-14); Neutrophils Absolute Auto 9000 /uL (1500-7000); Neutrophils Percent Auto 73.6 % (50-75); Platelet Count 343 X10^3/uL (150-400); Red Blood Cell Count 4.64 X10^6/uL (4.0-5.2); White Blood Cell Count 12.2 X10^3/uL (4.5-11.0)
[2023-08-12 08:37] LABS: Hemoglobin A1C% w Est Avg Glu 6.2 % (4.0-6.0)
[2023-08-12 08:38] LABS: Cholesterol 146 mg/dL (140-199); HDL Cholesterol 65 mg/dL (40-60); LDL Cholesterol Calculated 64 mg/dL (<100); Triglycerides 86 mg/dL (35-150)
[2023-08-12 08:48] LABS: Creatinine Urine Random 59.5 mg/dL
[2023-08-12 08:53] LABS: Microalbumin Urine Random < 0.6 mg/dL (0-1.6)
== END ==
PROVIDERS: Family Provider Family Medicine; PCP Family Medicine; Referring Provider Family Medicine; Visit Provider Family Medicine
DX: E78.2 Mixed hyperlipidemia (principal); E11.9 Type 2 diabetes mellitus without complications; E03.9 Hypothyroidism, unspecified; Z79.899 Other long term (current) drug therapy
CPT/HCPCS: 36415; 80061; 82043; 82570; 83036; 85025

== ENCOUNTER → 2023-09-02 13:12 | Outpatient (CLI) | payer MEDICARE, OTHER, SELFPAY ==
--- NOTE | 2023-09-02 | DI.MG.S_ITS ---
BILATERAL DIGITAL SCREENING MAMMOGRAM 3D/2D WITH CAD: 09/02/2023 CLINICAL: Routine screening. Family history of breast cancer. Comparison is made to exams dated: 06/22/2022 mammogram, 06/13/2021 mammogram - [facility], and 03/27/2019 mammogram - outside location. There are scattered areas of fibroglandular density in both breasts (category b / 25%-50% glandular tissue). Current study was also evaluated with a Computer Aided Detection (CAD) system. No significant masses, calcifications, or other findings are seen in either breast. There has been no significant interval change. IMPRESSION: NEGATIVE There is no mammographic evidence of malignancy. A 1 year screening mammogram is recommended. Based on the Tyrer Cuzick model (a risk assessment model) the patient's lifetime risk is 7.8% and her 10 year risk is 3.8%. According to the ACR, ACS, and NCCN guidelines, an annual breast MRI exam along with mammogram is recommended if the patient's lifetime risk is 20% or greater. This exam was interpreted at Station ID: [id number]. NOTE: For mammograms, a report in lay terms will be sent to the patient. Approximately 15% of breast malignancies will not be visualized mammographically. In the management of a palpable breast mass, a negative mammogram must not discourage biopsy of a clinically suspicious lesion. Electronically Signed By: Kayla [email or web address]/[email or web address]:09/03/2023 16:14:28 letter sent: Normal Exam ACR BI-RADS Category 1: Negative 3341F
== END ==
PROVIDERS: Family Provider Family Medicine; PCP Family Medicine; Referring Provider Family Medicine; Visit Provider Family Medicine
DX: Z12.31 Encounter for screening mammogram for malignant neoplasm of breast (principal); Z80.3 Family history of malignant neoplasm of breast
CPT/HCPCS: 77063; 77067

== ENCOUNTER → 2024-01-06 08:22 | Outpatient (CLI) | payer MEDICARE, OTHER, SELFPAY | PROVIDERS: Family Provider Family Medicine; PCP Family Medicine; Visit Provider Physician Assistant | DX: R35.0 Frequency of micturition (principal) | CPT/HCPCS: 87086 ==

== ENCOUNTER → 2024-01-24 11:26 | Outpatient (CLI) | payer MEDICARE, OTHER, SELFPAY ==
[2024-01-24 12:31] LABS: Hemoglobin A1C% w Est Avg Glu 6.2 % (4.0-6.0)
[2024-01-24 12:40] LABS: Alanine Aminotransferase 24 IU/L (<35); Albumin 4.5 g/dL (3.5-5.0); Albumin Globulin Ratio 1.5 (1.0-2.8); Alkaline Phosphatase 61 U/L (38-126); Aspartate Aminotransferase 29 IU/L (14-36); BUN Creatinine Ratio 39.4 (6-22); Bilirubin Total 0.5 mg/dL (0.2-1.3); Blood Urea Nitrogen 28 mg/dL (7-17); Calcium 10.2 mg/dL (8.4-10.2); Carbon Dioxide 28 mmol/L (22-32); Chloride 102 mmol/L (98-107); Estimated Glomerular Filt Rate > 60 mL/min (>60); Glucose 104 mg/dL (80-110); HEMOLYSIS < 15 (0-50); Potassium 4.5 mmol/L (3.4-5.1); Sodium 139 mmol/L (137-145); Total Protein 7.5 g/dL (6.3-8.2)
[2024-01-24 13:07] LABS: TSH w/ Reflex to FT4 < 0.02 uIU/mL (0.47-4.68)
[2024-01-24 13:33] LABS: Free T4, Direct Thyroxine 1.92 ng/dL (0.78-2.19)
== END ==
PROVIDERS: Family Provider Family Medicine; PCP Family Medicine; Referring Provider Family Medicine; Visit Provider Family Medicine
DX: E11.9 Type 2 diabetes mellitus without complications (principal); E03.9 Hypothyroidism, unspecified; E78.5 Hyperlipidemia, unspecified; D72.10 Eosinophilia, unspecified
CPT/HCPCS: 36415; 80053; 83036; 84439; 84443

== ENCOUNTER → 2024-01-31 10:58 | Outpatient (CLI) | payer MEDICARE, OTHER, SELFPAY ==
--- NOTE | 2024-01-31 11:00 | DI.RAD.S_ITS ---
PROCEDURE: XR DEXA AXIAL SKELETON INDICATIONS: post menopausal, osteopenia hx COMPARISON: None. FINDINGS: Lumbar Spine: Bone mineral density 0.868 g/cm2, T score -1.6, osteopenia. Left Hip: Bone mineral density 0.817 g/cm2, T score -1, normal. Left Femoral Neck: Bone mineral density 0.682 g/cm2, T score -1.5, osteopenia. Right Hip: Bone mineral density is 0.866 g/cm2, T score -0.6, normal. Right Femoral Neck: Bone mineral density 0.758 g/cm2, T score -0.8, normal. Fracture Risk Calculation (when applicable): 10-year fracture risk of a major osteoporotic fracture 8.7 % and of a hip fracture 1 %. (T score greater or equal to -1.0 to: NORMAL) (T score from -1.1 to -2.4: OSTEOPENIA) (T score less than or equal to -2.5: OSTEOPOROSIS) IMPRESSION: Osteopenia. Follow-up guidelines as follows: Osteoporosis: Consider a repeat DEXA and Vertebral Fracture Assessment (VFA) exam in 2 years or sooner if medically necessary, to reassess this patient's status. Osteopenia: Consider a repeat DEXA in 2-3 years to reassess this patient's status, or if there is a new clinical indication. Normal: Consider a repeat DEXA in 5 years or sooner, or if there is a new clinical indication. Dictated by: Casper Hunt M.D. on 01/31/2024 at 14:10 Approved by: Casper Hunt M.D. on 01/31/2024 at 14:11
== END ==
LOC: US 11:00
PROVIDERS: Family Provider Family Medicine; PCP Family Medicine; Referring Provider Family Medicine; Visit Provider Family Medicine
DX: M81.0 Age-related osteoporosis without current pathological fracture (principal); N95.1 Menopausal and female climacteric states
CPT/HCPCS: 77080

== ENCOUNTER → 2024-02-04 06:58 | Outpatient (CLI) | payer MEDICARE, OTHER, SELFPAY ==
--- NOTE | 2024-02-04 07:00 | DI.US.S_ITS ---
PROCEDURE: US ABDOMEN COMPLETE INDICATIONS: low abd bloating and occasional pain TECHNIQUE: Real-time scanning was performed of the abdominal and retroperitoneal organs, with image documentation. COMPARISON: None. FINDINGS: Liver: Liver is normal in size and show mildly increased liver parenchymal echotexture. No discrete hepatic lesion is seen. Gallbladder: There is no gallstone. No gallbladder wall thickening or pericholecystic fluid. No sonographic Esquivel's sign. Biliary ducts: Intrahepatic bile ducts are non-dilated. Extrahepatic bile duct caliber measures 3.1 mm. Normal is 6-7 mm or less in diameter, or 10 mm or less post-cholecystectomy. Pancreas: Visualized portions of the pancreas are sonographically normal. Spleen: Spleen is normal in size and homogeneous in echotexture. Kidneys: Kidneys are normal in size and echotexture. Right kidney measures 11.0 cm long; left kidney measures 11.0 cm long. No hydronephrosis or nephrolithiasis. No solid masses. Aorta: Visualized aorta is normal in caliber at less than 3 cm. Iliacs: Proximal common iliac arteries are normal in caliber at less than 2.5 cm. IVC: Intrahepatic inferior vena cava is patent. Miscellaneous: No free abdominal fluid. IMPRESSION: 1. Mild hepatic steatosis, no discrete hepatic lesion. 2. Normal appearing gallbladder. No biliary ductal dilatation. 3. The rest of the exam is unremarkable. Dictated by: Sharan Lamas M.D. on 02/04/2024 at 11:28 Approved by: Sharan Lamas M.D. on 02/04/2024 at 11:29
== END ==
PROVIDERS: Family Provider Family Medicine; PCP Family Medicine; Referring Provider Family Medicine; Visit Provider Family Medicine
DX: K76.0 Fatty (change of) liver, not elsewhere classified (principal); R14.0 Abdominal distension (gaseous); E03.9 Hypothyroidism, unspecified
CPT/HCPCS: 76700

== ENCOUNTER 2024-02-04 13:00 | Outpatient (RCR) | payer MEDICARE, OTHER, SELFPAY ==
--- NOTE | 2023-09-17 14:23 | PT.OIE ---
Current Diagnoses Osteoarthritis of knee, unspecified (09/17/23) Difficulty in walking, not elsewhere classified (09/17/23) Weakness (09/17/23) History of falling (09/17/23) Past Medical History (Last Updated 04/20/22 @ 13:30 by Edvin Rader MD) Cervical disc disease Hyperlipidemia Hypothyroidism Neck pain Neuroforaminal stenosis of cervical spine Strain of neck muscle Tinnitus Type 2 diabetes mellitus Past Surgical History (Last Reviewed 04/04/22 @ 14:54 by Vera Kowalski RN) H/O rotator cuff surgery Visit Care Team Role Provider Type Edvin Rader MD Family Provider Physician Primary Care Provider Specialty: Family Practice Address: [address] [place] [address], [facility] Email: [email or web address] Bruce [email or web address]-C Attending Provider Advanced Tapper Helper Referring Provider Specialty: Medical Wound Care Address: [address] [place] [address], [id number] Email: [email or web address] Physical Therapy Initial Evaluation PT-OP-A Visit Information Start: 09/05/23 08:39 Freq: Status: Active Protocol: Document 09/17/23 10:31 [facility] (Rec: 09/17/23 11:35 [facility] [id number]) Out-Patient Physical Therapy Visit Information Visit Information Visit Type Initial Evaluation Visit Note 10/16 Visit Start Time 10:35 Visit Stop Time 11:18 Total Visit Minutes 43 Visit Number 1 Number of HOT PRESS OPERATOR Visits 0 PT-OP-B Current Condition Start: 09/05/23 08:39 Freq: Status: Active Protocol: Document 09/17/23 10:31 [facility] (Rec: 09/17/23 11:35 [facility] [id number]) Current Condition History of Current Condition Current Complaints R knee History of Current Condition pt repots chronic knee pain for about 3 years but got worse this spring. She lost about 15 lbs on Ozempic and is worried aobut her overall mm health. Feels like behind doesn't ahve enough padding and is worried aobut arms and legs not being too strong. It does not like rough ground and even on flat gorund it now bothers her. After about 2 miles on her walk, she started to have pain on a 4 mile walk . She typically does 1/4 mile about twice a day w/her dog. Somtimes it is weirdness like a hollowness feeling at top of knee and sometimes it can be sharp. Has been trying to do squats on her dog walk. History of R growth plate in femur stopped at14 d/t RLE being longer Prior Treatments and Tests mild arthritis noted on xray Treatment Goals Patient/Caregiver Goals inc mm strength and tone; be able to walk trails and longer walks like [employer]; PT-OP-C Subjective Start: 09/05/23 08:39 Freq: Status: Active Protocol: Document 09/17/23 10:31 [facility] ([facility]23 [id number] OP-PT Pain Assessment Location R knee pain Pain Location Details superior of patella Description Sharp,With Movement Description- Other hallow Frequency Intermittent Pain Duration sharp(1-2 min); mostly 1 min or less Radiating Location post calf occ Pain Aggravating Factors Walking Other Pain Alleviating Factors stop what doing; has limited activity PT-OP-D Balance Start: 09/05/23 08:39 Freq: Status: Active Protocol: Document 09/17/23 10:31 [facility] (Rec: 09/17/23 11:35 [id number] Balance Tests Single Limb Standing Single Limb- Right 20 sec Single Limb- Left 6 sec PT-OP-F Manual Assessment Start: 09/05/23 08:39 Freq: Status: Active Protocol: Document 09/17/23 10:31 [facility] (Rec: 09/17/23 11:35 [id number]) Manual Assessments Soft Tissue Assessment Soft Tissue Mobility Assessment tightness R quad; scar tissue B sup knee Joint Mobility Assessment Joint Mobility Assessment R>L femur in IR; B tibia good alignment and tracking; L knee tracks well towards 2nd toe; R knee tracks towards big toe; B calcaneal valgus PT-OP-G Mobility & Gait Start: 09/05/23 08:39 Freq: Status: Active Protocol: Document 09/17/23 10:31 [facility] (Rec: 09/17/23 11:35 [id number] OP Gait Assessment Comments Gait Comments dec arm swing R>L; R foot toes out PT-OP-K Range of Motion Start: 09/05/23 08:39 Freq: Status: Active Protocol: Document 09/17/23 10:31 [facility] (Rec: 09/17/23 11:35 [facility] [id number]) Knee Goniometric Range of Motion Knee Right Flexion Active (degrees) 140 Extension Active (degrees) 0 Comments sore in knee w/ext Left Flexion Active (degrees) 145 Extension Active (degrees) 0 PT-OP-L Special Tests Start: 09/05/23 08:39 Freq: Status: Active Protocol: Document 09/17/23 10:31 [facility] (Rec: 09/17/23 11:35 [facility] [id number]) Special Tests Knee Special Tests Sheryl Test Comments neg R kevin test Test Results R RF & hip flexor tightness SLR Comments HS tightness felt-can get close to 90 deg R calf tightness noted on L about 75 deg Obers Test Results neg R King Chondromalacia Test Results positive R PT-OP-M Strength Start: 09/05/23 08:39 Freq: Status: Active Protocol: Document 09/17/23 10:31 [facility] (Rec: 09/17/23 11:35 [facility] [id number]) Hip Strength Hip Manual Muscle Testing Right Flexion (L2) 3 Fair Extension (S1) 3+ Fair+ Abduction 4- Good- Adduction 3+ Fair+ External Rotation 4- Good- Internal Rotation 4- Good- Left Flexion (L2) 3 Fair Extension (S1) 3+ Fair+ Abduction 4 Good Adduction 3+ Fair+ External Rotation 4- Good- Internal Rotation 4- Good- Knee Strength Knee Manual Muscle Testing Right Flexion (S2) 4- Good- Extension (L3) 4- Good- Comments pain knee ext Left Flexion (S2) 4+ Good+ Extension (L3) 5 Normal Ankle/Foot Strength Ankle and Foot Manual Muscle Testing Right Dorsiflexion (L4) 5 Normal Plantarflexion (S1) 4- Good- Comments 18 heel raises-cued to not bend for last 10B Left Dorsiflexion (L4) 5 Normal Plantarflexion (S1) 4- Good- PT-OP-Q Treatments Start: 09/05/23 08:39 Freq: Status: Active Protocol: Document 09/17/23 10:31 [facility] (Rec: 09/17/23 11:52 [facility] [id number]) Therapeutic Exercises Standing Exercises hip ext Standing Exercise Name attempted in upright position and bent over but painful in back or L hip-DC Side bilateral Reps/Minutes 5 ea sidestep Standing Exercise Name cues upright position Side bilateral Equipment Used L1 Reps/Minutes 20ft ea calf Standing Exercise Name raises on step DL Side bilateral Reps/Minutes 20 stretch Standing Exercise Name calf Side bilateral Equipment Used step w/rail Reps/Minutes 1 min PT-OP-T Assessment and Plan Start: 09/05/23 08:39 Freq: Status: Active Protocol: Document 09/17/23 10:31 [facility] (Rec: 09/17/23 11:35 [facility] [id number]) Physical Therapy Assessment Rehab Potential Rehabilitation Potential Good Evaluation Complexity Number of Personal Factors/Comorbidities 1-2 Number of Body Systems Impaired 4 or More Clinical Presentation at Evaluation Evolving Impairments Impairments Activity Tolerance,Balance, Functional Activities, Functional Mobility,Gait,Pain, Posture,Soft Tissue Mobility, Strength Goals walking Short Term Goal (STG) Pt will be able to start walking 1 mile at least 2 times a week without inc knee pain STG Duration 10/16/23 Nursing Home Goal (LTG) Pt will be able to return to walking longer walks up to 4 miles w/o inc knee pain greater than 2/10. LTG Duration 11/26/23 unstable Nursing Home Goal (LTG) Pt will be able to amb on unstable surfaces without inc pain allowing her ro return to hiking. LTG Duration 11/26/23 strength Short Term Goal (STG) Pt will be indep w/HEP STG Duration 10/16/23 Nursing Home Goal (LTG) Pt will score at least 4+/5 on all LE strength w/ability to maintain good alignment in trunk to show improved LE and trunk strength in order to allow pt participate in active lifestyle. LTG Duration 11/26/23 Assessment Summary Assessment Pt presents w/chronic R knee pain w/worsening this spring with no known injury. She has X-ray imaging showing arthritis and was positive for King testing, indicating possible patellar tracking issue and does demonstrate mildly IR LE w/squatting and toeing out during gait which could contribute to this. She has significant LE weakness and does show dec balance although this is worse on her L>R, but does have pain w/ unstable surfaces when walking .S he has dec her walking since this spring d/t knee pain. She would benefit from PT to work on LE and core strength, balance, gait mechanics and improve functional mobiltiy in order to dec pain and allow inc activity w/o pain. Physical Therapy Plan Frequency and Duration Frequency of Treatment 1-2x/wk Duration of treatment (weeks) 10 Plan of Care Start Date 09/17/23 Plan of Care End Date 11/26/23 Therapeutic Interventions Therapeutic Interventions Balance Training,Gait Training ,Home Exercise Program,Joint Mobilizations,Manual Therapy, Neuromuscular Re-education, Orthotic/Prosthetic Management ,Patient/Caregiver Education, Self-Care/Home Management,Soft Tissue Mobilization,Taping, Therapeutic Activities, Therapeutic Exercises Modalities Cold Pack/Ice Massage,Electric Stimulation,Hot Packs, Infrared Therapy,Ultrasound Next Visit Focus/Plan Next Note Type Treatment Note Next Visit Plan review exercises; add squats, dynamic balance & SLS on foam and other surfaces, supine: bridges & DL isometric press; manual to quads
--- NOTE | 2023-09-17 14:23 | PT.OPPOC ---
Physical, Occupational & Speech Therapy At Current Diagnoses Osteoarthritis of knee, unspecified (09/17/23) Difficulty in walking, not elsewhere classified (09/17/23) Weakness (09/17/23) History of falling (09/17/23) Visit Care Team Role Provider Type Edvin Rader MD Family Provider Physician Primary Care Provider Specialty: Family Practice Address: [address] [place] [address], [id number] Email: [email or web address] Mary Bruce [email or web address]-C Attending Provider Advanced Secretary Referring Provider Specialty: Medical Wound Care Address: [address] [place] [address], [id number] Email: [email or web address] Plan Of Care PT-OP-T Assessment and Plan Start: 09/05/23 08:39 Freq: Status: Active Protocol: Document 09/17/23 10:31 [facility] (Rec: 09/17/23 11:35 [facility] [id number]) Physical Therapy Assessment Rehab Potential Rehabilitation Potential Good Evaluation Complexity Number of Personal Factors/Comorbidities 1-2 Number of Body Systems Impaired 4 or More Clinical Presentation at Evaluation Evolving Impairments Impairments Activity Tolerance,Balance, Functional Activities, Functional Mobility,Gait,Pain, Posture,Soft Tissue Mobility, Strength Goals walking Short Term Goal (STG) Pt will be able to start walking 1 mile at least 2 times a week without inc knee pain STG Duration 10/16/23 Nursing Home Goal (LTG) Pt will be able to return to walking longer walks up to 4 miles w/o inc knee pain greater than 2/10. LTG Duration 11/26/23 unstable Nursing Home Goal (LTG) Pt will be able to amb on unstable surfaces without inc pain allowing her ro return to hiking. LTG Duration 11/26/23 strength Short Term Goal (STG) Pt will be indep w/HEP STG Duration 10/16/23 Nursing Home Goal (LTG) Pt will score at least 4+/5 on all LE strength w/ability to maintain good alignment in trunk to show improved LE and trunk strength in order to allow pt participate in active lifestyle. LTG Duration 11/26/23 Assessment Summary Assessment Pt presents w/chronic R knee pain w/worsening this spring with no known injury. She has X-ray imaging showing arthritis and was positive for King testing, indicating possible patellar tracking issue and does demonstrate mildly IR LE w/squatting and toeing out during gait which could contribute to this. She has significant LE weakness and does show dec balance although this is worse on her L>R, but does have pain w/ unstable surfaces when walking .S he has dec her walking since this spring d/t knee pain. She would benefit from PT to work on LE and core strength, balance, gait mechanics and improve functional mobiltiy in order to dec pain and allow inc activity w/o pain. Physical Therapy Plan Frequency and Duration Frequency of Treatment 1-2x/wk Duration of treatment (weeks) 10 Plan of Care Start Date 09/17/23 Plan of Care End Date 11/26/23 Therapeutic Interventions Therapeutic Interventions Balance Training,Gait Training ,Home Exercise Program,Joint Mobilizations,Manual Therapy, Neuromuscular Re-education, Orthotic/Prosthetic Management ,Patient/Caregiver Education, Self-Care/Home Management,Soft Tissue Mobilization,Taping, Therapeutic Activities, Therapeutic Exercises Modalities Cold Pack/Ice Massage,Electric Stimulation,Hot Packs, Infrared Therapy,Ultrasound Next Visit Focus/Plan Next Note Type Treatment Note Next Visit Plan review exercises; add squats, dynamic balance & SLS on foam and other surfaces, supine: bridges & DL isometric press; manual to quads Plan of Care Dates Plan of Care Start Date 09/17/23 Plan of Care End Date 11/26/23 Electronically Signed by: Rebecca Brandon, PT 09/17/23 [id number] If you are in agreement with this Plan of Care, please return a signed and dated copy. I have reviewed this Plan of Care and certify that the skilled therapy services above are required to meet the patient?s needs. Physician Signature Date Printed Name and Credentials Clinical Instructor Signature Printed Name and Credentials
--- NOTE | 2023-09-19 13:17 | PT.OTN ---
Current Diagnoses Osteoarthritis of knee, unspecified (09/19/23) Difficulty in walking, not elsewhere classified (09/19/23) Weakness (09/19/23) History of falling (09/19/23) Physical Therapy Treatment Note PT-OP-A Visit Information Start: 09/05/23 08:39 Freq: Status: Active Protocol: Document 09/19/23 10:26 [facility] (Rec: 09/19/23 13:17 [facility] [id number]) Out-Patient Physical Therapy Visit Information Visit Information Visit Type Treatment Note Visit Note 11/16 Visit Start Time 10:35 Visit Stop Time 11:16 Total Visit Minutes 41 Visit Number 2 Number of ASSISTED LIVING ADMINISTRATOR Visits 0 PT-OP-B Current Condition Start: 09/05/23 08:39 Freq: Status: Active Protocol: Document 09/17/23 10:31 [facility] (Rec: 09/17/23 11:35 [facility] [id number]) Current Condition History of Current Condition Current Complaints R knee History of Current Condition pt repots chronic knee pain for about 3 years but got worse this spring. She lost about 15 lbs on Ozempic and is worried aobut her overall mm health. Feels like behind doesn't ahve enough padding and is worried aobut arms and legs not being too strong. It does not like rough ground and even on flat gorund it now bothers her. After about 2 miles on her walk, she started to have pain on a 4 mile walk . She typically does 1/4 mile about twice a day w/her dog. Somtimes it is weirdness like a hollowness feeling at top of knee and sometimes it can be sharp. Has been trying to do squats on her dog walk. History of R growth plate in femur stopped at14 d/t RLE being longer Prior Treatments and Tests mild arthritis noted on xray Treatment Goals Patient/Caregiver Goals inc mm strength and tone; be able to walk trails and longer walks like [email or web address]; PT-OP-C Subjective Start: 09/05/23 08:39 Freq: Status: Active Protocol: Document 09/19/23 10:26 [facility] (Rec: 09/19/23 13:17 [facility] [id number]) OP-PT Subjective Patient Comments Patient Comments Pt reports compliance w/HEP PT-OP-D Balance Start: 09/05/23 08:39 Freq: Status: Active Protocol: Document 09/17/23 10:31 [facility] (Rec: 09/17/23 11:35 [facility] [id number]) Balance Tests Single Limb Standing Single Limb- Right 20 sec Single Limb- Left 6 sec PT-OP-F Manual Assessment Start: 09/05/23 08:39 Freq: Status: Active Protocol: Document 09/17/23 10:31 [facility] (Rec: 09/17/23 11:35 [facility] [id number]) Manual Assessments Soft Tissue Assessment Soft Tissue Mobility Assessment tightness R quad; scar tissue B sup knee Joint Mobility Assessment Joint Mobility Assessment R>L femur in IR; B tibia good alignment and tracking; L knee tracks well towards 2nd toe; R knee tracks towards big toe; B calcaneal valgus PT-OP-G Mobility & Gait Start: 09/05/23 08:39 Freq: Status: Active Protocol: Document 09/17/23 10:31 [facility] (Rec: 09/17/23 11:35 [facility] [id number]) OP Gait Assessment Comments Gait Comments dec arm swing R>L; R foot toes out PT-OP-K Range of Motion Start: 09/05/23 08:39 Freq: Status: Active Protocol: Document 09/17/23 10:31 [facility] (Rec: 09/17/23 11:35 [facility] [id number]) Knee Goniometric Range of Motion Knee Right Flexion Active (degrees) 140 Extension Active (degrees) 0 Comments sore in knee w/ext Left Flexion Active (degrees) 145 Extension Active (degrees) 0 PT-OP-L Special Tests Start: 09/05/23 08:39 Freq: Status: Active Protocol: Document 09/17/23 10:31 [facility] (Rec: 09/17/23 11:35 [facility] [id number]) Special Tests Knee Special Tests Sheryl Test Comments neg R kevin test Test Results R RF & hip flexor tightness SLR Comments HS tightness felt-can get close to 90 deg R calf tightness noted on L about 75 deg Obers Test Results neg R King Chondromalacia Test Results positive R PT-OP-M Strength Start: 09/05/23 08:39 Freq: Status: Active Protocol: Document 09/17/23 10:31 [facility] (Rec: 09/17/23 11:35 [facility] [id number]) Hip Strength Hip Manual Muscle Testing Right Flexion (L2) 3 Fair Extension (S1) 3+ Fair+ Abduction 4- Good- Adduction 3+ Fair+ External Rotation 4- Good- Internal Rotation 4- Good- Left Flexion (L2) 3 Fair Extension (S1) 3+ Fair+ Abduction 4 Good Adduction 3+ Fair+ External Rotation 4- Good- Internal Rotation 4- Good- Knee Strength Knee Manual Muscle Testing Right Flexion (S2) 4- Good- Extension (L3) 4- Good- Comments pain knee ext Left Flexion (S2) 4+ Good+ Extension (L3) 5 Normal Ankle/Foot Strength Ankle and Foot Manual Muscle Testing Right Dorsiflexion (L4) 5 Normal Plantarflexion (S1) 4- Good- Comments 18 heel raises-cued to not bend for last 10B Left Dorsiflexion (L4) 5 Normal Plantarflexion (S1) 4- Good- PT-OP-Q Treatments Start: 09/05/23 08:39 Freq: Status: Active Protocol: Document 09/19/23 10:26 [facility] (Rec: 09/19/23 13:17 [facility] [id number]) Gym Equipment Shuttle Balance red clips Comments fwd & side: WBOS & NBOS fwd: staggered stance B Therapeutic Exercises Supine Exercises Bridges Supine Exercise Name 1. bridge DL 2. bridge march Side bilateral Reps/Minutes 1. 3 sec x6 2. 6 ea Standing Exercises squats Standing Exercise Name chair taps Side bilateral Equipment Used L2 band at knees Reps/Minutes 12 Comments cues for full ext at end range w/glute squeeze sidestep Standing Exercise Name cues upright position Side bilateral Equipment Used L1 Reps/Minutes 20ft ea calf Standing Exercise Name raises on step DL Side bilateral Reps/Minutes 10 stretch Standing Exercise Name calf Side bilateral Equipment Used step w/rail Reps/Minutes 30 sec Manual Therapy Treatment Soft Tissue Mobilization scar Body Location med Mobilization Type Myofascial Release Intensity/Depth Superficial Body Position Supine quad Body Location VMO and VL borders Mobilization Type Rolling Intensity/Depth Moderate Comments w/quad set Neuro Re-Education Treatment Balance Activities SLS Comments 1. star taps (4 point fwd, back, lat B) B x10 ea LE 2. alt 8 in step tap on blue foam x10 B PT-OP-T Assessment and Plan Start: 09/05/23 08:39 Freq: Status: Active Protocol: Document 09/19/23 10:26 [facility] (Rec: 09/19/23 13:17 [facility] [id number]) Physical Therapy Assessment Goals walking Short Term Goal (STG) Pt will be able to start walking 1 mile at least 2 times a week without inc knee pain STG Duration 10/16/23 Petroleum Transport Driver Goal (LTG) Pt will be able to return to walking longer walks up to 4 miles w/o inc knee pain greater than 2/10. LTG Duration 11/26/23 unstable Fpc Goal (LTG) Pt will be able to amb on unstable surfaces without inc pain allowing her ro return to hiking. LTG Duration 11/26/23 strength Short Term Goal (STG) Pt will be indep w/HEP STG Duration 10/16/23 Fpc Goal (LTG) Pt will score at least 4+/5 on all LE strength w/ability to maintain good alignment in trunk to show improved LE and trunk strength in order to allow pt participate in active lifestyle. LTG Duration 11/26/23 Assessment Summary Assessment Pt did well with exercises but did report pain w/chair taps in knee so encouraged to do as sit to stands at home instead and only do as many reps that do not inc pain. She was challenged by all balnce activities and did have ot use UEs frequently w/balance board. Physical Therapy Plan Frequency and Duration Frequency of Treatment 1-2x/wk Duration of treatment (weeks) 10 Plan of Care Start Date 09/17/23 Plan of Care End Date 11/26/23 Next Visit Focus/Plan Next Note Type Treatment Note Next Visit Plan review exercises as needed, advance balance, cont manual to tibfem joint and quads to dec pain
--- NOTE | 2023-09-24 10:55 | PT.OTN ---
Current Diagnoses Osteoarthritis of knee, unspecified (09/24/23) Difficulty in walking, not elsewhere classified (09/24/23) Weakness (09/24/23) History of falling (09/24/23) Physical Therapy Treatment Note PT-OP-A Visit Information Start: 09/05/23 08:39 Freq: Status: Active Protocol: Document 09/24/23 09:50 [facility] (Rec: 09/24/23 10:55 [facility] [id number]) Out-Patient Physical Therapy Visit Information Visit Information Visit Type Treatment Note Visit Note 12/14 Visit Start Time 09:51 Visit Stop Time 10:32 Total Visit Minutes 41 Visit Number 3 Number of PSYCHOLOGY INSTRUCTOR Visits 0 PT-OP-B Current Condition Start: 09/05/23 08:39 Freq: Status: Active Protocol: Document 09/17/23 10:31 [facility] (Rec: 09/17/23 11:35 [facility] [id number]) Current Condition History of Current Condition Current Complaints R knee History of Current Condition pt repots chronic knee pain for about 3 years but got worse this spring. She lost about 15 lbs on Ozempic and is worried aobut her overall mm health. Feels like behind doesn't ahve enough padding and is worried aobut arms and legs not being too strong. It does not like rough ground and even on flat gorund it now bothers her. After about 2 miles on her walk, she started to have pain on a 4 mile walk . She typically does 1/4 mile about twice a day w/her dog. Somtimes it is weirdness like a hollowness feeling at top of knee and sometimes it can be sharp. Has been trying to do squats on her dog walk. History of R growth plate in femur stopped at14 d/t RLE being longer Prior Treatments and Tests mild arthritis noted on xray Treatment Goals Patient/Caregiver Goals inc mm strength and tone; be able to walk trails and longer walks like [employer]; PT-OP-C Subjective Start: 09/05/23 08:39 Freq: Status: Active Protocol: Document 09/24/23 09:50 [facility] (Rec: 09/24/23 10:55 [facility] [id number]) OP-PT Subjective Patient Comments Patient Comments Pt reports has a question about sit to stands and isn't sure she is doing it right. notes R ankle was sore after last session for about a day but it went away. Never had taht pain before. PT-OP-D Balance Start: 09/05/23 08:39 Freq: Status: Active Protocol: Document 09/17/23 10:31 [facility] (Rec: 09/17/23 11:35 [facility] [id number]) Balance Tests Single Limb Standing Single Limb- Right 20 sec Single Limb- Left 6 sec PT-OP-F Manual Assessment Start: 09/05/23 08:39 Freq: Status: Active Protocol: Document 09/17/23 10:31 [facility] (Rec: 09/17/23 11:35 [facility] [id number]) Manual Assessments Soft Tissue Assessment Soft Tissue Mobility Assessment tightness R quad; scar tissue B sup knee Joint Mobility Assessment Joint Mobility Assessment R>L femur in IR; B tibia good alignment and tracking; L knee tracks well towards 2nd toe; R knee tracks towards big toe; B calcaneal valgus PT-OP-G Mobility & Gait Start: 09/05/23 08:39 Freq: Status: Active Protocol: Document 09/17/23 10:31 [facility] (Rec: 09/17/23 11:35 [facility] [id number]) OP Gait Assessment Comments Gait Comments dec arm swing R>L; R foot toes out PT-OP-K Range of Motion Start: 09/05/23 08:39 Freq: Status: Active Protocol: Document 09/17/23 10:31 [facility] (Rec: 09/17/23 11:35 [facility] [id number]) Knee Goniometric Range of Motion Knee Right Flexion Active (degrees) 140 Extension Active (degrees) 0 Comments sore in knee w/ext Left Flexion Active (degrees) 145 Extension Active (degrees) 0 PT-OP-L Special Tests Start: 09/05/23 08:39 Freq: Status: Active Protocol: Document 09/17/23 10:31 [facility] (Rec: 09/17/23 11:35 [facility] [id number]) Special Tests Knee Special Tests Sheryl Test Comments neg R kevin test Test Results R RF & hip flexor tightness SLR Comments HS tightness felt-can get close to 90 deg R calf tightness noted on L about 75 deg Obers Test Results neg R King Chondromalacia Test Results positive R PT-OP-M Strength Start: 09/05/23 08:39 Freq: Status: Active Protocol: Document 09/17/23 10:31 [facility] (Rec: 09/17/23 11:35 [facility] [id number]) Hip Strength Hip Manual Muscle Testing Right Flexion (L2) 3 Fair Extension (S1) 3+ Fair+ Abduction 4- Good- Adduction 3+ Fair+ External Rotation 4- Good- Internal Rotation 4- Good- Left Flexion (L2) 3 Fair Extension (S1) 3+ Fair+ Abduction 4 Good Adduction 3+ Fair+ External Rotation 4- Good- Internal Rotation 4- Good- Knee Strength Knee Manual Muscle Testing Right Flexion (S2) 4- Good- Extension (L3) 4- Good- Comments pain knee ext Left Flexion (S2) 4+ Good+ Extension (L3) 5 Normal Ankle/Foot Strength Ankle and Foot Manual Muscle Testing Right Dorsiflexion (L4) 5 Normal Plantarflexion (S1) 4- Good- Comments 18 heel raises-cued to not bend for last 10B Left Dorsiflexion (L4) 5 Normal Plantarflexion (S1) 4- Good- PT-OP-Q Treatments Start: 09/05/23 08:39 Freq: Status: Active Protocol: Document 09/24/23 09:50 [facility] (Rec: 09/24/23 10:55 [facility] [id number]) Gym Equipment Shuttle Balance red clips Details less PIPE WASHER to bar needed today Comments fwd & side: WBOS & NBOS fwd: staggered stance B Therapeutic Exercises Standing Exercises squats Standing Exercise Name chair taps Side bilateral Equipment Used L2 band at knees Reps/Minutes 10 Comments cues for full ext at end range w/glute squeeze sidestep Standing Exercise Name cues for controlled motion of 2nd leg Side bilateral Equipment Used L1 Reps/Minutes 20ft ea Manual Therapy Treatment Soft Tissue Mobilization scar Body Location med Mobilization Type Myofascial Release Intensity/Depth Superficial Body Position Supine quad Body Location VMO and VL borders Mobilization Type Rolling Intensity/Depth Moderate Comments w/quad set Neuro Re-Education Treatment Balance Activities bosu Comments 1. standing balance blue 2. step ups to DL B x10 ea SLS Comments 1. star taps (4 point fwd, back, lat B) B x10 ea LE 2. alt 8 in step tap on blue foam x10 B 3. Y reach touch downs x8 B PT-OP-T Assessment and Plan Start: 09/05/23 08:39 Freq: Status: Active Protocol: Document 09/24/23 09:50 [facility] (Rec: 09/24/23 10:55 [facility] [id number]) Physical Therapy Assessment Goals walking Short Term Goal (STG) Pt will be able to start walking 1 mile at least 2 times a week without inc knee pain STG Duration 10/16/23 Custodial Goal (LTG) Pt will be able to return to walking longer walks up to 4 miles w/o inc knee pain greater than 2/10. LTG Duration 11/26/23 unstable Custodial Goal (LTG) Pt will be able to amb on unstable surfaces without inc pain allowing her ro return to hiking. LTG Duration 11/26/23 strength Short Term Goal (STG) Pt will be indep w/HEP STG Duration 10/16/23 Store Manager Goal (LTG) Pt will score at least 4+/5 on all LE strength w/ability to maintain good alignment in trunk to show improved LE and trunk strength in order to allow pt participate in active lifestyle. LTG Duration 11/26/23 Assessment Summary Assessment Pt improved w/stabiltiy on balance challenges and did not note pain throughout. She did need cues w/LE position and band tension w/sit to stands and cues to control decent. Dec scar tissue sensitivity but still tension onmedial scar. Physical Therapy Plan Next Visit Focus/Plan Next Note Type Treatment Note Next Visit Plan advance balance, con to work on hip and knee strength and work manually to quads and tibfem joint to dec pain
--- NOTE | 2023-09-26 15:18 | PT.OTN ---
Current Diagnoses Osteoarthritis of knee, unspecified (09/26/23) Difficulty in walking, not elsewhere classified (09/26/23) Weakness (09/26/23) History of falling (09/26/23) Physical Therapy Treatment Note PT-OP-A Visit Information Start: 09/05/23 08:39 Freq: Status: Active Protocol: Document 09/26/23 14:36 [facility] (Rec: 09/26/23 15:17 [facility] [id number]) Out-Patient Physical Therapy Visit Information Visit Information Visit Type Treatment Note Visit Note 01/14 Visit Start Time 14:36 Visit Stop Time 15:25 Total Visit Minutes 49 Visit Number 4 Number of CAMP DINING ROOM ATTENDANT Visits 0 PT-OP-B Current Condition Start: 09/05/23 08:39 Freq: Status: Active Protocol: Document 09/17/23 10:31 [facility] (Rec: 09/17/23 11:35 [facility] [id number]) Current Condition History of Current Condition Current Complaints R knee History of Current Condition pt repots chronic knee pain for about 3 years but got worse this spring. She lost about 15 lbs on Ozempic and is worried aobut her overall mm health. Feels like behind doesn't ahve enough padding and is worried aobut arms and legs not being too strong. It does not like rough ground and even on flat gorund it now bothers her. After about 2 miles on her walk, she started to have pain on a 4 mile walk . She typically does 1/4 mile about twice a day w/her dog. Somtimes it is weirdness like a hollowness feeling at top of knee and sometimes it can be sharp. Has been trying to do squats on her dog walk. History of R growth plate in femur stopped at14 d/t RLE being longer Prior Treatments and Tests mild arthritis noted on xray Treatment Goals Patient/Caregiver Goals inc mm strength and tone; be able to walk trails and longer walks like [employer]; PT-OP-C Subjective Start: 09/05/23 08:39 Freq: Status: Active Protocol: Document 09/26/23 14:36 [facility] (Rec: 09/26/23 15:17 [facility] [id number]) OP-PT Subjective Patient Comments Patient Comments pt reports no knee trouble for a week. R ankle was a little sore after last but went away that day and wasn't as much PT-OP-D Balance Start: 09/05/23 08:39 Freq: Status: Active Protocol: Document 09/17/23 10:31 [facility]Rec: [facility]17/23 [id number] Balance Tests Single Limb Standing Single Limb- Right 20 sec Single Limb- Left 6 sec PT-OP-F Manual Assessment Start: 09/05/23 08:39 Freq: Status: Active Protocol: Document 09/17/23 10:31 [facility] (Rec: 09/17/23 11:[id number] Manual Assessments Soft Tissue Assessment Soft Tissue Mobility Assessment tightness R quad; scar tissue B sup knee Joint Mobility Assessment Joint Mobility Assessment R>L femur in IR; B tibia good alignment and tracking; L knee tracks well towards 2nd toe; R knee tracks towards big toe; B calcaneal valgus PT-OP-G Mobility & Gait Start: 09/05/23 08:39 Freq: Status: Active Protocol: Document 09/17/23 10:31 [facility] (Rec: 09/17/23 11:35 [id number] OP Gait Assessment Comments Gait Comments dec arm swing R>L; R foot toes out PT-OP-K Range of Motion Start: 09/05/23 08:39 Freq: Status: Active Protocol: Document 09/17/23 10:31 [facility] (Rec: 09/17/23 11:35 [facility] [id number]) Knee Goniometric Range of Motion Knee Right Flexion Active (degrees) 140 Extension Active (degrees) 0 Comments sore in knee w/ext Left Flexion Active (degrees) 145 Extension Active (degrees) 0 PT-OP-L Special Tests Start: 09/05/23 08:39 Freq: Status: Active Protocol: Document 09/17/23 10:31 [facility] (Rec: 09/17/23 11:35 [facility] [id number]) Special Tests Knee Special Tests Sheryl Test Comments neg R kevin test Test Results R RF & hip flexor tightness SLR Comments HS tightness felt-can get close to 90 deg R calf tightness noted on L about 75 deg Obers Test Results neg R King Chondromalacia Test Results positive R PT-OP-M Strength Start: 09/05/23 08:39 Freq: Status: Active Protocol: Document 09/17/23 10:31 [facility] (Rec: 09/17/23 11:35 [facility] [id number]) Hip Strength Hip Manual Muscle Testing Right Flexion (L2) 3 Fair Extension (S1) 3+ Fair+ Abduction 4- Good- Adduction 3+ Fair+ External Rotation 4- Good- Internal Rotation 4- Good- Left Flexion (L2) 3 Fair Extension (S1) 3+ Fair+ Abduction 4 Good Adduction 3+ Fair+ External Rotation 4- Good- Internal Rotation 4- Good- Knee Strength Knee Manual Muscle Testing Right Flexion (S2) 4- Good- Extension (L3) 4- Good- Comments pain knee ext Left Flexion (S2) 4+ Good+ Extension (L3) 5 Normal Ankle/Foot Strength Ankle and Foot Manual Muscle Testing Right Dorsiflexion (L4) 5 Normal Plantarflexion (S1) 4- Good- Comments 18 heel raises-cued to not bend for last 10B Left Dorsiflexion (L4) 5 Normal Plantarflexion (S1) 4- Good- PT-OP-Q Treatments Start: 09/05/23 08:39 Freq: Status: Active Protocol: Document 09/26/23 14:36 [facility] (Rec: 09/26/23 15:17 [facility] [id number]) Gym Equipment Shuttle Recovery Unilateral Squats Resistance 50# Reps/Time 2x10 Therapeutic Exercises Standing Exercises sidestep Standing Exercise Name in mini squat Side bilateral Equipment Used L1 at knees; L2 at knees Reps/Minutes 20ft ea Manual Therapy Treatment Soft Tissue Mobilization scar Body Location med Mobilization Type Myofascial Release Intensity/Depth Superficial Body Position Supine quad Body Location VMO and VL borders Mobilization Type Rolling Intensity/Depth Moderate Comments w/quad set Neuro Re-Education Treatment Balance Activities foam Details over different foams (green, blue and black) Reps/Duration 8x fwd walk hurdles Details 6 Reps/Duration 6x fwd cues for slow bosu Comments 1. standing balance blue 2. step ups to DL B x10 ea 3. mini squat on blue x10 SLS Comments 1. star taps w/cone (4 point fwd, back, lat B) B x5 ea LE 2. alt 8 in step tap on blue foam x10 B 3. Y reach touch downs x10 B PT-OP-R Modalities Start: 09/05/23 08:39 Freq: Status: Active Protocol: Document 09/26/23 14:36 [facility] (Rec: 09/26/23 15:18 [facility] [id number]) Hot Pack/Cold Pack Treatment Cold Pack Location R knee Patient Position Hooklying Treatment Duration (minutes) 10 PT-OP-T Assessment and Plan Start: 09/05/23 08:39 Freq: Status: Active Protocol: Document 09/26/23 14:36 [facility] (Rec: 09/26/23 15:17 [facility] [id number]) Physical Therapy Assessment Goals walking Short Term Goal (STG) Pt will be able to start walking 1 mile at least 2 times a week without inc knee pain STG Duration 10/16/23 Fdc Goal (LTG) Pt will be able to return to walking longer walks up to 4 miles w/o inc knee pain greater than 2/10. LTG Duration 11/26/23 unstable Fdc Goal (LTG) Pt will be able to amb on unstable surfaces without inc pain allowing her ro return to hiking. LTG Duration 11/26/23 strength Short Term Goal (STG) Pt will be indep w/HEP STG Duration 10/16/23 Fdc Goal (LTG) Pt will score at least 4+/5 on all LE strength w/ability to maintain good alignment in trunk to show improved LE and trunk strength in order to allow pt participate in active lifestyle. LTG Duration 11/26/23 Assessment Summary Assessment Pt did well with the balance exercises today w/progression but was very challenged by cone tapping on R>L. She did well with progression of exercises also w/o c/o pain. Physical Therapy Plan Frequency and Duration Frequency of Treatment 1-2x/wk Duration of treatment (weeks) 10 Plan of Care Start Date 09/17/23 Plan of Care End Date 11/26/23 Next Visit Focus/Plan Next Note Type Treatment Note Next Visit Plan advance balance, con to work on hip and knee strength and work manually to quads and tibfem joint to dec pain
--- NOTE | 2023-10-01 12:31 | PT.OTN ---
Current Diagnoses Osteoarthritis of knee, unspecified (10/01/23) Difficulty in walking, not elsewhere classified (10/01/23) Weakness (10/01/23) History of falling (10/01/23) Physical Therapy Treatment Note PT-OP-A Visit Information Start: 09/05/23 08:39 Freq: Status: Active Protocol: Document 10/01/23 10:35 NBM (Rec: 10/01/23 12:30 NBM [id number]) Out-Patient Physical Therapy Visit Information Visit Information Visit Type Treatment Note Visit Note 02/13 Visit Start Time 10:35 Visit Stop Time 11:20 Total Visit Minutes 45 Visit Number 5 Number of PBX TECHNICIAN Visits 1 PT-OP-B Current Condition Start: 09/05/23 08:39 Freq: Status: Active Protocol: Document 09/17/23 10:31 LR (Rec: 09/17/23 11:35 [facility] [id number]) Current Condition History of Current Condition Current Complaints R knee History of Current Condition pt repots chronic knee pain for about 3 years but got worse this spring. She lost about 15 lbs on Ozempic and is worried aobut her overall mm health. Feels like behind doesn't ahve enough padding and is worried aobut arms and legs not being too strong. It does not like rough ground and even on flat gorund it now bothers her. After about 2 miles on her walk, she started to have pain on a 4 mile walk . She typically does 1/4 mile about twice a day w/her dog. Somtimes it is weirdness like a hollowness feeling at top of knee and sometimes it can be sharp. Has been trying to do squats on her dog walk. History of R growth plate in femur stopped at14 d/t RLE being longer Prior Treatments and Tests mild arthritis noted on xray Treatment Goals Patient/Caregiver Goals inc mm strength and tone; be able to walk trails and longer walks like [email or web address]; PT-OP-C Subjective Start: 09/05/23 08:39 Freq: Status: Active Protocol: Document 10/01/23 10:35 NBM (Rec: 10/01/23 12:30 NBM [id number]) OP-PT Subjective Patient Comments Patient Comments Pt reports her ankle soreness improved and she would like to try shuttle balance again. She wants to review sit to stands because they don't feel challenging. Patient Reported Progress Improving PT-OP-D Balance Start: 09/05/23 08:39 Freq: Status: Active Protocol: Document 09/17/23 10:31 [facility] (Rec: 09/17/23 11:35 [id number] Balance Tests Single Limb Standing Single Limb- Right 20 sec Single Limb- Left 6 sec PT-OP-F Manual Assessment Start: 09/05/23 08:39 Freq: Status: Active Protocol: Document 09/17/23 10:31 [facility] (Rec: 09/17/23 11:35 [id number] Manual Assessments Soft Tissue Assessment Soft Tissue Mobility Assessment tightness R quad; scar tissue B sup knee Joint Mobility Assessment Joint Mobility Assessment R>L femur in IR; B tibia good alignment and tracking; L knee tracks well towards 2nd toe; R knee tracks towards big toe; B calcaneal valgus PT-OP-G Mobility & Gait Start: 09/05/23 08:39 Freq: Status: Active Protocol: Document 09/17/23 10:31 [facility] (Rec: 09/17/23 11:35 [id number]) OP Gait Assessment Comments Gait Comments dec arm swing R>L; R foot toes out PT-OP-K Range of Motion Start: 09/05/23 08:39 Freq: Status: Active Protocol: Document 09/17/23 10:31 [facility] (Rec: 09/17/23 11:35 [facility] [id number]) Knee Goniometric Range of Motion Knee Right Flexion Active (degrees) 140 Extension Active (degrees) 0 Comments sore in knee w/ext Left Flexion Active (degrees) 145 Extension Active (degrees) 0 PT-OP-L Special Tests Start: 09/05/23 08:39 Freq: Status: Active Protocol: Document 09/17/23 10:31 [facility] (Rec: 09/17/23 11:35 [facility] [id number]) Special Tests Knee Special Tests Sheryl Test Comments neg R kevin test Test Results R RF & hip flexor tightness SLR Comments HS tightness felt-can get close to 90 deg R calf tightness noted on L about 75 deg Obers Test Results neg R King Chondromalacia Test Results positive R PT-OP-M Strength Start: 09/05/23 08:39 Freq: Status: Active Protocol: Document 09/17/23 10:31 [facility] (Rec: 09/17/23 11:35 [facility] [id number]) Hip Strength Hip Manual Muscle Testing Right Flexion (L2) 3 Fair Extension (S1) 3+ Fair+ Abduction 4- Good- Adduction 3+ Fair+ External Rotation 4- Good- Internal Rotation 4- Good- Left Flexion (L2) 3 Fair Extension (S1) 3+ Fair+ Abduction 4 Good Adduction 3+ Fair+ External Rotation 4- Good- Internal Rotation 4- Good- Knee Strength Knee Manual Muscle Testing Right Flexion (S2) 4- Good- Extension (L3) 4- Good- Comments pain knee ext Left Flexion (S2) 4+ Good+ Extension (L3) 5 Normal Ankle/Foot Strength Ankle and Foot Manual Muscle Testing Right Dorsiflexion (L4) 5 Normal Plantarflexion (S1) 4- Good- Comments 18 heel raises-cued to not bend for last 10B Left Dorsiflexion (L4) 5 Normal Plantarflexion (S1) 4- Good- PT-OP-Q Treatments Start: 09/05/23 08:39 Freq: Status: Active Protocol: Document 10/01/23 10:35 [facility] (Rec: 10/01/23 12:30 [facility] [id number]) Gym Equipment Shuttle Recovery Unilateral Squats Details cues for deeper B knee flexion Resistance 50# Reps/Time 2x10 Shuttle Balance red clips Details less ACOUSTICAL TILE PATTERNMAKER to bar needed today Comments fwd & side: WBOS & NBOS w/ a/p shifting Therapeutic Exercises Standing Exercises clamshells Side bilateral Resistance Lvl 2 Tb Reps/Minutes 2x10 squats Standing Exercise Name chair taps Side bilateral Equipment Used L2 band at knees Reps/Minutes 10 Comments cues for full ext at end range w/glute squeeze Manual Therapy Treatment Soft Tissue Mobilization scar Body Location med Mobilization Type Myofascial Release Intensity/Depth Superficial Body Position Supine Comments with discussion of desensitization techniques and self-STM. Neuro Re-Education Treatment Balance Activities SLS Comments 1. star taps w/cone (4 point fwd, back, lat B) B x5 ea LE - cues for gluteal activation 2. alt 8 in step tap on blue foam x10 B PT-OP-R Modalities Start: 09/05/23 08:39 Freq: Status: Active Protocol: Document 09/26/23 14:36 LR (Rec: 09/26/23 15:18 [facility] [id number]) Hot Pack/Cold Pack Treatment Cold Pack Location R knee Patient Position Hooklying Treatment Duration (minutes) 10 PT-OP-T Assessment and Plan Start: 09/05/23 08:39 Freq: Status: Active Protocol: Document 10/01/23 10:35 NB (Rec: 10/01/23 12:30 [facility] [id number]) Physical Therapy Assessment Goals walking Short Term Goal (STG) Pt will be able to start walking 1 mile at least 2 times a week without inc knee pain STG Duration 10/16/23 Guest Experience Captain Goal (LTG) Pt will be able to return to walking longer walks up to 4 miles w/o inc knee pain greater than 2/10. LTG Duration 11/26/23 unstable [facility] Goal (LTG) Pt will be able to amb on unstable surfaces without inc pain allowing her ro return to hiking. LTG Duration 11/26/23 strength Short Term Goal (STG) Pt will be indep w/HEP STG Duration 10/16/23 [facility] Goal (LTG) Pt will score at least 4+/5 on all LE strength w/ability to maintain good alignment in trunk to show improved LE and trunk strength in order to allow pt participate in active lifestyle. LTG Duration 11/26/23 Assessment Summary Assessment Evelia requires consistent cues for eccentric control with ex 's, particularly chair taps and seated clamshells, and for gluteal activation with neuro re-education with improved balance after cueing. She has no ankle soreness today and tolerates shuttle balance today with addition of anterioposterior weightshifting in WBOS and NBOS. STM to scar medially performed on Shuttle Recovery in hooklying with discussion of desensitization techniques and self-STM. Added to HEP: seated clamshells w/ Lvl 2 Tb and Step ups for home stairs with railing - HO given. Physical Therapy Plan Frequency and Duration Frequency of Treatment 1-2x/wk Duration of treatment (weeks) 10 Plan of Care Start Date 09/17/23 Plan of Care End Date 11/26/23 Therapeutic Interventions Therapeutic Interventions Balance Training,Gait Training ,Home Exercise Program,Joint Mobilizations,Manual Therapy, Neuromuscular Re-education, Orthotic/Prosthetic Management ,Patient/Caregiver Education, Self-Care/Home Management,Soft Tissue Mobilization,Taping, Therapeutic Activities, Therapeutic Exercises Modalities Cold Pack/Ice Massage,Electric Stimulation,Hot Packs, Infrared Therapy,Ultrasound Next Visit Focus/Plan Next Note Type Treatment Note Next Visit Plan advance balance, con to work on hip and knee strength and work manually to quads and tibfem joint to dec pain
--- NOTE | 2023-10-04 16:53 | PT.OTN ---
Current Diagnoses Osteoarthritis of knee, unspecified (10/04/23) Difficulty in walking, not elsewhere classified (10/04/23) Weakness (10/04/23) History of falling (10/04/23) Physical Therapy Treatment Note PT-OP-A Visit Information Start: 09/05/23 08:39 Freq: Status: Active Protocol: Document 10/04/23 09:47 NBM (Rec: 10/04/23 10:35 NB [id number]) Out-Patient Physical Therapy Visit Information Visit Information Visit Type Treatment Note Visit Note 03/16 Visit Start Time 09:48 Visit Stop Time 10:32 Total Visit Minutes 44 Visit Number 6 Number of METAL FURNACE OPERATOR Visits 2 PT-OP-B Current Condition Start: 09/05/23 08:39 Freq: Status: Active Protocol: Document 09/17/23 10:31 LR (Rec: 09/17/23 11:35 [facility] [id number]) Current Condition History of Current Condition Current Complaints R knee History of Current Condition pt repots chronic knee pain for about 3 years but got worse this spring. She lost about 15 lbs on Ozempic and is worried aobut her overall mm health. Feels like behind doesn't ahve enough padding and is worried aobut arms and legs not being too strong. It does not like rough ground and even on flat gorund it now bothers her. After about 2 miles on her walk, she started to have pain on a 4 mile walk . She typically does 1/4 mile about twice a day w/her dog. Somtimes it is weirdness like a hollowness feeling at top of knee and sometimes it can be sharp. Has been trying to do squats on her dog walk. History of R growth plate in femur stopped at14 d/t RLE being longer Prior Treatments and Tests mild arthritis noted on xray Treatment Goals Patient/Caregiver Goals inc mm strength and tone; be able to walk trails and longer walks like [employer]; PT-OP-C Subjective Start: 09/05/23 08:39 Freq: Status: Active Protocol: Document 10/04/23 09:47 NBM (Rec: 10/04/23 10:35 NBM [id number]) OP-PT Subjective Patient Comments Patient Comments Evelia reports she went walking after last visit and had R knee pain center when going up an incline, and the pain went away when she turned around and went downhill. She thinks she's not doing the step ups and sit to stands correctly. PT-OP-D Balance Start: 09/05/23 08:39 Freq: Status: Active Protocol: Document 09/17/23 10:31 [facility] (Rec: 09/17/23 11:35 [facility] [id number]) Balance Tests Single Limb Standing Single Limb- Right 20 sec Single Limb- Left 6 sec PT-OP-F Manual Assessment Start: 09/05/23 08:39 Freq: Status: Active Protocol: Document 09/17/23 10:31 [facility] (Rec: 09/17/23 11:35 [facility] [id number]) Manual Assessments Soft Tissue Assessment Soft Tissue Mobility Assessment tightness R quad; scar tissue B sup knee Joint Mobility Assessment Joint Mobility Assessment R>L femur in IR; B tibia good alignment and tracking; L knee tracks well towards 2nd toe; R knee tracks towards big toe; B calcaneal valgus PT-OP-G Mobility & Gait Start: 09/05/23 08:39 Freq: Status: Active Protocol: Document 09/17/23 10:31 [facility] (Rec: 09/17/23 11:35 [facility] [id number]) OP Gait Assessment Comments Gait Comments dec arm swing R>L; R foot toes out PT-OP-K Range of Motion Start: 09/05/23 08:39 Freq: Status: Active Protocol: Document 09/17/23 10:31 [facility] (Rec: 09/17/23 11:35 [facility] [id number]) Knee Goniometric Range of Motion Knee Right Flexion Active (degrees) 140 Extension Active (degrees) 0 Comments sore in knee w/ext Left Flexion Active (degrees) 145 Extension Active (degrees) 0 PT-OP-L Special Tests Start: 09/05/23 08:39 Freq: Status: Active Protocol: Document 09/17/23 10:31 [facility] (Rec: 09/17/23 11:35 [facility] [id number]) Special Tests Knee Special Tests Sheryl Test Comments neg R kevin test Test Results R RF & hip flexor tightness SLR Comments HS tightness felt-can get close to 90 deg R calf tightness noted on L about 75 deg Obers Test Results neg R King Chondromalacia Test Results positive R PT-OP-M Strength Start: 09/05/23 08:39 Freq: Status: Active Protocol: Document 09/17/23 10:31 [facility] (Rec: 09/17/23 11:35 [facility] [id number]) Hip Strength Hip Manual Muscle Testing Right Flexion (L2) 3 Fair Extension (S1) 3+ Fair+ Abduction 4- Good- Adduction 3+ Fair+ External Rotation 4- Good- Internal Rotation 4- Good- Left Flexion (L2) 3 Fair Extension (S1) 3+ Fair+ Abduction 4 Good Adduction 3+ Fair+ External Rotation 4- Good- Internal Rotation 4- Good- Knee Strength Knee Manual Muscle Testing Right Flexion (S2) 4- Good- Extension (L3) 4- Good- Comments pain knee ext Left Flexion (S2) 4+ Good+ Extension (L3) 5 Normal Ankle/Foot Strength Ankle and Foot Manual Muscle Testing Right Dorsiflexion (L4) 5 Normal Plantarflexion (S1) 4- Good- Comments 18 heel raises-cued to not bend for last 10B Left Dorsiflexion (L4) 5 Normal Plantarflexion (S1) 4- Good- PT-OP-Q Treatments Start: 09/05/23 08:39 Freq: Status: Active Protocol: Document 10/04/23 09:47 [facility] (Rec: 10/04/23 10:35 [facility] [id number]) Gym Equipment Shuttle Recovery Bilateral Squats Resistance 75#>87# (3 navy bands) Shuttle Recovery Platform Stable Reps/Time x10 ea Unilateral Squats Details cues for deeper B knee flexion Resistance 50# Shuttle Recovery Platform Stable Reps/Time 2x10 Shuttle Balance red clips Details less DNA SEQUENCING ASSOCIATE to bar needed today a /p, CGA Comments A/P weight shifting: WBOS, NBOS, and stride stance rambo w/ EO/EC x30s ea, with cues for two DNA SEQUENCING ASSOCIATE>2 finger touch> no UE support. Perurbations in NBOS with EO/EC. M/L weightshifting with rambo DNA SEQUENCING ASSOCIATE and cues for increasing weightbearing into RLE balloon volleyball in A/P and M/L with 1 DNA SEQUENCING ASSOCIATE ea in WBOS, NBOS and staggered stance rambo. Therapeutic Exercises Standing Exercises hamstring stretch Side right Reps/Minutes x30s Comments cues for hip hinge squats Standing Exercise Name chair taps Side bilateral Equipment Used L2>L3 band at knees Reps/Minutes 10 Comments pt self-corrects for glute squeeze at end range calf Standing Exercise Name 1.raises on step DL Side bilateral Reps/Minutes 10 stretch Standing Exercise Name calf -heels off step Side bilateral Equipment Used step w/rail Reps/Minutes 30 sec Self-Care/Home Management Treatment Education Patient Education Home Exercise Program Other Education Added to HEP: standing HS stretch - HO given and pt encouraged to try walking again after stretching HEP and report back knee pain with incline improves. PT-OP-R Modalities Start: 09/05/23 08:39 Freq: Status: Active Protocol: Document 09/26/23 14:36 LR (Rec: 09/26/23 15:18 [facility] [id number]) Hot Pack/Cold Pack Treatment Cold Pack Location R knee Patient Position Hooklying Treatment Duration (minutes) 10 PT-OP-T Assessment and Plan Start: 09/05/23 08:39 Freq: Status: Active Protocol: Document 10/04/23 09:47 NBM (Rec: 10/04/23 10:35 NBM [id number]) Physical Therapy Assessment Goals walking Short Term Goal (STG) Pt will be able to start walking 1 mile at least 2 times a week without inc knee pain 10/04: pt reports increased R knee pain with incline. STG Duration 10/16/23 Stenciler Goal (LTG) Pt will be able to return to walking longer walks up to 4 miles w/o inc knee pain greater than 2/10. LTG Duration 11/26/23 unstable Stenciler Goal (LTG) Pt will be able to amb on unstable surfaces without inc pain allowing her ro return to hiking. LTG Duration 11/26/23 strength Short Term Goal (STG) Pt will be indep w/HEP STG Duration 10/16/23 [facility] Goal (LTG) Pt will score at least 4+/5 on all LE strength w/ability to maintain good alignment in trunk to show improved LE and trunk strength in order to allow pt participate in active lifestyle. LTG Duration 11/26/23 Assessment Summary Assessment Evelia demonstrates improved self-awareness of bilateral lower extremity alignment with chair taps and glute squeeze and tolerates increased resistance band above knees from Lvl2>Lvl 3 - new Tb given to progress HEP. She does require initial cues for L unilateral squat alignment with supine shuttle recovery. She demonstrates increased confidence with balance and is able to perform a/p weight shifting with control on Shuttle Balance in WBOS, NBOS, and stride stance rambo with Eyes Open and Closed, with cues for two DNA SEQUENCING ASSOCIATE>2 finger touch> no UE support. She also performs m/l weightshifting with rambo DNA SEQUENCING ASSOCIATE and cues for increasing weightbearing into RLE. Added to HEP: standing HS stretch - HO given and pt encouraged to try walking again after stretching HEP and report back if improved knee pain with incline. Physical Therapy Plan Frequency and Duration Frequency of Treatment 1-2x/wk Duration of treatment (weeks) 10 Plan of Care Start Date 09/17/23 Plan of Care End Date 11/26/23 Therapeutic Interventions Therapeutic Interventions Balance Training,Gait Training ,Home Exercise Program,Joint Mobilizations,Manual Therapy, Neuromuscular Re-education, Orthotic/Prosthetic Management ,Patient/Caregiver Education, Self-Care/Home Management,Soft Tissue Mobilization,Taping, Therapeutic Activities, Therapeutic Exercises Modalities Cold Pack/Ice Massage,Electric Stimulation,Hot Packs, Infrared Therapy,Ultrasound Next Visit Focus/Plan Next Note Type Treatment Note Next Visit Plan Check if pt had decreased knee pain ambulating on incline after performing stretching HEP. POC: advance balance, con to work on hip and knee strength and work manually to quads and tibfem joint to dec pain
--- NOTE | 2023-10-08 11:21 | PT.OTN ---
Current Diagnoses Osteoarthritis of knee, unspecified (10/08/23) Difficulty in walking, not elsewhere classified (10/08/23) Weakness (10/08/23) History of falling (10/08/23) Physical Therapy Treatment Note PT-OP-A Visit Information Start: 09/05/23 08:39 Freq: Status: Active Protocol: Document 10/08/23 10:36 [facility] (Rec: 10/08/23 11:21 [facility] [id number]) Out-Patient Physical Therapy Visit Information Visit Information Visit Type Treatment Note Visit Note 04/15 Visit Start Time 10:35 Visit Stop Time 11:25 Total Visit Minutes 50 Visit Number 7 Number of TRIM SAWYER Visits 0 PT-OP-B Current Condition Start: 09/05/23 08:39 Freq: Status: Active Protocol: Document 09/17/23 10:31 [facility] (Rec: 09/17/23 11:35 [facility] [id number]) Current Condition History of Current Condition Current Complaints R knee History of Current Condition pt repots chronic knee pain for about 3 years but got worse this spring. She lost about 15 lbs on Ozempic and is worried aobut her overall mm health. Feels like behind doesn't ahve enough padding and is worried aobut arms and legs not being too strong. It does not like rough ground and even on flat gorund it now bothers her. After about 2 miles on her walk, she started to have pain on a 4 mile walk . She typically does 1/4 mile about twice a day w/her dog. Somtimes it is weirdness like a hollowness feeling at top of knee and sometimes it can be sharp. Has been trying to do squats on her dog walk. History of R growth plate in femur stopped at14 d/t RLE being longer Prior Treatments and Tests mild arthritis noted on xray Treatment Goals Patient/Caregiver Goals inc mm strength and tone; be able to walk trails and longer walks like [place]; PT-OP-C Subjective Start: 09/05/23 08:39 Freq: Status: Active Protocol: Document 10/08/23 10:36 [facility] (Rec: 10/08/23 11:21 [facility] [id number]) OP-PT Subjective Patient Comments Patient Comments SHe did walk again sicne time it hurt. She walked about 1 mile that was a little of hills that wasn't after PT and did stretch first and was fine. did walk on the beach too and that was ok PT-OP-D Balance Start: 09/05/23 08:39 Freq: Status: Active Protocol: Document 09/17/23 10:31 [facility] (Rec: 09/17/23 11:35 [facility] [id number]) Balance Tests Single Limb Standing Single Limb- Right 20 sec Single Limb- Left 6 sec PT-OP-F Manual Assessment Start: 09/05/23 08:39 Freq: Status: Active Protocol: Document 09/17/23 10:31 [facility] (Rec: 09/17/23 11:35 [facility] [id number]) Manual Assessments Soft Tissue Assessment Soft Tissue Mobility Assessment tightness R quad; scar tissue B sup knee Joint Mobility Assessment Joint Mobility Assessment R>L femur in IR; B tibia good alignment and tracking; L knee tracks well towards 2nd toe; R knee tracks towards big toe; B calcaneal valgus PT-OP-G Mobility & Gait Start: 09/05/23 08:39 Freq: Status: Active Protocol: Document 09/17/23 10:31 [facility] (Rec: 09/17/23 11:35 [facility] [id number]) OP Gait Assessment Comments Gait Comments dec arm swing R>L; R foot toes out PT-OP-K Range of Motion Start: 09/05/23 08:39 Freq: Status: Active Protocol: Document 09/17/23 10:31 [facility] (Rec: 09/17/23 11:35 [facility] [id number]) Knee Goniometric Range of Motion Knee Right Flexion Active (degrees) 140 Extension Active (degrees) 0 Comments sore in knee w/ext Left Flexion Active (degrees) 145 Extension Active (degrees) 0 PT-OP-L Special Tests Start: 09/05/23 08:39 Freq: Status: Active Protocol: Document 09/17/23 10:31 [facility] (Rec: 09/17/23 11:35 [facility] [id number]) Special Tests Knee Special Tests Sheryl Test Comments neg R kevin test Test Results R RF & hip flexor tightness SLR Comments HS tightness felt-can get close to 90 deg R calf tightness noted on L about 75 deg Obers Test Results neg R King Chondromalacia Test Results positive R PT-OP-M Strength Start: 09/05/23 08:39 Freq: Status: Active Protocol: Document 09/17/23 10:31 [facility] (Rec: 09/17/23 11:35 [facility] [id number]) Hip Strength Hip Manual Muscle Testing Right Flexion (L2) 3 Fair Extension (S1) 3+ Fair+ Abduction 4- Good- Adduction 3+ Fair+ External Rotation 4- Good- Internal Rotation 4- Good- Left Flexion (L2) 3 Fair Extension (S1) 3+ Fair+ Abduction 4 Good Adduction 3+ Fair+ External Rotation 4- Good- Internal Rotation 4- Good- Knee Strength Knee Manual Muscle Testing Right Flexion (S2) 4- Good- Extension (L3) 4- Good- Comments pain knee ext Left Flexion (S2) 4+ Good+ Extension (L3) 5 Normal Ankle/Foot Strength Ankle and Foot Manual Muscle Testing Right Dorsiflexion (L4) 5 Normal Plantarflexion (S1) 4- Good- Comments 18 heel raises-cued to not bend for last 10B Left Dorsiflexion (L4) 5 Normal Plantarflexion (S1) 4- Good- PT-OP-Q Treatments Start: 09/05/23 08:39 Freq: Status: Active Protocol: Document 10/08/23 10:36 [facility] (Rec: 10/08/23 11:21 [facility] [id number]) Gym Equipment Shuttle Recovery Bilateral Squats Resistance 87# (3 navy bands) Shuttle Recovery Platform Stable Reps/Time x15 ea Unilateral Squats Details cues for deeper B knee flexion Resistance 50# Shuttle Recovery Platform Stable Reps/Time 2x10 Shuttle Balance red clips Details balance & wt shifts in each Comments fwd & side: WBOS & NBOS fwd: staggereds stance B Therapeutic Exercises Standing Exercises lunge Standing Exercise Name fwd Side bilateral Reps/Minutes 10 ea Manual Therapy Treatment Soft Tissue Mobilization scar Body Location med Mobilization Type Myofascial Release Intensity/Depth Superficial Body Position Supine Comments with discussion of desensitization techniques and self-STM. Joint Mobilizations tibfem Joint AP on tibia and femur FM patellofemoral Joint sup FM Neuro Re-Education Treatment Balance Activities bosu Comments 1. standing balance blue 2. step ups to DL B x10 ea 3. mini squat on blue x10 4. lat step up x10 B PT-OP-R Modalities Start: 09/05/23 08:39 Freq: Status: Active Protocol: Document 10/08/23 10:36 [facility] (Rec: 10/08/23 11:21 [facility] [id number]) Hot Pack/Cold Pack Treatment Cold Pack Location R knee Patient Position Hooklying Treatment Duration (minutes) 10 PT-OP-T Assessment and Plan Start: 09/05/23 08:39 Freq: Status: Active Protocol: Document 10/08/23 10:36 [facility] (Rec: 10/08/23 11:21 [facility] [id number]) Physical Therapy Assessment Goals walking Short Term Goal (STG) Pt will be able to start walking 1 mile at least 2 times a week without inc knee pain 10/04: pt reports increased R knee pain with incline. STG Duration 10/16/23 Banking Attorney Goal (LTG) Pt will be able to return to walking longer walks up to 4 miles w/o inc knee pain greater than 2/10. LTG Duration 11/26/23 unstable Banking Attorney Goal (LTG) Pt will be able to amb on unstable surfaces without inc pain allowing her ro return to hiking. LTG Duration 11/26/23 strength Short Term Goal (STG) Pt will be indep w/HEP STG Duration 10/16/23 Banking Attorney Goal (LTG) Pt will score at least 4+/5 on all LE strength w/ability to maintain good alignment in trunk to show improved LE and trunk strength in order to allow pt participate in active lifestyle. LTG Duration 11/26/23 Assessment Summary Assessment Pt did better w/balance tasks today but does still require use of rails occ to stabilize. She required a lot of cuse during lunges for proper knee position and did mini range. She will likely be able to inc resistance w/leg press next session as greater ease noted today. Physical Therapy Plan Frequency and Duration Frequency of Treatment 1-2x/wk Duration of treatment (weeks) 10 Plan of Care Start Date 09/17/23 Plan of Care End Date 11/26/23 Next Visit Focus/Plan Next Note Type Treatment Note Next Visit Plan advance balance, con to work on hip and knee strength and work manually to quads and tibfem joint to dec pain
--- NOTE | 2023-10-16 09:59 | PT.OTN ---
Current Diagnoses Osteoarthritis of knee, unspecified (10/16/23) Difficulty in walking, not elsewhere classified (10/16/23) Weakness (10/16/23) History of falling (10/16/23) Physical Therapy Treatment Note PT-OP-A Visit Information Start: 09/05/23 08:39 Freq: Status: Active Protocol: Document 10/16/23 08:17 [facility] (Rec: 10/16/23 09:59 [facility] [id number]) Out-Patient Physical Therapy Visit Information Visit Information Visit Type Treatment Note Visit Note 05/16 Visit Start Time 08:19 Visit Stop Time 09:10 Total Visit Minutes 51 Visit Number 8 Number of SPORTS EQUIPMENT SUPERVISOR Visits 0 PT-OP-B Current Condition Start: 09/05/23 08:39 Freq: Status: Active Protocol: Document 09/17/23 10:31 [facility] (Rec: 09/17/23 11:35 [facility] [id number]) Current Condition History of Current Condition Current Complaints R knee History of Current Condition pt repots chronic knee pain for about 3 years but got worse this spring. She lost about 15 lbs on Ozempic and is worried aobut her overall mm health. Feels like behind doesn't ahve enough padding and is worried aobut arms and legs not being too strong. It does not like rough ground and even on flat gorund it now bothers her. After about 2 miles on her walk, she started to have pain on a 4 mile walk . She typically does 1/4 mile about twice a day w/her dog. Somtimes it is weirdness like a hollowness feeling at top of knee and sometimes it can be sharp. Has been trying to do squats on her dog walk. History of R growth plate in femur stopped at14 d/t RLE being longer Prior Treatments and Tests mild arthritis noted on xray Treatment Goals Patient/Caregiver Goals inc mm strength and tone; be able to walk trails and longer walks like [employer]; PT-OP-C Subjective Start: 09/05/23 08:39 Freq: Status: Active Protocol: Document 10/16/23 08:17 [facility] (Rec: 10/16/23 09:59 [facility] [id number]) OP-PT Subjective Patient Comments Patient Comments pt reports not walking much d/ t weather but doing PT exercises daily. notes walked through her yard to compost about 70 ft and knee was hurting with that. Pain went away after. It felt loose. Notes she could feel clicking. PT-OP-D Balance Start: 09/05/23 08:39 Freq: Status: Active Protocol: Document 09/17/23 10:31 [facility] (Rec: 09/17/23 11:35 [facility] [id number]) Balance Tests Single Limb Standing Single Limb- Right 20 sec Single Limb- Left 6 sec PT-OP-F Manual Assessment Start: 09/05/23 08:39 Freq: Status: Active Protocol: Document 09/17/23 10:31 [facility] (Rec: 09/17/23 11:35 [facility] [id number]) Manual Assessments Soft Tissue Assessment Soft Tissue Mobility Assessment tightness R quad; scar tissue B sup knee Joint Mobility Assessment Joint Mobility Assessment R>L femur in IR; B tibia good alignment and tracking; L knee tracks well towards 2nd toe; R knee tracks towards big toe; B calcaneal valgus PT-OP-G Mobility & Gait Start: 09/05/23 08:39 Freq: Status: Active Protocol: Document 09/17/23 10:31 [facility] (Rec: 09/17/23 11:35 [facility] [id number]) OP Gait Assessment Comments Gait Comments dec arm swing R>L; R foot toes out PT-OP-K Range of Motion Start: 09/05/23 08:39 Freq: Status: Active Protocol: Document 09/17/23 10:31 [facility] (Rec: 09/17/23 11:35 [facility] [id number]) Knee Goniometric Range of Motion Knee Right Flexion Active (degrees) 140 Extension Active (degrees) 0 Comments sore in knee w/ext Left Flexion Active (degrees) 145 Extension Active (degrees) 0 PT-OP-L Special Tests Start: 09/05/23 08:39 Freq: Status: Active Protocol: Document 09/17/23 10:31 [facility] (Rec: 09/17/23 11:35 [facility] [id number]) Special Tests Knee Special Tests Sheryl Test Comments neg R kevin test Test Results R RF & hip flexor tightness SLR Comments HS tightness felt-can get close to 90 deg R calf tightness noted on L about 75 deg Obers Test Results neg R King Chondromalacia Test Results positive R PT-OP-M Strength Start: 09/05/23 08:39 Freq: Status: Active Protocol: Document 09/17/23 10:31 [facility] (Rec: 09/17/23 11:35 [facility] [id number]) Hip Strength Hip Manual Muscle Testing Right Flexion (L2) 3 Fair Extension (S1) 3+ Fair+ Abduction 4- Good- Adduction 3+ Fair+ External Rotation 4- Good- Internal Rotation 4- Good- Left Flexion (L2) 3 Fair Extension (S1) 3+ Fair+ Abduction 4 Good Adduction 3+ Fair+ External Rotation 4- Good- Internal Rotation 4- Good- Knee Strength Knee Manual Muscle Testing Right Flexion (S2) 4- Good- Extension (L3) 4- Good- Comments pain knee ext Left Flexion (S2) 4+ Good+ Extension (L3) 5 Normal Ankle/Foot Strength Ankle and Foot Manual Muscle Testing Right Dorsiflexion (L4) 5 Normal Plantarflexion (S1) 4- Good- Comments 18 heel raises-cued to not bend for last 10B Left Dorsiflexion (L4) 5 Normal Plantarflexion (S1) 4- Good- PT-OP-Q Treatments Start: 09/05/23 08:39 Freq: Status: Active Protocol: Document 10/16/23 08:17 [facility] (Rec: 10/16/23 09:59 [facility] [id number]) Gym Equipment Shuttle Balance red clips Details balance & wt shifts in each Comments fwd & side: WBOS & NBOS fwd: staggereds stance B Therapeutic Exercises Standing Exercises step up Standing Exercise Name to march Side bilateral Equipment Used 8 in step Reps/Minutes 10 ea lunge Standing Exercise Name 1.fwd 2. lat Side bilateral Reps/Minutes 8 ea stretch Standing Exercise Name quad Side bilateral Reps/Minutes [id number] R; x30 sec L Manual Therapy Treatment Soft Tissue Mobilization quad Body Location VL borders Mobilization Type Rolling Intensity/Depth Moderate Comments w/knee flex Joint Mobilizations tibfib Joint proximal PA fib tibfem Comments PA FM Taping KT Comments Y for quad facilitaiton Neuro Re-Education Treatment Balance Activities hurdles Details 6 Surface foam btwn Reps/Duration 6x fwd cues for slow bosu Comments 1. standing balance blue 2. step ups to DL B x10 ea 3. mini squat on blue x10 4. lat step up x10 B PT-OP-R Modalities Start: 09/05/23 08:39 Freq: Status: Active Protocol: Document 10/16/23 08:17 [facility] (Rec: 10/16/23 09:59 [facility] [id number]) Hot Pack/Cold Pack Treatment Cold Pack Location R knee Patient Position Hooklying Treatment Duration (minutes) 10 PT-OP-T Assessment and Plan Start: 09/05/23 08:39 Freq: Status: Active Protocol: Document 10/16/23 08:17 [facility] (Rec: 10/16/23 09:59 [facility] [id number]) Physical Therapy Assessment Goals walking Short Term Goal (STG) Pt will be able to start walking 1 mile at least 2 times a week without inc knee pain 10/04: pt reports increased R knee pain with incline. STG Duration 10/16/23 [facility] Goal (LTG) Pt will be able to return to walking longer walks up to 4 miles w/o inc knee pain greater than 2/10. LTG Duration 11/26/23 unstable [facility] Goal (LTG) Pt will be able to amb on unstable surfaces without inc pain allowing her ro return to hiking. LTG Duration 11/26/23 strength Short Term Goal (STG) Pt will be indep w/HEP STG Duration 10/16/23 Parts Runner Goal (LTG) Pt will score at least 4+/5 on all LE strength w/ability to maintain good alignment in trunk to show improved LE and trunk strength in order to allow pt participate in active lifestyle. LTG Duration 11/26/23 Assessment Summary Assessment Pt did well on balance but idd note some soreness in knee after the end of bosu activities but improved w/ stretching and rest and noted again mildly w/lunges. Still difficulty w/some balance like step up to SL. Physical Therapy Plan Frequency and Duration Frequency of Treatment 1-2x/wk Duration of treatment (weeks) 10 Plan of Care Start Date 09/17/23 Plan of Care End Date 11/26/23 Next Visit Focus/Plan Next Note Type Treatment Note Next Visit Plan advance balance, cont to work on hip and knee strength and work manually to quads and tibfem joint to dec pain
--- NOTE | 2023-10-23 10:32 | PT.OTN ---
Current Diagnoses Osteoarthritis of knee, unspecified (10/23/23) Difficulty in walking, not elsewhere classified (10/23/23) Weakness (10/23/23) History of falling (10/23/23) Physical Therapy Treatment Note PT-OP-A Visit Information Start: 09/05/23 08:39 Freq: Status: Active Protocol: Document 10/23/23 09:53 [facility] (Rec: 10/23/23 10:31 [facility] [id number]) Out-Patient Physical Therapy Visit Information Visit Information Visit Type Progress Note Visit Note 10/16 Visit Start Time 09:50 Visit Stop Time 10:30 Total Visit Minutes 40 Visit Number 9 Number of BANANA CARRIER Visits 0 PT-OP-B Current Condition Start: 09/05/23 08:39 Freq: Status: Active Protocol: Document 09/17/23 10:31 [facility] (Rec: 09/17/23 11:35 [facility] [id number]) Current Condition History of Current Condition Current Complaints R knee History of Current Condition pt repots chronic knee pain for about 3 years but got worse this spring. She lost about 15 lbs on Ozempic and is worried aobut her overall mm health. Feels like behind doesn't ahve enough padding and is worried aobut arms and legs not being too strong. It does not like rough ground and even on flat gorund it now bothers her. After about 2 miles on her walk, she started to have pain on a 4 mile walk . She typically does 1/4 mile about twice a day w/her dog. Somtimes it is weirdness like a hollowness feeling at top of knee and sometimes it can be sharp. Has been trying to do squats on her dog walk. History of R growth plate in femur stopped at14 d/t RLE being longer Prior Treatments and Tests mild arthritis noted on xray Treatment Goals Patient/Caregiver Goals inc mm strength and tone; be able to walk trails and longer walks like [place]; PT-OP-C Subjective Start: 09/05/23 08:39 Freq: Status: Active Protocol: Document 10/23/23 09:53 [facility] (Rec: 10/23/23 10:31 [facility] [id number]) OP-PT Subjective Patient Comments Patient Comments Pt has limited walks d/t weather. notes med knees felt bruised (they aren't) and wonders if it is when she is doing balance NBOS w/knees touching PT-OP-D Balance Start: 09/05/23 08:39 Freq: Status: Active Protocol: Document 09/17/23 10:31 [facility] (Rec: [facility]17[facility]23 [id number] Balance Tests Single Limb Standing Single Limb- Right 20 sec Single Limb- Left 6 sec PT-OP-F Manual Assessment Start: 09/05/23 08:39 Freq: Status: Active Protocol: Document 09/17/23 10:31 [facility] (Rec: 09/17/23 11:[id number] Manual Assessments Soft Tissue Assessment Soft Tissue Mobility Assessment tightness R quad; scar tissue B sup knee Joint Mobility Assessment Joint Mobility Assessment R>L femur in IR; B tibia good alignment and tracking; L knee tracks well towards 2nd toe; R knee tracks towards big toe; B calcaneal valgus PT-OP-G Mobility & Gait Start: 09/05/23 08:39 Freq: Status: Active Protocol: Document 09/17/23 10:31 [facility] (Rec: 09/17/23 11:35 [id number] OP Gait Assessment Comments Gait Comments dec arm swing R>L; R foot toes out PT-OP-K Range of Motion Start: 09/05/23 08:39 Freq: Status: Active Protocol: Document 09/17/23 10:31 [facility] (Rec: 09/17/23 11:35 [facility] [id number]) Knee Goniometric Range of Motion Knee Right Flexion Active (degrees) 140 Extension Active (degrees) 0 Comments sore in knee w/ext Left Flexion Active (degrees) 145 Extension Active (degrees) 0 PT-OP-L Special Tests Start: 09/05/23 08:39 Freq: Status: Active Protocol: Document 09/17/23 10:31 [facility] (Rec: 09/17/23 11:35 [facility] [id number]) Special Tests Knee Special Tests Sheryl Test Comments neg R kevin test Test Results R RF & hip flexor tightness SLR Comments HS tightness felt-can get close to 90 deg R calf tightness noted on L about 75 deg Obers Test Results neg R King Chondromalacia Test Results positive R PT-OP-M Strength Start: 09/05/23 08:39 Freq: Status: Active Protocol: Document 10/23/23 09:53 [facility] (Rec: 10/23/23 10:31 [facility] [id number]) Hip Strength Hip Manual Muscle Testing Right Flexion (L2) 3+ Fair+ Extension (S1) 4- Good- Abduction 4- Good- Adduction 4- Good- External Rotation 4- Good- Internal Rotation 4 Good Left Flexion (L2) 3+ Fair+ Extension (S1) 4- Good- Abduction 4 Good Adduction 4 Good External Rotation 4- Good- Internal Rotation 4 Good Knee Strength Knee Manual Muscle Testing Right Flexion (S2) 4 Good Extension (L3) 5 Normal Left Flexion (S2) 4+ Good+ Extension (L3) 5 Normal Ankle/Foot Strength Ankle and Foot Manual Muscle Testing Right Dorsiflexion (L4) 5 Normal Plantarflexion (S1) 5 Normal Comments 20 heel raises-cued to not bend for last 10B Left Dorsiflexion (L4) 5 Normal Plantarflexion (S1) 5 Normal PT-OP-Q Treatments Start: 09/05/23 08:39 Freq: Status: Active Protocol: Document 10/23/23 09:53 [facility] (Rec: 10/23/23 10:31 [facility] [id number]) Therapeutic Exercises Supine Exercises isometric Supine Exercise Name DL Side bilateral Reps/Minutes 30 sec Standing Exercises step up Standing Exercise Name w/alt march Side bilateral Equipment Used 8 in Reps/Minutes 10 Comments slow decent lunge Standing Exercise Name 1.fwd 2. lat Side bilateral Reps/Minutes 8 ea Manual Therapy Treatment Joint Mobilizations tibfib Joint proximal fib AP FM tibfem Joint AP tibia FM Taping KT Comments Y for quad facilitaiton Neuro Re-Education Treatment Balance Activities hurdles Details 6 Surface foam btwn Reps/Duration 6x fwd cues for slow bosu Comments 1. standing balance blue 2. mini squat on blue x10 3. lat step up x10 B PT-OP-R Modalities Start: 09/05/23 08:39 Freq: Status: Active Protocol: Document 10/16/23 08:17 [facility] (Rec: 10/16/23 09:59 [facility] [id number]) Hot Pack/Cold Pack Treatment Cold Pack Location R knee Patient Position Hooklying Treatment Duration (minutes) 10 PT-OP-T Assessment and Plan Start: 09/05/23 08:39 Freq: Status: Active Protocol: Document 10/23/23 09:53 [facility] (Rec: 10/23/23 10:31 [facility] [id number]) Physical Therapy Assessment Goals walking Short Term Goal (STG) Pt will be able to start walking 1 mile at least 2 times a week without inc knee pain 10/04: pt reports increased R knee pain with incline. 10/23-weather limiting this week but recently mostly 2 walks at least 1 mile STG Duration achieved 10/23 [facility] Goal (LTG) Pt will be able to return to walking longer walks up to 4 miles w/o inc knee pain greater than 2/10. LTG Duration 11/26/23 unstable Regulatory Specialist Goal (LTG) Pt will be able to amb on unstable surfaces without inc pain allowing her ro return to hiking. 10/23-has not tried LTG Duration 11/26/23 strength Short Term Goal (STG) Pt will be indep w/HEP STG Duration achieved advance as able [facility] Goal (LTG) Pt will score at least 4+/5 on all LE strength w/ability to maintain good alignment in trunk to show improved LE and trunk strength in order to allow pt participate in active lifestyle. 10/23-improving LTG Duration 11/26/23 Assessment Summary Assessment Pt looking more stable w/all balance activties today with less loss of control and need for heavy rail use. Cues needed for lunges for knee position Physical Therapy Plan Frequency and Duration Frequency of Treatment 1-2x/wk Duration of treatment (weeks) 10 Plan of Care Start Date 09/17/23 Plan of Care End Date 11/26/23 Therapeutic Interventions Therapeutic Interventions Balance Training,Gait Training ,Home Exercise Program,Joint Mobilizations,Manual Therapy, Neuromuscular Re-education, Orthotic/Prosthetic Management ,Patient/Caregiver Education, Self-Care/Home Management,Soft Tissue Mobilization,Taping, Therapeutic Activities, Therapeutic Exercises Modalities Cold Pack/Ice Massage,Electric Stimulation,Hot Packs, Infrared Therapy,Ultrasound Next Visit Focus/Plan Next Note Type Treatment Note Next Visit Plan advance balance, cont to work on hip and knee strength and work manually to quads and tibfem joint to dec pain
--- NOTE | 2023-10-23 17:13 | PT.OPPN ---
Current Diagnoses Osteoarthritis of knee, unspecified (10/30/23) Difficulty in walking, not elsewhere classified (10/30/23) Weakness (10/30/23) History of falling (10/30/23) Physical Therapy Progress Note PT-OP-A Visit Information Start: 09/05/23 08:39 Freq: Status: Active Protocol: Document 10/23/23 09:53 [facility] (Rec: 10/23/23 10:31 [facility] [id number]) Out-Patient Physical Therapy Visit Information Visit Information Visit Type Progress Note Visit Note 10/16 Visit Start Time 09:50 Visit Stop Time 10:30 Total Visit Minutes 40 Visit Number 9 Number of DIRECTOR OF PHARMACY Visits 0 PT-OP-B Current Condition Start: 09/05/23 08:39 Freq: Status: Active Protocol: Document 09/17/23 10:31 [facility] (Rec: 09/17/23 11:35 [facility] [id number]) Current Condition History of Current Condition Current Complaints R knee History of Current Condition pt repots chronic knee pain for about 3 years but got worse this spring. She lost about 15 lbs on Ozempic and is worried aobut her overall mm health. Feels like behind doesn't ahve enough padding and is worried aobut arms and legs not being too strong. It does not like rough ground and even on flat gorund it now bothers her. After about 2 miles on her walk, she started to have pain on a 4 mile walk . She typically does 1/4 mile about twice a day w/her dog. Somtimes it is weirdness like a hollowness feeling at top of knee and sometimes it can be sharp. Has been trying to do squats on her dog walk. History of R growth plate in femur stopped at14 d/t RLE being longer Prior Treatments and Tests mild arthritis noted on xray Treatment Goals Patient/Caregiver Goals inc mm strength and tone; be able to walk trails and longer walks like [place]; PT-OP-C Subjective Start: 09/05/23 08:39 Freq: Status: Active Protocol: Document 10/23/23 09:53 [facility] (Rec: 10/23/23 10:31 [facility] [id number]) OP-PT Subjective Patient Comments Patient Comments Pt has limited walks d/t weather. notes med knees felt bruised (they aren't) and wonders if it is when she is doing balance NBOS w/knees touching PT-OP-D Balance Start: 09/05/23 08:39 Freq: Status: Active Protocol: Document 09/17/23 10:31 [facility] (Rec: 09/17/23 11:35 [place] [id number]) Balance Tests Single Limb Standing Single Limb- Right 20 sec Single Limb- Left 6 sec PT-OP-F Manual Assessment Start: 09/05/23 08:39 Freq: Status: Active Protocol: Document 09/17/23 10:31 [facility] (Rec: 09/17/23 11:35 [place] [id number]) Manual Assessments Soft Tissue Assessment Soft Tissue Mobility Assessment tightness R quad; scar tissue B sup knee Joint Mobility Assessment Joint Mobility Assessment R>L femur in IR; B tibia good alignment and tracking; L knee tracks well towards 2nd toe; R knee tracks towards big toe; B calcaneal valgus PT-OP-G Mobility & Gait Start: 09/05/23 08:39 Freq: Status: Active Protocol: Document 09/17/23 10:31 [facility] (Rec: 09/17/23 11:35 [place] [id number]) OP Gait Assessment Comments Gait Comments dec arm swing R>L; R foot toes out PT-OP-K Range of Motion Start: 09/05/23 08:39 Freq: Status: Active Protocol: Document 09/17/23 10:31 [facility] (Rec: 09/17/23 11:35 [id number] Knee Goniometric Range of Motion Knee Measured in Degrees Right Flexion Active (degrees) 140 Extension Active (degrees) 0 Comments sore in knee w/ext Left Flexion Active (degrees) 145 Extension Active (degrees) 0 PT-OP-L Special Tests Start: 09/05/23 08:39 Freq: Status: Active Protocol: Document 09/17/23 10:31 [facility] (Rec: 09/17/23 11:35 [id number]) Special Tests Knee Special Tests Sheryl Test Comments neg R kevin test Test Results R RF & hip flexor tightness SLR Comments HS tightness felt-can get close to 90 deg R calf tightness noted on L about 75 deg Obers Test Results neg R King Chondromalacia Test Results positive R PT-OP-M Strength Start: 09/05/23 08:39 Freq: Status: Active Protocol: Document 10/23/23 09:53 [facility] (Rec: 10/23/23 10:31 [facility] [id number]) Hip Strength Hip Manual Muscle Testing Right Flexion (L2) 3+ Fair+ Extension (S1) 4- Good- Abduction 4- Good- Adduction 4- Good- External Rotation 4- Good- Internal Rotation 4 Good Left Flexion (L2) 3+ Fair+ Extension (S1) 4- Good- Abduction 4 Good Adduction 4 Good External Rotation 4- Good- Internal Rotation 4 Good Knee Strength Knee Manual Muscle Testing Right Flexion (S2) 4 Good Extension (L3) 5 Normal Left Flexion (S2) 4+ Good+ Extension (L3) 5 Normal Ankle/Foot Strength Ankle and Foot Manual Muscle Testing Right Dorsiflexion (L4) 5 Normal Plantarflexion (S1) 5 Normal Comments 20 heel raises-cued to not bend for last 10B Left Dorsiflexion (L4) 5 Normal Plantarflexion (S1) 5 Normal PT-OP-T Assessment and Plan Start: 09/05/23 08:39 Freq: Status: Active Protocol: Document 10/23/23 09:53 [facility] (Rec: 10/23/23 10:31 [facility] [id number]) Physical Therapy Assessment Goals walking Short Term Goal (STG) Pt will be able to start walking 1 mile at least 2 times a week without inc knee pain 10/04: pt reports increased R knee pain with incline. 10/23-weather limiting this week but recently mostly 2 walks at least 1 mile STG Duration achieved 10/23 Senior Care Goal (LTG) Pt will be able to return to walking longer walks up to 4 miles w/o inc knee pain greater than 2/10. LTG Duration 11/26/23 unstable Senior Care Goal (LTG) Pt will be able to amb on unstable surfaces without inc pain allowing her ro return to hiking. 10/23-has not tried LTG Duration 11/26/23 strength Short Term Goal (STG) Pt will be indep w/HEP STG Duration achieved advance as able Senior Care Goal (LTG) Pt will score at least 4+/5 on all LE strength w/ability to maintain good alignment in trunk to show improved LE and trunk strength in order to allow pt participate in active lifestyle. 10/23-improving LTG Duration 11/26/23 Assessment Summary Assessment Pt looking more stable w/all balance activties today with less loss of control and need for heavy rail use. Cues needed for lunges for knee position Physical Therapy Plan Frequency and Duration Frequency of Treatment 1-2x/wk Duration of treatment (weeks) 10 Plan of Care Start Date 09/17/23 Plan of Care End Date 11/26/23 Therapeutic Interventions Therapeutic Interventions Balance Training,Gait Training ,Home Exercise Program,Joint Mobilizations,Manual Therapy, Neuromuscular Re-education, Orthotic/Prosthetic Management ,Patient/Caregiver Education, Self-Care/Home Management,Soft Tissue Mobilization,Taping, Therapeutic Activities, Therapeutic Exercises Modalities Cold Pack/Ice Massage,Electric Stimulation,Hot Packs, Infrared Therapy,Ultrasound Next Visit Focus/Plan Next Note Type Treatment Note Next Visit Plan advance balance, cont to work on hip and knee strength and work manually to quads and tibfem joint to dec pain
--- NOTE | 2023-10-30 10:13 | PT.OTN ---
Current Diagnoses Osteoarthritis of knee, unspecified (10/30/23) Difficulty in walking, not elsewhere classified (10/30/23) Weakness (10/30/23) History of falling (10/30/23) Physical Therapy Treatment Note PT-OP-A Visit Information Start: 09/05/23 08:39 Freq: Status: Active Protocol: Document 10/30/23 09:10 [facility] (Rec: 10/30/23 10:13 [facility] [id number]) Out-Patient Physical Therapy Visit Information Visit Information Visit Type Treatment Note Visit Note 11/16 Visit Start Time 09:09 Visit Stop Time 09:47 Visit Number 10 Number of ACADEMIC DEAN Visits 0 PT-OP-B Current Condition Start: 09/05/23 08:39 Freq: Status: Active Protocol: Document 09/17/23 10:31 [facility] (Rec: 09/17/23 11:35 [facility] [id number]) Current Condition History of Current Condition Current Complaints R knee History of Current Condition pt repots chronic knee pain for about 3 years but got worse this spring. She lost about 15 lbs on Ozempic and is worried aobut her overall mm health. Feels like behind doesn't ahve enough padding and is worried aobut arms and legs not being too strong. It does not like rough ground and even on flat gorund it now bothers her. After about 2 miles on her walk, she started to have pain on a 4 mile walk . She typically does 1/4 mile about twice a day w/her dog. Somtimes it is weirdness like a hollowness feeling at top of knee and sometimes it can be sharp. Has been trying to do squats on her dog walk. History of R growth plate in femur stopped at14 d/t RLE being longer Prior Treatments and Tests mild arthritis noted on xray Treatment Goals Patient/Caregiver Goals inc mm strength and tone; be able to walk trails and longer walks like [place]; PT-OP-C Subjective Start: 09/05/23 08:39 Freq: Status: Active Protocol: Document 10/30/23 09:10 [facility] (Rec: 10/30/23 10:13 [facility] [id number]) OP-PT Subjective Patient Comments Patient Comments Pt reports she was walking the other day and noticed L knee was bothering her and stopped and stretched HS. She walked about 1.5 [address]. HS stretch helped L side. ant knee is what hurt. She did very short distance on trail d /t pain immediately again on L PT-OP-D Balance Start: 09/05/23 08:39 Freq: Status: Active Protocol: Document 09/17/23 10:31 [facility] (Rec: 09/17/23 11:35 [facility] [id number]) Balance Tests Single Limb Standing Single Limb- Right 20 sec Single Limb- Left 6 sec PT-OP-F Manual Assessment Start: 09/05/23 08:39 Freq: Status: Active Protocol: Document 09/17/23 10:31 [facility] (Rec: 09/17/23 11:35 [facility] [id number]) Manual Assessments Soft Tissue Assessment Soft Tissue Mobility Assessment tightness R quad; scar tissue B sup knee Joint Mobility Assessment Joint Mobility Assessment R>L femur in IR; B tibia good alignment and tracking; L knee tracks well towards 2nd toe; R knee tracks towards big toe; B calcaneal valgus PT-OP-G Mobility & Gait Start: 09/05/23 08:39 Freq: Status: Active Protocol: Document 09/17/23 10:31 [facility] (Rec: 09/17/23 11:35 [facility] [id number]) OP Gait Assessment Comments Gait Comments dec arm swing R>L; R foot toes out PT-OP-K Range of Motion Start: 09/05/23 08:39 Freq: Status: Active Protocol: Document 09/17/23 10:31 [facility] (Rec: 09/17/23 11:35 [facility] [id number]) Knee Goniometric Range of Motion Knee Right Flexion Active (degrees) 140 Extension Active (degrees) 0 Comments sore in knee w/ext Left Flexion Active (degrees) 145 Extension Active (degrees) 0 PT-OP-L Special Tests Start: 09/05/23 08:39 Freq: Status: Active Protocol: Document 09/17/23 10:31 [facility] (Rec: 09/17/23 11:35 [facility] [id number]) Special Tests Knee Special Tests Sheryl Test Comments neg R kevin test Test Results R RF & hip flexor tightness SLR Comments HS tightness felt-can get close to 90 deg R calf tightness noted on L about 75 deg Obers Test Results neg R King Chondromalacia Test Results positive R PT-OP-M Strength Start: 09/05/23 08:39 Freq: Status: Active Protocol: Document 10/23/23 09:53 [facility] (Rec: 10/23/23 10:31 [facility] [id number]) Hip Strength Hip Manual Muscle Testing Right Flexion (L2) 3+ Fair+ Extension (S1) 4- Good- Abduction 4- Good- Adduction 4- Good- External Rotation 4- Good- Internal Rotation 4 Good Left Flexion (L2) 3+ Fair+ Extension (S1) 4- Good- Abduction 4 Good Adduction 4 Good External Rotation 4- Good- Internal Rotation 4 Good Knee Strength Knee Manual Muscle Testing Right Flexion (S2) 4 Good Extension (L3) 5 Normal Left Flexion (S2) 4+ Good+ Extension (L3) 5 Normal Ankle/Foot Strength Ankle and Foot Manual Muscle Testing Right Dorsiflexion (L4) 5 Normal Plantarflexion (S1) 5 Normal Comments 20 heel raises-cued to not bend for last 10B Left Dorsiflexion (L4) 5 Normal Plantarflexion (S1) 5 Normal PT-OP-Q Treatments Start: 09/05/23 08:39 Freq: Status: Active Protocol: Document 10/30/23 09:10 [facility] (Rec: 10/30/23 10:13 [facility] [id number]) Therapeutic Exercises Supine Exercises HS curl Supine Exercise Name bridge w/curl Side bilateral Reps/Minutes 5 Comments stopped d/t feeling in calf Bridges Supine Exercise Name feet on ball Side bilateral Reps/Minutes 10 Sitting Exercises HS curl Side bilateral Equipment Used L3 Reps/Minutes 15 Standing Exercises RDL Standing Exercise Name dowel on back Side bilateral Reps/Minutes 10 Comments stopped d/t feeling in calf march Side bilateral Equipment Used L2 Reps/Minutes 12 ea step up Standing Exercise Name w/alt march Side bilateral Resistance 5 lb in opp hand; rail prn Equipment Used 8 in Reps/Minutes 10 Comments slow decent lunge Standing Exercise Name 1.fwd 2. lat Side bilateral Reps/Minutes 10 ea Manual Therapy Treatment Soft Tissue Mobilization quad Body Location VL & ITB L Mobilization Type Rolling,Sustained Pressure Intensity/Depth Moderate Body Position Hooklying Comments circumfential w/IR/er Joint Mobilizations hip Joint L free the ball FM ER PT-OP-R Modalities Start: 09/05/23 08:39 Freq: Status: Active Protocol: Document 10/16/23 08:17 [facility] (Rec: 10/16/23 09:59 [facility] [id number]) Hot Pack/Cold Pack Treatment Cold Pack Location R knee Patient Position Hooklying Treatment Duration (minutes) 10 PT-OP-T Assessment and Plan Start: 09/05/23 08:39 Freq: Status: Active Protocol: Document 10/30/23 09:10 [facility] (Rec: 10/30/23 10:13 [facility] [id number]) Physical Therapy Assessment Goals walking Short Term Goal (STG) Pt will be able to start walking 1 mile at least 2 times a week without inc knee pain 10/04: pt reports increased R knee pain with incline. 10/23-weather limiting this week but recently mostly 2 walks at least 1 mile STG Duration achieved 10/23 Telephone Worker Goal (LTG) Pt will be able to return to walking longer walks up to 4 miles w/o inc knee pain greater than 2/10. LTG Duration 11/26/23 unstable [facility] Goal (LTG) Pt will be able to amb on unstable surfaces without inc pain allowing her ro return to hiking. 10/23-has not tried LTG Duration 11/26/23 strength Short Term Goal (STG) Pt will be indep w/HEP STG Duration achieved advance as able Telephone Worker Goal (LTG) Pt will score at least 4+/5 on all LE strength w/ability to maintain good alignment in trunk to show improved LE and trunk strength in order to allow pt participate in active lifestyle. 10/23-improving LTG Duration 11/26/23 Assessment Summary Assessment Pt did well with exercises but may have neural tension R>L d /t feeling exercises in calf vs HS occ. She did well with seated HS curls though. Improved tracking of L knee after manual to less IR of femur. Physical Therapy Plan Frequency and Duration Frequency of Treatment 1-2x/wk Duration of treatment (weeks) 10 Plan of Care Start Date 09/17/23 Plan of Care End Date 11/26/23 Next Visit Focus/Plan Next Note Type Treatment Note Next Visit Plan advance balance, cont to work on hip and knee strength and work manually to quads and tibfem joint to dec pain
--- NOTE | 2023-11-06 12:13 | PT.OTN ---
Current Diagnoses Osteoarthritis of knee, unspecified (11/06/23) Difficulty in walking, not elsewhere classified (11/06/23) Weakness (11/06/23) History of falling (11/06/23) Physical Therapy Treatment Note PT-OP-A Visit Information Start: 09/05/23 08:39 Freq: Status: Active Protocol: Document 11/06/23 11:21 [facility] (Rec: 11/06/23 12:13 [facility] [id number]) Out-Patient Physical Therapy Visit Information Visit Information Visit Type Treatment Note Visit Note 11/16 Visit Start Time 11: Visit Stop Time 12: Visit Number 11 Number of RN PRIVATE DUTY Visits 0 PT-OP-B Current Condition Start: 09/05/23 08:39 Freq: Status: Active Protocol: Document 09/17/23 10:31 [facility] (Rec: 09/17/23 11:35 [facility] [id number]) Current Condition History of Current Condition Current Complaints R knee History of Current Condition pt repots chronic knee pain for about 3 years but got worse this spring. She lost about 15 lbs on Ozempic and is worried aobut her overall mm health. Feels like behind doesn't ahve enough padding and is worried aobut arms and legs not being too strong. It does not like rough ground and even on flat gorund it now bothers her. After about 2 miles on her walk, she started to have pain on a 4 mile walk . She typically does 1/4 mile about twice a day w/her dog. Somtimes it is weirdness like a hollowness feeling at top of knee and sometimes it can be sharp. Has been trying to do squats on her dog walk. History of R growth plate in femur stopped at14 d/t RLE being longer Prior Treatments and Tests mild arthritis noted on xray Treatment Goals Patient/Caregiver Goals inc mm strength and tone; be able to walk trails and longer walks like [employer]; PT-OP-C Subjective Start: 09/05/23 08:39 Freq: Status: Active Protocol: Document 11/06/23 11:21 [facility] (Rec: 11/06/23 12:13 [facility] [id number]) OP-PT Subjective Patient Comments Patient Comments Pt has walked 3 times. first walk about 2miles w/some hills and made her tired and achey. PT-OP-D Balance Start: 09/05/23 08:39 Freq: Status: Active Protocol: Document 09/17/23 10:31 [facility] ([facility]17/23 11[id number] Balance Tests Single Limb Standing Single Limb- Right 20 sec Single Limb- Left 6 sec PT-OP-F Manual Assessment Start: 09/05/23 08:39 Freq: Status: Active Protocol: Document 09/17/23 10:31 [facility] (Rec: 09/17/23 11:35 [id number] Manual Assessments Soft Tissue Assessment Soft Tissue Mobility Assessment tightness R quad; scar tissue B sup knee Joint Mobility Assessment Joint Mobility Assessment R>L femur in IR; B tibia good alignment and tracking; L knee tracks well towards 2nd toe; R knee tracks towards big toe; B calcaneal valgus PT-OP-G Mobility & Gait Start: 09/05/23 08:39 Freq: Status: Active Protocol: Document 09/17/23 10:31 [facility] (Rec: 09/17/23 11:35 [id number] OP Gait Assessment Comments Gait Comments dec arm swing R>L; R foot toes out PT-OP-K Range of Motion Start: 09/05/23 08:39 Freq: Status: Active Protocol: Document 09/17/23 10:31 [facility] (Rec: 09/17/23 11:35 [id number] Knee Goniometric Range of Motion Knee Right Flexion Active (degrees) 140 Extension Active (degrees) 0 Comments sore in knee w/ext Left Flexion Active (degrees) 145 Extension Active (degrees) 0 PT-OP-L Special Tests Start: 09/05/23 08:39 Freq: Status: Active Protocol: Document 09/17/23 10:31 [facility] (Rec: 09/17/23 11:35 [facility] [id number]) Special Tests Knee Special Tests Sheryl Test Comments neg R kevin test Test Results R RF & hip flexor tightness SLR Comments HS tightness felt-can get close to 90 deg R calf tightness noted on L about 75 deg Obers Test Results neg R King Chondromalacia Test Results positive R PT-OP-M Strength Start: 09/05/23 08:39 Freq: Status: Active Protocol: Document 10/23/23 09:53 [facility] (Rec: 10/23/23 10:31 [facility] [id number]) Hip Strength Hip Manual Muscle Testing Right Flexion (L2) 3+ Fair+ Extension (S1) 4- Good- Abduction 4- Good- Adduction 4- Good- External Rotation 4- Good- Internal Rotation 4 Good Left Flexion (L2) 3+ Fair+ Extension (S1) 4- Good- Abduction 4 Good Adduction 4 Good External Rotation 4- Good- Internal Rotation 4 Good Knee Strength Knee Manual Muscle Testing Right Flexion (S2) 4 Good Extension (L3) 5 Normal Left Flexion (S2) 4+ Good+ Extension (L3) 5 Normal Ankle/Foot Strength Ankle and Foot Manual Muscle Testing Right Dorsiflexion (L4) 5 Normal Plantarflexion (S1) 5 Normal Comments 20 heel raises-cued to not bend for last 10B Left Dorsiflexion (L4) 5 Normal Plantarflexion (S1) 5 Normal PT-OP-Q Treatments Start: 09/05/23 08:39 Freq: Status: Active Protocol: Document 11/06/23 11:21 [facility] (Rec: 11/06/23 12:13 [facility] [id number]) Therapeutic Exercises Supine Exercises isometric Supine Exercise Name DL Side bilateral Reps/Minutes 40 sec Sitting Exercises SLR Sitting Exercise Name long sit lift up and over massage cream Side bilateral Reps/Minutes 10 ea HS curl Side bilateral Equipment Used L2 Reps/Minutes 2x12 Standing Exercises sidestep Standing Exercise Name in mini squat Side bilateral Equipment Used L2 at knees Reps/Minutes 20ft ea stretch Standing Exercise Name B hip flexor Side bilateral Reps/Minutes 30 sec ea Manual Therapy Treatment Soft Tissue Mobilization quad Body Location RF & VL Mobilization Type Rolling,Sustained Pressure Intensity/Depth Moderate Body Position Hooklying Comments in kevin test Joint Mobilizations coccyx Comments caudal R; R UPA ; L transverse FM Self-Care/Home Management Treatment Education Other Education 10 min: discussion of pt concern of pain at tailbone w/ sitting. discussed w/pt this may be related to neural tension found yesterday. Discussed how the coccyx has dural tesnsiona nd pt agrees to have PT assess and treat. Discussed w/pt anatomy of quad and how it can pull on ant knee PT-OP-R Modalities Start: 09/05/23 08:39 Freq: Status: Active Protocol: Document 10/16/23 08:17 [facility] (Rec: 10/16/23 09:59 [id number] Hot Pack/Cold Pack Treatment Cold Pack Location R knee Patient Position Hooklying Treatment Duration (minutes) 10 PT-OP-T Assessment and Plan Start: 09/05/23 08:39 Freq: Status: Active Protocol: Document 11/06/23 11:21 [facility] (Rec: 11/06/23 12:13 [facility] [id number]) Physical Therapy Assessment Goals walking Short Term Goal (STG) Pt will be able to start walking 1 mile at least 2 times a week without inc knee pain 10/04: pt reports increased R knee pain with incline. 10/23-weather limiting this week but recently mostly 2 walks at least 1 mile STG Duration achieved 10/23 Skilled Nursing Goal (LTG) Pt will be able to return to walking longer walks up to 4 miles w/o inc knee pain greater than 2/10. LTG Duration 11/26/23 unstable Bulbs Farmworker Goal (LTG) Pt will be able to amb on unstable surfaces without inc pain allowing her ro return to hiking. 10/23-has not tried LTG Duration 11/26/23 strength Short Term Goal (STG) Pt will be indep w/HEP STG Duration achieved advance as able Skilled Nursing Goal (LTG) Pt will score at least 4+/5 on all LE strength w/ability to maintain good alignment in trunk to show improved LE and trunk strength in order to allow pt participate in active lifestyle. 10/23-improving LTG Duration 11/26/23 Assessment Summary Assessment Pt had improved neural tension B after manual and only some at end range SLR on L after manual. Improved comfort w/ sitting after work on coccyx. Improved knee tracking. Cont R hip flexor tightness Physical Therapy Plan Frequency and Duration Frequency of Treatment 1-2x/wk Duration of treatment (weeks) 10 Plan of Care Start Date 09/17/23 Plan of Care End Date 11/26/23 Next Visit Focus/Plan Next Note Type Treatment Note Next Visit Plan advance balance, cont to work on hip and knee strength and work manually to quads and tibfem joint to dec pain
--- NOTE | 2023-11-13 16:50 | PT.OTN ---
Current Diagnoses Osteoarthritis of knee, unspecified (11/13/23) Difficulty in walking, not elsewhere classified (11/13/23) Weakness (11/13/23) History of falling (11/13/23) Physical Therapy Treatment Note PT-OP-A Visit Information Start: 09/05/23 08:39 Freq: Status: Active Protocol: Document 11/13/23 16:06 [facility] (Rec: 11/13/23 16:50 [facility] [id number]) Out-Patient Physical Therapy Visit Information Visit Information Visit Type Progress Note Visit Note 12/14 Visit Start Time 16:06 Visit Stop Time 16:45 Visit Number 12 Number of UTILITY BAGGER Visits 0 PT-OP-B Current Condition Start: 09/05/23 08:39 Freq: Status: Active Protocol: Document 09/17/23 10:31 [facility] (Rec: 09/17/23 11:35 [facility] [id number]) Current Condition History of Current Condition Current Complaints R knee History of Current Condition pt repots chronic knee pain for about 3 years but got worse this spring. She lost about 15 lbs on Ozempic and is worried aobut her overall mm health. Feels like behind doesn't ahve enough padding and is worried aobut arms and legs not being too strong. It does not like rough ground and even on flat gorund it now bothers her. After about 2 miles on her walk, she started to have pain on a 4 mile walk . She typically does 1/4 mile about twice a day w/her dog. Somtimes it is weirdness like a hollowness feeling at top of knee and sometimes it can be sharp. Has been trying to do squats on her dog walk. History of R growth plate in femur stopped at14 d/t RLE being longer Prior Treatments and Tests mild arthritis noted on xray Treatment Goals Patient/Caregiver Goals inc mm strength and tone; be able to walk trails and longer walks like [employer]; PT-OP-C Subjective Start: 09/05/23 08:39 Freq: Status: Active Protocol: Document 11/13/23 16:06 [facility] (Rec: 11/13/23 16:50 [facility] [id number]) OP-PT Subjective Patient Comments Patient Comments pt did do another 2 mile loops w/o inc pain. She was busy this week so didn't get a ton in. PT-OP-D Balance Start: 09/05/23 08:39 Freq: Status: Active Protocol: Document 09/17/23 10:31 [facility] (Rec: 09/17/23 11:35 [id number] Balance Tests Single Limb Standing Single Limb- Right 20 sec Single Limb- Left 6 sec PT-OP-F Manual Assessment Start: 09/05/23 08:39 Freq: Status: Active Protocol: Document 09/17/23 10:31 [facility] (Rec: 09/17/23 11:35 [id number] Manual Assessments Soft Tissue Assessment Soft Tissue Mobility Assessment tightness R quad; scar tissue B sup knee Joint Mobility Assessment Joint Mobility Assessment R>L femur in IR; B tibia good alignment and tracking; L knee tracks well towards 2nd toe; R knee tracks towards big toe; B calcaneal valgus PT-OP-G Mobility & Gait Start: 09/05/23 08:39 Freq: Status: Active Protocol: Document 09/17/23 10:31 [facility] (Rec: 09/17/23 11:35 [place] [id number]) OP Gait Assessment Comments Gait Comments dec arm swing R>L; R foot toes out PT-OP-K Range of Motion Start: 09/05/23 08:39 Freq: Status: Active Protocol: Document 09/17/23 10:31 [facility] (Rec: 09/17/23 11:35 [id number] Knee Goniometric Range of Motion Knee Right Flexion Active (degrees) 140 Extension Active (degrees) 0 Comments sore in knee w/ext Left Flexion Active (degrees) 145 Extension Active (degrees) 0 PT-OP-L Special Tests Start: 09/05/23 08:39 Freq: Status: Active Protocol: Document 09/17/23 10:31 [facility] (Rec: 09/17/23 11:35 [facility] [id number]) Special Tests Knee Special Tests Sheryl Test Comments neg R kevin test Test Results R RF & hip flexor tightness SLR Comments HS tightness felt-can get close to 90 deg R calf tightness noted on L about 75 deg Obers Test Results neg R King Chondromalacia Test Results positive R PT-OP-M Strength Start: 09/05/23 08:39 Freq: Status: Active Protocol: Document 11/13/23 16:06 [facility] (Rec: 11/13/23 16:50 [facility] [id number]) Hip Strength Hip Manual Muscle Testing Right Flexion (L2) 3+ Fair+ Extension (S1) 4 Good Abduction 4 Good Adduction 4- Good- External Rotation 4 Good Internal Rotation 5 Normal Left Flexion (L2) 3+ Fair+ Extension (S1) 4+ Good+ Abduction 4 Good Adduction 4 Good External Rotation 4- Good- Internal Rotation 5 Normal Knee Strength Knee Manual Muscle Testing Right Flexion (S2) 4+ Good+ Extension (L3) 5 Normal Left Flexion (S2) 4+ Good+ Extension (L3) 5 Normal Ankle/Foot Strength Ankle and Foot Manual Muscle Testing Right Dorsiflexion (L4) 5 Normal Plantarflexion (S1) 5 Normal Comments 20 heel raises-cued to not bend for last 5B Left Dorsiflexion (L4) 5 Normal Plantarflexion (S1) 5 Normal PT-OP-Q Treatments Start: 09/05/23 08:39 Freq: Status: Active Protocol: Document 11/13/23 16:06 [facility] (Rec: 11/13/23 16:50 [facility] [id number]) Therapeutic Exercises Sitting Exercises SLR Sitting Exercise Name long sit lift up and over massage cream Side bilateral Reps/Minutes 15 ea HS curl Side bilateral Equipment Used L3 Reps/Minutes 15 Standing Exercises stretch Standing Exercise Name quad Side bilateral Reps/Minutes 1 min ea Manual Therapy Treatment Soft Tissue Mobilization ITB Body Location distal R Mobilization Type Rolling scar Body Location med Mobilization Type Myofascial Release Intensity/Depth Superficial Body Position Supine quad Body Location patellar tendon Mobilization Type Rolling,Sustained Pressure Intensity/Depth Moderate Body Position Supine Comments w/IR/ER Joint Mobilizations patellofemoral Joint sup Neuro Re-Education Treatment Balance Activities bosu Equipment rail prn Comments 1. standing balance blue and black 2. mini squat on blue and [id number] 3. lat step up /downx10 B 4. mini fwd lunge x10 B 5. mini lat lunge x10 B 6. PT-OP-R Modalities Start: 09/05/23 08:39 Freq: Status: Active Protocol: Document 10/16/23 08:17 [facility] (Rec: 10/16/23 09:59 [facility] [id number]) Hot Pack/Cold Pack Treatment Cold Pack Location R knee Patient Position Hooklying Treatment Duration (minutes) 10 PT-OP-T Assessment and Plan Start: 09/05/23 08:39 Freq: Status: Active Protocol: Document 11/13/23 16:06 [facility] (Rec: 11/13/23 16:50 [facility] [id number]) Physical Therapy Assessment Goals walking Short Term Goal (STG) Pt will be able to start walking 1 mile at least 2 times a week without inc knee pain 10/04: pt reports increased R knee pain with incline. 10/23-weather limiting this week but recently mostly 2 walks at least 1 mile STG Duration achieved 10/23 Penitentiary Goal (LTG) Pt will be able to return to walking longer walks up to 4 miles w/o inc knee pain greater than 10. 11/13-has gotten up to 2 miles LTG Duration 01/15 unstable Extract Puller Goal (LTG) Pt will be able to amb on unstable surfaces without inc pain allowing her ro return to hiking. 10/23-has not tried 11/13-in the yard had inc pain; had pain w/walk on trail right after pavement walk LTG Duration 01/15 strength Short Term Goal (STG) Pt will be indep w/HEP STG Duration achieved advance as able Penitentiary Goal (LTG) Pt will score at least 4+/5 on all LE strength w/ability to maintain good alignment in trunk to show improved LE and trunk strength in order to allow pt participate in active lifestyle. 10/23-improving 11/13-improving LTG Duration 01/15 Assessment Summary Assessment Pt cont to progress w/PT with improvement in strength and function. She is returning to walking overall and having more intermittent knee pain w/ activity. She still has global hip weakness that is likely contributing to her occ instances of pain. Cont PT to address this and stabiltiy on uneven surfaces. Physical Therapy Plan Frequency and Duration Frequency of Treatment 1x/Week Duration of treatment (weeks) 8 Plan of Care Start Date 11/13/23 Plan of Care End Date 01/16/24 Therapeutic Interventions Therapeutic Interventions Balance Training,Gait Training ,Home Exercise Program,Joint Mobilizations,Manual Therapy, Neuromuscular Re-education, Orthotic/Prosthetic Management ,Patient/Caregiver Education, Self-Care/Home Management,Soft Tissue Mobilization,Taping, Therapeutic Activities, Therapeutic Exercises Modalities Cold Pack/Ice Massage,Electric Stimulation,Hot Packs, Infrared Therapy,Ultrasound Next Visit Focus/Plan Next Note Type Treatment Note Next Visit Plan advance balance, cont to work on hip and knee strength and work manually to quads and tibfem joint to dec pain
--- NOTE | 2023-11-13 16:50 | PT.OPPOC ---
Physical, Occupational & Speech Therapy At [facility] Current Diagnoses Osteoarthritis of knee, unspecified (11/13/23) Difficulty in walking, not elsewhere classified (11/13/23) Weakness (11/13/23) History of falling (11/13/23) Visit Care Team Role Provider Type Edvin Rader MD Family Provider Physician Primary Care Provider Specialty: Family Practice Address: [address] [place] [address], [phone] Email: [email or web address] Bruce PA-C Attending Provider Advanced Handmade Tile Artist Referring Provider Specialty: Medical Wound Care Address: [address] [place] [address], [phone] Email: [email or web address] Plan Of Care PT-OP-T Assessment and Plan Start: 09/05/23 08:39 Freq: Status: Active Protocol: Document 11/13/23 16:06 [facility] (Rec: 11/13/23 16:50 [facility] [id number]) Physical Therapy Assessment Goals walking Short Term Goal (STG) Pt will be able to start walking 1 mile at least 2 times a week without inc knee pain 10/04: pt reports increased R knee pain with incline. 10/23-weather limiting this week but recently mostly 2 walks at least 1 mile STG Duration achieved 10/23 Residential Goal (LTG) Pt will be able to return to walking longer walks up to 4 miles w/o inc knee pain greater than 2/10. 11/13-has gotten up to 2 miles LTG Duration 01/15 unstable Residential Goal (LTG) Pt will be able to amb on unstable surfaces without inc pain allowing her ro return to hiking. 10/23-has not tried 7-in the yard had inc pain; had pain w/walk on trail right after pavement walk LTG Duration 01/15 strength Short Term Goal (STG) Pt will be indep w/HEP STG Duration achieved advance as able Flask Fitter Goal (LTG) Pt will score at least 4+/5 on all LE strength w/ability to maintain good alignment in trunk to show improved LE and trunk strength in order to allow pt participate in active lifestyle. 10/23-improving 11/13-improving LTG Duration 01/15 Assessment Summary Assessment Pt cont to progress w/PT with improvement in strength and function. She is returning to walking overall and having more intermittent knee pain w/ activity. She still has global hip weakness that is likely contributing to her occ instances of pain. Cont PT to address this and stabiltiy on uneven surfaces. Physical Therapy Plan Frequency and Duration Frequency of Treatment 1x/Week Duration of treatment (weeks) 8 Plan of Care Start Date 11/13/23 Plan of Care End Date 01/16/24 Therapeutic Interventions Therapeutic Interventions Balance Training,Gait Training ,Home Exercise Program,Joint Mobilizations,Manual Therapy, Neuromuscular Re-education, Orthotic/Prosthetic Management ,Patient/Caregiver Education, Self-Care/Home Management,Soft Tissue Mobilization,Taping, Therapeutic Activities, Therapeutic Exercises Modalities Cold Pack/Ice Massage,Electric Stimulation,Hot Packs, Infrared Therapy,Ultrasound Next Visit Focus/Plan Next Note Type Treatment Note Next Visit Plan advance balance, cont to work on hip and knee strength and work manually to quads and tibfem joint to dec pain Plan of Care Dates Plan of Care Start Date 11/13/23 Plan of Care End Date 01/16/24 Electronically Signed by: Rebecca Brandon, PT 11/13/23 7920 If you are in agreement with this Plan of Care, please return a signed and dated copy. I have reviewed this Plan of Care and certify that the skilled therapy services above are required to meet the patient?s needs. Physician Signature Date Printed Name and Credentials Clinical Instructor Signature Printed Name and Credentials
--- NOTE | 2023-11-21 13:59 | PT.OTN ---
Current Diagnoses Osteoarthritis of knee, unspecified (11/21/23) Difficulty in walking, not elsewhere classified (11/21/23) Weakness (11/21/23) History of falling (11/21/23) Physical Therapy Treatment Note PT-OP-A Visit Information Start: 09/05/23 08:39 Freq: Status: Active Protocol: Document 11/21/23 09:37 AB (Rec: 11/21/23 13:59 AB [id number]) Out-Patient Physical Therapy Visit Information Visit Information Visit Type Treatment Note Visit Note 01/14 Visit Start Time 11:22 Visit Stop Time 12:08 Visit Number 13 Number of NEON MOLDER Visits 1 PT-OP-B Current Condition Start: 09/05/23 08:39 Freq: Status: Active Protocol: Document 09/17/23 10:31 [facility] (Rec: 09/17/23 11:35 [facility] [id number]) Current Condition History of Current Condition Current Complaints R knee History of Current Condition pt repots chronic knee pain for about 3 years but got worse this spring. She lost about 15 lbs on Ozempic and is worried aobut her overall mm health. Feels like behind doesn't ahve enough padding and is worried aobut arms and legs not being too strong. It does not like rough ground and even on flat gorund it now bothers her. After about 2 miles on her walk, she started to have pain on a 4 mile walk . She typically does 1/4 mile about twice a day w/her dog. Somtimes it is weirdness like a hollowness feeling at top of knee and sometimes it can be sharp. Has been trying to do squats on her dog walk. History of R growth plate in femur stopped at14 d/t RLE being longer Prior Treatments and Tests mild arthritis noted on xray Treatment Goals Patient/Caregiver Goals inc mm strength and tone; be able to walk trails and longer walks like [email or web address]; PT-OP-C Subjective Start: 09/05/23 08:39 Freq: Status: Active Protocol: Document 11/21/23 09:37 AB (Rec: 11/21/23 13:59 AB [id number]) OP-PT Subjective Patient Comments Patient Comments Patient reports she walked a mile on a trail, that was a board walk. Patient comments she does not always know what will trigger the knee. Patien reports walking on uneven ground has been an intermittent issue about 3 years. PT-OP-D Balance Start: 09/05/23 08:39 Freq: Status: Active Protocol: Document 09/17/23 10:31 [facility] (Rec: 09/17/23 11:35 [id number] Balance Tests Single Limb Standing Single Limb- Right 20 sec Single Limb- Left 6 sec PT-OP-F Manual Assessment Start: 09/05/23 08:39 Freq: Status: Active Protocol: Document 09/17/23 10:31 [facility] (Rec: 09/17/23 11:35 [id number] Manual Assessments Soft Tissue Assessment Soft Tissue Mobility Assessment tightness R quad; scar tissue B sup knee Joint Mobility Assessment Joint Mobility Assessment R>L femur in IR; B tibia good alignment and tracking; L knee tracks well towards 2nd toe; R knee tracks towards big toe; B calcaneal valgus PT-OP-G Mobility & Gait Start: 09/05/23 08:39 Freq: Status: Active Protocol: Document 09/17/23 10:31 [facility] (Rec: 09/17/23 11:35 [id number] OP Gait Assessment Comments Gait Comments dec arm swing R>L; R foot toes out PT-OP-K Range of Motion Start: 09/05/23 08:39 Freq: Status: Active Protocol: Document 09/17/23 10:31 [facility] (Rec: 09/17/23 11:35 [facility] [id number]) Knee Goniometric Range of Motion Knee Right Flexion Active (degrees) 140 Extension Active (degrees) 0 Comments sore in knee w/ext Left Flexion Active (degrees) 145 Extension Active (degrees) 0 PT-OP-L Special Tests Start: 09/05/23 08:39 Freq: Status: Active Protocol: Document 09/17/23 10:31 [facility] (Rec: 09/17/23 11:35 [facility] [id number]) Special Tests Knee Special Tests Sheryl Test Comments neg R kevin test Test Results R RF & hip flexor tightness SLR Comments HS tightness felt-can get close to 90 deg R calf tightness noted on L about 75 deg Obers Test Results neg R King Chondromalacia Test Results positive R PT-OP-M Strength Start: 09/05/23 08:39 Freq: Status: Active Protocol: Document 11/13/23 16:06 [facility] (Rec: 11/13/23 16:50 [facility] [id number]) Hip Strength Hip Manual Muscle Testing Right Flexion (L2) 3+ Fair+ Extension (S1) 4 Good Abduction 4 Good Adduction 4- Good- External Rotation 4 Good Internal Rotation 5 Normal Left Flexion (L2) 3+ Fair+ Extension (S1) 4+ Good+ Abduction 4 Good Adduction 4 Good External Rotation 4- Good- Internal Rotation 5 Normal Knee Strength Knee Manual Muscle Testing Right Flexion (S2) 4+ Good+ Extension (L3) 5 Normal Left Flexion (S2) 4+ Good+ Extension (L3) 5 Normal Ankle/Foot Strength Ankle and Foot Manual Muscle Testing Right Dorsiflexion (L4) 5 Normal Plantarflexion (S1) 5 Normal Comments 20 heel raises-cued to not bend for last 5B Left Dorsiflexion (L4) 5 Normal Plantarflexion (S1) 5 Normal PT-OP-Q Treatments Start: 09/05/23 08:39 Freq: Status: Active Protocol: Document 11/21/23 09:37 AB (Rec: 11/21/23 13:59 AB [id number]) Therapeutic Exercises Supine Exercises hip abduction with band Side bilateral Resistance level 2 band Reps/Minutes X1 one min hold for activation Comments Verbal cues Bridges Side bilateral Reps/Minutes 2X10 Sidelying Exercises clamshell Sidelying Exercise Name sidelying Side bilateral Reps/Minutes 2X10 Comments Verbal cues to avoid rolling back Sitting Exercises seated hip abduction with band Side bilateral Resistance level 3 band Reps/Minutes X1 one minute for activation Comments verbal cues Standing Exercises Heel raise Standing Exercise Name single leg Side bilateral Reps/Minutes X10 Comments VC to lower heels to floor slowly Manual Therapy Treatment Soft Tissue Mobilization quad Body Location bilateral quads and peripatellar area Mobilization Type Cross-Friction,Rolling Intensity/Depth Moderate Body Position Hooklying Taping patellar taping cover roll and leukotape Body Location bilateral knees Treatment Focus unload fat pads and improve tracking medially left > right Type of Tape cover roll and leuko tape Comments WNL PT-OP-R Modalities Start: 09/05/23 08:39 Freq: Status: Active Protocol: Document 10/16/23 08:17 [facility] (Rec: 10/16/23 09:59 [facility] [id number]) Hot Pack/Cold Pack Treatment Cold Pack Location R knee Patient Position Hooklying Treatment Duration (minutes) 10 PT-OP-T Assessment and Plan Start: 09/05/23 08:39 Freq: Status: Active Protocol: Document 11/21/23 09:37 AB (Rec: 11/21/23 13:59 AB [id number]) Physical Therapy Assessment Goals walking Short Term Goal (STG) Pt will be able to start walking 1 mile at least 2 times a week without inc knee pain 10/04: pt reports increased R knee pain with incline. 10/23-weather limiting this week but recently mostly 2 walks at least 1 mile STG Duration achieved 10/23 Internal Grinder Set Up Operator Goal (LTG) Pt will be able to return to walking longer walks up to 4 miles w/o inc knee pain greater than /10. 11/13-has gotten up to 2 miles LTG Duration 01/15 unstable Prison Goal (LTG) Pt will be able to amb on unstable surfaces without inc pain allowing her ro return to hiking. 10/23-has not tried 11/13-in the yard had inc pain; had pain w/walk on trail right after pavement walk LTG Duration 01/15 strength Short Term Goal (STG) Pt will be indep w/HEP STG Duration achieved advance as able Prison Goal (LTG) Pt will score at least 4+/5 on all LE strength w/ability to maintain good alignment in trunk to show improved LE and trunk strength in order to allow pt participate in active lifestyle. 10/23-improving 11/13-improving LTG Duration 01/15 Assessment Summary Assessment Patient reports having no knee pain end of session. Good return demonstration for exercises throughout session. Strength takes 6-8 weeks to make a change in function. Physical Therapy Plan Frequency and Duration Frequency of Treatment 1x/Week Duration of treatment (weeks) 8 Plan of Care Start Date 11/13/23 Plan of Care End Date 01/16/24 Next Visit Focus/Plan Next Note Type Treatment Note Next Visit Plan advance balance, cont to work on hip/band to clamshell and knee strength and work manually to quads and tibfem joint to dec pain
--- NOTE | 2023-11-28 18:02 | PT.OTN ---
Current Diagnoses Osteoarthritis of knee, unspecified (11/28/23) Difficulty in walking, not elsewhere classified (11/28/23) Weakness (11/28/23) History of falling (11/28/23) Physical Therapy Treatment Note PT-OP-A Visit Information Start: 09/05/23 08:39 Freq: Status: Active Protocol: Document 11/28/23 16:53 [facility] (Rec: 11/28/23 18:01 [facility] [id number]) Out-Patient Physical Therapy Visit Information Visit Information Visit Type Treatment Note Visit Note 02/13 Visit Start Time 16:50 Visit Stop Time 17:32 Visit Number 14 Number of VASCULAR RADIOLOGIST Visits 0 PT-OP-B Current Condition Start: 09/05/23 08:39 Freq: Status: Active Protocol: Document 09/17/23 10:31 [facility] (Rec: 09/17/23 11:35 [facility] [id number]) Current Condition History of Current Condition Current Complaints R knee History of Current Condition pt repots chronic knee pain for about 3 years but got worse this spring. She lost about 15 lbs on Ozempic and is worried aobut her overall mm health. Feels like behind doesn't ahve enough padding and is worried aobut arms and legs not being too strong. It does not like rough ground and even on flat gorund it now bothers her. After about 2 miles on her walk, she started to have pain on a 4 mile walk . She typically does 1/4 mile about twice a day w/her dog. Somtimes it is weirdness like a hollowness feeling at top of knee and sometimes it can be sharp. Has been trying to do squats on her dog walk. History of R growth plate in femur stopped at14 d/t RLE being longer Prior Treatments and Tests mild arthritis noted on xray Treatment Goals Patient/Caregiver Goals inc mm strength and tone; be able to walk trails and longer walks like [employer]; PT-OP-C Subjective Start: 09/05/23 08:39 Freq: Status: Active Protocol: Document 11/28/23 16:53 [facility] (Rec: 11/28/23 18:01 [facility] [id number]) OP-PT Subjective Patient Comments Patient Comments She did a hike and had no trouble and has been walking in the yard w/o issue this weekend. THe past couple days, she has been getting some sharp pains in R knee. Lasts no more than 5-10 min. She thinks it may be stairs this week. PT-OP-D Balance Start: 09/05/23 08:39 Freq: Status: Active Protocol: Document 09/17/23 10:31 [facility] (Rec: 09/17/23 11:35 [facility] [id number]) Balance Tests Single Limb Standing Single Limb- Right 20 sec Single Limb- Left 6 sec PT-OP-F Manual Assessment Start: 09/05/23 08:39 Freq: Status: Active Protocol: Document 09/17/23 10:31 [facility] (Rec: 09/17/23 11:35 [facility] [id number]) Manual Assessments Soft Tissue Assessment Soft Tissue Mobility Assessment tightness R quad; scar tissue B sup knee Joint Mobility Assessment Joint Mobility Assessment R>L femur in IR; B tibia good alignment and tracking; L knee tracks well towards 2nd toe; R knee tracks towards big toe; B calcaneal valgus PT-OP-G Mobility & Gait Start: 09/05/23 08:39 Freq: Status: Active Protocol: Document 09/17/23 10:31 [facility] (Rec: 09/17/23 11:35 [facility] [id number]) OP Gait Assessment Comments Gait Comments dec arm swing R>L; R foot toes out PT-OP-K Range of Motion Start: 09/05/23 08:39 Freq: Status: Active Protocol: Document 09/17/23 10:31 [facility] (Rec: 09/17/23 11:35 [facility] [id number]) Knee Goniometric Range of Motion Knee Right Flexion Active (degrees) 140 Extension Active (degrees) 0 Comments sore in knee w/ext Left Flexion Active (degrees) 145 Extension Active (degrees) 0 PT-OP-L Special Tests Start: 09/05/23 08:39 Freq: Status: Active Protocol: Document 09/17/23 10:31 [facility] (Rec: 09/17/23 11:35 [facility] [id number]) Special Tests Knee Special Tests Sheryl Test Comments neg R kevin test Test Results R RF & hip flexor tightness SLR Comments HS tightness felt-can get close to 90 deg R calf tightness noted on L about 75 deg Obers Test Results neg R King Chondromalacia Test Results positive R PT-OP-M Strength Start: 09/05/23 08:39 Freq: Status: Active Protocol: Document 11/13/23 16:06 [facility] (Rec: 11/13/23 16:50 [facility] [id number]) Hip Strength Hip Manual Muscle Testing Right Flexion (L2) 3+ Fair+ Extension (S1) 4 Good Abduction 4 Good Adduction 4- Good- External Rotation 4 Good Internal Rotation 5 Normal Left Flexion (L2) 3+ Fair+ Extension (S1) 4+ Good+ Abduction 4 Good Adduction 4 Good External Rotation 4- Good- Internal Rotation 5 Normal Knee Strength Knee Manual Muscle Testing Right Flexion (S2) 4+ Good+ Extension (L3) 5 Normal Left Flexion (S2) 4+ Good+ Extension (L3) 5 Normal Ankle/Foot Strength Ankle and Foot Manual Muscle Testing Right Dorsiflexion (L4) 5 Normal Plantarflexion (S1) 5 Normal Comments 20 heel raises-cued to not bend for last 5B Left Dorsiflexion (L4) 5 Normal Plantarflexion (S1) 5 Normal PT-OP-Q Treatments Start: 09/05/23 08:39 Freq: Status: Active Protocol: Document 11/28/23 16:53 [facility] (Rec: 11/28/23 18:01 [facility] [id number]) Therapeutic Exercises Sidelying Exercises clamshell Side bilateral Equipment Used L2 Reps/Minutes 12 ea Comments Verbal cues to avoid rolling back Standing Exercises step up Standing Exercise Name fwd step up to december then down Side bilateral Reps/Minutes 1. w/o wt 3x6 2. w/5# opp hand x8 Comments 3. w/o wt w/hands on hips x10 B Manual Therapy Treatment Soft Tissue Mobilization ITB Body Location distal R Mobilization Type Rolling Joint Mobilizations hip Comments R ER free the ball & inf & abd FM Neuro Re-Education Treatment Other Activities facilitation Reps/Duration 8 min Comments manual traction to RLE mult reps for faciliation of quad and glute in sitting PT-OP-R Modalities Start: 09/05/23 08:39 Freq: Status: Active Protocol: Document 10/16/23 08:17 [facility] (Rec: 10/16/23 09:59 [facility] [id number]) Hot Pack/Cold Pack Treatment Cold Pack Location R knee Patient Position Hooklying Treatment Duration (minutes) 10 PT-OP-T Assessment and Plan Start: 09/05/23 08:39 Freq: Status: Active Protocol: Document 11/28/23 16:53 [facility] (Rec: 11/28/23 18:01 [facility] [id number]) Physical Therapy Assessment Goals walking Short Term Goal (STG) Pt will be able to start walking 1 mile at least 2 times a week without inc knee pain 10/04: pt reports increased R knee pain with incline. 10/23-weather limiting this week but recently mostly 2 walks at least 1 mile STG Duration achieved 10/23 Power Supply Engineer Goal (LTG) Pt will be able to return to walking longer walks up to 4 miles w/o inc knee pain greater than 11/16. 11/13-has gotten up to 2 miles LTG Duration 01/15 unstable Prison Goal (LTG) Pt will be able to amb on unstable surfaces without inc pain allowing her ro return to hiking. 10/23-has not tried 11/13-in the yard had inc pain; had pain w/walk on trail right after pavement walk LTG Duration 01/15 strength Short Term Goal (STG) Pt will be indep w/HEP STG Duration achieved advance as able Prison Goal (LTG) Pt will score at least 4+/5 on all LE strength w/ability to maintain good alignment in trunk to show improved LE and trunk strength in order to allow pt participate in active lifestyle. 10/23-improving 11/13-improving LTG Duration 01/15 Assessment Summary Assessment Pt had significant med knee tracking and hip IR and add w/ step up prior to manual and facilitaiton and training but showed much improved knee tracking after training. Dec pain noted after manual and training w/step up/down. Physical Therapy Plan Frequency and Duration Frequency of Treatment 1x/Week Duration of treatment (weeks) 8 Plan of Care Start Date 11/13/23 Plan of Care End Date 01/16/24 Next Visit Focus/Plan Next Note Type Treatment Note Next Visit Plan advance balance, cont to work on hip/band to clamshell and knee strength and work manually to quads and tibfem joint to dec pain
--- NOTE | 2023-12-05 13:49 | PT.OTN ---
Current Diagnoses Osteoarthritis of knee, unspecified (12/05/23) Difficulty in walking, not elsewhere classified (12/05/23) Weakness (12/05/23) History of falling (12/05/23) Physical Therapy Treatment Note PT-OP-A Visit Information Start: 09/05/23 08:39 Freq: Status: Active Protocol: Document 12/05/23 13:02 [facility] (Rec: 12/05/23 13:48 [facility] [id number]) Out-Patient Physical Therapy Visit Information Visit Information Visit Type Treatment Note Visit Note 03/16 Visit Start Time 13:03 Visit Stop Time 13:43 Visit Number 15 Number of TREE TRIMMER Visits 0 PT-OP-B Current Condition Start: 09/05/23 08:39 Freq: Status: Active Protocol: Document 09/17/23 10:31 [facility] (Rec: 09/17/23 11:35 [facility] [id number]) Current Condition History of Current Condition Current Complaints R knee History of Current Condition pt repots chronic knee pain for about 3 years but got worse this spring. She lost about 15 lbs on Ozempic and is worried aobut her overall mm health. Feels like behind doesn't ahve enough padding and is worried aobut arms and legs not being too strong. It does not like rough ground and even on flat gorund it now bothers her. After about 2 miles on her walk, she started to have pain on a 4 mile walk . She typically does 1/4 mile about twice a day w/her dog. Somtimes it is weirdness like a hollowness feeling at top of knee and sometimes it can be sharp. Has been trying to do squats on her dog walk. History of R growth plate in femur stopped at14 d/t RLE being longer Prior Treatments and Tests mild arthritis noted on xray Treatment Goals Patient/Caregiver Goals inc mm strength and tone; be able to walk trails and longer walks like [employer]; PT-OP-C Subjective Start: 09/05/23 08:39 Freq: Status: Active Protocol: Document 12/05/23 13:02 [facility] (Rec: 12/05/23 13:48 [facility] [id number]) OP-PT Subjective Patient Comments Patient Comments Pt reports knee pain R after going up/down the stairs then walking around the room and pain started when going up again. pain lasts not more than a few min. It has marie otherswise good. PT-OP-D Balance Start: 09/05/23 08:39 Freq: Status: Active Protocol: Document 09/17/23 10:31 [facility] (Rec: 09/17/23 11:35 [id number] Balance Tests Single Limb Standing Single Limb- Right 20 sec Single Limb- Left 6 sec PT-OP-F Manual Assessment Start: 09/05/23 08:39 Freq: Status: Active Protocol: Document 09/17/23 10:31 [facility] (Rec: 09/17/23 11:35 [id number] Manual Assessments Soft Tissue Assessment Soft Tissue Mobility Assessment tightness R quad; scar tissue B sup knee Joint Mobility Assessment Joint Mobility Assessment R>L femur in IR; B tibia good alignment and tracking; L knee tracks well towards 2nd toe; R knee tracks towards big toe; B calcaneal valgus PT-OP-G Mobility & Gait Start: 09/05/23 08:39 Freq: Status: Active Protocol: Document 09/17/23 10:31 [facility] (Rec: 09/17/23 11:35 [id number] OP Gait Assessment Comments Gait Comments dec arm swing R>L; R foot toes out PT-OP-K Range of Motion Start: 09/05/23 08:39 Freq: Status: Active Protocol: Document 09/17/23 10:31 [facility] (Rec: 09/17/23 11:35 [facility] [id number]) Knee Goniometric Range of Motion Knee Right Flexion Active (degrees) 140 Extension Active (degrees) 0 Comments sore in knee w/ext Left Flexion Active (degrees) 145 Extension Active (degrees) 0 PT-OP-L Special Tests Start: 09/05/23 08:39 Freq: Status: Active Protocol: Document 09/17/23 10:31 [facility] (Rec: 09/17/23 11:35 [facility] [id number]) Special Tests Knee Special Tests Sheryl Test Comments neg R kevin test Test Results R RF & hip flexor tightness SLR Comments HS tightness felt-can get close to 90 deg R calf tightness noted on L about 75 deg Obers Test Results neg R King Chondromalacia Test Results positive R PT-OP-M Strength Start: 09/05/23 08:39 Freq: Status: Active Protocol: Document 11/13/23 16:06 [facility] (Rec: 11/13/23 16:50 [facility] [id number]) Hip Strength Hip Manual Muscle Testing Right Flexion (L2) 3+ Fair+ Extension (S1) 4 Good Abduction 4 Good Adduction 4- Good- External Rotation 4 Good Internal Rotation 5 Normal Left Flexion (L2) 3+ Fair+ Extension (S1) 4+ Good+ Abduction 4 Good Adduction 4 Good External Rotation 4- Good- Internal Rotation 5 Normal Knee Strength Knee Manual Muscle Testing Right Flexion (S2) 4+ Good+ Extension (L3) 5 Normal Left Flexion (S2) 4+ Good+ Extension (L3) 5 Normal Ankle/Foot Strength Ankle and Foot Manual Muscle Testing Right Dorsiflexion (L4) 5 Normal Plantarflexion (S1) 5 Normal Comments 20 heel raises-cued to not bend for last 5B Left Dorsiflexion (L4) 5 Normal Plantarflexion (S1) 5 Normal PT-OP-Q Treatments Start: 09/05/23 08:39 Freq: Status: Active Protocol: Document 12/05/23 13:02 [facility] (Rec: 12/05/23 13:48 [facility] [id number]) Therapeutic Exercises Standing Exercises hip hike Side bilateral Equipment Used step and rail Reps/Minutes 2x10 sidestep Standing Exercise Name 1. upright 2. in mini squat Side bilateral Equipment Used L3 at knees Reps/Minutes 20ft ea Comments cues to lead w/knee & slow down Neuro Re-Education Treatment Balance Activities SLS Comments 1. star taps B 2. SL R focus on hip facilitation Other Activities PNF Details R Reps/Duration 12 min Comments postdep facilitation through RLE traction progressed to rhymthmic initaition post dep facilitation Reps/Duration 5 min Comments manual traction to RLE mult reps for faciliation of quad and glute in sitting PT-OP-R Modalities Start: 09/05/23 08:39 Freq: Status: Active Protocol: Document 10/16/23 08:17 [facility] (Rec: 10/16/23 09:59 [facility] [id number]) Hot Pack/Cold Pack Treatment Cold Pack Location R knee Patient Position Hooklying Treatment Duration (minutes) 10 PT-OP-T Assessment and Plan Start: 09/05/23 08:39 Freq: Status: Active Protocol: Document 12/05/23 13:02 [facility] (Rec: 12/05/23 13:48 [facility] [id number]) Physical Therapy Assessment Goals walking Short Term Goal (STG) Pt will be able to start walking 1 mile at least 2 times a week without inc knee pain 10/04: pt reports increased R knee pain with incline. 10/23-weather limiting this week but recently mostly 2 walks at least 1 mile STG Duration achieved 10/23 Alf Goal (LTG) Pt will be able to return to walking longer walks up to 4 miles w/o inc knee pain greater than 2/10. 11/13-has gotten up to 2 miles LTG Duration 01/15 unstable Sleeve Tailor Goal (LTG) Pt will be able to amb on unstable surfaces without inc pain allowing her ro return to hiking. 10/23-has not tried 11/13-in the yard had inc pain; had pain w/walk on trail right after pavement walk LTG Duration 01/15 strength Short Term Goal (STG) Pt will be indep w/HEP STG Duration achieved advance as able Alf Goal (LTG) Pt will score at least 4+/5 on all LE strength w/ability to maintain good alignment in trunk to show improved LE and trunk strength in order to allow pt participate in active lifestyle. 10/23-improving 11/13-improving LTG Duration 01/15 Assessment Summary Assessment Pt had improved facilitation of R hip after neuro re edu. She does have significant difficulty getting post dep which is likely what is causing cont occ issue w/knee. Cont R glute med weakness along w/core control. Physical Therapy Plan Frequency and Duration Frequency of Treatment 1x/Week Duration of treatment (weeks) 8 Plan of Care Start Date 11/13/23 Plan of Care End Date 01/16/24 Next Visit Focus/Plan Next Note Type Treatment Note Next Visit Plan cont to work on post dep and facilitaiton of hip abd
--- NOTE | 2023-12-11 14:38 | PT.OTN ---
Current Diagnoses Osteoarthritis of knee, unspecified (12/11/23) Difficulty in walking, not elsewhere classified (12/11/23) Weakness (12/11/23) History of falling (12/11/23) Physical Therapy Treatment Note PT-OP-A Visit Information Start: 09/05/23 08:39 Freq: Status: Active Protocol: Document 12/11/23 13:49 [facility] (Rec: 12/11/23 14:38 [facility] [id number]) Out-Patient Physical Therapy Visit Information Visit Information Visit Type Treatment Note Visit Note 04/15 Visit Start Time 13:50 Visit Stop Time 14:30 Visit Number 16 Number of SPA CONCIERGE Visits 0 PT-OP-B Current Condition Start: 09/05/23 08:39 Freq: Status: Active Protocol: Document 09/17/23 10:31 [facility] (Rec: 09/17/23 11:35 [facility] [id number]) Current Condition History of Current Condition Current Complaints R knee History of Current Condition pt repots chronic knee pain for about 3 years but got worse this spring. She lost about 15 lbs on Ozempic and is worried aobut her overall mm health. Feels like behind doesn't ahve enough padding and is worried aobut arms and legs not being too strong. It does not like rough ground and even on flat gorund it now bothers her. After about 2 miles on her walk, she started to have pain on a 4 mile walk . She typically does 1/4 mile about twice a day w/her dog. Somtimes it is weirdness like a hollowness feeling at top of knee and sometimes it can be sharp. Has been trying to do squats on her dog walk. History of R growth plate in femur stopped at14 d/t RLE being longer Prior Treatments and Tests mild arthritis noted on xray Treatment Goals Patient/Caregiver Goals inc mm strength and tone; be able to walk trails and longer walks like [place]; PT-OP-C Subjective Start: 09/05/23 08:39 Freq: Status: Active Protocol: Document 12/11/23 13:49 [facility] (Rec: 12/11/23 14:38 [facility] [id number]) OP-PT Subjective Patient Comments Patient Comments knee complains time to time. Struggling to get everything done due mm soreness. squat walks sideways, sidestep, HS curl, SL heel raises, calf stretch, star balance, hip hikes, step ups, s/l clamshell , seated hold clamshell PT-OP-D Balance Start: 09/05/23 08:39 Freq: Status: Active Protocol: Document 09/17/23 10:31 [facility] (Rec: 09/17/23 11:35 [facility] [id number]) Balance Tests Single Limb Standing Single Limb- Right 20 sec Single Limb- Left 6 sec PT-OP-F Manual Assessment Start: 09/05/23 08:39 Freq: Status: Active Protocol: Document 09/17/23 10:31 [facility] (Rec: 09/17/23 11:35 [facility] [id number]) Manual Assessments Soft Tissue Assessment Soft Tissue Mobility Assessment tightness R quad; scar tissue B sup knee Joint Mobility Assessment Joint Mobility Assessment R>L femur in IR; B tibia good alignment and tracking; L knee tracks well towards 2nd toe; R knee tracks towards big toe; B calcaneal valgus PT-OP-G Mobility & Gait Start: 09/05/23 08:39 Freq: Status: Active Protocol: Document 09/17/23 10:31 [facility] (Rec: 09/17/23 11:35 [facility] [id number]) OP Gait Assessment Comments Gait Comments dec arm swing R>L; R foot toes out PT-OP-K Range of Motion Start: 09/05/23 08:39 Freq: Status: Active Protocol: Document 09/17/23 10:31 [facility] (Rec: 09/17/23 11:35 [facility] [id number]) Knee Goniometric Range of Motion Knee Right Flexion Active (degrees) 140 Extension Active (degrees) 0 Comments sore in knee w/ext Left Flexion Active (degrees) 145 Extension Active (degrees) 0 PT-OP-L Special Tests Start: 09/05/23 08:39 Freq: Status: Active Protocol: Document 09/17/23 10:31 [facility] (Rec: 09/17/23 11:35 [facility] [id number]) Special Tests Knee Special Tests Sheryl Test Comments neg R kevin test Test Results R RF & hip flexor tightness SLR Comments HS tightness felt-can get close to 90 deg R calf tightness noted on L about 75 deg Obers Test Results neg R King Chondromalacia Test Results positive R PT-OP-M Strength Start: 09/05/23 08:39 Freq: Status: Active Protocol: Document 11/13/23 16:06 [facility] (Rec: 11/13/23 16:50 [facility] [id number]) Hip Strength Hip Manual Muscle Testing Right Flexion (L2) 3+ Fair+ Extension (S1) 4 Good Abduction 4 Good Adduction 4- Good- External Rotation 4 Good Internal Rotation 5 Normal Left Flexion (L2) 3+ Fair+ Extension (S1) 4+ Good+ Abduction 4 Good Adduction 4 Good External Rotation 4- Good- Internal Rotation 5 Normal Knee Strength Knee Manual Muscle Testing Right Flexion (S2) 4+ Good+ Extension (L3) 5 Normal Left Flexion (S2) 4+ Good+ Extension (L3) 5 Normal Ankle/Foot Strength Ankle and Foot Manual Muscle Testing Right Dorsiflexion (L4) 5 Normal Plantarflexion (S1) 5 Normal Comments 20 heel raises-cued to not bend for last 5B Left Dorsiflexion (L4) 5 Normal Plantarflexion (S1) 5 Normal PT-OP-Q Treatments Start: 09/05/23 08:39 Freq: Status: Active Protocol: Document 12/11/23 13:49 [facility] (Rec: 12/11/23 14:38 [facility] [id number]) Therapeutic Exercises Standing Exercises hip hike Side bilateral Equipment Used step and rail Reps/Minutes 2x10 clamshells Standing Exercise Name wall press Comments pt felt in back and coudln't adjust so stopped squats Standing Exercise Name chair taps Side bilateral Equipment Used L1 band Reps/Minutes 15 Comments cues for knee position and back position sidestep Standing Exercise Name mini squat Side bilateral Equipment Used L1, 2 and 3 Reps/Minutes 15 ft ea Comments cues neutrl bakc and lead w/ leg Manual Therapy Treatment Soft Tissue Mobilization ITB Body Location R ITB to lat glute Mobilization Type Rolling Joint Mobilizations innominate Comments R ER FM hip Comments R iR hip on axis supine FM; R inf FM Self-Care/Home Management Treatment Education Other Education 8 min: work on dec HEP to: sit to stand w/band, sidestep w/ band, SL heel raises, calf stretch, s/l clam, hip hike, star balance ; edu exercises shoulde be felt in legs not back PT-OP-R Modalities Start: 09/05/23 08:39 Freq: Status: Active Protocol: Document 10/16/23 08:17 [facility] (Rec: 10/16/23 09:59 [facility] [id number]) Hot Pack/Cold Pack Treatment Cold Pack Location R knee Patient Position Hooklying Treatment Duration (minutes) 10 PT-OP-T Assessment and Plan Start: 09/05/23 08:39 Freq: Status: Active Protocol: Document 12/11/23 13:49 [facility] (Rec: 12/11/23 14:38 [facility] [id number]) Physical Therapy Assessment Goals walking Short Term Goal (STG) Pt will be able to start walking 1 mile at least 2 times a week without inc knee pain 10/04: pt reports increased R knee pain with incline. 10/23-weather limiting this week but recently mostly 2 walks at least 1 mile STG Duration achieved 10/23 Intermediate Goal (LTG) Pt will be able to return to walking longer walks up to 4 miles w/o inc knee pain greater than 2/10. 11/13-has gotten up to 2 miles LTG Duration 01/15 unstable Intermediate Goal (LTG) Pt will be able to amb on unstable surfaces without inc pain allowing her ro return to hiking. 10/23-has not tried 11/13-in the yard had inc pain; had pain w/walk on trail right after pavement walk LTG Duration 01/15 strength Short Term Goal (STG) Pt will be indep w/HEP STG Duration achieved advance as able Intermediate Goal (LTG) Pt will score at least 4+/5 on all LE strength w/ability to maintain good alignment in trunk to show improved LE and trunk strength in order to allow pt participate in active lifestyle. 10/23-improving 11/13-improving LTG Duration 01/15 Assessment Summary Assessment Pt did well with exercises after a lot of cues today. She tends to ext spine instead of use glutes. Improved hip flex and IR FM Physical Therapy Plan Frequency and Duration Frequency of Treatment 1x/Week Duration of treatment (weeks) 8 Plan of Care Start Date 11/13/23 Plan of Care End Date 01/16/24 Next Visit Focus/Plan Next Note Type Treatment Note Next Visit Plan cont to work on post dep and facilitaiton of hip abd
--- NOTE | 2023-12-18 18:10 | PT.OTN ---
Current Diagnoses Osteoarthritis of knee, unspecified (12/18/23) Difficulty in walking, not elsewhere classified (12/18/23) Weakness (12/18/23) History of falling (12/18/23) Physical Therapy Treatment Note PT-OP-A Visit Information Start: 09/05/23 08:39 Freq: Status: Active Protocol: Document 12/18/23 13:49 [facility] (Rec: 12/18/23 18:10 [facility] [id number]) Out-Patient Physical Therapy Visit Information Visit Information Visit Type Treatment Note Visit Note 05/16 Visit Start Time 13:51 Visit Stop Time 14:30 Visit Number 17 Number of ZOO CARETAKER Visits 0 PT-OP-B Current Condition Start: 09/05/23 08:39 Freq: Status: Active Protocol: Document 09/17/23 10:31 [facility] (Rec: 09/17/23 11:35 [facility] [id number]) Current Condition History of Current Condition Current Complaints R knee History of Current Condition pt repots chronic knee pain for about 3 years but got worse this spring. She lost about 15 lbs on Ozempic and is worried aobut her overall mm health. Feels like behind doesn't ahve enough padding and is worried aobut arms and legs not being too strong. It does not like rough ground and even on flat gorund it now bothers her. After about 2 miles on her walk, she started to have pain on a 4 mile walk . She typically does 1/4 mile about twice a day w/her dog. Somtimes it is weirdness like a hollowness feeling at top of knee and sometimes it can be sharp. Has been trying to do squats on her dog walk. History of R growth plate in femur stopped at14 d/t RLE being longer Prior Treatments and Tests mild arthritis noted on xray Treatment Goals Patient/Caregiver Goals inc mm strength and tone; be able to walk trails and longer walks like [employer]; PT-OP-C Subjective Start: 09/05/23 08:39 Freq: Status: Active Protocol: Document 12/18/23 13:49 [facility] (Rec: 12/18/23 18:10 [facility] [id number]) OP-PT Subjective Patient Comments Patient Comments Pt reports she has done well with exercises and on uneven ground. yesterday, she went down stiars and had signfiicant pain and she tried to walk out and that didn't get better until she sat down. it lasted longer and hurt more. It was along sup knee area. Has been walking some when weather is good and has been able to use the shovel. PT-OP-D Balance Start: 09/05/23 08:39 Freq: Status: Active Protocol: Document 09/17/23 10:31 [facility] (Rec: 09/17/23 11:35 [facility] [id number]) Balance Tests Single Limb Standing Single Limb- Right 20 sec Single Limb- Left 6 sec PT-OP-F Manual Assessment Start: 09/05/23 08:39 Freq: Status: Active Protocol: Document 09/17/23 10:31 [facility] (Rec: 09/17/23 11:[id number] Manual Assessments Soft Tissue Assessment Soft Tissue Mobility Assessment tightness R quad; scar tissue B sup knee Joint Mobility Assessment Joint Mobility Assessment R>L femur in IR; B tibia good alignment and tracking; L knee tracks well towards 2nd toe; R knee tracks towards big toe; B calcaneal valgus PT-OP-G Mobility & Gait Start: 09/05/23 08:39 Freq: Status: Active Protocol: Document 09/17/23 10:31 [facility] (Rec: 09/17/23 11:35 [facility] [id number]) OP Gait Assessment Comments Gait Comments dec arm swing R>L; R foot toes out PT-OP-K Range of Motion Start: 09/05/23 08:39 Freq: Status: Active Protocol: Document 09/17/23 10:31 [facility] (Rec: 09/17/23 11:35 [facility] [id number]) Knee Goniometric Range of Motion Knee Right Flexion Active (degrees) 140 Extension Active (degrees) 0 Comments sore in knee w/ext Left Flexion Active (degrees) 145 Extension Active (degrees) 0 PT-OP-L Special Tests Start: 09/05/23 08:39 Freq: Status: Active Protocol: Document 09/17/23 10:31 [facility] (Rec: 09/17/23 11:35 [facility] [id number]) Special Tests Knee Special Tests Sheryl Test Comments neg R kevin test Test Results R RF & hip flexor tightness SLR Comments HS tightness felt-can get close to 90 deg R calf tightness noted on L about 75 deg Obers Test Results neg R King Chondromalacia Test Results positive R PT-OP-M Strength Start: 09/05/23 08:39 Freq: Status: Active Protocol: Document 11/13/23 16:06 [facility] (Rec: 11/13/23 16:50 [facility] [id number]) Hip Strength Hip Manual Muscle Testing Right Flexion (L2) 3+ Fair+ Extension (S1) 4 Good Abduction 4 Good Adduction 4- Good- External Rotation 4 Good Internal Rotation 5 Normal Left Flexion (L2) 3+ Fair+ Extension (S1) 4+ Good+ Abduction 4 Good Adduction 4 Good External Rotation 4- Good- Internal Rotation 5 Normal Knee Strength Knee Manual Muscle Testing Right Flexion (S2) 4+ Good+ Extension (L3) 5 Normal Left Flexion (S2) 4+ Good+ Extension (L3) 5 Normal Ankle/Foot Strength Ankle and Foot Manual Muscle Testing Right Dorsiflexion (L4) 5 Normal Plantarflexion (S1) 5 Normal Comments 20 heel raises-cued to not bend for last 5B Left Dorsiflexion (L4) 5 Normal Plantarflexion (S1) 5 Normal PT-OP-Q Treatments Start: 09/05/23 08:39 Freq: Status: Active Protocol: Document 12/18/23 13:49 [facility] (Rec: 12/18/23 18:10 [facility] [id number]) Therapeutic Exercises Standing Exercises arch lift Standing Exercise Name R>L Reps/Minutes 5 min total Comments big toe down step up Standing Exercise Name lat step up/down Side bilateral squats Standing Exercise Name chair taps Side bilateral Equipment Used L3 band Reps/Minutes 15 Comments cues for knee position and back position sidestep Standing Exercise Name 1. upright Side bilateral Equipment Used L2 at ankles Reps/Minutes 15ft Gait Training Gait Activity stairs Comments 1. up/dwon recip focuson avoiding ER of RLE x3 2. step down 4 in step 2x15 cues for slow and control and knee tracking Manual Therapy Treatment Joint Mobilizations ankle/foot Comments calcaneal and talar distraction FM talar AP FM tib AP FM cuneiform 1 and 2 and navicualr med FM cuboid lat FM PT-OP-R Modalities Start: 09/05/23 08:39 Freq: Status: Active Protocol: Document 10/16/23 08:17 [facility] (Rec: 10/16/23 09:59 [facility] [id number]) Hot Pack/Cold Pack Treatment Cold Pack Location R knee Patient Position Hooklying Treatment Duration (minutes) 10 PT-OP-T Assessment and Plan Start: 09/05/23 08:39 Freq: Status: Active Protocol: Document 12/18/23 13:49 [facility] (Rec: 12/18/23 18:10 [facility] [id number]) Physical Therapy Assessment Goals walking Short Term Goal (STG) Pt will be able to start walking 1 mile at least 2 times a week without inc knee pain 10/04: pt reports increased R knee pain with incline. 10/23-weather limiting this week but recently mostly 2 walks at least 1 mile STG Duration achieved 10/23 Usp Goal (LTG) Pt will be able to return to walking longer walks up to 4 miles w/o inc knee pain greater than 2/10. 11/13-has gotten up to 2 miles LTG Duration 01/15 unstable Usp Goal (LTG) Pt will be able to amb on unstable surfaces without inc pain allowing her ro return to hiking. 10/23-has not tried 11/13-in the yard had inc pain; had pain w/walk on trail right after pavement walk LTG Duration 01/15 strength Short Term Goal (STG) Pt will be indep w/HEP STG Duration achieved advance as able Usp Goal (LTG) Pt will score at least 4+/5 on all LE strength w/ability to maintain good alignment in trunk to show improved LE and trunk strength in order to allow pt participate in active lifestyle. 10/23-improving 11/13-improving LTG Duration 01/15 Assessment Summary Assessment Pt encouraged to look at diet as being potential culpret for pain and to be more attentive to when pain happens. DOes have IR of knee w/step down and requires cues for this. Improved knee tracking w/foot mobility. Physical Therapy Plan Frequency and Duration Frequency of Treatment 1x/Week Duration of treatment (weeks) 8 Plan of Care Start Date 11/13/23 Plan of Care End Date 01/16/24 Next Visit Focus/Plan Next Note Type Treatment Note Next Visit Plan cont to work on post dep and facilitaiton of hip abd and knee tracking
--- NOTE | 2023-12-25 14:35 | PT.OTN ---
Current Diagnoses Osteoarthritis of knee, unspecified (12/25/23) Difficulty in walking, not elsewhere classified (12/25/23) Weakness (12/25/23) History of falling (12/25/23) Physical Therapy Treatment Note PT-OP-A Visit Information Start: 09/05/23 08:39 Freq: Status: Active Protocol: Document 12/25/23 13:49 [facility] (Rec: 12/25/23 14:35 [facility] [id number]) Out-Patient Physical Therapy Visit Information Visit Information Visit Type Treatment Note Visit Note 06/16 Visit Start Time 13:50 Visit Stop Time 14:30 Visit Number 18 Number of WIRE SETTER Visits 0 PT-OP-B Current Condition Start: 09/05/23 08:39 Freq: Status: Active Protocol: Document 09/17/23 10:31 [facility] (Rec: 09/17/23 11:35 [facility] [id number]) Current Condition History of Current Condition Current Complaints R knee History of Current Condition pt repots chronic knee pain for about 3 years but got worse this spring. She lost about 15 lbs on Ozempic and is worried aobut her overall mm health. Feels like behind doesn't ahve enough padding and is worried aobut arms and legs not being too strong. It does not like rough ground and even on flat gorund it now bothers her. After about 2 miles on her walk, she started to have pain on a 4 mile walk . She typically does 1/4 mile about twice a day w/her dog. Somtimes it is weirdness like a hollowness feeling at top of knee and sometimes it can be sharp. Has been trying to do squats on her dog walk. History of R growth plate in femur stopped at14 d/t RLE being longer Prior Treatments and Tests mild arthritis noted on xray Treatment Goals Patient/Caregiver Goals inc mm strength and tone; be able to walk trails and longer walks like [employer]; PT-OP-C Subjective Start: 09/05/23 08:39 Freq: Status: Active Protocol: Document 12/25/23 13:49 [facility] (Rec: 12/25/23 14:35 [facility] [id number]) OP-PT Subjective Patient Comments Patient Comments Pt reports she is having trouble w/star balance. When working on knee tracking w/ stairs, that helps. Pain is less recently and has done a couple walks (trail w/ elevation, 2 mile) PT-OP-D Balance Start: 09/05/23 08:39 Freq: Status: Active Protocol: Document 09/17/23 10:31 [facility] (Rec: 09/17/23 11:35 [id number] Balance Tests Single Limb Standing Single Limb- Right 20 sec Single Limb- Left 6 sec PT-OP-F Manual Assessment Start: 09/05/23 08:39 Freq: Status: Active Protocol: Document 09/17/23 10:31 [facility] (Rec: 09/17/23 11:35 [facility] [id number]) Manual Assessments Soft Tissue Assessment Soft Tissue Mobility Assessment tightness R quad; scar tissue B sup knee Joint Mobility Assessment Joint Mobility Assessment R>L femur in IR; B tibia good alignment and tracking; L knee tracks well towards 2nd toe; R knee tracks towards big toe; B calcaneal valgus PT-OP-G Mobility & Gait Start: 09/05/23 08:39 Freq: Status: Active Protocol: Document 09/17/23 10:31 [facility] (Rec: 09/17/23 11:35 [id number] OP Gait Assessment Comments Gait Comments dec arm swing R>L; R foot toes out PT-OP-K Range of Motion Start: 09/05/23 08:39 Freq: Status: Active Protocol: Document 09/17/23 10:31 [facility] (Rec: 09/17/23 11:35 [facility] [id number]) Knee Goniometric Range of Motion Knee Right Flexion Active (degrees) 140 Extension Active (degrees) 0 Comments sore in knee w/ext Left Flexion Active (degrees) 145 Extension Active (degrees) 0 PT-OP-L Special Tests Start: 09/05/23 08:39 Freq: Status: Active Protocol: Document 09/17/23 10:31 [facility] (Rec: 09/17/23 11:35 [id number] Special Tests Knee Special Tests Sheryl Test Comments neg R kevin test Test Results R RF & hip flexor tightness SLR Comments HS tightness felt-can get close to 90 deg R calf tightness noted on L about 75 deg Obers Test Results neg R King Chondromalacia Test Results positive R PT-OP-M Strength Start: 09/05/23 08:39 Freq: Status: Active Protocol: Document 11/13/23 16:06 [facility] (Rec: 11/13/23 16:50 [facility] [id number]) Hip Strength Hip Manual Muscle Testing Right Flexion (L2) 3+ Fair+ Extension (S1) 4 Good Abduction 4 Good Adduction 4- Good- External Rotation 4 Good Internal Rotation 5 Normal Left Flexion (L2) 3+ Fair+ Extension (S1) 4+ Good+ Abduction 4 Good Adduction 4 Good External Rotation 4- Good- Internal Rotation 5 Normal Knee Strength Knee Manual Muscle Testing Right Flexion (S2) 4+ Good+ Extension (L3) 5 Normal Left Flexion (S2) 4+ Good+ Extension (L3) 5 Normal Ankle/Foot Strength Ankle and Foot Manual Muscle Testing Right Dorsiflexion (L4) 5 Normal Plantarflexion (S1) 5 Normal Comments 20 heel raises-cued to not bend for last 5B Left Dorsiflexion (L4) 5 Normal Plantarflexion (S1) 5 Normal PT-OP-Q Treatments Start: 09/05/23 08:39 Freq: Status: Active Protocol: Document 12/25/23 13:49 [facility] (Rec: 12/25/23 14:35 [facility] [id number]) Therapeutic Exercises Standing Exercises star Standing Exercise Name 3 pt tap Side bilateral Reps/Minutes 5 ea Comments in mirror arch lift Standing Exercise Name R>L Reps/Minutes 4min total Comments big toe down squats Standing Exercise Name SL sit to stand Side bilateral Reps/Minutes 12 Comments 23 in bed Gait Training Gait Activity stairs Description R Comments step down 4 in x12 6 in w/mirror x15 2. lat step down 4 in wmirror x15 3. lat step down 6 in w/rail x8 Manual Therapy Treatment Joint Mobilizations ankle/foot Comments calcaneal and talar distraction FM talarand med glide AP FM tib AP FM cuneiform 1 and 2 and navicualr med FM cuboid lat FM PT-OP-R Modalities Start: 09/05/23 08:39 Freq: Status: Active Protocol: Document 10/16/23 08:17 [facility] (Rec: 10/16/23 09:59 [facility] [id number]) Hot Pack/Cold Pack Treatment Cold Pack Location R knee Patient Position Hooklying Treatment Duration (minutes) 10 PT-OP-T Assessment and Plan Start: 11/30/23 08:39 Freq: Status: Active Protocol: Document 12/25/23 13:49 [facility] (Rec: 12/25/23 14:35 [facility] [id number]) Physical Therapy Assessment Goals walking Short Term Goal (STG) Pt will be able to start walking 1 mile at least 2 times a week without inc knee pain 10/04: pt reports increased R knee pain with incline. 10/23-weather limiting this week but recently mostly 2 walks at least 1 mile STG Duration achieved 10/23 Group Home Goal (LTG) Pt will be able to return to walking longer walks up to 4 miles w/o inc knee pain greater than 11/16. 11/13-has gotten up to 2 miles LTG Duration 01/15 unstable [employer] Instructor Goal (LTG) Pt will be able to amb on unstable surfaces without inc pain allowing her ro return to hiking. 10/23-has not tried 11/13-in the yard had inc pain; had pain w/walk on trail right after pavement walk LTG Duration 01/15 strength Short Term Goal (STG) Pt will be indep w/HEP STG Duration achieved advance as able [employer] Instructor Goal (LTG) Pt will score at least 4+/5 on all LE strength w/ability to maintain good alignment in trunk to show improved LE and trunk strength in order to allow pt participate in active lifestyle. 10/23-improving 11/13-improving LTG Duration 01/15 Assessment Summary Assessment Pt had improved step down w/ better knee position w/ training and cueing. She did have improved ability to assume neutral arch after manual and did reuiqre cues throughout all exercises for performance. W/steps and star and sit to stand cues for hips level Physical Therapy Plan Frequency and Duration Frequency of Treatment 1x/Week Duration of treatment (weeks) 8 Plan of Care Start Date 11/13/23 Plan of Care End Date 01/16/24 Next Visit Focus/Plan Next Note Type Progress Note Next Visit Plan cont to work hip abd engagment and knee tracking
--- NOTE | 2024-01-01 14:43 | PT.OTN ---
Current Diagnoses Osteoarthritis of knee, unspecified (01/01/24) Difficulty in walking, not elsewhere classified (01/01/24) Weakness (01/01/24) History of falling (01/01/24) Physical Therapy Treatment Note PT-OP-A Visit Information Start: 09/05/23 08:39 Freq: Status: Active Protocol: Document 01/01/24 13:51 [facility] (Rec: 01/01/24 14:43 [facility] [id number]) Out-Patient Physical Therapy Visit Information Visit Information Visit Type Progress Note Visit Note 10/16 Visit Start Time 13:52 Visit Stop Time 14:30 Visit Number 19 Number of ADVENTURE GUIDE Visits 0 PT-OP-B Current Condition Start: 09/05/23 08:39 Freq: Status: Active Protocol: Document 09/17/23 10:31 [facility] (Rec: 09/17/23 11:35 [facility] [id number]) Current Condition History of Current Condition Current Complaints R knee History of Current Condition pt repots chronic knee pain for about 3 years but got worse this spring. She lost about 15 lbs on Ozempic and is worried aobut her overall mm health. Feels like behind doesn't ahve enough padding and is worried aobut arms and legs not being too strong. It does not like rough ground and even on flat gorund it now bothers her. After about 2 miles on her walk, she started to have pain on a 4 mile walk . She typically does 1/4 mile about twice a day w/her dog. Somtimes it is weirdness like a hollowness feeling at top of knee and sometimes it can be sharp. Has been trying to do squats on her dog walk. History of R growth plate in femur stopped at14 d/t RLE being longer Prior Treatments and Tests mild arthritis noted on xray Treatment Goals Patient/Caregiver Goals inc mm strength and tone; be able to walk trails and longer walks like [employer]; PT-OP-C Subjective Start: 09/05/23 08:39 Freq: Status: Active Protocol: Document 01/01/24 13:51 [facility] (Rec: 01/01/24 14:43 [facility] [id number]) OP-PT Subjective Patient Comments Patient Comments pt reports down stairs has been the most w/pain PT-OP-D Balance Start: 09/05/23 08:39 Freq: Status: Active Protocol: Document 09/17/23 10:31 [facility] (Rec: 09/17/23 11:35 [facility] [id number]) Balance Tests Single Limb Standing Single Limb- Right 20 sec Single Limb- Left 6 sec PT-OP-F Manual Assessment Start: 09/05/23 08:39 Freq: Status: Active Protocol: Document 09/17/23 10:31 [facility] (Rec: 09/17/23 11:35 [facility] [id number]) Manual Assessments Soft Tissue Assessment Soft Tissue Mobility Assessment tightness R quad; scar tissue B sup knee Joint Mobility Assessment Joint Mobility Assessment R>L femur in IR; B tibia good alignment and tracking; L knee tracks well towards 2nd toe; R knee tracks towards big toe; B calcaneal valgus PT-OP-G Mobility & Gait Start: 09/05/23 08:39 Freq: Status: Active Protocol: Document 09/17/23 10:31 [facility] (Rec: 09/17/23 11:35 [facility] [id number]) OP Gait Assessment Comments Gait Comments dec arm swing R>L; R foot toes out PT-OP-K Range of Motion Start: 09/05/23 08:39 Freq: Status: Active Protocol: Document 09/17/23 10:31 [facility] (Rec: 09/17/23 11:35 [facility] [id number]) Knee Goniometric Range of Motion Knee Right Flexion Active (degrees) 140 Extension Active (degrees) 0 Comments sore in knee w/ext Left Flexion Active (degrees) 145 Extension Active (degrees) 0 PT-OP-L Special Tests Start: 09/05/23 08:39 Freq: Status: Active Protocol: Document 09/17/23 10:31 [facility] (Rec: 09/17/23 11:35 [facility] [id number]) Special Tests Knee Special Tests Sheryl Test Comments neg R kevin test Test Results R RF & hip flexor tightness SLR Comments HS tightness felt-can get close to 90 deg R calf tightness noted on L about 75 deg Obers Test Results neg R King Chondromalacia Test Results positive R PT-OP-M Strength Start: 09/05/23 08:39 Freq: Status: Active Protocol: Document 01/01/24 13:51 [facility] (Rec: 01/01/24 14:43 [facility] [id number]) Hip Strength Hip Manual Muscle Testing Right Flexion (L2) 4 Good Extension (S1) 4+ Good+ Abduction 4+ Good+ Adduction 4 Good External Rotation 4 Good Internal Rotation 5 Normal Left Flexion (L2) 4- Good- Extension (S1) 4+ Good+ Abduction 4+ Good+ Adduction 4 Good External Rotation 4 Good Internal Rotation 5 Normal Knee Strength Knee Manual Muscle Testing Right Flexion (S2) 5 Normal Extension (L3) 5 Normal Left Flexion (S2) 5 Normal Extension (L3) 5 Normal PT-OP-Q Treatments Start: 09/05/23 08:39 Freq: Status: Active Protocol: Document 01/01/24 13:51 [facility] (Rec: 01/01/24 14:43 [facility] [id number]) Therapeutic Exercises Standing Exercises arch lift Standing Exercise Name R>L Reps/Minutes 2min total Comments big toe down hip hike Side bilateral Equipment Used step and rail Reps/Minutes 15 squats Standing Exercise Name chair taps Side bilateral Equipment Used L3 band &7# wt in hand Reps/Minutes 15 Comments cues for knee position and back position Other Exercises isometrics Other Exercise Name LE MMT Side bilateral Gait Training Gait Activity stairs Description R Comments 1.step down 4 in x12 2. 6 in w/mirror x15 3. lat step down 4 in wmirror x15 3. lat step down 6 in w/rail x10 Manual Therapy Treatment Soft Tissue Mobilization scar Body Location circumfrential Mobilization Type Myofascial Release Intensity/Depth Superficial Body Position Supine Joint Mobilizations ankle/foot Comments AP talus standing FM cuneiform 1 and 2 med and navic med w/knee bends in standing sitting med midfoot glides PT-OP-R Modalities Start: 09/05/23 08:39 Freq: Status: Active Protocol: Document 10/16/23 08:17 [facility] (Rec: 10/16/23 09:59 [facility] [id number]) Hot Pack/Cold Pack Treatment Cold Pack Location R knee Patient Position Hooklying Treatment Duration (minutes) 10 PT-OP-T Assessment and Plan Start: 09/05/23 08:39 Freq: Status: Active Protocol: Document 01/01/24 13:51 [facility] (Rec: 01/01/24 14:43 [facility] [id number]) Physical Therapy Assessment Goals stairs Temporary Administrative Assistant Goal (LTG) pt iwll be able to descend stairs w/o inc pain LTG Duration 03/05 walking Short Term Goal (STG) Pt will be able to start walking 1 mile at least 2 times a week without inc knee pain 10/04: pt reports increased R knee pain with incline. 10/23-weather limiting this week but recently mostly 2 walks at least 1 mile STG Duration achieved Temporary Administrative Assistant Goal (LTG) Pt will be able to return to walking longer walks up to 4 miles w/o inc knee pain greater than 2/10. 11/13-has gotten up to 2 miles 12/31-2 miles -knee been fine- slowly working up LTG Duration 03/05 unstable Fdc Goal (LTG) Pt will be able to amb on unstable surfaces without inc pain allowing her ro return to hiking. 10/23-has not tried 11/13-in the yard had inc pain; had pain w/walk on trail right after pavement walk LTG Duration achieved 12/31 strength Short Term Goal (STG) Pt will be indep w/HEP STG Duration achieved advance as able Fdc Goal (LTG) Pt will score at least 4+/5 on all LE strength w/ability to maintain good alignment in trunk to show improved LE and trunk strength in order to allow pt participate in active lifestyle. 10/23-improving 11/13-improving 12/31-improved LTG Duration 03/05 Assessment Summary Assessment Pt has made progress w/PT w/ knee pain and is inc her walks and is shwoing improved strength and stability but does still have dec motor control w/IR w/step down likely related to knee pain w/ stairs. Cont PT for pt to progress to full activityw/ min pain Physical Therapy Plan Frequency and Duration Frequency of Treatment 1x/Week Duration of treatment (weeks) 8 Plan of Care Start Date 01/01/24 Plan of Care End Date 03/05/24 Therapeutic Interventions Therapeutic Interventions Balance Training,Gait Training ,Home Exercise Program,Joint Mobilizations,Manual Therapy, Neuromuscular Re-education, Orthotic/Prosthetic Management ,Patient/Caregiver Education, Self-Care/Home Management,Soft Tissue Mobilization,Taping, Therapeutic Activities, Therapeutic Exercises Modalities Cold Pack/Ice Massage,Electric Stimulation,Hot Packs, Infrared Therapy,Ultrasound Next Visit Focus/Plan Next Note Type Treatment Note Next Visit Plan cont to work hip abd engagment and knee tracking navjot stair
--- NOTE | 2024-01-01 14:43 | PT.OPPOC ---
Physical, Occupational & Speech Therapy At [facility] Current Diagnoses Osteoarthritis of knee, unspecified (01/01/24) Difficulty in walking, not elsewhere classified (01/01/24) Weakness (01/01/24) History of falling (01/01/24) Visit Care Team Role Provider Type Edvin Rader MD Family Provider Physician Primary Care Provider Specialty: Family Practice Address: [address] [place] [address], [id number] Email: [email or web address] Mary Bruce PA-C Attending Provider Advanced [employer] Tipper Hand Referring Provider Specialty: Medical Wound Care Address: [address] [place] [address], [phone] Email: [email or web address] Plan Of Care PT-OP-T Assessment and Plan Start: 09/05/23 08:39 Freq: Status: Active Protocol: Document 01/01/24 13:51 [facility] (Rec: 01/01/24 14:43 [facility] [id number]) Physical Therapy Assessment Goals stairs Mcfp Goal (LTG) pt iwll be able to descend stairs w/o inc pain LTG Duration 03/05 walking Short Term Goal (STG) Pt will be able to start walking 1 mile at least 2 times a week without inc knee pain 10/04: pt reports increased R knee pain with incline. 10/23-weather limiting this week but recently mostly 2 walks at least 1 mile STG Duration achieved Mcfp Goal (LTG) Pt will be able to return to walking longer walks up to 4 miles w/o inc knee pain greater than 2/10. 11/13-has gotten up to 2 miles 12/31-2 miles -knee been fine- slowly working up LTG Duration 03/05 unstable Memorial Counselor Goal (LTG) Pt will be able to amb on unstable surfaces without inc pain allowing her ro return to hiking. 10/23-has not tried 11/13-in the yard had inc pain; had pain w/walk on trail right after pavement walk LTG Duration achieved 12/31 strength Short Term Goal (STG) Pt will be indep w/HEP STG Duration achieved advance as able Mcfp Goal (LTG) Pt will score at least 4+/5 on all LE strength w/ability to maintain good alignment in trunk to show improved LE and trunk strength in order to allow pt participate in active lifestyle. 10/23-improving 11/13-improving 12/31-improved LTG Duration 03/05 Assessment Summary Assessment Pt has made progress w/PT w/ knee pain and is inc her walks and is shwoing improved strength and stability but does still have dec motor control w/IR w/step down likely related to knee pain w/ stairs. Cont PT for pt to progress to full activityw/ min pain Physical Therapy Plan Frequency and Duration Frequency of Treatment 1x/Week Duration of treatment (weeks) 8 Plan of Care Start Date 01/01/24 Plan of Care End Date 03/05/24 Therapeutic Interventions Therapeutic Interventions Balance Training,Gait Training ,Home Exercise Program,Joint Mobilizations,Manual Therapy, Neuromuscular Re-education, Orthotic/Prosthetic Management ,Patient/Caregiver Education, Self-Care/Home Management,Soft Tissue Mobilization,Taping, Therapeutic Activities, Therapeutic Exercises Modalities Cold Pack/Ice Massage,Electric Stimulation,Hot Packs, Infrared Therapy,Ultrasound Next Visit Focus/Plan Next Note Type Treatment Note Next Visit Plan cont to work hip abd engagment and knee tracking navjot stair Plan of Care Dates Plan of Care Start Date 01/01/24 Plan of Care End Date 03/05/24 Electronically Signed by: Rebecca Brandon, PT 01/01/24 [id number] If you are in agreement with this Plan of Care, please return a signed and dated copy. I have reviewed this Plan of Care and certify that the skilled therapy services above are required to meet the patient?s needs. Physician Signature Date Printed Name and Credentials Clinical Instructor Signature Printed Name and Credentials
--- NOTE | 2024-01-10 13:51 | PT.OTN ---
Current Diagnoses Osteoarthritis of knee, unspecified (01/10/24) Difficulty in walking, not elsewhere classified (01/10/24) Weakness (01/10/24) History of falling (01/10/24) Physical Therapy Treatment Note PT-OP-A Visit Information Start: 09/05/23 08:39 Freq: Status: Active Protocol: Document 01/10/24 13:06 [facility] (Rec: 01/10/24 13:51 [facility] [id number]) Out-Patient Physical Therapy Visit Information Visit Information Visit Type Treatment Note Visit Note 11/16 Visit Start Time 13:04 Visit Stop Time 13:48 Visit Number 20 Number of MEDICAL RECORD CONSULTANT Visits 1 PT-OP-B Current Condition Start: 09/05/23 08:39 Freq: Status: Active Protocol: Document 09/17/23 10:31 [facility] (Rec: 09/17/23 11:35 [facility] [id number]) Current Condition History of Current Condition Current Complaints R knee History of Current Condition pt repots chronic knee pain for about 3 years but got worse this spring. She lost about 15 lbs on Ozempic and is worried aobut her overall mm health. Feels like behind doesn't ahve enough padding and is worried aobut arms and legs not being too strong. It does not like rough ground and even on flat gorund it now bothers her. After about 2 miles on her walk, she started to have pain on a 4 mile walk . She typically does 1/4 mile about twice a day w/her dog. Somtimes it is weirdness like a hollowness feeling at top of knee and sometimes it can be sharp. Has been trying to do squats on her dog walk. History of R growth plate in femur stopped at14 d/t RLE being longer Prior Treatments and Tests mild arthritis noted on xray Treatment Goals Patient/Caregiver Goals inc mm strength and tone; be able to walk trails and longer walks like [employer]; PT-OP-C Subjective Start: 09/05/23 08:39 Freq: Status: Active Protocol: Document 01/10/24 13:06 [facility] (Rec: 01/10/24 13:51 [facility] [id number]) OP-PT Subjective Patient Comments Patient Comments Evelia reports when she's mindful of R knee alignment going downstairs it doesn't hurt. She walked across bumpy [place] without trouble, and did a three mile walk with 300 ft elevation gain - it was very uneven with roots sticking out and she was mindful with R leg alignment with each step and had no pain . She walked a mile and a half on the flat this morning to take out trash/recycling. If she's not mindful of keeping R leg straight going downstairs or down incline then she has the pain. She had 4 day conference where she wasn't as active but otherwise very active since last visit. Evelia 's low back started to get low back sore with chair taps holding 8# dumbbell which she was holding away from body, she stopped as soon as sore. Patient Reported Progress Improving PT-OP-D Balance Start: 09/05/23 08:39 Freq: Status: Active Protocol: Document 09/17/23 10:31 [facility] (Rec: 09/17/23 11:35 [facility] [id number]) Balance Tests Single Limb Standing Single Limb- Right 20 sec Single Limb- Left 6 sec PT-OP-F Manual Assessment Start: 09/05/23 08:39 Freq: Status: Active Protocol: Document 09/17/23 10:31 [facility] (Rec: 09/17/23 11:35 [facility] [id number]) Manual Assessments Soft Tissue Assessment Soft Tissue Mobility Assessment tightness R quad; scar tissue B sup knee Joint Mobility Assessment Joint Mobility Assessment R>L femur in IR; B tibia good alignment and tracking; L knee tracks well towards 2nd toe; R knee tracks towards big toe; B calcaneal valgus PT-OP-G Mobility & Gait Start: 09/05/23 08:39 Freq: Status: Active Protocol: Document 09/17/23 10:31 [facility] (Rec: 09/17/23 11:35 [facility] [id number]) OP Gait Assessment Comments Gait Comments dec arm swing R>L; R foot toes out PT-OP-K Range of Motion Start: 09/05/23 08:39 Freq: Status: Active Protocol: Document 09/17/23 10:31 [facility] (Rec: 09/17/23 11:35 [facility] [id number]) Knee Goniometric Range of Motion Knee Right Flexion Active (degrees) 140 Extension Active (degrees) 0 Comments sore in knee w/ext Left Flexion Active (degrees) 145 Extension Active (degrees) 0 PT-OP-L Special Tests Start: 09/05/23 08:39 Freq: Status: Active Protocol: Document 09/17/23 10:31 [facility] (Rec: 09/17/23 11:35 [facility] [id number]) Special Tests Knee Special Tests Sheryl Test Comments neg R kevin test Test Results R RF & hip flexor tightness SLR Comments HS tightness felt-can get close to 90 deg R calf tightness noted on L about 75 deg Obers Test Results neg R King Chondromalacia Test Results positive R PT-OP-M Strength Start: 09/05/23 08:39 Freq: Status: Active Protocol: Document 01/01/24 13:51 [facility] (Rec: 01/01/24 14:43 [facility] [id number]) Hip Strength Hip Manual Muscle Testing Right Flexion (L2) 4 Good Extension (S1) 4+ Good+ Abduction 4+ Good+ Adduction 4 Good External Rotation 4 Good Internal Rotation 5 Normal Left Flexion (L2) 4- Good- Extension (S1) 4+ Good+ Abduction 4+ Good+ Adduction 4 Good External Rotation 4 Good Internal Rotation 5 Normal Knee Strength Knee Manual Muscle Testing Right Flexion (S2) 5 Normal Extension (L3) 5 Normal Left Flexion (S2) 5 Normal Extension (L3) 5 Normal PT-OP-Q Treatments Start: 09/05/23 08:39 Freq: Status: Active Protocol: Document 01/10/24 13:06 [facility] (Rec: 01/10/24 13:51 [facility] [id number]) Therapeutic Exercises Standing Exercises star Standing Exercise Name 5 pt tap>added slider Side bilateral Equipment Used slider, 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 6 in w/mirror x15 3. lat step down 4 in wmirror x15 - not today 3. lat step down 6 in w/rail x10, cues for hip activation not back; improves Manual Therapy Treatment Soft Tissue Mobilization scar Body Location circumfrential Mobilization Type Myofascial Release Intensity/Depth Superficial Body Position Sitting Joint Mobilizations ankle/foot Comments AP talus standing FM B PT-OP-R Modalities Start: 09/05/23 08:39 Freq: Status: Active Protocol: Document 10/16/23 08:17 [facility] (Rec: 10/16/23 09:59 [facility] [id number]) Hot Pack/Cold Pack Treatment Cold Pack Location R knee Patient Position Hooklying Treatment Duration (minutes) 10 PT-OP-T Assessment and Plan Start: 09/05/23 08:39 Freq: Status: Active Protocol: Document 01/10/24 13:06 [facility] (Rec: 01/10/24 13:51 [facility] [id number]) Physical Therapy Assessment Goals stairs Alf Goal (LTG) pt iwll be able to descend stairs w/o inc pain 01/10/24: Pt able to descend stairs without increased pain when mindful of LE alignment with each step. LTG Duration 03/05 - progressing 01/10/24 walking Short Term Goal (STG) Pt will be able to start walking 1 mile at least 2 times a week without inc knee pain 10/04: pt reports increased R knee pain with incline. 10/23-weather limiting this week but recently mostly 2 walks at least 1 mile STG Duration achieved Alf Goal (LTG) Pt will be able to return to walking longer walks up to 4 miles w/o inc knee pain greater than 2/10. 11/13-has gotten up to 2 miles 12/31-2 miles -knee been fine- slowly working up LTG Duration 03/05 unstable Alf Goal (LTG) Pt will be able to amb on unstable surfaces without inc pain allowing her ro return to hiking. 10/23-has not tried 2-in the yard had inc pain; had pain w/walk on trail right after pavement walk LTG Duration achieved 12/31 strength Short Term Goal (STG) Pt will be indep w/HEP STG Duration achieved advance as able Alf Goal (LTG) Pt will score at least 4+/5 on all LE strength w/ability to maintain good alignment in trunk to show improved LE and trunk strength in order to allow pt participate in active lifestyle. 10/23-improving 11/13-improving 12/31-improved LTG Duration 03/05 Assessment Summary Assessment Evelia demonstrates improved self-awareness of LE alignment with 6 step downs which consistently resolves pain. She requires cues with L hip hike for hip vs back activation but form improves w / cueing and repetition. She performs chair taps with 7# weight w/ cues for gluteal activation and closer proximation of dumbbell with no lumbar pain. Physical Therapy Plan Frequency and Duration Frequency of Treatment 1x/Week Duration of treatment (weeks) 8 Plan of Care Start Date 01/01/24 Plan of Care End Date 03/05/24 Therapeutic Interventions Therapeutic Interventions Balance Training,Gait Training ,Home Exercise Program,Joint Mobilizations,Manual Therapy, Neuromuscular Re-education, Orthotic/Prosthetic Management ,Patient/Caregiver Education, Self-Care/Home Management,Soft Tissue Mobilization,Taping, Therapeutic Activities, Therapeutic Exercises Modalities Cold Pack/Ice Massage,Electric Stimulation,Hot Packs, Infrared Therapy,Ultrasound Next Visit Focus/Plan Next Note Type Treatment Note Next Visit Plan cont to work hip abd engagment and knee tracking navjot stair
--- NOTE | 2024-01-15 16:24 | PT.OTN ---
Current Diagnoses Osteoarthritis of knee, unspecified (01/15/24) Difficulty in walking, not elsewhere classified (01/15/24) Weakness (01/15/24) History of falling (01/15/24) Physical Therapy Treatment Note PT-OP-A Visit Information Start: 09/05/23 08:39 Freq: Status: Active Protocol: Document 01/15/24 16:10 AB (Rec: 01/15/24 16:23 AB [id number]) Out-Patient Physical Therapy Visit Information Visit Information Visit Type Treatment Note Visit Note 12/14 Visit Start Time 13:46 Visit Stop Time 14:32 Visit Number 21 Number of TEMP RECRUITER Visits 2 PT-OP-B Current Condition Start: 09/05/23 08:39 Freq: Status: Active Protocol: Document 09/17/23 10:31 [facility] (Rec: 09/17/23 11:35 [facility] [id number]) Current Condition History of Current Condition Current Complaints R knee History of Current Condition pt repots chronic knee pain for about 3 years but got worse this spring. She lost about 15 lbs on Ozempic and is worried aobut her overall mm health. Feels like behind doesn't ahve enough padding and is worried aobut arms and legs not being too strong. It does not like rough ground and even on flat gorund it now bothers her. After about 2 miles on her walk, she started to have pain on a 4 mile walk . She typically does 1/4 mile about twice a day w/her dog. Somtimes it is weirdness like a hollowness feeling at top of knee and sometimes it can be sharp. Has been trying to do squats on her dog walk. History of R growth plate in femur stopped at14 d/t RLE being longer Prior Treatments and Tests mild arthritis noted on xray Treatment Goals Patient/Caregiver Goals inc mm strength and tone; be able to walk trails and longer walks like [employer]; PT-OP-C Subjective Start: 09/05/23 08:39 Freq: Status: Active Protocol: Document 01/15/24 16:10 AB (Rec: 01/15/24 16:23 AB [id number]) OP-PT Subjective Patient Comments Patient Comments Evelia reports pain right ankle gestures to lateral and TC area, occurs post getting out of chair after resting for a while a few days ago, and since then has had pain in these areas post sleeping. PT-OP-D Balance Start: 09/05/23 08:39 Freq: Status: Active Protocol: Document 09/17/23 10:31 [facility] (Rec: 09/17/23 11:35 [facility] [id number]) Balance Tests Single Limb Standing Single Limb- Right 20 sec Single Limb- Left 6 sec PT-OP-F Manual Assessment Start: 09/05/23 08:39 Freq: Status: Active Protocol: Document 09/17/23 10:31 [facility] (Rec: 09/17/23 11:35 [facility] [id number]) Manual Assessments Soft Tissue Assessment Soft Tissue Mobility Assessment tightness R quad; scar tissue B sup knee Joint Mobility Assessment Joint Mobility Assessment R>L femur in IR; B tibia good alignment and tracking; L knee tracks well towards 2nd toe; R knee tracks towards big toe; B calcaneal valgus PT-OP-G Mobility & Gait Start: 09/05/23 08:39 Freq: Status: Active Protocol: Document 09/17/23 10:31 [facility] (Rec: 09/17/23 11:35 [facility] [id number]) OP Gait Assessment Comments Gait Comments dec arm swing R>L; R foot toes out PT-OP-K Range of Motion Start: 09/05/23 08:39 Freq: Status: Active Protocol: Document 09/17/23 10:31 [facility] (Rec: 09/17/23 11:35 [facility] [id number]) Knee Goniometric Range of Motion Knee Right Flexion Active (degrees) 140 Extension Active (degrees) 0 Comments sore in knee w/ext Left Flexion Active (degrees) 145 Extension Active (degrees) 0 PT-OP-L Special Tests Start: 09/05/23 08:39 Freq: Status: Active Protocol: Document 09/17/23 10:31 [facility] (Rec: 09/17/23 11:35 [facility] [id number]) Special Tests Knee Special Tests Sheryl Test Comments neg R kevin test Test Results R RF & hip flexor tightness SLR Comments HS tightness felt-can get close to 90 deg R calf tightness noted on L about 75 deg Obers Test Results neg R King Chondromalacia Test Results positive R PT-OP-M Strength Start: 09/05/23 08:39 Freq: Status: Active Protocol: Document 01/01/24 13:51 [facility] (Rec: 01/01/24 14:43 [facility] [id number]) Hip Strength Hip Manual Muscle Testing Right Flexion (L2) 4 Good Extension (S1) 4+ Good+ Abduction 4+ Good+ Adduction 4 Good External Rotation 4 Good Internal Rotation 5 Normal Left Flexion (L2) 4- Good- Extension (S1) 4+ Good+ Abduction 4+ Good+ Adduction 4 Good External Rotation 4 Good Internal Rotation 5 Normal Knee Strength Knee Manual Muscle Testing Right Flexion (S2) 5 Normal Extension (L3) 5 Normal Left Flexion (S2) 5 Normal Extension (L3) 5 Normal PT-OP-Q Treatments Start: 09/05/23 08:39 Freq: Status: Active Protocol: Document 01/15/24 16:10 AB (Rec: 01/15/24 16:23 AB [id number]) Therapeutic Exercises Sitting Exercises AROM DF Side bilateral Reps/Minutes X20 Comments verbal cues seated hip abduction with band Side bilateral Resistance level 4 band Reps/Minutes X1 one minute for activation Comments verbal cues Standing Exercises calf stretches at wall Standing Exercise Name soleus and gastroc Side bilateral Reps/Minutes X2 each 30 seconds Comments monitored for location of sensation of stretch calf stretch on step Side bilateral Equipment Used 30 sec knees straight 30 sec bent Comments reports sensation TC during soleus stretch not calf squats Standing Exercise Name chair taps Side bilateral Equipment Used L4 band &2 four lb# wt in hands Reps/Minutes 2x10 Comments monitored for pain Therapeutic Activity Therapeutic Activity descending 4 six inch steps Name one rail Reps/Minutes X2 Comments Verbal and visual cues for descending with a less quad dominant pattern Manual Therapy Treatment Soft Tissue Mobilization right calf muscles Mobilization Type Cross-Friction,Rolling Intensity/Depth Moderate Body Position Prone Comments monitored for pain Joint Mobilizations Mulligan with movement TC mobilizations Joint right TC Direction AP Grade III Body Position Standing Reps/Duration X10 X 3 Comments Verbal cues, monitored for pain PT-OP-R Modalities Start: 09/05/23 08:39 Freq: Status: Active Protocol: Document 10/16/23 08:17 [facility] (Rec: 10/16/23 09:59 [facility] [id number]) Hot Pack/Cold Pack Treatment Cold Pack Location R knee Patient Position Hooklying Treatment Duration (minutes) 10 PT-OP-T Assessment and Plan Start: 09/05/23 08:39 Freq: Status: Active Protocol: Document 01/15/24 16:10 AB (Rec: 01/15/24 16:23 AB [id number]) Physical Therapy Assessment Goals stairs Snf Goal (LTG) pt iwll be able to descend stairs w/o inc pain 01/10/24: Pt able to descend stairs without increased pain when mindful of LE alignment with each step. LTG Duration 03/05 - progressing 01/10/24 walking Short Term Goal (STG) Pt will be able to start walking 1 mile at least 2 times a week without inc knee pain 10/04: pt reports increased R knee pain with incline. 10/23-weather limiting this week but recently mostly 2 walks at least 1 mile STG Duration achieved [place] Goal (LTG) Pt will be able to return to walking longer walks up to 4 miles w/o inc knee pain greater than 2/10. 11/13-has gotten up to 2 miles 12/31-2 miles -knee been fine- slowly working up LTG Duration 03/05 unstable Snf Goal (LTG) Pt will be able to amb on unstable surfaces without inc pain allowing her ro return to hiking. 10/23-has not tried 11/13-in the yard had inc pain; had pain w/walk on trail right after pavement walk LTG Duration achieved 12/31 strength Short Term Goal (STG) Pt will be indep w/HEP STG Duration achieved advance as able [place] Goal (LTG) Pt will score at least 4+/5 on all LE strength w/ability to maintain good alignment in trunk to show improved LE and trunk strength in order to allow pt participate in active lifestyle. 10/23-improving 11/13-improving 12/31-improved LTG Duration 03/05 Assessment Summary Assessment Evelia descends 6 inch steps with one rail with a less quad dominant pattern, decreased heel off step early post manual therapy and training. Physical Therapy Plan Frequency and Duration Frequency of Treatment 1x/Week Duration of treatment (weeks) 8 Plan of Care Start Date 01/01/24 Plan of Care End Date 03/05/24 Next Visit Focus/Plan Next Note Type Treatment Note Next Visit Plan cont to work hip abd engagment and knee tracking navjot stair Assess location of sensation of stretch for soleus stretch on step
--- NOTE | 2024-01-23 15:41 | PT.OTN ---
Current Diagnoses Osteoarthritis of knee, unspecified (01/23/24) Difficulty in walking, not elsewhere classified (01/23/24) Weakness (01/23/24) History of falling (01/23/24) Physical Therapy Treatment Note PT-OP-A Visit Information Start: 09/05/23 08:39 Freq: Status: Active Protocol: Document 01/23/24 14:36 [facility] (Rec: 01/23/24 15:40 [facility] [id number]) Out-Patient Physical Therapy Visit Information Visit Information Visit Type Treatment Note Visit Note 01/14 Visit Start Time 14:36 Visit Stop Time 15:15 Visit Number 22 Number of HOME CARE AIDE Visits 0 PT-OP-B Current Condition Start: 09/05/23 08:39 Freq: Status: Active Protocol: Document 09/17/23 10:31 [facility] (Rec: 09/17/23 11:35 [facility] [id number]) Current Condition History of Current Condition Current Complaints R knee History of Current Condition pt repots chronic knee pain for about 3 years but got worse this spring. She lost about 15 lbs on Ozempic and is worried aobut her overall mm health. Feels like behind doesn't ahve enough padding and is worried aobut arms and legs not being too strong. It does not like rough ground and even on flat gorund it now bothers her. After about 2 miles on her walk, she started to have pain on a 4 mile walk . She typically does 1/4 mile about twice a day w/her dog. Somtimes it is weirdness like a hollowness feeling at top of knee and sometimes it can be sharp. Has been trying to do squats on her dog walk. History of R growth plate in femur stopped at14 d/t RLE being longer Prior Treatments and Tests mild arthritis noted on xray Treatment Goals Patient/Caregiver Goals inc mm strength and tone; be able to walk trails and longer walks like [employer]; PT-OP-C Subjective Start: 09/05/23 08:39 Freq: Status: Active Protocol: Document 01/23/24 14:36 [facility] (Rec: 01/23/24 15:40 [facility] [id number]) OP-PT Subjective Patient Comments Patient Comments pt was doing yard work and it hurt until got off her feet. stairs have been generally fine. sore going up this week a little. PT-OP-D Balance Start: 09/05/23 08:39 Freq: Status: Active Protocol: Document 09/17/23 10:31 [facility]17[facility]23 [id number] Balance Tests Single Limb Standing Single Limb- Right 20 sec Single Limb- Left 6 sec PT-OP-F Manual Assessment Start: 09/05/23 08:39 Freq: Status: Active Protocol: Document 09/17/23 10:31 [facility] (Rec: 09/17/23 11:35 [id number] Manual Assessments Soft Tissue Assessment Soft Tissue Mobility Assessment tightness R quad; scar tissue B sup knee Joint Mobility Assessment Joint Mobility Assessment R>L femur in IR; B tibia good alignment and tracking; L knee tracks well towards 2nd toe; R knee tracks towards big toe; B calcaneal valgus PT-OP-G Mobility & Gait Start: 09/05/23 08:39 Freq: Status: Active Protocol: Document 09/17/23 10:31 [facility] (Rec: 09/17/23 11:35 [id number] OP Gait Assessment Comments Gait Comments dec arm swing R>L; R foot toes out PT-OP-K Range of Motion Start: 09/05/23 08:39 Freq: Status: Active Protocol: Document 09/17/23 10:31 [facility] (Rec: 09/17/23 11:35 [facility] [id number]) Knee Goniometric Range of Motion Knee Right Flexion Active (degrees) 140 Extension Active (degrees) 0 Comments sore in knee w/ext Left Flexion Active (degrees) 145 Extension Active (degrees) 0 PT-OP-L Special Tests Start: 09/05/23 08:39 Freq: Status: Active Protocol: Document 09/17/23 10:31 [facility] (Rec: 09/17/23 11:35 [facility] [id number]) Special Tests Knee Special Tests Sheryl Test Comments neg R kevin test Test Results R RF & hip flexor tightness SLR Comments HS tightness felt-can get close to 90 deg R calf tightness noted on L about 75 deg Obers Test Results neg R King Chondromalacia Test Results positive R PT-OP-M Strength Start: 09/05/23 08:39 Freq: Status: Active Protocol: Document 01/01/24 13:51 [facility] (Rec: 01/01/24 14:43 [facility] [id number]) Hip Strength Hip Manual Muscle Testing Right Flexion (L2) 4 Good Extension (S1) 4+ Good+ Abduction 4+ Good+ Adduction 4 Good External Rotation 4 Good Internal Rotation 5 Normal Left Flexion (L2) 4- Good- Extension (S1) 4+ Good+ Abduction 4+ Good+ Adduction 4 Good External Rotation 4 Good Internal Rotation 5 Normal Knee Strength Knee Manual Muscle Testing Right Flexion (S2) 5 Normal Extension (L3) 5 Normal Left Flexion (S2) 5 Normal Extension (L3) 5 Normal PT-OP-Q Treatments Start: 09/05/23 08:39 Freq: Status: Active Protocol: Document 01/23/24 14:36 [facility] (Rec: 01/23/24 15:40 [facility] [id number]) Therapeutic Exercises Standing Exercises DF Standing Exercise Name back at wall Side bilateral Reps/Minutes 20 calf stretches at wall Standing Exercise Name soleus Side bilateral Reps/Minutes 30 sec Comments monitored for location of sensation of stretch calf stretch on step Standing Exercise Name gastroc Side bilateral Reps/Minutes 1 min squats Standing Exercise Name chair taps Side bilateral Equipment Used L4 band thend ec to L3 w/1 5lb wt in hands Reps/Minutes 8 of each Comments monitored for pain Manual Therapy Treatment Soft Tissue Mobilization right calf muscles Mobilization Type Cross-Friction,Rolling Intensity/Depth Moderate Body Position Hooklying Comments w/knee flex Joint Mobilizations tibfib Comments PA proximal FM tibfem Comments PA FM PT-OP-R Modalities Start: 09/05/23 08:39 Freq: Status: Active Protocol: Document 10/16/23 08:17 [facility] (Rec: 10/16/23 09:59 [facility] [id number]) Hot Pack/Cold Pack Treatment Cold Pack Location R knee Patient Position Hooklying Treatment Duration (minutes) 10 PT-OP-T Assessment and Plan Start: 09/05/23 08:39 Freq: Status: Active Protocol: Document 01/23/24 14:36 [facility] (Rec: 01/23/24 15:40 [facility] [id number]) Physical Therapy Assessment Goals stairs Custodial Goal (LTG) pt iwll be able to descend stairs w/o inc pain 01/10/24: Pt able to descend stairs without increased pain when mindful of LE alignment with each step. LTG Duration 03/05 - progressing 01/10/24 walking Short Term Goal (STG) Pt will be able to start walking 1 mile at least 2 times a week without inc knee pain 10/04: pt reports increased R knee pain with incline. 10/23-weather limiting this week but recently mostly 2 walks at least 1 mile STG Duration achieved Custodial Goal (LTG) Pt will be able to return to walking longer walks up to 4 miles w/o inc knee pain greater than 2/10. 11/13-has gotten up to 2 miles 12/31-2 miles -knee been fine- slowly working up LTG Duration 03/05 unstable Custodial Goal (LTG) Pt will be able to amb on unstable surfaces without inc pain allowing her ro return to hiking. 10/23-has not tried 11/13-in the yard had inc pain; had pain w/walk on trail right after pavement walk LTG Duration achieved 12/31 strength Short Term Goal (STG) Pt will be indep w/HEP STG Duration achieved advance as able Custodial Goal (LTG) Pt will score at least 4+/5 on all LE strength w/ability to maintain good alignment in trunk to show improved LE and trunk strength in order to allow pt participate in active lifestyle. 10/23-improving 11/13-improving 12/31-improved LTG Duration 03/05 Assessment Summary Assessment pt had full knee flex w/heel to butt by end vs 2 in to butt prior but still some discomfort at end range. improved performance w/cues Physical Therapy Plan Frequency and Duration Frequency of Treatment 1x/Week Duration of treatment (weeks) 8 Plan of Care Start Date 01/01/24 Plan of Care End Date 03/05/24 Next Visit Focus/Plan Next Note Type Discharge Summary Next Visit Plan review exercsies prn
--- NOTE | 2024-02-04 13:51 | PT.OTN ---
Current Diagnoses Osteoarthritis of knee, unspecified (02/04/24) Difficulty in walking, not elsewhere classified (02/04/24) Weakness (02/04/24) History of falling (02/04/24) Physical Therapy Treatment Note PT-OP-A Visit Information Start: 09/05/23 08:39 Freq: Status: Active Protocol: Document 02/04/24 13:02 [facility] (Rec: 02/04/24 13:50 [facility] [id number]) Out-Patient Physical Therapy Visit Information Visit Information Visit Type Discharge Summary Visit Start Time 13:03 Visit Stop Time 13:43 Visit Number 23 Number of DEPARTMENT CLINICIAN Visits 0 PT-OP-B Current Condition Start: 09/05/23 08:39 Freq: Status: Active Protocol: Document 09/17/23 10:31 [facility] (Rec: 09/17/23 11:35 [facility] [id number]) Current Condition History of Current Condition Current Complaints R knee History of Current Condition pt repots chronic knee pain for about 3 years but got worse this spring. She lost about 15 lbs on Ozempic and is worried aobut her overall mm health. Feels like behind doesn't ahve enough padding and is worried aobut arms and legs not being too strong. It does not like rough ground and even on flat gorund it now bothers her. After about 2 miles on her walk, she started to have pain on a 4 mile walk . She typically does 1/4 mile about twice a day w/her dog. Somtimes it is weirdness like a hollowness feeling at top of knee and sometimes it can be sharp. Has been trying to do squats on her dog walk. History of R growth plate in femur stopped at14 d/t RLE being longer Prior Treatments and Tests mild arthritis noted on xray Treatment Goals Patient/Caregiver Goals inc mm strength and tone; be able to walk trails and longer walks like [employer]; PT-OP-C Subjective Start: 09/05/23 08:39 Freq: Status: Active Protocol: Document 02/04/24 13:02 [facility] (Rec: 02/04/24 13:50 [facility] [id number]) OP-PT Subjective Patient Comments Patient Comments Pt reports she twisted her L foot in a hole and it was harder to do her exercises. went down stairs and forgot soemthing and had to go up and back down fast and knee hurt at end of stairs as turned PT-OP-D Balance Start: 09/05/23 08:39 Freq: Status: Active Protocol: Document 09/17/23 10:31 [facility] (Rec: 09/17/23 11:35 [id number] Balance Tests Single Limb Standing Single Limb- Right 20 sec Single Limb- Left 6 sec PT-OP-F Manual Assessment Start: 09/05/23 08:39 Freq: Status: Active Protocol: Document 09/17/23 10:31 [facility] (Rec: 09/17/23 11:35 [id number] Manual Assessments Soft Tissue Assessment Soft Tissue Mobility Assessment tightness R quad; scar tissue B sup knee Joint Mobility Assessment Joint Mobility Assessment R>L femur in IR; B tibia good alignment and tracking; L knee tracks well towards 2nd toe; R knee tracks towards big toe; B calcaneal valgus PT-OP-G Mobility & Gait Start: 09/05/23 08:39 Freq: Status: Active Protocol: Document 09/17/23 10:31 [facility] (Rec: 09/17/23 11:35 [id number] OP Gait Assessment Comments Gait Comments dec arm swing R>L; R foot toes out PT-OP-K Range of Motion Start: 09/05/23 08:39 Freq: Status: Active Protocol: Document 09/17/23 10:31 [facility] (Rec: 09/17/23 11:35 [facility] [id number]) Knee Goniometric Range of Motion Knee Right Flexion Active (degrees) 140 Extension Active (degrees) 0 Comments sore in knee w/ext Left Flexion Active (degrees) 145 Extension Active (degrees) 0 PT-OP-L Special Tests Start: 09/05/23 08:39 Freq: Status: Active Protocol: Document 09/17/23 10:31 [facility] (Rec: 09/17/23 11:35 [facility] [id number]) Special Tests Knee Special Tests Sheryl Test Comments neg R kevin test Test Results R RF & hip flexor tightness SLR Comments HS tightness felt-can get close to 90 deg R calf tightness noted on L about 75 deg Obers Test Results neg R King Chondromalacia Test Results positive R PT-OP-M Strength Start: 11/30/23 08:39 Freq: Status: Active Protocol: Document 02/04/24 13:02 [facility] (Rec: 02/04/24 13:50 [facility] [id number]) Hip Strength Hip Manual Muscle Testing Right Flexion (L2) 4 Good Extension (S1) 5 Normal Abduction 5 Normal Adduction 4+ Good+ External Rotation 5 Normal Internal Rotation 5 Normal Left Flexion (L2) 4 Good Extension (S1) 5 Normal Abduction 4+ Good+ Adduction 4+ Good+ External Rotation 4+ Good+ Internal Rotation 5 Normal Knee Strength Knee Manual Muscle Testing Right Flexion (S2) 5 Normal Extension (L3) 5 Normal Left Flexion (S2) 5 Normal Extension (L3) 5 Normal Ankle/Foot Strength Ankle and Foot Manual Muscle Testing Right Dorsiflexion (L4) 5 Normal Plantarflexion (S1) 5 Normal Comments 20 heel raises B Left Dorsiflexion (L4) 5 Normal Plantarflexion (S1) 5 Normal PT-OP-Q Treatments Start: 09/05/23 08:39 Freq: Status: Active Protocol: Document 02/04/24 13:02 [facility] (Rec: 02/04/24 13:50 [facility] [id number]) Therapeutic Exercises Supine Exercises isometric Supine Exercise Name DL Side bilateral Reps/Minutes 30 sec Sidelying Exercises clamshell Side bilateral Equipment Used L3 Reps/Minutes 10 ea Comments cues no roll and slow and controlled Standing Exercises step down Side bilateral Equipment Used 6 in step Reps/Minutes 15 Comments cues slow control calf stretches at wall Standing Exercise Name soleus Side bilateral Reps/Minutes 30 sec Comments monitored for location of sensation of stretch star Standing Exercise Name 5 pt tap Side bilateral Equipment Used hand on rail prn Reps/Minutes 10 ea arch lift Standing Exercise Name R>L Reps/Minutes 1 min total Comments tactile cue big toe down hip hike Side bilateral Equipment Used 6 step and rail Reps/Minutes 10 squats Standing Exercise Name chair taps Side bilateral Equipment Used L4 w/7 lb wt Reps/Minutes 10 Comments monitored for pain Other Exercises isometrics Other Exercise Name LE MMT Side bilateral Manual Therapy Treatment Joint Mobilizations sacrum Comments R UPA FM coccyx Comments L caudal & L UPA and transverse R FM-improved R hip rotation Self-Care/Home Management Treatment Education Other Education 8 min: edu on cont HEP and importance of strengthening for osteoporosis and maintaining mobility and stability. verbal review of stretches PT-OP-R Modalities Start: 09/05/23 08:39 Freq: Status: Active Protocol: Document 10/16/23 08:17 [facility] (Rec: 10/16/23 09:59 [facility] [id number]) Hot Pack/Cold Pack Treatment Cold Pack Location R knee Patient Position Hooklying Treatment Duration (minutes) 10 PT-OP-T Assessment and Plan Start: 09/05/23 08:39 Freq: Status: Active Protocol: Document 02/04/24 13:02 [facility] (Rec: 02/04/24 13:50 [facility] [id number]) Physical Therapy Assessment Goals stairs Skilled Nursing Goal (LTG) pt iwll be able to descend stairs w/o inc pain 01/10/24: Pt able to descend stairs without increased pain when mindful of LE alignment with each step. LTG Duration most of the time does okay walking Short Term Goal (STG) Pt will be able to start walking 1 mile at least 2 times a week without inc knee pain 10/04: pt reports increased R knee pain with incline. 10/23-weather limiting this week but recently mostly 2 walks at least 1 mile STG Duration achieved Skilled Nursing Goal (LTG) Pt will be able to return to walking longer walks up to 4 miles w/o inc knee pain greater than 2/10. 11/13-has gotten up to 2 miles 12/31-2 miles -knee been fine- slowly working up LTG Duration 3 miles w/300ft of elevation gain on hike unstable Skilled Nursing Goal (LTG) Pt will be able to amb on unstable surfaces without inc pain allowing her ro return to hiking. 10/23-has not tried 11/13-in the yard had inc pain; had pain w/walk on trail right after pavement walk LTG Duration achieved 12/31 strength Short Term Goal (STG) Pt will be indep w/HEP STG Duration achieved advance as able Skilled Nursing Goal (LTG) Pt will score at least 4+/5 on all LE strength w/ability to maintain good alignment in trunk to show improved LE and trunk strength in order to allow pt participate in active lifestyle. 10/23-improving 11/13-improving 12/31-improved LTG Duration met except hip flex Assessment Summary Assessment Pt asked about use of gym and quick demo given re: information on how to use and what machines ot use (hip abd/ add, leg press, HS curl). pt has much improvement in mobility and is doign more now w/only occ knee pain. DC pt at this time to hEP. Physical Therapy Plan Discharge Physical Therapy Discharge Reasons Goals Met
== END 2024-02-06 12:44 | disposition home or self-care (01) ==
LOC: PHYS 13:00
PROVIDERS: Family Provider Family Medicine; PCP Family Medicine; Referring Provider Physician Assistant; Visit Provider Physician Assistant
DX: M17.9 Osteoarthritis of knee, unspecified (principal); Z91.81 History of falling; R26.2 Difficulty in walking, not elsewhere classified; R53.1 Weakness
CPT/HCPCS: 97110; 97112; 97116; 97140; 97162; 97530; 97535

== ENCOUNTER → 2024-03-03 11:05 | Outpatient (CLI) | payer MEDICARE, OTHER, SELFPAY ==
--- NOTE | 2024-03-03 11:06 | DI.US.S_ITS ---
PROCEDURE: US THYROID INDICATIONS: hypothyroidism TECHNIQUE: Real-time scanning was performed of the thyroid gland, with image documentation. COMPARISON: [facility], [place], US THYROID, 06/27/2021, 14:42. [facility], [place], US THYROID, 03/01/2023, 10:15. FINDINGS: Thyroid: Right lobe measures 4.1 x 1.6 x 1.6 cm. Left lobe measures 4.8 x 1.7 x 1.7 cm. Isthmus is 0.3 cm thick. Echotexture is homogeneous. Nodule number: 1 Location: Right mid lateral Size: 1.2 x 1.1 x 1.1 cm compared to 1.3 x 0.9 x 1.1 cm. Composition: Solid Echogenicity: Hypoechoic Shape: wider than tall. Margins: Smooth Echogenic foci: None Total points: 4 ACR TI-RADS category: 4 Nodule number: 2 Location: Right mid Size: 1.0 x 0.9 x 0.8 cm compared to 0.7 x 0.9 x 1.0 cm. Composition: Solid Echogenicity: Hypoechoic Shape: wider than tall. Margins: Smooth Echogenic foci: None Total points: 4 ACR TI-RADS category: 4 Nodule number: 3 Location: Left mid Size: 2.5 x 1.1 x 1.2 cm compared to 3.7 x 1.9 x 1.9cm. Composition: Solid Echogenicity: Hypoechoic Shape: wider than tall. Margins: Smooth Echogenic foci: None Total points: 4 ACR TI-RADS category: 4 IMPRESSION: Stable category 4 lesions. Recommend continued annual follow-up until 5 years from initial visualization, on 06/27/2021. ACR TI-RADS definitions and recommendations: TI-RADS 1 (benign): 0 points. FNA not needed. TI-RADS 2 (not suspicious): 2 points. FNA not needed. TI-RADS 3 (mildly suspicious): 3 points. * FNA if 2.5 cm or larger, follow up if 1.5 cm or larger (at 1, 3, and 5 years). TI-RADS 4 (moderately suspicious): 4-6 points. * FNA if 1.5 cm or larger, follow up if 1 cm or larger (at 1, 2, 3, and 5 years). TI-RADS 5 (highly suspicious): 7 points or more. * FNA if 1 cm or larger, follow up if 0.5 cm or larger (every year for 5 years). Dictated by: Tiffanie Schafer M.D. on 03/03/2024 at 17:46 Approved by: Tiffanie Schafer M.D. on 03/03/2024 at 17:48
== END ==
PROVIDERS: Family Provider Family Medicine; PCP Family Medicine; Referring Provider Family Medicine; Visit Provider Family Medicine
DX: E03.9 Hypothyroidism, unspecified (principal); R14.0 Abdominal distension (gaseous); E04.2 Nontoxic multinodular goiter
CPT/HCPCS: 76536

== ENCOUNTER → 2024-09-08 15:19 | Outpatient (CLI) | payer MEDICARE, OTHER, SELFPAY ==
--- NOTE | 2024-09-08 15:19 | DI.MG.S_ITS ---
BILATERAL DIGITAL SCREENING MAMMOGRAM 3D/2D WITH CAD: 09/08/2024 CLINICAL: Routine screening. Family history breast cancer. Comparison is made to exams dated: 09/02/2023 mammogram, 06/22/2022 mammogram, and 06/13/2021 mammogram - [facility]. There are scattered areas of fibroglandular density (category b / 25%-50% glandular tissue). Current study was also evaluated with a Computer Aided Detection (CAD) system. No significant masses, calcifications, or other findings are seen in either breast. There has been no significant interval change. IMPRESSION: NEGATIVE There is no mammographic evidence of malignancy. A 1 year screening mammogram is recommended. Based on the Tyrer Cuzick model (a risk assessment model) the patient's lifetime risk is 7.5% and her 10 year risk is 3.7%. According to the ACR, ACS, and NCCN guidelines, an annual breast MRI exam along with mammogram is recommended if the patient's lifetime risk is 20% or greater. This exam was interpreted at Station ID: [id number]. NOTE: For mammograms, a report in lay terms will be sent to the patient. Approximately 15% of breast malignancies will not be visualized mammographically. In the management of a palpable breast mass, a negative mammogram must not discourage biopsy of a clinically suspicious lesion. Electronically Signed By: Kayla kenney/luis:09/09/2024 08:40:35 letter sent: Normal Exam ACR BI-RADS Category 1: Negative
== END ==
PROVIDERS: Family Provider Family Medicine; PCP Family Medicine; Referring Provider Family Medicine; Visit Provider Family Medicine
DX: Z12.31 Encounter for screening mammogram for malignant neoplasm of breast (principal); Z80.3 Family history of malignant neoplasm of breast
CPT/HCPCS: 77063; 77067

== ENCOUNTER → 2024-10-02 14:43 | Outpatient (CLI) | payer MEDICARE, OTHER, SELFPAY ==
[2024-10-02 15:11] LABS: Hemoglobin A1C% w Est Avg Glu 5.5 % (4.0-6.0)
== END ==
PROVIDERS: Family Provider Family Medicine; PCP Family Medicine; Referring Provider Family Medicine; Visit Provider Family Medicine
DX: E11.9 Type 2 diabetes mellitus without complications (principal)
CPT/HCPCS: 83036

== ENCOUNTER → 2024-10-16 13:01 | Outpatient (CLI) | payer MEDICARE, OTHER, SELFPAY | PROVIDERS: Family Provider Family Medicine; PCP Family Medicine; Visit Provider Physician Assistant | DX: R30.0 Dysuria (principal) | CPT/HCPCS: 87086 ==

== ENCOUNTER → 2024-10-24 15:22 | Outpatient (CLI) | payer MEDICARE, OTHER, SELFPAY | PROVIDERS: Family Provider Family Medicine; PCP Family Medicine; Referring Provider Physician Assistant; Visit Provider Physician Assistant | DX: N94.9 Unspecified condition associated with female genital organs and menstrual cycle (principal); R30.0 Dysuria | CPT/HCPCS: 87086; 87210 ==

== ENCOUNTER → 2024-12-17 09:31 | Outpatient (CLI) | payer MEDICARE, OTHER, SELFPAY ==
[2024-12-17 15:03] LABS: Rubella Antibody IgG 50.1 IU/mL (>15)
[2024-12-18 09:38] LABS: Rubeola Measles IgG > 300.0 AU/mL (Immune >16.4)
[2024-12-18 12:36] LABS: Mumps Virus IgG Antibody 33.9 AU/mL (Immune >10.9)
== END ==
PROVIDERS: Family Provider Family Medicine; PCP Family Medicine; Referring Provider Family Medicine; Visit Provider Family Medicine
DX: Z01.84 Encounter for antibody response examination (principal)
CPT/HCPCS: 36415; 86735; 86762; 86765

== ENCOUNTER → 2025-01-03 15:03 | Outpatient (CLI) | payer MEDICARE, OTHER, SELFPAY ==
--- NOTE | 2025-01-03 15:06 | DI.RAD.S_ITS ---
PROCEDURE: XR FOOT LT MIN 3V INDICATIONS: Left foot pain TECHNIQUE: 3 views of the foot were acquired. COMPARISON: None. FINDINGS: Bones: No fractures or dislocations. No suspicious bony lesions. Plantar and dorsal calcaneal enthesophytes. Midfoot osteoarthritis and interphalangeal osteoarthritis. Soft tissues: No tibiotalar joint effusion. Achilles tendon appears normal. IMPRESSION: No acute bony abnormality. Dictated by: Casper Hunt M.D. on 01/03/2025 at 15:45 Approved by: Casper Hunt M.D. on 01/03/2025 at 15:45
== END ==
LOC: RAD 15:05
PROVIDERS: Family Provider Family Medicine; PCP Family Medicine; Referring Provider Registered Nurse; Visit Provider Registered Nurse
DX: M19.072 Primary osteoarthritis, left ankle and foot (principal); M79.672 Pain in left foot
CPT/HCPCS: 73630

== ENCOUNTER → 2025-02-23 11:47 | Outpatient (CLI) | payer MEDICARE, OTHER, SELFPAY ==
--- NOTE | 2025-02-23 11:48 | DI.US.S_ITS ---
PROCEDURE: US THYROID INDICATIONS: F/U NODULES TECHNIQUE: Real-time scanning was performed of the thyroid gland, with image documentation. COMPARISON: [facility], US, US THYROID, 03/03/2024, 11:34. FINDINGS: Thyroid: Right lobe measures 3.9 x 1.5 x 1.2 cm. Left lobe measures 4 x 1.9 cm. Isthmus is 0.1 cm thick. Echotexture is homogeneous. Nodule number: 1 Location: Right mid/lateral Size: 1.4 x 1.0 x 1.1 cm, previously 1.2 x 1.1 x 1.1 cm. Composition: Solid Echogenicity: Isoechoic Shape: wider than tall. Margins: Smooth Echogenic foci: Macrocalcifications Total points: 4 ACR TI-RADS category: Moderately suspicious Nodule number: 2 Location: Right mid Size: 1.2 x 0.8 x 1.1 cm, previously 1.0 x 0.9 x 0.8 cm. Composition: Solid Echogenicity: Isoechoic Shape: wider than tall. Margins: Smooth Echogenic foci: Macro calcifications Total points: 4 ACR TI-RADS category: Moderately suspicious Nodule number: 3 Location: Left mid Size: 2.3 x 1.2 x 1.1 cm, previously 2.5 x 1.1 x 1.2 cm cm. Composition: Solid Echogenicity: Isoechoic Shape: wider than tall. Margins: Ill-defined Echogenic foci: None Total points: 3 ACR TI-RADS category: Mildly suspicious IMPRESSION: Thyroid nodules as described above. Recommend 1 year follow-up ultrasound. ACR TI-RADS definitions and recommendations: TI-RADS 1 (benign): 0 points. FNA not needed. TI-RADS 2 (not suspicious): 2 points. FNA not needed. TI-RADS 3: 3 points. * FNA if 2.5 cm or larger, follow up if 1.5 cm or larger (at 1, 3, and 5 years). TI-RADS 4: 4-6 points. * FNA if 1.5 cm or larger, follow up if 1 cm or larger (at 1, 2, 3, and 5 years). TI-RADS 5: 7 points or more. * FNA if 1 cm or larger, follow up if 0.5 cm or larger (every year for 5 years). Dictated by: Beni Puga M.D. on 02/23/2025 at 13:55 Approved by: Beni Puga M.D. on 02/23/2025 at 14:10
== END ==
LOC: US 11:47
PROVIDERS: Family Provider Family Medicine; PCP Family Medicine; Referring Provider Family Medicine; Visit Provider Family Medicine
DX: E04.1 Nontoxic single thyroid nodule (principal); E03.9 Hypothyroidism, unspecified
CPT/HCPCS: 76536

== ENCOUNTER → 2025-03-18 10:58 | Outpatient (CLI) | payer MEDICARE, OTHER, SELFPAY ==
[2025-03-18 12:35] LABS: Add Manual Diff / Slide Review NO; Basophils Absolute Auto 0 /uL (0-100); Basophils Percent Auto 0.4 % (0-2); Eosinophils Absolute Auto 400 /uL (0-450); Eosinophils Percent Auto 5.5 % (2-4); Hematocrit 38.4 % (36-46); Lymphocytes Absolute Auto 1400 /uL (1100-4500); Lymphocytes Percent Auto 16.8 % (25-40); Mean Corpuscular HGB Conc 33.8 % (30-36); Mean Corpuscular Hemoglobin 29.6 PG (26-34); Mean Corpuscular Volume 87.7 fL (80-100); Monocytes Absolute Auto 600 /uL (0-900); Monocytes Percent Auto 7.3 % (3-14); Neutrophils Absolute Auto 5700 /uL (1500-7000); Platelet Count 295 X10^3/uL (150-400); Red Blood Cell Count 4.38 X10^6/uL (4.0-5.2); Red Cell Distribution Width 14.6 % (11.6-14.8); White Blood Cell Count 8.2 X10^3/uL (4.5-11.0)
[2025-03-18 12:59] LABS: Alanine Aminotransferase 21 IU/L (<35); Albumin 4.2 g/dL (3.5-5.0); Albumin Globulin Ratio 1.6 (1.0-2.8); Alkaline Phosphatase 70 U/L (38-126); Aspartate Aminotransferase 30 IU/L (14-36); BUN Creatinine Ratio 41.3 (6-22); Bilirubin Total 0.4 mg/dL (0.2-1.3); Blood Urea Nitrogen 31 mg/dL (7-17); Calcium 10.1 mg/dL (8.4-10.2); Carbon Dioxide 26 mmol/L (22-32); Chloride 101 mmol/L (98-107); Cholesterol 150 mg/dL (140-199); Estimated Glomerular Filt Rate > 60 mL/min (>60); Globulin 2.7 g/dL (1.7-4.1); Glucose 110 mg/dL (70-99); HDL Cholesterol 92 mg/dL (40-60); HEMOLYSIS < 15 (0-50); LDL Cholesterol Calculated 43 mg/dL (<100); Sodium 136 mmol/L (137-145); Total Protein 6.9 g/dL (6.3-8.2); Triglycerides 73 mg/dL (35-150)
[2025-03-18 13:07] LABS: Hemoglobin A1C% w Est Avg Glu 5.8 % (4.0-6.0)
[2025-03-18 13:28] LABS: TSH w/ Reflex to FT4 < 0.02 uIU/mL (0.47-4.68)
[2025-03-18 14:03] LABS: Free T4, Direct Thyroxine 1.93 ng/dL (0.78-2.19)
[2025-03-18 14:24] LABS: Microalbumin Urine Random < 0.6 mg/dL (0-1.6)
== END ==
PROVIDERS: Family Provider Family Medicine; PCP Family Medicine; Referring Provider Family Medicine; Visit Provider Family Medicine
DX: E78.5 Hyperlipidemia, unspecified (principal); E11.9 Type 2 diabetes mellitus without complications; E03.9 Hypothyroidism, unspecified; Z86.16 Personal history of COVID-19
CPT/HCPCS: 36415; 80053; 80061; 82043; 82570; 83036; 84439; 84443; 85025

== ENCOUNTER 2025-05-06 09:08 | Day surgery (SDC) | payer MEDICARE, OTHER, SELFPAY ==
--- NOTE | 2025-05-06 | PATH_ITS ---
[facility] Accession Number: [id number] No. of containers..01 Tissue . 01 Material submitted: . colon - COLON, DESCENDING POLYP . 01 Diagnosis: DESCENDING COLON POLYP, BIOPSY: Tubular adenoma. MRV 05/13/2025 1430 Local . 01 Electronically signed: . Thierno Joya MD, Dermatopathologist NPI- [id number] . 01 Gross description: . COLON, DESCENDING POLYP: Received in formalin is 1 fragment(s) of post, soft tissue measuring 0.6 x 0.6 x 0.3 cm submitted entirely in 1 cassette(s) /DESEAN 05/11/2025 2354 Local . 01 Pathologist provided ICD-10: D12.4 . 01 CPT . 136842 Specimen Comment: A courtesy copy of this report has been sent to [phone] Performed at: [address] [address], [place], [place] [id number] MD Bakari Harper MD Phone: [phone]
[2025-05-06 09:51] VITALS: BP 125/81; PULSE 74; RESP 16; TEMP 36.8; O2SAT 100
[2025-05-06] MEDS: LACTATED RINGERS 1,000 ML 100 ML IV (10:01)
--- NOTE | 2025-05-06 10:09 | PM.HP.IH.1 ---
History of Present Illness History of Present Illness Date Patient Seen: 05/06/25 Time Patient Seen: 10:09 Chief complaint: Colonoscopy Narrative: Evelia is a 69-year-old woman who presents for a colonoscopy. Her last colonoscopy was in 2021 and a tubular adenoma was removed. Her father had colon cancer in his 80s. [facility] Medical History MGUS (monoclonal gammopathy of unknown significance) Thoracic region somatic dysfunction Cervical somatic dysfunction Cranial somatic dysfunction TMJ dysfunction History of COVID-19 Initial Medicare annual wellness visit Neuroforaminal stenosis of cervical spine Tinnitus Cervical disc disease Hyperlipidemia Strain of neck muscle Neck pain Type 2 diabetes mellitus Hypothyroidism Surgical History H/O rotator cuff surgery Family History Unknown Diabetes mellitus Social History household members: spouse Smoking Status: Never smoker alcohol intake: current substance use type: does not use Meds Home Medications and Allergies Home Medications ?Medication ?Instructions ?Recorded ?Confirmed ?Type aspirin 81 mg chewable tablet 81 mg PO DAILY 01/23/22 05/06/25 History blood sugar diagnostic #300 ea 07/16/22 04/15/25 Rx ondansetron 4 mg disintegrating 4 mg PO Q8H PRN nausea and 01/24/24 05/06/25 Rx tablet vomiting #30 tabs empagliflozin 25 mg tablet 25 mg PO DAILY 03/22/25 05/06/25 History (Jardiance) sodium,potassium,mag sulfates 17.5 See Rx Instructions PO .COMPLEX 03/30/25 05/06/25 Rx gram-3.13 gram-1.6 gram oral soln #354 mL (Suprep Bowel Prep Kit) atorvastatin 40 mg tablet 40 mg PO BEDTIME #90 tabs 04/03/25 05/06/25 Rx metformin 500 mg tablet,extended 500 mg PO BID #180 tabs 04/03/25 05/06/25 Rx release 24 hr semaglutide 0.25 mg or 0.5 mg (2 0.5 mg (0.736 mL) SUBCUT QWEEK #3 04/13/25 05/06/25 Rx mg/3 mL) subcutaneous pen injector mL (Ozempic) levothyroxine 100 mcg tablet 100 mcg PO DAILY #90 tabs 04/26/25 05/06/25 Rx spironolactone 50 mg tablet 50 mg PO DAILY #90 tabs 04/26/25 05/06/25 Rx cyanocobalamin-liver extract tablet tab PO 05/06/25 History folic acid 400 mcg tablet 400 mcg PO BID 05/06/25 05/06/25 History Allergies Allergy/AdvReac Type Severity Reaction Status Date / Time Sulfa (Sulfonamide Allergy Intermediate Rash Verified 05/06/25 09:46 Antibiotics) Exam Vital Signs (past 8 hours): - 05/06/25 09:51 Temperature 98.3 F Pulse Rate 74 Respiratory Rate 16 Blood Pressure 125/81 Pulse Oximetry 100 Oxygen Delivery Method Room Air Oxygen Delivery Method Room Air Const General: healthy appearing Objective Labs Labs: Laboratory Results - last 24 hr 05/06/25 09:56 POC Whole Bld Glucose 87 Assessment & Plan Assessment and plan (1) Personal history of colonic polyps: Status: Acute Plan Colonoscopy Time-Based Coding :: [TOTAL MINUTES] spent with patient and on the chart (including review of chart, obtaining history, exam, reviewing outside data, placing orders, documenting exam and treatment plan, and counseling patient) on [DATE]. PROFEE Fire Prevention Specialist Document charge(s): No
--- NOTE | 2025-05-06 11:09 | P.OP.COLON_ITS ---
Operative Date/Time/Diagnoses Date of procedure: 05/06/25 Time of procedure: 11:09 Pre-op diagnosis: History of adenomatous polyps Post-op diagnosis: same Procedure & Clinicians Study performed: Colonoscopy Same procedure(s) as scheduled: Yes Surgeon: John Sorto Anesthesia Type: MAC +/- Procedure Notes Procedure in detail: Surgeon: John Sorto MD Anesthesia: Mala Malcolm CRNA Procedure: The patient was brought to the endoscopy suite, placed in left la teral decubitus position. The patient was connected to monitoring devices. A time-out was performed. Sedation was administered. Once the patient was adequately sedated, a digital rectal exam was performed and was normal. The scope was then inserted and advanced to the cecum where the appendiceal orifice was identified and photographed. The scope was then slowly withdrawn over greater than 6 minutes. The mucosa was thoroughly inspected. There was a 5 mm polyp in the descending colon removed with a cold snare. The scope was retroflexed in the rectum. No other abnormalities were found. The scope was straightened and removed. The patient was awakened and brought to recovery. Scope withdrawal time: 10 minutes Sedation time: 16 minutes EBL: 2 mL Findings: 5 mm polyp in the descending colon Post-procedure Disposition: PACU
[2025-05-06 11:11] VITALS: BP 83/60; PULSE 69; RESP 16; TEMP 36.2; O2SAT 98
[2025-05-06 11:21] VITALS: BP 101/58; PULSE 69; RESP 16; TEMP 36.2; O2SAT 98
[2025-05-06 11:25] VITALS: BP 101/58; PULSE 72; RESP 16; TEMP 36.2; O2SAT 98
[2025-05-06 11:31] VITALS: BP 104/68; PULSE 66; RESP 16; TEMP 36.2; O2SAT 98
== END 2025-05-06 11:50 | disposition home or self-care (01) ==
PROVIDERS: Family Provider Family Medicine; PCP Family Medicine; Referring Provider Surgery; Visit Provider Surgery
PROC: 0DJD8ZZ Inspection of Lower Intestinal Tract, Via Natural or Artificial Opening Endoscopic (ICD-10-PCS; CPT 45378; principal; 2025-05-06 10:30)
DX: Z12.11 Encounter for screening for malignant neoplasm of colon (principal); Z80.0 Family history of malignant neoplasm of digestive organs; Z86.0101 Personal history of adenomatous and serrated colon polyps; D12.4 Benign neoplasm of descending colon
CPT/HCPCS: 45385; 82962; J2704

== ENCOUNTER → 2025-06-18 09:26 | Outpatient (CLI) | payer MEDICARE, OTHER, SELFPAY ==
[2025-06-18 10:57] LABS: Hemoglobin A1C% w Est Avg Glu 6.4 % (4.0-6.0)
== END ==
PROVIDERS: Family Provider Family Medicine; PCP Family Medicine; Referring Provider Family Medicine; Visit Provider Family Medicine
DX: E11.9 Type 2 diabetes mellitus without complications (principal); E04.1 Nontoxic single thyroid nodule
CPT/HCPCS: 36415; 83036

== ENCOUNTER → 2025-07-06 09:58 | Outpatient (CLI) | payer MEDICARE, OTHER, SELFPAY ==
--- NOTE | 2025-07-06 10:00 | DI.RAD.S_ITS ---
PROCEDURE: XR SHOULDER RT MIN 2V INDICATIONS: right shoulder pain TECHNIQUE: 3 views of the shoulder were acquired. COMPARISON: None. FINDINGS: Bones: No fractures or dislocations. No suspicious bony lesions. Visualized ribs appear intact. 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 Enthesopathic change in the greater tuberosity. Soft tissues: No suspicious soft tissue calcifications. IMPRESSION: No acute bony abnormality. 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 Dictated by: Andrea Colindres M.D. on 07/06/2025 at 12:55 Approved by: Andrea Colindres M.D. on 07/06/2025 at 12:58
== END ==
PROVIDERS: Family Provider Family Medicine; PCP Family Medicine; Referring Provider Family Medicine; Visit Provider Family Medicine
DX: M19.011 Primary osteoarthritis, right shoulder (principal); M25.511 Pain in right shoulder
CPT/HCPCS: 73030